=== PATIENT | female | born 1945 | race African-American/Black ===

== ENCOUNTER → 2017-09-17 | Outpatient (CLI) | payer MEDICARE ==
--- NOTE | 2017-09-17 17:36 | WOMENS IMAGING REPORT ---
EXAM DESCRIPTION: BILAT SCREENING MAMMO W/CAD COMPLETED DATE/TIME: 09/17/2017 8:55 am REASON FOR STUDY: SCREENING MAMMO Z12.31 ENCNTR SCREEN MAMMOGRAM FOR MALIGNANT NEOPLASM OF EVONNE COMPARISON: 2014, 2015 TECHNIQUE: Standard craniocaudal and mediolateral oblique views of each breast recorded using digita l acquisition. LIMITATIONS: None. FINDINGS: No masses, calcifications or architectural distortion. No areas of suspicion. Read with the assistance of CAD. .[facility] - R2 Cenova Version 1.3 .[facility] Imaging - R2 Cenova Version 1.3 .[facility] Imaging - R2 Cenova Version 2.4 .[facility] [place] - R2 Cenova Version 2.4 .[facility] - R2 Curtain Worker Version 9.2 IMPRESSION: NORMAL MAMMOGRAM. BIRADS 1. BREAST DENSITY: b. There are scattered areas of fibroglandular density. BIRAD: 1 NEGATIVE RECOMMENDATION: ROUTINE SCREENING COMMENT: The patient has been notified of the results by letter per MQSA requirements. Additional no tification policies are in place for contacting patient with suspicious or incomplete findings. Quality ID #[id number]: The [employer] recommends an annual screening mammogram for women aged 40 years or over. This facility utilizes a reminder system to ensure that all patients receive reminder letters, and/or direct phone calls for appointments. This includes reminders for routine scr eening mammograms, diagnostic mammograms, or other Breast Imaging Interventions when appropriate. Th is patient will be placed in the appropriate reminder system. The [employer] (ACR) has developed recommendations for screening MRI of the breast s in certain patient populations, to be used in conjunction with mammography. Breast MRI surveillanc e may be appropriate for women with more than 20% lifetime risk of developing breast cancer as deter mined by genetic testing, significant family history of the disease, or history of mantle radiation f or Hodgkins Disease. ACR Practice Guidelines 2008. TECHNICAL DOCUMENTATION: FINDING NUMBER: (1) ASSESSMENT: (1) JOB ID: [id number] [employer]- All Rights Reserved
== END ==
LOC: WI 08:32
PROVIDERS: ATTEND Internal Medicine
DX: Z12.31 Encounter for screening mammogram for malignant neoplasm of breast (principal)
CPT/HCPCS: 77067

== ENCOUNTER → 2017-12-24 | Outpatient (CLI) | payer MEDICAID, MEDICARE ==
--- NOTE | 2017-12-24 10:18 | RADIOLOGY REPORT (SQ) ---
EXAM DESCRIPTION: U/S RETROPERITON (RENAL/AORTA) COMPLETED DATE/TIME: 12/24/2017 10:02 am REASON FOR STUDY: CKD STAGE IV N18.4 CHRONIC KIDNEY DISEASE, STAGE 4 (SEVERE) COMPARISON: None. TECHNIQUE: Dynamic and static grayscale images acquired of the kidneys and bladder and recorded on P ACS. Additional selected color Doppler and spectral images recorded. LIMITATIONS: None. FINDINGS: RIGHT KIDNEY: The right kidney measures 9.3 cm in length, normal size. Diffuse increased echogenicity suggests underlying medical renal disease. No solid or suspicious masses. No hydroneph rosis. No calcifications. LEFT KIDNEY: The left kidney measures 9.1 cm in length, normal size. Diffuse increased echogenicity of the kidney, suggests underlying medical renal disease. A 2.6 x 2.2 x 2.1 cm cyst lower pole of t he kidney. No hydronephrosis. No calcifications. BLADDER: No masses. OTHER FINDINGS: No other significant finding. IMPRESSION: 1 No hydronephrosis. 2 Diffuse increased echogenicity of the kidneys, suggests underlying medical renal disease. 3 Left renal cyst. TECHNICAL DOCUMENTATION: JOB ID: [id number]- All Rights Reserved Reading location - IP/workstation name: [email or web address]
== END ==
LOC: RAD 08:20
PROVIDERS: ATTEND Internal Medicine Nephrology
DX: N18.4 Chronic kidney disease, stage 4 (severe) (principal); E11.9 Type 2 diabetes mellitus without complications; E79.0 Hyperuricemia without signs of inflammatory arthritis and tophaceous disease
CPT/HCPCS: 76770

== ENCOUNTER 2020-01-03 13:49 | Inpatient (IN) | payer MEDICAID, MEDICARE ==
--- NOTE | 2020-01-03 14:16 | ER Document Report ---
ED Fall - General Chief Complaint: Fall Stated Complaint: WEAKNESS Time Seen by Provider: 01/03/20 14:00 Primary Care Provider: GLEN MILLAN MD [Primary Care Provider] - Follow up as needed Notes: Patient is a 74-year-old female who presents the emergency department with weakness, poor appetite, and a fall that happened at 1:00 this morning. Patient was brought in by ambulance and according to the ambulance report, patient was still lying on the floor. Patient states that she was incontinent of urine when she was on the floor. Patient reports that she has had a poor appetite for the past month. Patient lives by herself. She does not receive home health. Patient states that she is also had increased swelling to bilateral lower extremities. Past medical history includes diabetes, hypertension, hyperlipidemia, chronic pain, chronic kidney disease, stage IV and constipation. Past surgical history includes ankle surgery and "left breast cyst removal." TRAVEL OUTSIDE OF THE [place] IN LAST 30 DAYS: No - Related data Allergies/Adverse Reactions: No Known Allergies Allergy (Verified 06/28/16 10:27) Past Medical History - General Information source: Patient - Social History Smoking Status: Never Smoker Chew tobacco use (# tins/day): No Frequency of alcohol use: None Drug Abuse: None Family History: Reviewed & Not Pertinent Patient has homicidal ideation: No - Past Medical History Cardiac Medical History: Reports: Hx Hypercholesterolemia, Hx Hypertension Endocrine Medical History: Reports: Hx Diabetes Mellitus Type 2 Past Surgical History: Reports: Hx Orthopedic Surgery - right left/sacrum - Immunizations Hx Diphtheria, Pertussis, Tetanus Vaccination: Yes Review of Systems - Review of Systems Notes: REVIEW OF SYSTEMS: CONSTITUTIONAL : Denies recent illness. Denies recent unintentional weight loss. Denies fever, chills, or sweats. EENT: Denies eye, ear, throat, or mouth pain, discharge, or symptoms. Denies nasal or sinus congestion. CARDIOVASCULAR: Denies chest pain. RESPIRATORY: Denies shortness of breath, cough, congestion, difficulty breathing, or wheezing. GASTROINTESTINAL: Denies nausea, vomiting, and diarrhea. Denies abdominal pain. Denies constipation. GENITOURINARY: Denies difficulty urinating, burning, blood in urine, urgency or frequency. MUSCULOSKELETAL: Denies neck and back pain. Denies joint pain or swelling. SKIN: Denies rash, itchiness, or lesions HEMATOLOGIC : Denies easy bruising or bleeding. LYMPHATIC: Denies swollen, painful, enlarged glands. NEUROLOGICAL: See HPI. PSYCHIATRIC: Denies stress, anxiety, alteration in sleep patterns, or depression. All other systems reviewed and negative. Physical Exam - Vital signs Vitals: Temp Pulse Resp BP Pulse Ox 97.9 F 80 24 H 168/71 H 95 01/03/20 14:03 01/03/20 14:03 01/03/20 14:03 01/03/20 14:03 01/03/20 14:03 - Notes Notes: PHYSICAL EXAMINATION: GENERAL: Appears well, healthy, well-nourished, no acute distress. HEAD: Normocephalic, atraumatic. EYES: PERRL, conjunctiva normal, all extraocular movements intact, sclera nonicteric ENT: Moist mucous membranes. NECK: Supple, no noticeable swelling, redness, rash. Normal range of motion. LUNGS: Equal breath sounds bilaterally and clear to auscultation. No wheezes rales or rhonchi. CARDIOVASCULAR: S1-S2, regular rate, regular rhythm. Radial pulses 2+, normal. ABDOMEN: Normoactive bowel sounds. Soft, nontender, no guarding, no rebound tenderness, and no masses palpated. EXTREMITIES: Normal strength and range of motion, no pitting or edema. No cyanosis. NEUROLOGICAL: Moves all extremities upon command. Strength 5/5 in all extremities. PSYCH: Normal mood, normal affect. SKIN: Warm, dry. No rash, lesions, ulcerations noted. Normal skin turgor. Course - Re-evaluation Re-evalutation: 01/03/20 16:03 Patient's hematology does not show leukocytosis, but there is a left shift. CT of the head is unremarkable. Chest x-ray shows pulmonary edema or pneumonia, but this is most likely pulmonary edema, as her BNP is elevated at 2860. Troponin is unremarkable. I spoke with Dr. Millan, the patient's primary care provider. She will be admitted to [facility]. Awaiting urinalysis. Straight cath was ordered. - Vital Signs Vital signs: Temp Pulse Resp BP Pulse Ox 97.9 F 80 24 H 168/71 H 95 01/03/20 14:04 01/03/20 14:03 01/03/20 14:03 01/03/20 14:03 01/03/20 14:24 - Laboratory Result Diagrams: 01/03/20 14:06 01/03/20 14:06 Laboratory results interpreted by me: 01/03/20 01/03/20 01/03/20 14:06 14:06 14:06 RDW 16.5 H Plt Count 143 L Seg Neutrophils % 79.2 H Sodium 135.5 L BUN 40 H Creatinine 1.34 H Est GFR ( Amer) 47 L Est GFR (MDRD) Non-Af 38 L Glucose 188 H Calcium 10.3 H AST 118 H ALT 96 H Creatine Kinase 2539 H NT-Pro-B Natriuret Pep 2860 H - EKG Interpretation by Me Additional EKG results interpreted by me: 01/03/20 16:04 Sinus rhythm with right bundle branch block. Rate 61. MS 152; QRS 130; QT 473; QTc 480. No ST elevations. T wave inversions noted. Patient denies any chest pain at this time. Discharge - Discharge Clinical Impression: Dehydration, Elevated CK Condition: Stable Disposition: ADMITTED INPATIENT Admitting Provider: Deepak Unit Admitted: IMCU Referrals: GLEN MILLAN MD [Primary Care Provider] - Follow up as needed
[2020-01-03 14:23] LABS: ABSOLUTE BASOPHILS # (AUTO) 0.1 10^3/uL (0.0-0.2); ABSOLUTE EOSINOPHILS # (AUTO) 0.1 10^3/uL (0.0-0.6); ABSOLUTE LYMPHOCYTES (AUTO) 1.4 10^3/uL (0.5-4.7); ABSOLUTE MONOCYTES (AUTO) 0.6 10^3/uL (0.1-1.4); ABSOLUTE NEUT (AUTO) 7.7 10^3/uL (1.7-8.2); BASOPHILS % (AUTO) 0.5 % (0-2); EOSINOPHILS % (AUTO) 0.7 % (0-6); HEMATOCRIT 40.8 % (36.0-47.0); HEMOGLOBIN 13.6 g/dL (12.0-15.5); MEAN CORPUSCULAR HEMOGLOBIN 27.3 pg (27.0-33.4); MEAN CORPUSCULAR HGB CONC 33.3 g/dL (32.0-36.0); MEAN CORPUSCULAR VOLUME 82 fl (80-97); MONOCYTES % (AUTO) 5.6 % (3-13); PLATELET COUNT 143 10^3/uL (150-450); RED BLOOD COUNT 4.99 10^6/uL (3.72-5.28); RED CELL DISTRIBUTION WIDTH 16.5 % (11.5-14.0); SEGMENTED NEUTROPHILS % (AUTO) 79.2 % (42-78); TOTAL CELLS COUNTED % (AUTO) 100 %; WHITE BLOOD COUNT 9.8 10^3/uL (4.0-10.5)
[2020-01-03 14:29] LABS: INTERNATIONAL RATION (INR) 1.07; PROTHROMBIN TIME 13.9 SEC (11.4-15.4)
[2020-01-03 14:30] LABS: PARTIAL THROMBOPLASTIN TIME 25.1 SEC (23.5-35.8)
[2020-01-03 14:46] LABS: ALBUMIN 3.7 g/dL (3.5-5.0); ALKALINE PHOSPHATASE 76 U/L (38-126); ANION GAP 8 (5-19); ASPARTATE AMINO TRANSFERASE 118 U/L (14-36); BILIRUBIN,TOTAL 0.8 mg/dL (0.2-1.3); BLOOD UREA NITROGEN 40 mg/dL (7-20); CALCIUM 10.3 mg/dL (8.4-10.2); CARBON DIOXIDE 28 mmol/L (22-30); CHLORIDE 100 mmol/L (98-107); GLUCOSE 188 mg/dL (75-110); POTASSIUM 4.2 mmol/L (3.6-5.0); TOTAL PROTEIN 7.8 g/dL (6.3-8.2)
[2020-01-03 14:54] LABS: CREATINE KINASE 2539 U/L (30-135)
--- NOTE | 2020-01-03 14:56 | RADIOLOGY REPORT (SQ) ---
EXAM DESCRIPTION: CT HEAD WITHOUT IMAGES COMPLETED DATE/TIME: 01/03/2020 2:43 pm REASON FOR STUDY: fall; weakness COMPARISON: None. TECHNIQUE: Axial images acquired through the brain without intravenous contrast. Images reviewed wi th bone, brain and subdural windows. Additional sagittal and coronal reconstructions were generated. Images stored on PACS. All CT scanners at this facility use dose modulation, iterative reconstruction, and/or weight based d osing when appropriate to reduce radiation dose to as low as reasonably achievable (ALARA). [facility]: Dose Right [facility]: CareDose [facility]: Dose Right [facility]: Teradose 4D [facility]: Smart AlignAlytics RADIATION DOSE: CT Rad equipment meets quality standard of care and radiation dose reduction techniq ues were employed. CTDIvol: 53.2 mGy. DLP: 1124 mGy-cm.mGy. LIMITATIONS: None. FINDINGS: VENTRICLES: Prominent. CEREBRUM: No masses. No hemorrhage. No midline shift. Areas of low density in the white matter mos t likely due to chronic micro-vascular ischemic change. No evidence for acute infarction. CEREBELLUM: Old right cerebellar infarct. No masses. No hemorrhage. No alteration of density. No evidence for acute infarction. EXTRAAXIAL SPACES: Age-related involutional change. No fluid collections. No masses. ORBITS AND GLOBE: No intra- or extraconal masses. Normal contour of globe without masses. CALVARIUM: No fracture. PARANASAL SINUSES: No fluid or mucosal thickening. SOFT TISSUES: No mass or hematoma. OTHER: Dense calcifications in the distal right internal carotid artery. No other significant findin g. IMPRESSION: CHRONIC CHANGES OF ATROPHY AND MICROVASCULAR ISCHEMIA. OLD RIGHT CEREBELLAR INFARCT. N O ACUTE PROCESS. EVIDENCE OF ACUTE STROKE: NO. TECHNICAL DOCUMENTATION: JOB ID: [id number] Quality ID # [id number]: Final reports with documentation of one or more dose reduction techniques (e.g., Au tomated exposure control, adjustment of the mA and/or kV according to patient size, use of iterative reconstruction technique) 2010 [employer]- All Rights Reserved Reading location - IP/workstation name: [email or web address]
--- NOTE | 2020-01-03 14:57 | RADIOLOGY REPORT (SQ) ---
EXAM DESCRIPTION: CHEST SINGLE VIEW IMAGES COMPLETED DATE/TIME: 01/03/2020 2:48 pm REASON FOR STUDY: weakness COMPARISON: 02/03/2009. NUMBER OF VIEWS: One view. TECHNIQUE: Single frontal radiographic view of the chest acquired. LIMITATIONS: None. FINDINGS: LUNGS AND PLEURA: Diffuse airspace disease in the left lung. Bilateral pleural effusions. MEDIASTINUM AND HILAR STRUCTURES: No masses or contour abnormality. HEART AND VASCULATURE: Cardiac enlargement. Vascular congestion. BONES: No acute findings. HARDWARE: None in the chest. OTHER: No other significant finding. IMPRESSION: CARDIAC ENLARGEMENT. VASCULAR CONGESTION. DIFFUSE AIRSPACE DISEASE IN THE LEFT LUNG MA Y BE DUE TO ASYMMETRIC PULMONARY EDEMA OR PNEUMONIA. TECHNICAL DOCUMENTATION: JOB ID: [id number] 2010 [employer]- All Rights Reserved Reading location - IP/workstation name: [email or web address]
[2020-01-03 14:59] LABS: TROPONIN I 0.086 ng/mL
[2020-01-03] MEDS ORDERED: NORMAL SALINE 1000 ML 1,000 ML IV ONE (15:36)
--- NOTE | 2020-01-03 17:10 | EKG REPORT ---
SEVERITY:- ABNORMAL ECG - SINUS RHYTHM RIGHT BUNDLE BRANCH BLOCK LVH WITH IVCD AND SECONDARY REPOL ABNRM : Confirmed by: Chloe Anderson MD 03-Jan-2020 17:09:09
[2020-01-03 17:17] LABS: APPEARANCE,URINE CLEAR; BILIRUBIN,URINE NEGATIVE (NEGATIVE); COLOR,URINE YELLOW; GLUCOSE, URINE NEGATIVE (NEGATIVE); KETONES,URINE NEGATIVE (NEGATIVE); LEUKOCYTE ESTERASE,URINE NEGATIVE (NEGATIVE); NITRITE,URINE NEGATIVE (NEGATIVE); PROTEIN,URINE 100 mg/dL (NEGATIVE); URINE SPECIFIC GRAVITY 1.015; UROBILINOGEN,URINE NEGATIVE mg/dL (<2.0)
[2020-01-03] MEDS ORDERED: DEXTROSE 40% GEL 15 GM TUBE X 2 PO PRN (20:00)
[2020-01-03] MEDS ORDERED: DEXTROSE 50%-WATER SYRINGE 25 GM/50 ML DOSE IV PRN (20:00)
[2020-01-03] MEDS ORDERED: GLUCAGON,HUMAN RECOMB 1 MG INJ IM PRN ×2 (20:00→22:29)
[2020-01-03] MEDS ORDERED: DEXTROSE 50%-WATER SYRINGE 12.5 GM/25 ML DOSE IV PRN (20:00)
[2020-01-03] MEDS ORDERED: INSULIN LISPRO 100 UNIT/ML 3 ML VIAL SUBCUT SCH (22:00)
[2020-01-03] MEDS ORDERED: ACETAMINOPHEN 325 MG TABLET PO PRN (22:28)
[2020-01-03] MEDS ORDERED: DEXTROSE 40% GEL 15 GM TUBE PO PRN ×2 (22:29)
[2020-01-03] MEDS ORDERED: DEXTROSE 50%-WATER 25 GM/50 ML DISP.SYRIN IV PRN ×2 (22:29)
[2020-01-03] MEDS ORDERED: LISINOPRIL 10 MG TABLET PO ONE (23:00)
[2020-01-03] MEDS ORDERED: SIMVASTATIN 40 MG TABLET PO SCH (23:00)
[2020-01-03] MEDS ORDERED: SIMVASTATIN 40 MG TABLET PO ONE (23:00)
[2020-01-03] MEDS ORDERED: METOPROLOL TARTRATE 50 MG TABLET PO ONE (23:00)
[2020-01-03] MEDS ORDERED: INSULIN LISPRO 100 UNIT/ML 3 ML VIAL SUBCUT ONE (23:00)
[2020-01-03] MEDS ORDERED: HYDROCHLOROTHIAZIDE 25 MG TABLET PO ONE (23:00)
[2020-01-04] MEDS ORDERED: INSULIN LISPRO 100 UNIT/ML 3 ML VIAL SUBCUT SCH (08:00)
[2020-01-04] MEDS ORDERED: HYDROCHLOROTHIAZIDE 25 MG TABLET PO SCH (10:00)
[2020-01-04] MEDS: GLIMEPIRIDE 1 MG TABLET PO SCH (10:41)
[2020-01-04] MEDS: PIOGLITAZONE HCL 15 MG TABLET PO SCH (10:41)
[2020-01-04] MEDS: ASPIRIN 81 MG TABLET, ENT COATED PO SCH ×2 (10:41→15:03)
[2020-01-04] MEDS: METOPROLOL TARTRATE 50 MG TABLET PO SCH ×2 (10:43→17:14)
[2020-01-04] MEDS: LISINOPRIL 10 MG TABLET PO SCH ×3 (10:43→21:22)
[2020-01-04] MEDS ORDERED: DEXTROSE 40% GEL 15 GM TUBE PO PRN (11:30)
[2020-01-04] MEDS ORDERED: DEXTROSE 40% GEL 15 GM TUBE X 2 PO PRN (11:30)
[2020-01-04] MEDS ORDERED: GLUCAGON,HUMAN RECOMB 1 MG INJ IM PRN (11:30)
[2020-01-04] MEDS ORDERED: DEXTROSE 50%-WATER SYRINGE 12.5 GM/25 ML DOSE IV PRN (11:30)
[2020-01-04] MEDS ORDERED: DEXTROSE 50%-WATER SYRINGE 25 GM/50 ML DOSE IV PRN (11:30)
[2020-01-04] MEDS ORDERED: ULTRACET PO SCH (13:15)
[2020-01-04] MEDS ORDERED: (PENDING PHARMACY ID) (Lisinopril/Hydrochlorothiazide [Lisinopril-Hctz 20-12.5 Mg Tab] 1 T PO SCH (13:15)
[2020-01-04] MEDS: BRIMONIDINE TARTRATE 0.2% OPH SOLN 5 ML OU SCH ×2 (15:04→17:12)
[2020-01-04] MEDS: TIMOLOL MALEATE 0.5% OPH SOLN 5 ML OU SCH ×2 (15:05→17:12)
--- NOTE | 2020-01-04 16:26 | PDOC H&P ---
History of Present Illness Admission Date/PCP: 01/03/20 16:23 GLEN MILLAN MD History of Present Illness: RAFAEL MCLAUGHLIN is a 74 year old female, She came to the emergency room for evaluation of a fall, she said she fell about 1 AM, she could not get of the floor, she called rescue squad on arrival she was still found on the floor by the ambulance staff, she was transported from her residence to the emergency room for evaluation. There was no antecedent loss of consciousness, there was no chest pain, there was no shortness of breath. In the emergency room CT head was done, there was no hemorrhage, there was old right cerebellar infarct no masses. The emergency room provider felt patient was dehydrated and needed to be admitted to the hospital. She has a history of chronic kidney disease stage III emergency room the serum creatinine was 1.34 the CPK was 2539 the BNP was 2860. I am very concerned about possible CVA in this patient, she has focal weakness when I examined especially on the left side of her body, a diffusion- weighted imaging is more sensitive in the diagnosis of cerebral infarct or cerebellar infarct Past Medical History Cardiac Medical History: Reports: Hyperlipidema, Hypertension Neurological Medical History: Reports: Ischemic CVA Endocrine Medical History: Reports: Diabetes Mellitus Type 2 Renal/ Medical History: Reports: Other - Chronic kidney disease stage III Past Surgical History Past Surgical History: Reports: Orthopedic Surgery - right left/sacrum,right hip replacement Social History Smoking Status: Never Smoker Electronic Cigarette use?: No Frequency of Alcohol Use: None Hx Recreational Drug Use: No Drugs: None Hx Prescription Drug Abuse: No Family History Family History: Reviewed & Not Pertinent Parental Family History Reviewed: Yes Children Family History Reviewed: Yes Sibling(s) Family History Reviewed.: Yes Medication/Allergy Home Medications: Metoprolol Tartrate [Lopressor] 50 mg PO BID 01/03/20 Simvastatin 40 mg PO QHS 01/03/20 Aspirin [Adult Low Dose Aspirin EC] 81 mg PO DAILY 01/04/20 Brimonidine Tartrate [Alphagan 0.2% Oph Soln 5 ml] 1 drop OU BID 01/04/20 Glimepiride 2 mg PO DAILY 01/04/20 Hydralazine HCl 100 mg PO BID@0800,1900 01/04/20 Insulin Detemir [Levemir Insulin 100 units/mL Insulin Pen] 25 units SQ QPM 01/04/20 Linaclotide [Linzess] 290 mcg PO DAILY 01/04/20 Lisinopril/Hydrochlorothiazide [Lisinopril-Hctz 20-12.5 mg Tab] 1 tab PO BID 01/04/20 Pioglitazone HCl [Actos] 15 mg PO DAILY 01/04/20 Timolol Maleate [Timoptic 0.5% Oph Soln 5 ml] 1 drop OU BID 01/04/20 Ultracet 37.5/325mg 1 tab PO Q6 01/04/20 Allergies/Adverse Reactions: No Known Allergies Allergy (Verified 06/28/16 10:27) Review of Systems Constitutional: ABSENT: chills, fever(s), headache(s), weight gain, weight loss Eyes: ABSENT: visual disturbances Ears: ABSENT: hearing changes Cardiovascular: ABSENT: chest pain, dyspnea on exertion, edema, orthropnea, palpitations Respiratory: ABSENT: cough, hemoptysis Gastrointestinal: ABSENT: abdominal pain, constipation, diarrhea, hematemesis, hematochezia, nausea, vomiting Genitourinary: ABSENT: dysuria, hematuria Musculoskeletal: ABSENT: joint swelling Integumentary: ABSENT: rash, wounds Neurological: PRESENT: weakness. ABSENT: abnormal gait, abnormal speech, confusion, dizziness, focal weakness, syncope Psychiatric: ABSENT: anxiety, depression, homidical ideation, suicidal ideation Endocrine: ABSENT: cold intolerance, heat intolerance, menstrual abnormalities, polydipsia, polyuria Hematologic/Lymphatic: ABSENT: easy bleeding, easy bruising, lymphadenopathy Physical Exam Vital Signs: Temp Pulse Resp BP Pulse Ox 98.4 F 73 19 159/65 H 96 01/04/20 08:06 01/04/20 08:06 01/04/20 08:06 01/04/20 08:06 01/04/20 08:06 Intake & Output 01/03/20 01/04/20 01/05/20 06:59 06:59 06:59 Intake Total 1000 Balance 1000 Weight 76.1 kg General appearance: PRESENT: no acute distress Head exam: PRESENT: atraumatic, normocephalic Eye exam: PRESENT: PERRLA Ear exam: PRESENT: normal external ear exam Mouth exam: PRESENT: moist, tongue midline Neck exam: PRESENT: full ROM Respiratory exam: PRESENT: clear to auscultation freddy Cardiovascular exam: PRESENT: RRR, +S1, +S2 Pulses: PRESENT: normal dorsalis pedis pul, +2 pedal pulses bilateral Vascular exam: PRESENT: normal capillary refill GI/Abdominal exam: PRESENT: normal bowel sounds, soft Rectal exam: PRESENT: deferred Neurological exam: PRESENT: alert, motor sensory deficit Psychiatric exam: PRESENT: appropriate affect, normal mood Skin exam: PRESENT: dry, intact, warm Results Laboratory Results: 01/03/20 14:06 01/03/20 14:06 01/03/20 16:06 Urine Color YELLOW Urine Appearance CLEAR Urine pH 6.0 Ur Specific [place] 1.015 Urine Protein 100 H Urine Glucose (UA) NEGATIVE Urine Ketones NEGATIVE Urine Blood SMALL H Urine Nitrite NEGATIVE Ur Leukocyte Esterase NEGATIVE Urine WBC (Auto) 1 Urine RBC (Auto) 2 01/03/20 01/03/20 14:06 14:06 Creatine Kinase 2539 H Troponin I 0.086 NT-Pro-B Natriuret Pep 2860 H Impressions: Chest X-Ray 01/03/20 14:13 IMPRESSION: CARDIAC ENLARGEMENT. VASCULAR CONGESTION. DIFFUSE AIRSPACE DISEASE IN THE LEFT LUNG MAY BE DUE TO ASYMMETRIC PULMONARY EDEMA OR PNEUMONIA. Head CT 01/03/20 14:14 IMPRESSION: CHRONIC CHANGES OF ATROPHY AND MICROVASCULAR ISCHEMIA. OLD RIGHT CEREBELLAR INFARCT. NO ACUTE PROCESS. EVIDENCE OF ACUTE STROKE: NO. Assessment & Plan - Diagnosis (1) Rhabdomyolysis Qualifiers: Rhabdomyolysis type: traumatic Encounter type: initial encounter Qualified Code(s): T79.6XXA - Traumatic ischemia of muscle, initial encounter Is this a current diagnosis for this admission?: Yes Plan: Start normal saline with Lasix infusion (2) Chronic kidney disease, stage 3 Is this a current diagnosis for this admission?: Yes (3) Fall Qualifiers: Encounter type: initial encounter Qualified Code(s): W19.XXXA - Unspecified fall, initial encounter Is this a current diagnosis for this admission?: Yes Plan: I suspect she sustained a CVA,, MRI brain showed bilateral cerebellar infarct right more than left, this is probably the reason why she fell because of lack of coordination. She has cerebellar infarct with episodes of vertigo, lack of coordination and fall (4) T2DM (type 2 diabetes mellitus) Qualifiers: Diabetes mellitus halfway insulin use: with exterminator helper use Diabetes mellitus complication status: with kidney complications Diabetes mellitus complication detail: with chronic kidney disease Chronic kidney disease stage: stage 3 (moderate) Qualified Code(s): E11.22 - Type 2 diabetes mellitus with diabetic chronic kidney disease; N18.3 - Chronic kidney disease, stage 3 (moderate); Z79.4 - long term (current) use of insulin Is this a current diagnosis for this admission?: Yes (5) Cerebellar infarction Is this a current diagnosis for this admission?: Yes
--- NOTE | 2020-01-04 16:56 | RADIOLOGY REPORT (SQ) ---
EXAM DESCRIPTION: MRI HEAD WITHOUT IMAGES COMPLETED DATE/TIME: 01/04/2020 4:46 pm REASON FOR STUDY: suspect CVA COMPARISON: CT dated 01/03/2020. TECHNIQUE: Multiplanar imaging includes non-contrasted T1, T2, FLAIR, and diffusion with ADC map seq uences. Images stored on PACS. LIMITATIONS: None. FINDINGS: ANATOMY: No anomalies. Normal vascular flow voids. Pituitary fossa normal. CSF SPACES: Atrophy induced prominence of ventricles and CSF spaces. CEREBRUM: High signal intensity lesions scattered throughout the white matter on FLAIR imaging with d istribution suggesting micro-vascular ischemic changes. No evidence of hemorrhage, mass, or extraaxi al fluid collection. POSTERIOR FOSSA: Old cerebellar infarcts, right greater than left. No hemorrhage. No edema, masses or mass effect. Internal auditory canals, cerebello-pontine angles, mastoids normal. DIFFUSION IMAGING: Negative for acute or sub-acute infarction. ORBITS: No masses. Globes normal. PARANASAL SINUSES: No fluid levels. Mucosa normal. OTHER: No other significant finding. IMPRESSION: ATROPHY AND CHRONIC MICRO-VASCULAR ISCHEMIC CHANGES. OLD CEREBELLAR INFARCTS, RIGHT GRE ATER THAN LEFT. NO ACUTE FINDINGS. EVIDENCE OF ACUTE STROKE: NO. TECHNICAL DOCUMENTATION: JOB ID: [id number] 2010 [employer]- All Rights Reserved Reading location - IP/workstation name: [email or web address]
[2020-01-04] MEDS: NORMAL SALINE 1000 ML 1,000 ML IV PRN (17:04)
[2020-01-04] MEDS: INSULIN LISPRO 100 UNIT/ML 3 ML VIAL SUBCUT SCH ×2 (17:07→21:21)
[2020-01-04] MEDS: HEPARIN SOD (PORCINE) 5,000 UNIT/ML 1 ML VIAL SUBCUT SCH ×2 (17:10→21:22)
[2020-01-04] MEDS: INSULIN GLARGINE,HUM.REC.ANLOG 1,000 UNIT/10 ML VIAL SUBCUT SCH (17:13)
--- NOTE | 2020-01-04 17:32 | PDOC PROGRESS REPORT ---
Subjective Progress Note for:: 01/04/20 Subjective:: Patient was admitted yesterday due to fall associated with rhabdomyolysis. MRI of the brain demonstrated old cerebellar infarct. Patient with bilateral disorder and repeated fall. Reason For Visit: RHABDOMYOLYSIS,FALL,FL CKD STAGE 3 Physical Exam Vital Signs: Temp Pulse Resp BP Pulse Ox 98.4 F 71 19 159/65 H 96 01/04/20 08:06 01/04/20 14:00 01/04/20 08:06 01/04/20 08:06 01/04/20 08:06 Intake & Output 01/03/20 01/04/20 01/05/20 06:59 06:59 06:59 Intake Total 1000 Balance 1000 Weight 76.1 kg General appearance: PRESENT: no acute distress Eye exam: PRESENT: PERRLA Respiratory exam: PRESENT: clear to auscultation freddy Cardiovascular exam: PRESENT: +S1, +S2 GI/Abdominal exam: PRESENT: soft Neurological exam: PRESENT: alert, CN II-XII grossly intact Results Laboratory Results: 01/03/20 14:06 01/03/20 14:06 01/03/20 01/03/20 14:06 14:06 Creatine Kinase 2539 H Troponin I 0.086 NT-Pro-B Natriuret Pep 2860 H Impressions: Chest X-Ray 01/03/20 14:13 IMPRESSION: CARDIAC ENLARGEMENT. VASCULAR CONGESTION. DIFFUSE AIRSPACE DISEASE IN THE LEFT LUNG MAY BE DUE TO ASYMMETRIC PULMONARY EDEMA OR PNEUMONIA. Head CT 01/03/20 14:14 IMPRESSION: CHRONIC CHANGES OF ATROPHY AND MICROVASCULAR ISCHEMIA. OLD RIGHT CEREBELLAR INFARCT. NO ACUTE PROCESS. EVIDENCE OF ACUTE STROKE: NO. Head MRI 01/04/20 00:00 IMPRESSION: ATROPHY AND CHRONIC MICRO-VASCULAR ISCHEMIC CHANGES. OLD CEREBELLAR INFARCTS, RIGHT GREATER THAN LEFT. NO ACUTE FINDINGS. EVIDENCE OF ACUTE STROKE: NO. Assessment & Plan - Diagnosis (1) Rhabdomyolysis Qualifiers: Rhabdomyolysis type: traumatic Encounter type: initial encounter Qualif ied Code(s): T79.6XXA - Traumatic ischemia of muscle, initial encounter Is this a current diagnosis for this admission?: Yes Plan: Continue IV fluid, normal saline with Lasix infusion to prevent overload. Send urine for myoglobin (2) Chronic kidney disease, stage 3 Is this a current diagnosis for this admission?: Yes (3) Fall Qualifiers: Encounter type: initial encounter Qualified Code(s): W19.XXXA - Unspecified fall, initial encounter Is this a current diagnosis for this admission?: Yes (4) T2DM (type 2 diabetes mellitus) Qualifiers: Diabetes mellitus intermediate school teacher insulin use: with intermediate school teacher use Diabetes mellitus complication status: with kidney complications Diabetes mellitus complication detail: with chronic kidney disease Chronic kidney disease stage: stage 3 (moderate) Qualified Code(s): E11.22 - Type 2 diabetes mellitus with diabetic chronic kidney disease; N18.3 - Chronic kidney disease, stage 3 (moderate); Z79.4 - halfway (current) use of insulin Is this a current diagnosis for this admission?: Yes (5) Cerebellar infarction Is this a current diagnosis for this admission?: Yes - Time Time Spent with patient: 25-34 minutes Level of Care: IMCU
[2020-01-04] MEDS ORDERED: INSULIN DETEMIR 25 UNIT SQ SCH (18:00)
[2020-01-04] MEDS ORDERED: [UNRECOGNIZED DRUG - OTHER] SQ SCH (18:00)
[2020-01-04] MEDS ORDERED: FUROSEMIDE INJ/PF 100 MG/10 ML SDV INJ PRN (18:03)
[2020-01-04] MEDS: HYDRALAZINE HCL 50 MG TABLET PO SCH (18:10)
[2020-01-04 18:11] LABS: INTERNATIONAL RATION (INR) 1.15; PARTIAL THROMBOPLASTIN TIME 31.6 SEC (23.5-35.8); PROTHROMBIN TIME 14.8 SEC (11.4-15.4)
[2020-01-04 18:25] LABS: PHOSPHORUS 2.7 mg/dL (2.5-4.5)
[2020-01-04 18:43] LABS: FREE T4 (FREE THYROXINE) 1.6 ng/dL (0.78-2.19)
[2020-01-04 18:47] LABS: TROPONIN I 0.107 ng/mL
[2020-01-04 18:58] LABS: THYROID STIMULATING HORMONE 0.99 uIU/mL (0.47-4.68)
[2020-01-04] MEDS ORDERED: (PENDING PHARMACY ID) (Hydralazine Hcl [Hydralazine Hcl] 100 MG) PO SCH (19:00)
[2020-01-04] MEDS: NORMAL SALINE 250 ML with FUROSEMIDE 250 MG IV PRN ×2 (19:24)
[2020-01-04] MEDS: HYDROCHLOROTHIAZIDE 12.5 MG TABLET PO SCH (21:21)
[2020-01-04 22:56] LABS: APPEARANCE,URINE CLEAR; BILIRUBIN,URINE NEGATIVE (NEGATIVE); COLOR,URINE YELLOW; GLUCOSE, URINE NEGATIVE (NEGATIVE); KETONES,URINE NEGATIVE (NEGATIVE); LEUKOCYTE ESTERASE,URINE NEGATIVE (NEGATIVE); NITRITE,URINE NEGATIVE (NEGATIVE); PROTEIN,URINE NEGATIVE (NEGATIVE); UROBILINOGEN,URINE NEGATIVE mg/dL (<2.0)
[2020-01-04 23:21] LABS: URINE AMPHETAMINES SCREEN NEGATIVE; URINE BARBITURATES SCREEN NEGATIVE; URINE BENZODIAZEPINES SCREEN NEGATIVE; URINE COCAINE SCREEN NEGATIVE; URINE MARIJUANA (THC) SCREEN NEGATIVE; URINE METHADONE SCREEN NEGATIVE; URINE PHENCYCLIDINE SCREEN NEGATIVE
[2020-01-04 23:36] LABS: CREATINE KINASE MB 31.9 ng/mL (<4.55); TROPONIN I 0.097 ng/mL
[2020-01-05 06:06] LABS: ABSOLUTE EOSINOPHILS # (AUTO) 0.2 10^3/uL (0.0-0.6); ABSOLUTE LYMPHOCYTES (AUTO) 2.1 10^3/uL (0.5-4.7); ABSOLUTE MONOCYTES (AUTO) 0.8 10^3/uL (0.1-1.4); ABSOLUTE NEUT (AUTO) 5.2 10^3/uL (1.7-8.2); BASOPHILS % (AUTO) 0.4 % (0-2); EOSINOPHILS % (AUTO) 2.8 % (0-6); HEMATOCRIT 33.9 % (36.0-47.0); HEMOGLOBIN 11.6 g/dL (12.0-15.5); LYMPHOCYTES % (AUTO) 25.5 % (13-45); MEAN CORPUSCULAR HEMOGLOBIN 27.7 pg (27.0-33.4); MEAN CORPUSCULAR HGB CONC 34.2 g/dL (32.0-36.0); MEAN CORPUSCULAR VOLUME 81 fl (80-97); PLATELET COUNT 137 10^3/uL (150-450); RED BLOOD COUNT 4.19 10^6/uL (3.72-5.28); RED CELL DISTRIBUTION WIDTH 16.1 % (11.5-14.0); SEGMENTED NEUTROPHILS % (AUTO) 61.3 % (42-78); TOTAL CELLS COUNTED % (AUTO) 100 %; WHITE BLOOD COUNT 8.4 10^3/uL (4.0-10.5)
[2020-01-05] MEDS: HEPARIN SOD (PORCINE) 5,000 UNIT/ML 1 ML VIAL SUBCUT SCH ×3 (06:10→21:41)
[2020-01-05 06:26] LABS: ALBUMIN 2.8 g/dL (3.5-5.0); ALKALINE PHOSPHATASE 55 U/L (38-126); ANION GAP 5 (5-19); ASPARTATE AMINO TRANSFERASE 76 U/L (14-36); BILIRUBIN,TOTAL 0.7 mg/dL (0.2-1.3); BLOOD UREA NITROGEN 35 mg/dL (7-20); CALCIUM 9.3 mg/dL (8.4-10.2); CARBON DIOXIDE 25 mmol/L (22-30); CHLORIDE 105 mmol/L (98-107); CHOLESTEROL 137.07 mg/dL (0-200); CREATINE KINASE 1151 U/L (30-135); GLUCOSE 145 mg/dL (75-110); POTASSIUM 3.8 mmol/L (3.6-5.0); TOTAL PROTEIN 6.4 g/dL (6.3-8.2); TRIGLYCERIDES 84 mg/dL (<150)
[2020-01-05 06:37] LABS: DIRECT LDL 93 mg/dL (<100)
[2020-01-05 06:40] LABS: CREATINE KINASE MB 24.2 ng/mL (<4.55); TROPONIN I 0.092 ng/mL
--- NOTE | 2020-01-05 08:28 | EKG REPORT ---
SEVERITY:- ABNORMAL ECG - SINUS RHYTHM 68 RIGHT BUNDLE BRANCH BLOCK LVH WITH IVCD AND SECONDARY REPOL ABNRM : Confirmed by: Celestino Lagos MD 05-Jan-2020 08:27:55
[2020-01-05] MEDS: GLIMEPIRIDE 1 MG TABLET PO SCH (09:49)
[2020-01-05] MEDS: LISINOPRIL 10 MG TABLET PO SCH ×4 (09:50→21:51)
[2020-01-05] MEDS: ASPIRIN 81 MG TABLET, ENT COATED PO SCH ×2 (09:50→10:20)
[2020-01-05] MEDS: METOPROLOL TARTRATE 50 MG TABLET PO SCH ×2 (09:50→17:18)
[2020-01-05] MEDS: PIOGLITAZONE HCL 15 MG TABLET PO SCH (09:50)
[2020-01-05] MEDS: HYDROCHLOROTHIAZIDE 12.5 MG TABLET PO SCH ×2 (09:50→21:44)
[2020-01-05] MEDS: HYDRALAZINE HCL 50 MG TABLET PO SCH ×2 (09:56→18:55)
[2020-01-05] MEDS: INSULIN LISPRO 100 UNIT/ML 3 ML VIAL SUBCUT SCH ×4 (09:56→21:41)
[2020-01-05] MEDS: NORMAL SALINE 1000 ML 1,000 ML IV PRN ×2 (09:57→18:54)
[2020-01-05] MEDS: BRIMONIDINE TARTRATE 0.2% OPH SOLN 5 ML OU SCH ×2 (09:57→17:18)
[2020-01-05] MEDS: TIMOLOL MALEATE 0.5% OPH SOLN 5 ML OU SCH ×2 (09:57→17:17)
--- NOTE | 2020-01-05 13:48 | PDOC PROGRESS REPORT ---
Subjective Progress Note for:: 01/05/20 Subjective:: Patient seen at the bedside, she looks better today compared to when she was admitted. The chest x-ray from 01/03/2020 showed diffuse airspace disease in the left lung. Bilateral pleural effusion,though patient having no respiratory symptoms, we will repeat a chest x-ray. She has a history of bilateral cerebellar infarction with repeated falls, she will need on discharge a walker with a seat and also a wheelchair, discharge plan will be consulted to make arrangement for this devices. Reason For Visit: RHABDOMYOLYSIS,FALL,IL CKD STAGE 3 Physical Exam Vital Signs: Temp Pulse Resp BP Pulse Ox 98.7 F 65 18 146/61 H 99 01/05/20 11:30 01/05/20 11:30 01/05/20 11:30 01/05/20 11:30 01/05/20 11:30 Intake & Output 01/04/20 01/05/20 01/06/20 06:59 06:59 06:59 Intake Total 1000 1355 348 Output Total 1250 Balance 1000 105 348 Weight 76.1 kg 78.7 kg General appearance: PRESENT: no acute distress Eye exam: PRESENT: PERRLA Respiratory exam: PRESENT: clear to auscultation freddy Cardiovascular exam: PRESENT: +S1, +S2 GI/Abdominal exam: PRESENT: soft Neurological exam: PRESENT: alert, CN II-XII grossly intact Results Laboratory Results: 01/05/20 05:30 01/05/20 05:30 01/04/20 01/04/20 01/04/20 17:50 17:50 17:50 WBC RBC Hgb Hct MCV MCH MCHC RDW Plt Count Seg Neutrophils % Sodium Potassium Chloride Carbon Dioxide Anion Gap BUN Creatinine Est GFR ( Amer) Glucose Calcium Phosphorus 2.7 Magnesium 1.8 Total Bilirubin AST Alkaline Phosphatase Ammonia < 8.7 L Total Protein Albumin Triglycerides Cholesterol LDL Cholesterol Direct VLDL Cholesterol HDL Cholesterol Amylase 43 Lipase 86.8 TSH 0.99 Free T4 1.60 Urine Color Urine Appearance Urine pH Ur Specific [place] Urine Protein Urine Glucose (UA) Urine Ketones Urine Blood Urine Nitrite Ur Leukocyte Esterase Urine WBC (Auto) Urine RBC (Auto) 01/04/20 01/05/20 01/05/20 22:40 05:30 05:30 WBC 8.4 RBC 4.19 Hgb 11.6 L Hct 33.9 L MCV 81 MCH 27.7 MCHC 34.2 RDW 16.1 H Plt Count 137 L Seg Neutrophils % 61.3 Sodium 135.0 L Potassium 3.8 Chloride 105 Carbon Dioxide 25 Anion Gap 5 BUN 35 H Creatinine 1.33 H Est GFR ( Amer) 47 L Glucose 145 H Calcium 9.3 Phosphorus Magnesium Total Bilirubin 0.7 AST 76 H Alkaline Phosphatase 55 Ammonia Total Protein 6.4 Albumin 2.8 L Triglycerides 84 Cholesterol 137.07 LDL Cholesterol Direct 93 VLDL Cholesterol 17.0 HDL Cholesterol 37 L Amylase Lipase TSH Free T4 Urine Color YELLOW Urine Appearance CLEAR Urine pH 5.0 Ur Specific [place] 1.010 Urine Protein NEGATIVE Urine Glucose (UA) NEGATIVE Urine Ketones NEGATIVE Urine Blood NEGATIVE Urine Nitrite NEGATIVE Ur Leukocyte Esterase NEGATIVE Urine WBC (Auto) 1 Urine RBC (Auto) 1 01/03/20 01/03/20 01/04/20 14:06 14:06 17:50 Creatine Kinase 2539 H 1453 H CK-MB (CK-2) Troponin I 0.086 NT-Pro-B Natriuret Pep 2860 H 01/04/20 01/04/20 01/04/20 17:50 23:00 23:00 Creatine Kinase 1293 H CK-MB (CK-2) 41.00 H 31.90 H Troponin I 0.107 0.097 NT-Pro-B Natriuret Pep 2690 H 01/05/20 01/05/20 05:30 05:30 Creatine Kinase 1151 H CK-MB (CK-2) 24.20 H Troponin I 0.092 NT-Pro-B Natriuret Pep Impressions: Chest X-Ray 01/03/20 14:13 IMPRESSION: CARDIAC ENLARGEMENT. VASCULAR CONGESTION. DIFFUSE AIRSPACE DISEASE IN THE LEFT LUNG MAY BE DUE TO ASYMMETRIC PULMONARY EDEMA OR PNEUMONIA. Head CT 01/03/20 14:14 IMPRESSION: CHRONIC CHANGES OF ATROPHY AND MICROVASCULAR ISCHEMIA. OLD RIGHT CEREBELLAR INFARCT. NO ACUTE PROCESS. EVIDENCE OF ACUTE STROKE: NO. Head MRI 01/04/20 00:00 IMPRESSION: ATROPHY AND CHRONIC MICRO-VASCULAR ISCHEMIC CHANGES. OLD CEREBELLAR INFARCTS, RIGHT GREATER THAN LEFT. NO ACUTE FINDINGS. EVIDENCE OF ACUTE STROKE: NO. Assessment & Plan - Diagnosis (1) Rhabdomyolysis Qualifiers: Rhabdomyolysis type: traumatic Encounter type: initial encounter Qualified Code(s): T79.6XXA - Traumatic ischemia of muscle, initial encounter Is this a current diagnosis for this admission?: Yes Plan: The CPK is declining, continue present plan of treatment with intravenous normal saline and furosemide infusion (2) Chronic kidney disease, stage 3 Is this a current diagnosis for this admission?: Yes (3) Fall Qualifiers: Encounter type: initial encounter Qualified Code(s): W19.XXXA - Unspecified fall, initial encounter Is this a current diagnosis for this admission?: Yes Plan: Patient's fall is most likely from cerebellar infarction with lack of coordination and balance problem, she will need walker and wheelchair on discharge (4) T2DM (type 2 diabetes mellitus) Qualifiers: Diabetes mellitus metallurgical inspector insulin use: with care home use Diabetes mellitus complication status: with kidney complications Diabetes mellitus complication detail: with chronic kidney disease Chronic kidney disease stage: stage 3 (moderate) Qualified Code(s): E11.22 - Type 2 diabetes mellitus with diabetic chronic kidney disease; N18.3 - Chronic kidney disease, stage 3 (moderate); Z79.4 - press tender smoke signal (current) use of insulin Is this a current diagnosis for this admission?: Yes (5) Cerebellar infarction Is this a current diagnosis for this admission?: Yes (6) Abnormal CXR Is this a current diagnosis for this admission?: Yes Plan: order CT chest - Time Time Spent with patient: 25-34 minutes Level of Care: [facility]
--- NOTE | 2020-01-05 14:22 | RADIOLOGY REPORT (SQ) ---
EXAM DESCRIPTION: CHEST SINGLE VIEW IMAGES COMPLETED DATE/TIME: 01/05/2020 2:11 pm REASON FOR STUDY: abnormal CXR COMPARISON: 01/03/2020 EXAM PARAMETERS: NUMBER OF VIEWS: One view. TECHNIQUE: Single frontal radiographic view of the chest acquired. RADIATION DOSE: NA LIMITATIONS: None. FINDINGS: LUNGS AND PLEURA: Fairly dense airspace disease in the left lung. Left hemidiaphragm is o bscured. Cannot exclude left pleural effusion. Cannot exclude a suprahilar nodule on the right lauryn uring about 2 cm. MEDIASTINUM AND HILAR STRUCTURES: No masses. Contour normal. HEART AND VASCULAR STRUCTURES: Cardiomegaly. BONES: No acute findings. HARDWARE: None in the chest. OTHER: No other significant finding. IMPRESSION: Cardiomegaly. No fiorella pulmonary edema. Airspace disease in the left lung, likely pneu monia. Cannot exclude suprahilar nodule in the right lung. TECHNICAL DOCUMENTATION: JOB ID: [id number] 2010 [employer]- All Rights Reserved Reading location - IP/workstation name: [email or web address]
--- NOTE | 2020-01-05 15:01 | RADIOLOGY REPORT (SQ) ---
EXAM DESCRIPTION: CT CHEST WITHOUT IMAGES COMPLETED DATE/TIME: 01/05/2020 2:46 pm REASON FOR STUDY: abnormal CXR COMPARISON: Chest x-ray 01/05/2020 TECHNIQUE: CT scan performed of the chest without intravenous contrast. Images reviewed with lung, soft tissue and bone windows. Reconstructed coronal and sagittal MPR images reviewed. All images st ored on PACS. All CT scanners at this facility use dose modulation, iterative reconstruction, and/or weight based d osing when appropriate to reduce radiation dose to as low as reasonably achievable (ALARA). [facility]: Dose Right [facility]: CareDose [facility]: Dose Right [facility]: Teradose 4D [facility]: Smart [employer] RADIATION DOSE: CT Rad equipment meets quality standard of care and radiation dose reduction techniq ues were employed. CTDIvol: 10.8 mGy. DLP: 359 mGy-cm. mGy. LIMITATIONS: No technical limitations. FINDINGS: LUNGS AND PLEURA: There is no suprahilar mass on the right. There is patchy airspace dise ase in the left lower lobe, left upper lobe, and in the right lower lobe. Air bronchograms are prese nt. HILAR AND MEDIASTINAL STRUCTURES: No identified masses or abnormal nodes. No obvious aneurysm. HEART AND VASCULAR STRUCTURES: No aneurysm. Cardiomegaly. UPPER ABDOMEN: No significant findings. Limited exam. THYROID AND OTHER SOFT TISSUES: No masses. No adenopathy. BONES: No significant finding. HARDWARE: None in the chest. OTHER: No other significant findings. IMPRESSION: 1. Bilateral airspace disease, likely multicentric pneumonia. 2. There is no suprahilar mass on the right. 3. Cardiomegaly with no fiorella pulmonary edema. TECHNICAL DOCUMENTATION: JOB ID: [id number] Quality ID # [id number]: Final reports with documentation of one or more dose reduction techniques (e.g., Au tomated exposure control, adjustment of the mA and/or kV according to patient size, use of iterative reconstruction technique) 2010 [employer]- All Rights Reserved Reading location - IP/workstation name: [email or web address]
[2020-01-05] MEDS ORDERED: LEVOFLOXACIN 750 MG/D5W RTU 750 MG/150 ML RTUPB IV SCH (16:00)
[2020-01-05] MEDS: LEVOFLOXACIN 500 MG/D5W RTU 500 MG/100 ML RTUPB IV SCH (16:32)
[2020-01-05] MEDS: NORMAL SALINE 250 ML with FUROSEMIDE 250 MG IV PRN ×2 (16:33)
[2020-01-05] MEDS: PHARMACY COMMUNICATION ORDER MC SCH (17:18)
[2020-01-05] MEDS: INSULIN GLARGINE,HUM.REC.ANLOG 1,000 UNIT/10 ML VIAL SUBCUT SCH (17:18)
[2020-01-05] MEDS ORDERED: CEFTRIAXONE SODIUM 1,500 MG in DEXTROSE 5%-WATER 100 ML IV SCH (18:00)
[2020-01-05] MEDS: AMPICILLIN SODIUM/SULBACTAM NA 3 GM in NORMAL SALINE 100 ML IV SCH (18:55)
[2020-01-06] MEDS: AMPICILLIN SODIUM/SULBACTAM NA 3 GM in NORMAL SALINE 100 ML IV SCH ×4 (00:17→18:44)
[2020-01-06] MEDS: HEPARIN SOD (PORCINE) 5,000 UNIT/ML 1 ML VIAL SUBCUT SCH ×2 (05:31→14:01)
[2020-01-06] MEDS: NORMAL SALINE 1000 ML 1,000 ML IV PRN ×2 (05:45→17:44)
[2020-01-06 06:16] LABS: ABSOLUTE BASOPHILS # (AUTO) 0.1 10^3/uL (0.0-0.2); ABSOLUTE EOSINOPHILS # (AUTO) 0.3 10^3/uL (0.0-0.6); ABSOLUTE LYMPHOCYTES (AUTO) 2.1 10^3/uL (0.5-4.7); ABSOLUTE NEUT (AUTO) 6.9 10^3/uL (1.7-8.2); BASOPHILS % (AUTO) 0.5 % (0-2); EOSINOPHILS % (AUTO) 2.8 % (0-6); HEMATOCRIT 35.4 % (36.0-47.0); LYMPHOCYTES % (AUTO) 20.4 % (13-45); MEAN CORPUSCULAR HEMOGLOBIN 27.3 pg (27.0-33.4); MEAN CORPUSCULAR HGB CONC 33.8 g/dL (32.0-36.0); MEAN CORPUSCULAR VOLUME 81 fl (80-97); MONOCYTES % (AUTO) 9.3 % (3-13); PLATELET COUNT 130 10^3/uL (150-450); RED BLOOD COUNT 4.37 10^6/uL (3.72-5.28); RED CELL DISTRIBUTION WIDTH 16.3 % (11.5-14.0); TOTAL CELLS COUNTED % (AUTO) 100 %; WHITE BLOOD COUNT 10.2 10^3/uL (4.0-10.5)
[2020-01-06] MEDS: INSULIN LISPRO 100 UNIT/ML 3 ML VIAL SUBCUT SCH ×3 (08:29→17:22)
[2020-01-06] MEDS: ASPIRIN 81 MG TABLET, ENT COATED PO SCH ×2 (09:24→09:25)
[2020-01-06] MEDS: METOPROLOL TARTRATE 50 MG TABLET PO SCH ×2 (09:25→17:31)
[2020-01-06] MEDS: PIOGLITAZONE HCL 15 MG TABLET PO SCH (09:26)
[2020-01-06] MEDS: HYDRALAZINE HCL 50 MG TABLET PO SCH ×2 (09:26→18:44)
[2020-01-06] MEDS: GLIMEPIRIDE 1 MG TABLET PO SCH (09:26)
[2020-01-06] MEDS: LISINOPRIL 10 MG TABLET PO SCH ×3 (09:27→22:24)
[2020-01-06] MEDS: TIMOLOL MALEATE 0.5% OPH SOLN 5 ML OU SCH ×2 (09:28→17:42)
[2020-01-06] MEDS: BRIMONIDINE TARTRATE 0.2% OPH SOLN 5 ML OU SCH ×2 (09:28→17:42)
[2020-01-06] MEDS: HYDROCHLOROTHIAZIDE 12.5 MG TABLET PO SCH ×2 (09:34→22:24)
[2020-01-06] MEDS: TRAMADOL HCL 50 MG TABLET PO PRN (09:46)
[2020-01-06] MEDS: LEVOFLOXACIN 500 MG/D5W RTU 500 MG/100 ML RTUPB IV SCH (17:30)
[2020-01-06] MEDS: NORMAL SALINE 250 ML with FUROSEMIDE 250 MG IV PRN ×2 (17:31)
[2020-01-06] MEDS: PHARMACY COMMUNICATION ORDER MC SCH (17:43)
[2020-01-06] MEDS ORDERED: INSULIN GLARGINE,HUM.REC.ANLOG 1,000 UNIT/10 ML VIAL (PYX) SUBCUT ONE (18:15)
[2020-01-06 18:22] LABS: ALBUMIN 2.8 g/dL (3.5-5.0); ALKALINE PHOSPHATASE 53 U/L (38-126); ANION GAP 7 (5-19); ASPARTATE AMINO TRANSFERASE 73 U/L (14-36); BILIRUBIN,TOTAL 0.7 mg/dL (0.2-1.3); BLOOD UREA NITROGEN 37 mg/dL (7-20); CALCIUM 9.1 mg/dL (8.4-10.2); CARBON DIOXIDE 26 mmol/L (22-30); CHLORIDE 101 mmol/L (98-107); GLUCOSE 117 mg/dL (75-110); POTASSIUM 3.5 mmol/L (3.6-5.0); TOTAL PROTEIN 6.5 g/dL (6.3-8.2)
[2020-01-06] MEDS ORDERED: NORMAL SALINE 250 ML with FUROSEMIDE 250 MG IV PRN ×2 (21:30)
--- NOTE | 2020-01-06 21:34 | PDOC PROGRESS REPORT ---
Subjective Progress Note for:: 01/06/20 Subjective:: Patient seen by the bedside she is coughing, diuresing quite well Reason For Visit: RHABDOMYOLYSIS,FALL,[place] CKD STAGE 3 Physical Exam Vital Signs: Temp Pulse Resp BP Pulse Ox 98.7 F 74 21 H 131/59 H 96 01/06/20 16:21 01/06/20 16:21 01/06/20 16:21 01/06/20 16:21 01/06/20 16:21 Intake & Output 01/05/20 01/06/20 01/07/20 06:59 06:59 06:59 Intake Total 1355 2229 1940 Output Total 1250 4675 1200 Balance 105 -2446 740 Weight 78.7 kg 77.4 kg General appearance: PRESENT: no acute distress Eye exam: PRESENT: PERRLA Respiratory exam: PRESENT: clear to auscultation freddy Cardiovascular exam: PRESENT: +S1, +S2 GI/Abdominal exam: PRESENT: soft Neurological exam: PRESENT: alert Results Laboratory Results: 01/06/20 05:47 01/06/20 05:47 01/06/20 01/06/20 05:47 05:47 WBC 10.2 RBC 4.37 Hgb 12.0 Hct 35.4 L MCV 81 MCH 27.3 MCHC 33.8 RDW 16.3 H Plt Count 130 L Seg Neutrophils % 67.0 Sodium 134.3 L Potassium 3.5 L Chloride 101 Carbon Dioxide 26 Anion Gap 7 BUN 37 H Creatinine 1.57 H Est GFR ( Amer) 39 L Glucose 117 H Calcium 9.1 Total Bilirubin 0.7 AST 73 H Alkaline Phosphatase 53 Total Protein 6.5 Albumin 2.8 L 01/03/20 01/03/20 01/04/20 14:06 14:06 17:50 Creatine Kinase 2539 H 1453 H CK-MB (CK-2) Troponin I 0.086 NT-Pro-B Natriuret Pep 2860 H 01/04/20 01/04/20 01/04/20 17:50 23:00 23:00 Creatine Kinase 1293 H CK-MB (CK-2) 41.00 H 31.90 H Troponin I 0.107 0.097 NT-Pro-B Natriuret Pep 2690 H 01/05/20 01/05/20 05:30 05:30 Creatine Kinase 1151 H CK-MB (CK-2) 24.20 H Troponin I 0.092 NT-Pro-B Natriuret Pep Impressions: Head CT 01/03/20 14:14 IMPRESSION: CHRONIC CHANGES OF ATROPHY AND MICROVASCULAR ISCHEMIA. OLD RIGHT CEREBELLAR INFARCT. NO ACUTE PROCESS. EVIDENCE OF ACUTE STROKE: NO. Head MRI 01/04/20 00:00 IMPRESSION: ATROPHY AND CHRONIC MICRO-VASCULAR ISCHEMIC CHANGES. OLD CEREBELLAR INFARCTS, RIGHT GREATER THAN LEFT. NO ACUTE FINDINGS. EVIDENCE OF ACUTE STROKE: NO. Chest CT 01/05/20 00:00 IMPRESSION: 1. Bilateral airspace disease, likely multicentric pneumonia. 2. There is no suprahilar mass on the right. 3. Cardiomegaly with no fiorella pulmonary edema. Chest X-Ray 01/05/20 00:00 IMPRESSION: Cardiomegaly. No fiorella pulmonary edema. Airspace disease in the left lung, likely pneumonia. Cannot exclude suprahilar nodule in the right lung. Assessment & Plan - Diagnosis (1) Rhabdomyolysis Qualifiers: Rhabdomyolysis type: traumatic Encounter type: initial encounter Qualified Code(s): T79.6XXA - Traumatic ischemia of muscle, initial encounter Is this a current diagnosis for this admission?: Yes Plan: Continue present treatment, Reduce infusion rate of Lasix to 2 mg/h (2) Chronic kidney disease, stage 3 Is this a current diagnosis for this admission?: Yes (3) Fall Qualifiers: Encounter type: initial encounter Qualified Code(s): W19.XXXA - Unspecified fall, initial encounter Is this a current diagnosis for this admission?: Yes (4) T2DM (type 2 diabetes mellitus) Qualifiers: Diabetes mellitus custodial insulin use: with patient service representative use Diabetes mellitus complication status: with kidney complications Diabetes mellitus complication detail: with chronic kidney disease Chronic kidney disease stage: stage 3 (moderate) Qualified Code(s): E11.22 - Type 2 diabetes mellitus with diabetic chronic kidney disease; N18.3 - Chronic kidney disease, stage 3 (moderate); Z79.4 - hotel administrative assistant (current) use of insulin Is this a current diagnosis for this admission?: Yes (5) Cerebellar infarction Is this a current diagnosis for this admission?: Yes Plan: History of cerebellar infarction (6) Abnormal CXR Is this a current diagnosis for this admission?: Yes (7) Aspiration pneumonia Qualifiers: Aspiration pneumonia type: unspecified Laterality: bilateral Lung locat ion: unspecified part of lung Qualified Code(s): J69.0 - Pneumonitis due to inhalation of food and vomit Is this a current diagnosis for this admission?: Yes Plan: He has aspiration pneumonia continue Unasyn TRACE [place] - Time Time Spent with patient: 25-34 minutes Level of Care: IMCU
[2020-01-07] MEDS: AMPICILLIN SODIUM/SULBACTAM NA 3 GM in NORMAL SALINE 100 ML IV SCH ×4 (01:00→18:09)
[2020-01-07] MEDS: HEPARIN SOD (PORCINE) 5,000 UNIT/ML 1 ML VIAL SUBCUT SCH ×4 (03:50→21:15)
[2020-01-07] MEDS: INSULIN LISPRO 100 UNIT/ML 3 ML VIAL SUBCUT SCH ×4 (03:51→18:17)
[2020-01-07 06:55] LABS: ABSOLUTE EOSINOPHILS # (AUTO) 0.2 10^3/uL (0.0-0.6); ABSOLUTE MONOCYTES (AUTO) 1.1 10^3/uL (0.1-1.4); ABSOLUTE NEUT (AUTO) 7.6 10^3/uL (1.7-8.2); BASOPHILS % (AUTO) 0.2 % (0-2); EOSINOPHILS % (AUTO) 1.7 % (0-6); HEMATOCRIT 34.2 % (36.0-47.0); HEMOGLOBIN 11.4 g/dL (12.0-15.5); LYMPHOCYTES % (AUTO) 18.7 % (13-45); MEAN CORPUSCULAR HEMOGLOBIN 26.9 pg (27.0-33.4); MEAN CORPUSCULAR HGB CONC 33.4 g/dL (32.0-36.0); MEAN CORPUSCULAR VOLUME 81 fl (80-97); MONOCYTES % (AUTO) 9.8 % (3-13); PLATELET COUNT 141 10^3/uL (150-450); RED BLOOD COUNT 4.25 10^6/uL (3.72-5.28); RED CELL DISTRIBUTION WIDTH 16.8 % (11.5-14.0); SEGMENTED NEUTROPHILS % (AUTO) 69.6 % (42-78); TOTAL CELLS COUNTED % (AUTO) 100 %; WHITE BLOOD COUNT 10.9 10^3/uL (4.0-10.5)
[2020-01-07 07:12] LABS: ALBUMIN 2.8 g/dL (3.5-5.0); ALKALINE PHOSPHATASE 48 U/L (38-126); ANION GAP 9 (5-19); ASPARTATE AMINO TRANSFERASE 75 U/L (14-36); BILIRUBIN,DIRECT 0.2 mg/dL (0.0-0.4); BILIRUBIN,TOTAL 0.7 mg/dL (0.2-1.3); BLOOD UREA NITROGEN 36 mg/dL (7-20); CALCIUM 8.9 mg/dL (8.4-10.2); CARBON DIOXIDE 27 mmol/L (22-30); CHLORIDE 99 mmol/L (98-107); CREATINE KINASE 1255 U/L (30-135); GLUCOSE 105 mg/dL (75-110); POTASSIUM 3.7 mmol/L (3.6-5.0); TOTAL PROTEIN 6.5 g/dL (6.3-8.2)
[2020-01-07] MEDS: GLIMEPIRIDE 1 MG TABLET PO SCH (09:52)
[2020-01-07] MEDS: METOPROLOL TARTRATE 50 MG TABLET PO SCH ×2 (09:52→18:09)
[2020-01-07] MEDS: ASPIRIN 81 MG TABLET, ENT COATED PO SCH (09:52)
[2020-01-07] MEDS: LISINOPRIL 10 MG TABLET PO SCH ×2 (09:53→21:16)
[2020-01-07] MEDS: BRIMONIDINE TARTRATE 0.2% OPH SOLN 5 ML OU SCH ×2 (09:54→18:15)
[2020-01-07] MEDS: HYDROCHLOROTHIAZIDE 12.5 MG TABLET PO SCH ×2 (09:54→21:17)
[2020-01-07] MEDS: TIMOLOL MALEATE 0.5% OPH SOLN 5 ML OU SCH ×2 (09:54→18:16)
[2020-01-07] MEDS: HYDRALAZINE HCL 50 MG TABLET PO SCH ×2 (10:01→19:15)
[2020-01-07] MEDS: PIOGLITAZONE HCL 15 MG TABLET PO SCH (10:01)
--- NOTE | 2020-01-07 10:22 | RADIOLOGY REPORT (SQ) ---
EXAM DESCRIPTION: FOOT LEFT 2 VIEWS IMAGES COMPLETED DATE/TIME: 01/07/2020 9:59 am REASON FOR STUDY: left foot pain COMPARISON: None. NUMBER OF VIEWS: Two views. TECHNIQUE: AP and lateral radiographic images acquired of the left foot. LIMITATIONS: None. FINDINGS: MINERALIZATION: Osteopenia. BONES: No acute fracture or dislocation. JOINTS: The normal tarsometatarsal alignment is preserved. There is no periarticular osteopenia or e rosion. SOFT TISSUES: Mild diffuse soft tissue swelling. OTHER: Enthesophytes at the calcaneal insertion of the Achilles tendon and plantar fascia. IMPRESSION: No acute osseous abnormality of the left foot. TECHNICAL DOCUMENTATION: JOB ID: [id number] 2010 [employer]- All Rights Reserved Reading location - IP/workstation name: [email or web address]
[2020-01-07] MEDS: INSULIN GLARGINE,HUM.REC.ANLOG 1,000 UNIT/10 ML VIAL SUBCUT SCH (18:17)
[2020-01-07] MEDS: PHARMACY COMMUNICATION ORDER MC SCH (18:19)
--- NOTE | 2020-01-07 19:07 | PDOC PROGRESS REPORT ---
Subjective Progress Note for:: 01/07/20 Subjective:: Patient seen by the bedside, she has less cough compared to the last few days presently on Unasyn for aspiration pneumonia, the urine myoglobulin was normal suggesting that she probably does not have rhabdomyolysis, I will discontinue the Lasix drip, continue IV fluid for few more days, hopefully discharge to halfway for rehabilitation, She complained of constipation Reason For Visit: RHABDOMYOLYSIS,FALL,[place] CKD STAGE 3 Physical Exam Vital Signs: Temp Pulse Resp BP Pulse Ox 98.6 F 75 20 130/60 H 95 01/07/20 16:01 01/07/20 16:01 01/07/20 16:01 01/07/20 16:01 01/07/20 16:01 Intake & Output 01/06/20 01/07/20 01/08/20 06:59 06:59 06:59 Intake Total 2229 2770 460 Output Total 4639 3235 1300 Balance -1221 -305 -840 Weight 77.4 kg 77 kg General appearance: PRESENT: no acute distress Eye exam: PRESENT: PERRLA Respiratory exam: PRESENT: clear to auscultation freddy Cardiovascular exam: PRESENT: +S1, +S2 GI/Abdominal exam: PRESENT: soft Neurological exam: PRESENT: alert, CN II-XII grossly intact Results Laboratory Results: 01/07/20 06:12 01/07/20 06:12 01/07/20 01/07/20 06:12 06:12 WBC 10.9 H RBC 4.25 Hgb 11.4 L Hct 34.2 L MCV 81 MCH 26.9 L MCHC 33.4 RDW 16.8 H Plt Count 141 L Seg Neutrophils % 69.6 Sodium 135.2 L Potassium 3.7 Chloride 99 Carbon Dioxide 27 Anion Gap 9 BUN 36 H Creatinine 1.59 H Est GFR ( Amer) 38 L Glucose 105 Calcium 8.9 Total Bilirubin 0.7 AST 75 H Alkaline Phosphatase 48 Total Protein 6.5 Albumin 2.8 L 01/04/20 22:40 Catheterized Urine Urine Culture - Final NO GROWTH 2 DAYS 01/03/20 01/03/20 01/04/20 14:06 14:06 17:50 Creatine Kinase 2539 H 1453 H CK-MB (CK-2) Troponin I 0.086 NT-Pro-B Natriuret Pep 2860 H 01/04/20 01/04/20 01/04/20 17:50 23:00 23:00 Creatine Kinase 1293 H CK-MB (CK-2) 41.00 H 31.90 H Troponin I 0.107 0.097 NT-Pro-B Natriuret Pep 2690 H 01/05/20 01/05/20 01/06/20 05:30 05:30 05:47 Creatine Kinase 1151 H 1197 H CK-MB (CK-2) 24.20 H Troponin I 0.092 NT-Pro-B Natriuret Pep 01/07/20 06:12 Creatine Kinase 1255 H CK-MB (CK-2) Troponin I NT-Pro-B Natriuret Pep Impressions: Head CT 01/03/20 14:14 IMPRESSION: CHRONIC CHANGES OF ATROPHY AND MICROVASCULAR ISCHEMIA. OLD RIGHT CEREBELLAR INFARCT. NO ACUTE PROCESS. EVIDENCE OF ACUTE STROKE: NO. Head MRI 01/04/20 00:00 IMPRESSION: ATROPHY AND CHRONIC MICRO-VASCULAR ISCHEMIC CHANGES. OLD C EREBELLAR INFARCTS, RIGHT GREATER THAN LEFT. NO ACUTE FINDINGS. EVIDENCE OF ACUTE STROKE: NO. Chest CT 01/05/20 00:00 IMPRESSION: 1. Bilateral airspace disease, likely multicentric pneumonia. 2. There is no suprahilar mass on the right. 3. Cardiomegaly with no fiorella pulmonary edema. Chest X-Ray 01/05/20 00:00 IMPRESSION: Cardiomegaly. No fiorella pulmonary edema. Airspace disease in the left lung, likely pneumonia. Cannot exclude suprahilar nodule in the right lung. Foot X-Ray 01/07/20 09:00 IMPRESSION: No acute osseous abnormality of the left foot. Assessment & Plan - Diagnosis (1) Rhabdomyolysis Qualifiers: Rhabdomyolysis type: traumatic Encounter type: initial encounter Qualified Code(s): T79.6XXA - Traumatic ischemia of muscle, initial encounter Is this a current diagnosis for this admission?: Yes Plan: Discontinue furosemide infusion (2) Chronic kidney disease, stage 3 Is this a current diagnosis for this admission?: Yes (3) Fall Qualifiers: Encounter type: initial encounter Qualified Code(s): W19.XXXA - Unspecified fall, initial encounter Is this a current diagnosis for this admission?: Yes (4) T2DM (type 2 diabetes mellitus) Qualifiers: Diabetes mellitus halfway insulin use: with extermination inspector use Diabetes mellitus complication status: with kidney complications Diabetes mellitus complication detail: with chronic kidney disease Chronic kidney disease stage: stage 3 (moderate) Qualified Code(s): E11.22 - Type 2 diabetes mellitus with diabetic chronic kidney disease; N18.3 - Chronic kidney disease, stage 3 (moderate); Z79.4 - superintendent container terminal (current) use of insulin Is this a current diagnosis for this admission?: Yes (5) Cerebellar infarction Is this a current diagnosis for this admission?: Yes (6) Abnormal CXR Is this a current diagnosis for this admission?: Yes (7) Aspiration pneumonia Qualifiers: Aspiration pneumonia type: unspecified Laterality: bilateral Lung location: unspecified part of lung Qualified Code(s): J69.0 - Pneumonitis due to inhalation of food and vomit Is this a current diagnosis for this admission?: Yes Plan: Continue IV fluid - Time Time Spent with patient: 25-34 minutes Level of Care: IMCU
[2020-01-08] MEDS: AMPICILLIN SODIUM/SULBACTAM NA 3 GM in NORMAL SALINE 100 ML IV SCH ×4 (01:00→18:00)
[2020-01-08] MEDS: INSULIN LISPRO 100 UNIT/ML 3 ML VIAL SUBCUT SCH ×5 (01:26→22:25)
[2020-01-08] MEDS: NORMAL SALINE 1000 ML 1,000 ML IV PRN (01:33)
[2020-01-08] MEDS: HEPARIN SOD (PORCINE) 5,000 UNIT/ML 1 ML VIAL SUBCUT SCH ×3 (06:07→22:25)
[2020-01-08 08:41] LABS: ALBUMIN 2.6 g/dL (3.5-5.0); ALKALINE PHOSPHATASE 47 U/L (38-126); ANION GAP 7 (5-19); ASPARTATE AMINO TRANSFERASE 76 U/L (14-36); BILIRUBIN,DIRECT 0.1 mg/dL (0.0-0.4); BILIRUBIN,TOTAL 0.7 mg/dL (0.2-1.3); BLOOD UREA NITROGEN 35 mg/dL (7-20); CALCIUM 8.5 mg/dL (8.4-10.2); CARBON DIOXIDE 28 mmol/L (22-30); CHLORIDE 99 mmol/L (98-107); GLUCOSE 139 mg/dL (75-110); POTASSIUM 3.5 mmol/L (3.6-5.0)
[2020-01-08] MEDS: PIOGLITAZONE HCL 15 MG TABLET PO SCH (09:27)
[2020-01-08] MEDS: LISINOPRIL 10 MG TABLET PO SCH ×2 (09:28→22:24)
[2020-01-08] MEDS: GLIMEPIRIDE 1 MG TABLET PO SCH (09:28)
[2020-01-08] MEDS: HYDROCHLOROTHIAZIDE 12.5 MG TABLET PO SCH ×2 (09:28→22:25)
[2020-01-08] MEDS: ASPIRIN 81 MG TABLET, ENT COATED PO SCH (09:28)
[2020-01-08] MEDS: HYDRALAZINE HCL 50 MG TABLET PO SCH ×2 (09:28→22:24)
[2020-01-08] MEDS: METOPROLOL TARTRATE 50 MG TABLET PO SCH ×2 (09:28→18:05)
[2020-01-08] MEDS: BRIMONIDINE TARTRATE 0.2% OPH SOLN 5 ML OU SCH ×2 (09:29→18:05)
[2020-01-08] MEDS: TIMOLOL MALEATE 0.5% OPH SOLN 5 ML OU SCH ×2 (09:29→18:05)
[2020-01-08] MEDS: INSULIN GLARGINE,HUM.REC.ANLOG 1,000 UNIT/10 ML VIAL SUBCUT SCH (18:01)
--- NOTE | 2020-01-08 21:58 | PDOC PROGRESS REPORT ---
Subjective Progress Note for:: 01/08/20 Subjective:: Patient seen by the bedside, she has less cough compared to the last few days presently on Unasyn for aspiration pneumonia, the urine myoglobulin was normal suggesting that she probably does not have rhabdomyolysis, I will discontinue the Lasix drip, continue IV fluid for few more days, hopefully discharge to shelter for rehabilitation, She complained of constipation,yet to have Molasses enema Reason For Visit: RHABDOMYOLYSIS,FALL,[place] CKD STAGE 3 Physical Exam Vital Signs: Temp Pulse Resp BP Pulse Ox 99.7 F 96 24 H 110/46 L 90 L 01/08/20 19:25 01/08/20 19:25 01/08/20 19:25 01/08/20 19:25 01/08/20 19:25 Intake & Output 01/07/20 01/08/20 01/09/20 06:59 06:59 06:59 Intake Total 3770 1382 677 Output Total 3075 2775 650 Balance 695 -1393 27 Weight 77 kg 77.2 kg General appearance: PRESENT: no acute distress Eye exam: PRESENT: PERRLA Respiratory exam: PRESENT: clear to auscultation freddy Cardiovascular exam: PRESENT: +S1, +S2 GI/Abdominal exam: PRESENT: soft Neurological exam: PRESENT: alert Results Laboratory Results: 01/07/20 06:12 01/08/20 07:40 01/08/20 07:40 Sodium 134.2 L Potassium 3.5 L Chloride 99 Carbon Dioxide 28 Anion Gap 7 BUN 35 H Creatinine 1.63 H Est GFR ( Amer) 37 L Glucose 139 H Calcium 8.5 Total Bilirubin 0.7 AST 76 H Alkaline Phosphatase 47 Total Protein 6.0 L Albumin 2.6 L 01/03/20 01/03/20 01/04/20 14:06 14:06 17:50 Creatine Kinase 2539 H 1453 H CK-MB (CK-2) Troponin I 0.086 NT-Pro-B Natriuret Pep 2860 H 01/04/20 01/04/20 01/04/20 17:50 23:00 23:00 Creatine Kinase 1293 H CK-MB (CK-2) 41.00 H 31.90 H Troponin I 0.107 0.097 NT-Pro-B Natriuret Pep 2690 H 01/05/20 01/05/2001/05/20 05:30 05:30 05:47 Creatine Kinase 1151 H 1197 H CK-MB (CK-2) 24.20 H Troponin I 0.092 NT-Pro-B Natriuret Pep 01/07/20 06:12 Creatine Kinase 1255 H CK-MB (CK-2) Troponin I NT-Pro-B Natriuret Pep Impressions: Head CT 01/03/20 14:14 IMPRESSION: CHRONIC CHANGES OF ATROPHY AND MICROVASCULAR ISCHEMIA. OLD RIGHT CEREBELLAR INFARCT. NO ACUTE PROCESS. EVIDENCE OF ACUTE STROKE: NO. Head MRI 01/04/20 00:00 IMPRESSION: ATROPHY AND CHRONIC MICRO-VASCULAR ISCHEMIC CHANGES. OLD CEREBELLAR INFARCTS, RIGHT GREATER THAN LEFT. NO ACUTE FINDINGS. EVIDENCE OF ACUTE STROKE: NO. Chest CT 01/05/20 00:00 IMPRESSION: 1. Bilateral airspace disease, likely multicentric pneumonia. 2. There is no suprahilar mass on the right. 3. Cardiomegaly with no fiorella pulmonary edema. Chest X-Ray 01/05/20 00:00 IMPRESSION: Cardiomegaly. No fiorella pulmonary edema. Airspace disease in the left lung, likely pneumonia. Cannot exclude suprahilar nodule in the right lung. Foot X-Ray 01/07/20 09:00 IMPRESSION: No acute osseous abnormality of the left foot. Assessment & Plan - Diagnosis (1) Rhabdomyolysis Qualifiers: Rhabdomyolysis type: traumatic Encounter type: initial encounter Qualified Code(s): T79.6XXA - Traumatic ischemia of muscle, initial encounter Is this a current diagnosis for this admission?: Yes (2) Chronic kidney disease, stage 3 Is this a current diagnosis for this admission?: Yes (3) Fall Qualifiers: Encounter type: initial encounter Qualified Code(s): W19.XXXA - Unspecified fall, initial encounter Is this a current diagnosis for this admission?: Yes (4) T2DM (type 2 diabetes mellitus) Qualifiers: Diabetes mellitus termite control service representative insulin use: with fdc use Diabetes mellitus complication status: with kidney complications Diabetes mellitus complication detail: with chronic kidney disease Chronic kidney disease stage: stage 3 (moderate) Qualified Code(s): E11.22 - Type 2 diabetes mellitus with diabetic chronic kidney disease; N18.3 - Chronic kidney disease, stage 3 (moderate); Z79.4 - senior living (current) use of insulin Is this a current diagnosis for this admission?: Yes (5) Cerebellar infarction Is this a current diagnosis for this admission?: Yes (6) Abnormal CXR Is this a current diagnosis for this admission?: Yes (7) Aspiration pneumonia Qualifiers: Aspiration pneumonia type: unspecified Laterality: bilateral Lung location: unspecified part of lung Qualified Code(s): J69.0 - Pneumonitis due to inhalation of food and vomit Is this a current diagnosis for this admission?: Yes - Time Time Spent with patient: 15-24 minutes Level of Care: IMCU
[2020-01-09] MEDS: NORMAL SALINE 1000 ML 1,000 ML IV PRN ×2 (00:31→12:34)
[2020-01-09] MEDS: AMPICILLIN SODIUM/SULBACTAM NA 3 GM in NORMAL SALINE 100 ML IV SCH ×4 (00:31→18:29)
[2020-01-09] MEDS: HEPARIN SOD (PORCINE) 5,000 UNIT/ML 1 ML VIAL SUBCUT SCH ×3 (05:32→21:30)
[2020-01-09 07:33] LABS: ALBUMIN 2.5 g/dL (3.5-5.0); ALKALINE PHOSPHATASE 48 U/L (38-126); ANION GAP 6 (5-19); ASPARTATE AMINO TRANSFERASE 78 U/L (14-36); BILIRUBIN,DIRECT 0.1 mg/dL (0.0-0.4); BILIRUBIN,TOTAL 0.7 mg/dL (0.2-1.3); BLOOD UREA NITROGEN 33 mg/dL (7-20); CALCIUM 8.5 mg/dL (8.4-10.2); CARBON DIOXIDE 26 mmol/L (22-30); CHLORIDE 103 mmol/L (98-107); GLUCOSE 79 mg/dL (75-110); POTASSIUM 3.3 mmol/L (3.6-5.0)
[2020-01-09] MEDS: LISINOPRIL 10 MG TABLET PO SCH ×2 (10:08→23:10)
[2020-01-09] MEDS: HYDROCHLOROTHIAZIDE 12.5 MG TABLET PO SCH ×2 (10:08→23:10)
[2020-01-09] MEDS: METOPROLOL TARTRATE 50 MG TABLET PO SCH ×2 (10:08→18:31)
[2020-01-09] MEDS: ASPIRIN 81 MG TABLET, ENT COATED PO SCH (10:08)
[2020-01-09] MEDS: PIOGLITAZONE HCL 15 MG TABLET PO SCH (10:08)
[2020-01-09] MEDS: GLIMEPIRIDE 1 MG TABLET PO SCH (10:08)
[2020-01-09] MEDS: BRIMONIDINE TARTRATE 0.2% OPH SOLN 5 ML OU SCH ×2 (10:09→18:32)
[2020-01-09] MEDS: TIMOLOL MALEATE 0.5% OPH SOLN 5 ML OU SCH ×2 (10:09→18:32)
[2020-01-09] MEDS: HYDRALAZINE HCL 50 MG TABLET PO SCH ×2 (10:10→18:30)
[2020-01-09] MEDS: TRAMADOL HCL 50 MG TABLET PO PRN (10:16)
[2020-01-09] MEDS: INSULIN LISPRO 100 UNIT/ML 3 ML VIAL SUBCUT SCH ×4 (10:18→21:30)
[2020-01-09] MEDS: INSULIN GLARGINE,HUM.REC.ANLOG 1,000 UNIT/10 ML VIAL SUBCUT SCH (18:31)
--- NOTE | 2020-01-09 19:09 | PDOC PROGRESS REPORT ---
Subjective Progress Note for:: 01/09/20 Subjective:: Patient seen by the bedside,There is no new complaint Reason For Visit: RHABDOMYOLYSIS,FALL,ID CKD STAGE 3 Physical Exam Vital Signs: Temp Pulse Resp BP Pulse Ox 99.3 F 76 18 135/55 H 94 01/09/20 16:41 01/09/20 16:41 01/09/20 16:41 01/09/20 16:41 01/09/20 16:41 Intake & Output 01/08/20 01/09/20 01/10/20 06:59 06:59 06:59 Intake Total 1382 2237 2249 Output Total 2775 1275 320 Balance -5915 111 6764 Weight 77.2 kg 79 kg General appearance: PRESENT: no acute distress Eye exam: PRESENT: PERRLA Respiratory exam: PRESENT: clear to auscultation freddy Cardiovascular exam: PRESENT: +S1, +S2 GI/Abdominal exam: PRESENT: soft Neurological exam: PRESENT: alert Results Laboratory Results: 01/07/20 06:12 01/09/20 07:03 01/09/20 07:03 Sodium 135.2 L Potassium 3.3 L Chloride 103 Carbon Dioxide 26 Anion Gap 6 BUN 33 H Creatinine 1.40 H Est GFR ( Amer) 44 L Glucose 79 Calcium 8.5 Total Bilirubin 0.7 AST 78 H Alkaline Phosphatase 48 Total Protein 6.0 L Albumin 2.5 L 01/03/20 01/03/20 01/04/20 14:06 14:06 17:50 Creatine Kinase 2539 H 1453 H CK-MB (CK-2) Troponin I 0.086 NT-Pro-B Natriuret Pep 2860 H 01/04/20 01/04/20 01/04/20 17:50 23:00 23:00 Creatine Kinase 1293 H CK-MB (CK-2) 41.00 H 31.90 H Troponin I 0.107 0.097 NT-Pro-B Natriuret Pep 2690 H 01/05/20 01/05/20 01/06/20 05:30 05:30 05:47 Creatine Kinase 1151 H 1197 H CK-MB (CK-2) 24.20 H Troponin I 0.092 NT-Pro-B Natriuret Pep 01/07/20 06:12 Creatine Kinase 1255 H CK-MB (CK-2) Troponin I NT-Pro-B Natriuret Pep Impressions: Head CT 01/03/20 14:14 IMPRESSION: CHRONIC CHANGES OF ATROPHY AND MICROVASCULAR ISCHEMIA. OLD RIGHT CEREBELLAR INFARCT. NO ACUTE PROCESS. EVIDENCE OF ACUTE STROKE: NO. Head MRI 01/04/20 00:00 IMPRESSION: ATROPHY AND CHRONIC MICRO-VASCULAR ISCHEMIC CHANGES. OLD CEREBELLAR INFARCTS, RIGHT GREATER THAN LEFT. NO ACUTE FINDINGS. EVIDENCE OF ACUTE STROKE: NO. Chest CT 01/05/20 00:00 IMPRESSION: 1. Bilateral airspace disease, likely multicentric pneumonia. 2. There is no suprahilar mass on the right. 3. Cardiomegaly with no fiorella pulmonary edema. Chest X-Ray 01/05/20 00:00 IMPRESSION: Cardiomegaly. No fiorella pulmonary edema. Airspace disease in the left lung, likely pneumonia. Cannot exclude suprahilar nodule in the right lung. Foot X-Ray 01/07/20 09:00 IMPRESSION: No acute osseous abnormality of the left foot. Assessment & Plan - Diagnosis (1) Rhabdomyolysis Qualifiers: Rhabdomyolysis type: traumatic Encounter type: initial encounter Qualified Code(s): T79.6XXA - Traumatic ischemia of muscle, initial encounter Is this a current diagnosis for this admission?: Yes (2) Chronic kidney disease, stage 3 Is this a current diagnosis for this admission?: Yes (3) Fall Qualifiers: Encounter type: initial encounter Qualified Code(s): W19.XXXA - Unspecified fall, initial encounter Is this a current diagnosis for this admission?: Yes (4) T2DM (type 2 diabetes mellitus) Qualifiers: Diabetes mellitus terminal system operator insulin use: with mcc use Diabetes mellitus complication status: with kidney complications Diabetes mellitus complication detail: with chronic kidney disease Chronic kidney disease stage: stage 3 (moderate) Qualified Code(s): E11.22 - Type 2 diabetes mellitus with diabetic chronic kidney disease; N18.3 - Chronic kidney disease, stage 3 (moderate); Z79.4 - FPC (current) use of insulin Is this a current diagnosis for this admission?: Yes (5) Cerebellar infarction Is this a current diagnosis for this admission?: Yes (6) Abnormal CXR Is this a current diagnosis for this admission?: Yes (7) Aspiration pneumonia Qualifiers: Aspiration pneumonia type: unspecified Laterality: bilateral Lung location: unspecified part of lung Qualified Code(s): J69.0 - Pneumonitis due to inhalation of food and vomit Is this a current diagnosis for this admission?: Yes - Time Time Spent with patient: 15-24 minutes Level of Care: IMCU
[2020-01-09] MEDS: POTASSIUM CHLORIDE 10 MEQ TABLET.ER PO SCH (21:29)
[2020-01-10] MEDS: AMPICILLIN SODIUM/SULBACTAM NA 3 GM in NORMAL SALINE 100 ML IV SCH ×5 (00:32→23:18)
[2020-01-10] MEDS: HEPARIN SOD (PORCINE) 5,000 UNIT/ML 1 ML VIAL SUBCUT SCH ×3 (05:32→21:20)
[2020-01-10 06:32] LABS: ALBUMIN 2.3 g/dL (3.5-5.0); ALKALINE PHOSPHATASE 44 U/L (38-126); ANION GAP 6 (5-19); ASPARTATE AMINO TRANSFERASE 74 U/L (14-36); BILIRUBIN,DIRECT 0.1 mg/dL (0.0-0.4); BILIRUBIN,TOTAL 0.6 mg/dL (0.2-1.3); BLOOD UREA NITROGEN 36 mg/dL (7-20); CALCIUM 8.6 mg/dL (8.4-10.2); CARBON DIOXIDE 24 mmol/L (22-30); CHLORIDE 106 mmol/L (98-107); TOTAL PROTEIN 5.8 g/dL (6.3-8.2)
[2020-01-10] MEDS: NORMAL SALINE 1000 ML 1,000 ML IV PRN ×2 (06:34→20:02)
[2020-01-10 06:36] LABS: GLUCOSE 53 mg/dL (75-110)
[2020-01-10 08:42] LABS: ABSOLUTE BASOPHILS # (AUTO) 0.1 10^3/uL (0.0-0.2); ABSOLUTE EOSINOPHILS # (AUTO) 0.4 10^3/uL (0.0-0.6); ABSOLUTE LYMPHOCYTES (AUTO) 2.2 10^3/uL (0.5-4.7); ABSOLUTE MONOCYTES (AUTO) 1.2 10^3/uL (0.1-1.4); ABSOLUTE NEUT (AUTO) 6.9 10^3/uL (1.7-8.2); BASOPHILS % (AUTO) 0.6 % (0-2); EOSINOPHILS % (AUTO) 3.5 % (0-6); HEMATOCRIT 31.6 % (36.0-47.0); HEMOGLOBIN 10.6 g/dL (12.0-15.5); LYMPHOCYTES % (AUTO) 20.5 % (13-45); MEAN CORPUSCULAR HEMOGLOBIN 27.2 pg (27.0-33.4); MEAN CORPUSCULAR HGB CONC 33.6 g/dL (32.0-36.0); MEAN CORPUSCULAR VOLUME 81 fl (80-97); MONOCYTES % (AUTO) 11.2 % (3-13); PLATELET COUNT 149 10^3/uL (150-450); RED BLOOD COUNT 3.92 10^6/uL (3.72-5.28); RED CELL DISTRIBUTION WIDTH 16.4 % (11.5-14.0); SEGMENTED NEUTROPHILS % (AUTO) 64.2 % (42-78); TOTAL CELLS COUNTED % (AUTO) 100 %; WHITE BLOOD COUNT 10.7 10^3/uL (4.0-10.5)
[2020-01-10] MEDS: INSULIN LISPRO 100 UNIT/ML 3 ML VIAL SUBCUT SCH ×4 (09:19→21:33)
[2020-01-10] MEDS: ASPIRIN 81 MG TABLET, ENT COATED PO SCH (09:23)
[2020-01-10] MEDS: PIOGLITAZONE HCL 15 MG TABLET PO SCH (09:24)
[2020-01-10] MEDS: LISINOPRIL 10 MG TABLET PO SCH ×2 (09:24→21:20)
[2020-01-10] MEDS: METOPROLOL TARTRATE 50 MG TABLET PO SCH ×2 (09:24→17:54)
[2020-01-10] MEDS: DOCUSATE SODIUM 100 MG CAPSULE PO SCH ×2 (09:24→17:00)
[2020-01-10] MEDS: POTASSIUM CHLORIDE 10 MEQ TABLET.ER PO SCH (09:24)
[2020-01-10] MEDS: GLIMEPIRIDE 1 MG TABLET PO SCH (09:24)
[2020-01-10] MEDS: HYDROCHLOROTHIAZIDE 12.5 MG TABLET PO SCH ×2 (09:25→21:20)
[2020-01-10] MEDS: BRIMONIDINE TARTRATE 0.2% OPH SOLN 5 ML OU SCH ×2 (09:25→17:54)
[2020-01-10] MEDS: TIMOLOL MALEATE 0.5% OPH SOLN 5 ML OU SCH ×2 (09:25→17:55)
[2020-01-10] MEDS: HYDRALAZINE HCL 50 MG TABLET PO SCH ×2 (09:27→18:00)
--- NOTE | 2020-01-10 10:26 | EKG REPORT ---
SEVERITY:- ABNORMAL ECG - SINUS RHYTHM RIGHT BUNDLE BRANCH BLOCK LVH WITH IVCD AND SECONDARY REPOL ABNRM : Confirmed by: Celestino Lagos MD 10-Jan-2020 10:26:11
--- NOTE | 2020-01-10 13:39 | RADIOLOGY REPORT (SQ) ---
EXAM DESCRIPTION: CHEST SINGLE VIEW IMAGES COMPLETED DATE/TIME: 01/10/2020 12:20 pm REASON FOR STUDY: rhythm change COMPARISON: 01/05/2020 EXAM PARAMETERS: NUMBER OF VIEWS: One view. TECHNIQUE: Single frontal radiographic view of the chest acquired. RADIATION DOSE: NA LIMITATIONS: None. FINDINGS: LUNGS AND PLEURA: Persistent consolidation in left mid to lower lung and patchy areas of c onsolidation in the right lung, stable. Moderate left and small right pleural effusion. No pneumoth orax. MEDIASTINUM AND HILAR STRUCTURES: Moderate cardiomegaly. Moderate pulmonary edema. HEART AND VASCULAR STRUCTURES: Heart normal in size. Normal vasculature. BONES: No acute findings. HARDWARE: None in the chest. OTHER: No other significant finding. IMPRESSION: Multifocal consolidation suspicious for pneumonia. Small bilateral pleural effusions an d mild pulmonary edema. TECHNICAL DOCUMENTATION: JOB ID: [id number] 2010 [employer]- All Rights Reserved Reading location - IP/workstation name: [email or web address]
[2020-01-10 13:41] LABS: CREATINE KINASE MB 16.9 ng/mL (<4.55); TROPONIN I 0.098 ng/mL
[2020-01-10] MEDS: INSULIN GLARGINE,HUM.REC.ANLOG 1,000 UNIT/10 ML VIAL SUBCUT SCH (17:01)
--- NOTE | 2020-01-10 17:36 | PDOC PROGRESS REPORT ---
Subjective Progress Note for:: 01/10/20 Subjective:: Patient seen by the bedside, chest x-ray done today showed persistent consolidation in the left mid to lower lung, and patchy areas of consolidation in the right lung, suggestive for multifocal consolidation. EKG abnormal questionable ischemia, flipping RBB Reason For Visit: RHABDOMYOLYSIS,FALL,SD CKD STAGE 3 Physical Exam Vital Signs: Temp Pulse Resp BP Pulse Ox 98.3 F 78 16 129/57 H 95 01/10/20 12:16 01/10/20 14:00 01/10/20 12:16 01/10/20 12:16 01/10/20 12:16 Intake & Output 01/09/20 01/10/20 01/11/20 06:59 06:59 06:59 Intake Total 2237 3449 1266 Output Total 1275 1220 450 Balance 962 2229 816 Weight 79 kg 80 kg General appearance: PRESENT: no acute distress Respiratory exam: PRESENT: rhonchi Cardiovascular exam: PRESENT: +S1, +S2 GI/Abdominal exam: PRESENT: soft Neurological exam: PRESENT: alert Results Laboratory Results: 01/10/20 04:58 01/10/20 04:58 01/10/20 01/10/20 04:58 04:58 WBC 10.7 H RBC 3.92 Hgb 10.6 L Hct 31.6 L MCV 81 MCH 27.2 MCHC 33.6 RDW 16.4 H Plt Count 149 L Seg Neutrophils % 64.2 Sodium 136.0 L Potassium 4.0 Chloride 106 Carbon Dioxide 24 Anion Gap 6 BUN 36 H Creatinine 1.25 Est GFR ( Amer) 50 L Glucose 53 L Calcium 8.6 Total Bilirubin 0.6 AST 74 H Alkaline Phosphatase 44 Total Protein 5.8 L Albumin 2.3 L 01/03/20 01/03/20 01/04/20 14:06 14:06 17:50 Creatine Kinase 2539 H 1453 H CK-MB (CK-2) Troponin I 0.086 NT-Pro-B Natriuret Pep 2860 H 01/04/20 01/04/20 01/04/20 17:50 23:00 23:00 Creatine Kinase 1293 H CK-MB (CK-2) 41.00 H 31.90 H Troponin I 0.107 0.097 NT-Pro-B Natriuret Pep 2690 H 01/05/20 01/05/20 01/06/20 05:30 05:30 05:47 Creatine Kinase 1151 H 1197 H CK-MB (CK-2) 24.20 H Troponin I 0.092 NT-Pro-B Natriuret Pep 01/07/20 01/10/20 01/10/20 06:12 13:10 13:10 Creatine Kinase 1255 H 1181 H CK-MB (CK-2) 16.90 H Troponin I 0.098 NT-Pro-B Natriuret Pep Impressions: Head CT 01/03/20 14:14 IMPRESSION: CHRONIC CHANGES OF ATROPHY AND MICROVASCULAR ISCHEMIA. OLD RIGHT CEREBELLAR INFARCT. NO ACUTE PROCESS. EVIDENCE OF ACUTE STROKE: NO. Head MRI 01/04/20 00:00 IMPRESSION: ATROPHY AND CHRONIC MICRO-VASCULAR ISCHEMIC CHANGES. OLD CEREBELLAR INFARCTS, RIGHT GREATER THAN LEFT. NO ACUTE FINDINGS. EVIDENCE OF ACUTE STROKE: NO. Chest CT 01/05/20 00:00 IMPRESSION: 1. Bilateral airspace disease, likely multicentric pneumonia. 2. There is no suprahilar mass on the right. 3. Cardiomegaly with no fiorella pulmonary edema. Foot X-Ray 01/07/20 09:00 IMPRESSION: No acute osseous abnormality of the left foot. Chest X-Ray 01/10/20 00:00 IMPRESSION: Multifocal consolidation suspicious for pneumonia. Small bilateral pleural effusions and mild pulmonary edema. Assessment & Plan - Diagnosis (1) Rhabdomyolysis Qualifiers: Rhabdomyolysis type: traumatic Encounter type: initial encounter Qualified Code(s): T79.6XXA - Traumatic ischemia of muscle, initial encounter Is this a current diagnosis for this admission?: Yes (2) Chronic kidney disease, stage 3 Is this a current diagnosis for this admission?: Yes (3) Fall Qualifiers: Encounter type: initial encounter Qualified Code(s): W19.XXXA - Unspecified fall, initial encounter Is this a current diagnosis for this admission?: Yes (4) T2DM (type 2 diabetes mellitus) Qualifiers: Diabetes mellitus custodial insulin use: with terminal supervisor use Diabetes mellitus complication status: with kidney complications Diabetes mellitus complication detail: with chronic kidney disease Chronic kidney disease stage: stage 3 (moderate) Qualified Code(s): E11.22 - Type 2 diabetes mellitus with diabetic chronic kidney disease; N18.3 - Chronic kidney disease, stage 3 (moderate); Z79.4 - halfway (current) use of insulin Is this a current diagnosis for this admission?: Yes (5) Cerebellar infarction Is this a current diagnosis for this admission?: Yes (6) Abnormal CXR Is this a current diagnosis for this admission?: Yes Plan: Cannot completely rule out pneumonia, CHF, obtain BNP (7) Aspiration pneumonia Qualifiers: Aspiration pneumonia type: unspecified Laterality: bilateral Lung location: unspecified part of lung Qualified Code(s): J69.0 - Pneumonitis due to inhalation of food and vomit Is this a current diagnosis for this admission?: Yes - Time Time Spent with patient: 35 or more minutes Level of Care: IMCU
[2020-01-10 19:04] LABS: CREATINE KINASE MB 15.6 ng/mL (<4.55)
[2020-01-10 19:07] LABS: TROPONIN I 0.125 ng/mL
[2020-01-10] MEDS ORDERED: CLOPIDOGREL BISULFATE 300 MG TABLET PO ONE (21:30)
[2020-01-11 01:41] LABS: CREATINE KINASE MB 14.2 ng/mL (<4.55); TROPONIN I 0.226 ng/mL
[2020-01-11] MEDS: AMPICILLIN SODIUM/SULBACTAM NA 3 GM in NORMAL SALINE 100 ML IV SCH ×4 (05:21→23:52)
[2020-01-11] MEDS: HEPARIN SOD (PORCINE) 5,000 UNIT/ML 1 ML VIAL SUBCUT SCH ×3 (05:59→21:33)
[2020-01-11 07:25] LABS: ALBUMIN 2.4 g/dL (3.5-5.0); ALKALINE PHOSPHATASE 48 U/L (38-126); ANION GAP 6 (5-19); ASPARTATE AMINO TRANSFERASE 77 U/L (14-36); BILIRUBIN,DIRECT 0.1 mg/dL (0.0-0.4); BILIRUBIN,TOTAL 0.6 mg/dL (0.2-1.3); BLOOD UREA NITROGEN 36 mg/dL (7-20); CALCIUM 9.1 mg/dL (8.4-10.2); CARBON DIOXIDE 24 mmol/L (22-30); CHLORIDE 107 mmol/L (98-107); GLUCOSE 125 mg/dL (75-110); POTASSIUM 4.4 mmol/L (3.6-5.0); TOTAL PROTEIN 5.9 g/dL (6.3-8.2)
[2020-01-11] MEDS: INSULIN LISPRO 100 UNIT/ML 3 ML VIAL SUBCUT SCH ×4 (07:58→21:31)
[2020-01-11] MEDS: TIMOLOL MALEATE 0.5% OPH SOLN 5 ML OU SCH ×2 (10:05→17:59)
[2020-01-11] MEDS: METOPROLOL TARTRATE 50 MG TABLET PO SCH ×2 (10:05→18:00)
[2020-01-11] MEDS: POTASSIUM CHLORIDE 10 MEQ TABLET.ER PO SCH (10:05)
[2020-01-11] MEDS: BRIMONIDINE TARTRATE 0.2% OPH SOLN 5 ML OU SCH ×2 (10:05→17:59)
[2020-01-11] MEDS: ASPIRIN 81 MG TABLET, ENT COATED PO SCH (10:05)
[2020-01-11] MEDS: GLIMEPIRIDE 1 MG TABLET PO SCH (10:05)
[2020-01-11] MEDS: LISINOPRIL 10 MG TABLET PO SCH ×2 (10:06→21:34)
[2020-01-11] MEDS: HYDROCHLOROTHIAZIDE 12.5 MG TABLET PO SCH ×2 (10:06→21:34)
[2020-01-11] MEDS: DOCUSATE SODIUM 100 MG CAPSULE PO SCH ×2 (10:07→17:25)
[2020-01-11] MEDS: HYDRALAZINE HCL 50 MG TABLET PO SCH ×2 (10:09→18:00)
[2020-01-11] MEDS: INSULIN GLARGINE,HUM.REC.ANLOG 1,000 UNIT/10 ML VIAL SUBCUT SCH (17:59)
--- NOTE | 2020-01-11 19:30 | PDOC PROGRESS REPORT ---
Subjective Progress Note for:: 01/11/20 Subjective:: Patient a lot still complains of cough, yesterday 12-lead EKG demonstrated flipped QRS complex in precordial leads with new right bundle branch block that was not available in prior EKG and also depressed ST segments in lateral leads V5 V6, ischemia was suspected, the serum troponin has been progressively increasing suggesting non-ST HI but she also has pneumonia, Dr. Shaffer consulted, order procalcitonin a marker of infection especially sepsis/pneumonia Reason For Visit: RHABDOMYOLYSIS,FALL,HI CKD STAGE 3 Physical Exam Vital Signs: Temp Pulse Resp BP Pulse Ox 98.2 F 76 27 H 135/70 H 94 01/11/20 16:16 01/11/20 16:16 01/11/20 16:16 01/11/20 16:16 01/11/20 16:16 Intake & Output 01/10/20 01/11/20 01/12/20 06:59 06:59 06:59 Intake Total 3449 2923 457 Output Total 1220 1350 600 Balance 2229 1573 -143 Weight 80 kg 81.3 kg 81.3 kg General appearance: PRESENT: no acute distress Eye exam: PRESENT: PERRLA Respiratory exam: PRESENT: clear to auscultation freddy Cardiovascular exam: PRESENT: +S1, +S2 GI/Abdominal exam: PRESENT: soft Neurological exam: PRESENT: alert Results Laboratory Results: 01/10/20 04:58 01/11/20 06:44 01/11/20 06:44 Sodium 137.1 Potassium 4.4 Chloride 107 Carbon Dioxide 24 Anion Gap 6 BUN 36 H Creatinine 1.25 Est GFR ( Amer) 50 L Glucose 125 H Calcium 9.1 Total Bilirubin 0.6 AST 77 H Alkaline Phosphatase 48 Total Protein 5.9 L Albumin 2.4 L 01/03/20 01/03/20 01/04/20 14:06 14:06 17:50 Creatine Kinase 2539 H 1453 H CK-MB (CK-2) Troponin I 0.086 NT-Pro-B Natriuret Pep 2860 H 01/04/20 01/04/20 01/04/20 17:50 23:00 23:00 Creatine Kinase 1293 H CK-MB (CK-2) 41.00 H 31.90 H Troponin I 0.107 0.097 NT-Pro-B Natriuret Pep 2690 H 01/05/20 01/05/20 01/06/20 05:30 05:30 05:47 Creatine Kinase 1151 H 1197 H CK-MB (CK-2) 24.20 H Troponin I 0.092 NT-Pro-B Natriuret Pep 01/07/20 01/10/20 01/10/20 06:12 13:10 13:10 Creatine Kinase 1255 H 1181 H CK-MB (CK-2) 16.90 H Troponin I 0.098 NT-Pro-B Natriuret Pep 01/10/20 01/10/20 01/11/20 18:11 18:11 01:01 Creatine Kinase 1244 H 1203 H CK-MB (CK-2) 15.60 H Troponin I 0.125 NT-Pro-B Natriuret Pep 5900 H 01/11/20 01:01 Creatine Kinase CK-MB (CK-2) 14.20 H Troponin I 0.226 NT-Pro-B Natriuret Pep Impressions: Head CT 01/03/20 14:14 IMPRESSION: CHRONIC CHANGES OF ATROPHY AND MICROVASCULAR ISCHEMIA. OLD RIGHT CEREBELLAR INFARCT. NO ACUTE PROCESS. EVIDENCE OF ACUTE STROKE: NO. Head MRI 01/04/20 00:00 IMPRESSION: ATROPHY AND CHRONIC MICRO-VASCULAR ISCHEMIC CHANGES. OLD CEREBELLAR INFARCTS, RIGHT GREATER THAN LEFT. NO ACUTE FINDINGS. EVIDENCE OF ACUTE STROKE: NO. Chest CT 01/05/20 00:00 IMPRESSION: 1. Bilateral airspace disease, likely multicentric pneumonia. 2. There is no suprahilar mass on the right. 3. Cardiomegaly with no fiorella pulmonary edema. Foot X-Ray 01/07/20 09:00 IMPRESSION: No acute osseous abnormality of the left foot. Chest X-Ray 01/10/20 00:00 IMPRESSION: Multifocal consolidation suspicious for pneumonia. Small bilateral pleural effusions and mild pulmonary edema. Assessment & Plan - Diagnosis (1) Rhabdomyolysis Qualifiers: Rhabdomyolysis type: traumatic Encounter type: initial encounter Qualified Code(s): T79.6XXA - Traumatic ischemia of muscle, initial encounter Is this a current diagnosis for this admission?: Yes (2) Chronic kidney disease, stage 3 Is this a current diagnosis for this admission?: Yes (3) Fall Qualifiers: Encounter type: initial encounter Qualified Code(s): W19.XXXA - Unspecified fall, initial encounter Is this a current diagnosis for this admission?: Yes (4) T2DM (type 2 diabetes mellitus) Qualifiers: Diabetes mellitus intermediate insulin use: with intermediate use Diabetes mellitus complication status: with kidney complications Diabetes mellitus complication detail: with chronic kidney disease Chronic kidney disease stage: stage 3 (moderate) Qualified Code(s): E11.22 - Type 2 diabetes mellitus with diabetic chronic kidney disease; N18.3 - Chronic kidney disease, stage 3 (moderate); Z79.4 - extermination supervisor (current) use of insulin Is this a current diagnosis for this admission?: Yes (5) Cerebellar infarction Is this a current diagnosis for this admission?: Yes (6) Abnormal CXR Is this a current diagnosis for this admission?: Yes (7) Aspiration pneumonia Qualifiers: Aspiration pneumonia type: unspecified Laterality: bilateral Lung locatio n: unspecified part of lung Qualified Code(s): J69.0 - Pneumonitis due to inhalation of food and vomit Is this a current diagnosis for this admission?: Yes Plan: Continue antibiotic treatment (8) Elevated troponin Is this a current diagnosis for this admission?: Yes Plan: Differential diagnosis include non-ST HI, infection, sepsis, pneumonia, consult Dr. Shaffer, cardiology, 2D echo, continue anticoagulant, add antiplatelet, Plavix - Time Time Spent with patient: 25-34 minutes Level of Care: [facility]
--- NOTE | 2020-01-11 21:26 | PDOC CONSULTATION ---
Consultation-Blank Consultation: CARDIOLOGY CONSULTATION by Dr. Chloe Anderson on 01/11/2020. Patient seen at 8:30 AM. 60 minutes spent on this patient with more than 50% of the time spent direct patient care. CONSULT REQUESTING PHYSICIAN: Dr. Sotelo. REASON FOR CONSULTATION: Patient with elevated troponin and abnormal EKG question of non-ST relation AR. And also the need for stress test. HISTORY OF PRESENT ILLNESS: Patient not a very good historian. History obtained from interrogating the patient while examining her and also from the chart. Patient is a 74-year-old -Citizen Of [place] female with history of hypertension diabetes mellitus and chronic kidney disease who as per history had a fall and could not get up for several hours. Her CPK CPK-MB and troponin have been elevated consistent with her rhabdomyolysis. She also has been having acute on chronic kidney failure. She cannot definitely tell me whether there was any loss of consciousness with the fall. She states that since her prior CVA in the past she has had gait imbalance. 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 She denies chest pain or discomfort. There is no shortness of breath PND orthopnea leg edema or palpitations. There is no prior history of fiorella syncope although this episode the patient not very sure as to whether she did have syncope or not. The patient's troponin I has been elevated most likely secondary to type II myocardial infarction due to supply demand mismatch. The patient's echocardiogram done shows normal ventricular systolic function with evidence of obstructive hypertrophic cardiomyopathy [IHSS] with a resting LVOT gradient of 19 mmHg. There is also systolic anterior motion of the mitral leaflet. The echo also shows severe pulmonary hypertension with a right ventricle systolic pressure of 88 to 93 mmHg. Please see echo report below. Although she denies any fever cough or sputum production the patient's chest x-ray is consistent with by lateral/multifocal pneumonia. Past Medical History Cardiac Medical History: Reports: Hyperlipidema, Hypertension Neurological Medical History: Reports: Ischemic CVA Endocrine Medical History: Reports: Diabetes Mellitus Type 2 Renal/ Medical History: Reports: Other - Chronic kidney disease stage III SENIOR DIRECTOR INSIGHT: History of old CVA. No seizures or headaches or migraines. Psychiatric: No history of anxiety or depression Past Surgical History Past Surgical History: Reports: Orthopedic Surgery - right left/sacrum,right hip replacement Social History Smoking Status: Never Smoker Electronic Cigarette use?: No Frequency of Alcohol Use: None Hx Recreational Drug Use: No Drugs: None Hx Prescription Drug Abuse: No Family History Family History: Reviewed & Not Pertinent Parental Family History Reviewed: Yes Children Family History Reviewed: Yes Sibling(s) Family History Reviewed.: Yes Medication/Allergy Home Medications: Metoprolol Tartrate [Lopressor] 50 mg PO BID 01/03/20 Simvastatin 40 mg PO QHS 01/03/20 Aspirin [Adult Low Dose Aspirin EC] 81 mg PO DAILY 01/04/20 Brimonidine Tartrate [Alphagan 0.2% Oph Soln 5 ml] 1 drop OU BID 01/04/20 Glimepiride 2 mg PO DAILY 01/04/20 Hydralazine HCl 100 mg PO BID@0800,1900 01/04/20 Insulin Detemir [Levemir Insulin 100 units/mL Insulin Pen] 25 units SQ QPM 01/04/20 Linaclotide [Linzess] 290 mcg PO DAILY 01/04/20 Lisinopril/Hydrochlorothiazide [Lisinopril-Hctz 20-12.5 mg Tab] 1 tab PO BID 01/04/20 Pioglitazone HCl [Actos] 15 mg PO DAILY 01/04/20 Timolol Maleate [Timoptic 0.5% Oph Soln 5 ml] 1 drop OU BID 01/04/20 Ultracet 37.5/325mg 1 tab PO Q6 01/04/20 Allergies/Adverse Reactions: No Known Allergies Allergy (Verified 06/28/16 10:27) RESUSCITATION STATUS: The patient is a full code. Her sister is her surrogate healthcare decision maker. Current Medications Generic Name Dose Route Start Last Admin Trade Name Freq PRN Reason Stop Dose Admin Acetaminophen 325 mg 01/03/20 22:28 01/05/20 21:54 Tylenol 325 Mg Tablet PO 02/02/20 22:27 325 mg Q6HP PRN Administration PAIN SCALE PER MD Aspirin 81 mg 01/04/20 14:00 01/11/20 10:05 Ecotrin 81 Mg Ec Tablet PO 02/03/20 13:59 81 mg DAILY YUNG Administration Brimonidine Tartrate 1 drop 01/04/20 13:15 01/11/20 17:59 Alphagan 0.2% Oph Soln 5 Ml OU 02/03/20 13:14 1 drop BID YUNG Administration Dextrose 12.5 gm 01/03/20 20:00 Dextrose Inj 50% Syringe (25 Gm/50 Ml) IV 02/02/20 19:59 PRN PRN FOR BG 50-69 IN ALERT PATIENT Protocol Dextrose 25 gm 01/03/20 20:00 Dextrose Inj 50% Syringe (25 Gm/50 Ml) IV 02/02/20 19:59 PRN PRN Protocol Docusate Sodium 200 mg 01/10/20 10:00 01/11/20 17:25 Colace 100 Mg Capsule PO 02/09/20 09:59 Not Given BID YUNG Glimepiride 2 mg 01/04/20 10:00 01/11/20 10:05 Amaryl 1 Mg Tablet PO 02/03/20 09:59 2 mg DAILY YUNG Administration Glucagon 1 mg 01/03/20 20:00 Glucagen Inj 1 Mg Vial IM 02/02/20 19:59 PRN PRN EVALUATE FOR BG < 70 Protocol Glucose 15 gm 01/03/20 20:00 Glutose 40% Gel 15 Gm Tube PO 02/02/20 19:59 PRN PRN FOR BG 50-69 IN ALERT PATIENT Protocol Glucose 30 gm 01/03/20 20:00 Glutose 40% Gel 15 Gm Tube PO 02/02/20 19:59 PRN PRN FOR BG < 50 IN ALERT PATIENT Protocol Heparin Sodium (Porcine) 5,000 unit 01/04/20 17:00 01/11/20 21:33 Heparin Inj 5,000 Units/Ml 1 Ml Vial SUBCUT 02/03/20 16:59 5,000 unit Q8 YUNG Administration Hydralazine HCl 100 mg 01/04/20 19:00 01/11/20 18:00 Apresoline 50 Mg Tablet PO 02/03/20 18:59 100 mg BID@0800,1900 YUNG Administration Hydrochlorothiazide 12.5 mg 01/04/20 22:00 01/11/20 21:34 Hydrodiuril 12.5 Mg Tablet PO 02/03/20 21:59 12.5 mg Q12 YUNG Administration Ampicillin Sodium/Sulbactam 100 mls @ 100 mls/hr 01/05/20 18:00 01/11/20 18:59 Sodium 3 gm/ Sodium Chloride IV 01/12/20 17:59 Infused Q6 YUNG Infusion Insulin Glargine 25 unit 01/07/20 18:00 01/11/20 17:59 Lantus Insulin 100 Unit/1 Ml 10 Ml SUBCUT 02/06/20 17:59 25 unit QPM YUNG Administration Insulin Human Lispro 0 - 12 unit 01/04/20 16:00 01/11/20 21:31 Humalog Insulin 100 Unit/1 Ml 3 Ml Vial SUBCUT 02/03/20 15:59 Not Given ACHS YUNG Protocol Lisinopril 20 mg 01/04/20 22:00 01/11/20 21:34 Prinivil 10 Mg Tablet PO 02/03/20 21:59 20 mg Q12 YUNG Administration Metoprolol Tartrate 50 mg 01/04/20 10:00 01/11/20 18:00 Lopressor 50 Mg Tablet PO 02/03/20 09:59 50 mg BID YUNG Administration Patient Own Medication 290 mcg 01/04/20 10:00 Linaclotide [Linzess] PO 02/03/20 09:59 DAILY YUNG Potassium Chloride 40 meq 01/09/20 21:00 01/11/20 10:05 Klor-Con 10 Meq Tablet Er PO 02/08/20 20:59 40 meq DAILY YUNG Administration Timolol Maleate 1 drop 01/04/20 13:15 01/11/20 17:59 Timoptic 0.5% Oph Soln 5 Ml OU 02/03/20 13:14 1 drop BID YUNG Administration Tramadol HCl 50 mg 01/03/20 22:28 01/11/20 21:34 Ultram 50 Mg Tablet PO 01/16/20 22:27 50 mg Q6HP PRN Administration PAIN SCALE OF 1 Discontinued Medications Generic Name Dose Route Start Last Admin Trade Name Kira PRN Reason Stop Dose Admin Aspirin 81 mg 01/04/20 10:00 01/06/20 09:25 Ecotrin 81 Mg Ec Tablet PO 02/03/20 09:59 81 mg DAILY YUNG Administration Clopidogrel Bisulfate 300 mg 01/10/20 21:30 01/10/20 21:20 Plavix 300 Mg Tablet PO 01/10/20 21:31 300 mg NOW ONE Administration Dextrose 25 gm 01/03/20 22:29 Dextrose Inj 50% Syringe (25 Gm/50 Ml) IV 02/02/20 22:28 PRN PRN PER PROTOCOL Protocol Dextrose 12.5 gm 01/03/20 22:29 Dextrose Inj 50% Syringe (25 Gm/50 Ml) IV 02/02/20 22:28 PRN PRN FOR BG 50-69 IN ALERT PATIENT Protocol Furosemide 250 mg 01/04/20 18:03 Lasix Inj/Pf 100 Mg/10 Ml Sdv INJ 01/04/20 21:00 ASDIR PRN Glucagon 1 mg 01/03/20 22:29 Glucagen Inj 1 Mg Vial IM 02/02/20 22:28 PRN PRN Evaluate for BG < 70 Protocol Glucose 15 gm 01/03/20 22:29 Glutose 40% Gel 15 Gm Tube PO 02/02/20 22:28 PRN PRN FOR BG 50-69 IN ALERT PATIENT Protocol Glucose 30 gm 01/03/20 22:29 Glutose 40% Gel 15 Gm Tube PO 02/02/20 22:28 PRN PRN FOR BG < 50 IN ALERT PATIENT Protocol Glucose 30 gm 01/04/20 11:30 Glutose 40% Gel 15 Gm Tube PO 02/03/20 11:29 PRN PRN FOR BG < 50 IN ALERT PATIENT Protocol Hydrochlorothiazide 25 mg 01/03/20 23:00 01/03/20 23:47 Hydrodiuril 25 Mg Tablet PO 01/03/20 23:01 25 mg NOW ONE Administration Hydrochlorothiazide 25 mg 01/04/20 10:00 01/04/20 10:42 Hydrodiuril 25 Mg Tablet PO 02/03/20 09:59 25 mg BID YUNG Administration Sodium Chloride 1,000 mls @ 0 mls/hr 01/03/20 15:36 01/03/20 18:20 Nacl 0.9% 1000 Ml Iv Soln IV 01/03/20 15:37 Infused BOLUS ONE Infusion Wide Open Sodium Chloride 1,000 mls @ 120 mls/hr 01/04/20 16:27 01/10/20 20:12 Nacl 0.9% 1000 Ml Iv Soln IV 02/03/20 16:26 Infused CONTINUOUS PRN Infusion THIS MED IS NOT "PRN" Furosemide 250 mg/ Sodium 250 mls @ 3 mls/hr 01/04/20 16:27 01/06/20 17:31 Chloride IV 02/03/20 16:26 3 mg/hr CONTINUOUS PRN 3 mls/hr THIS MED IS NOT "PRN" Administration 3 MG/HR Ceftriaxone Sodium 1,500 mg/ 100 mls @ 200 mls/hr 01/05/20 18:00 Dextrose IV 01/12/20 17:59 QPM YUNG Levofloxacin/Dextrose 750 mg in 150 mls @ 100 mls/hr 01/05/20 16:00 Levaquin Rtu 750 Mg/D5w 150 Ml Premix IV 01/12/20 15:59 DAILY YUNG Levofloxacin/Dextrose 500 mg in 100 mls @ 100 mls/hr 01/05/20 16:00 01/06/20 20:04 Levaquin Rtu 500mg/D5w 100 Ml Premix IV 01/12/20 15:59 Infused DAILY@1600 YUNG Infusion Furosemide 250 mg/ Sodium 250 mls @ 2 mls/hr 01/06/20 21:30 01/07/20 18:12 Chloride IV 02/03/20 16:26 2 mg/hr CONTINUOUS PRN 2 mls/hr THIS MED IS NOT "PRN" Administration 2 MG/HR Insulin Glargine 25 unit 01/04/20 18:00 01/05/20 17:18 Lantus Insulin 100 Unit/1 Ml 10 Ml SUBCUT 02/03/20 17:59 Not Given QPM [facility] Insulin Glargine 25 unit 01/06/20 18:15 01/06/20 17:48 Lantus (Pyxis) Insulin 100 Unit/1 Ml 10 Ml SUBCUT 01/06/20 18:16 25 unit NOW ONE Administration Insulin Human Lispro 0 - 12 unit 01/03/20 22:00 01/03/20 22:19 Humalog Insulin 100 Unit/1 Ml 3 Ml Vial SUBCUT 02/02/20 21:59 Not Given [facility] Protocol Insulin Human Lispro 0 - 12 unit 01/04/20 08:00 Humalog Insulin 100 Unit/1 Ml 3 Ml Vial SUBCUT 02/03/20 07:59 [facility] Protocol Insulin Human Lispro 0 - 12 unit 01/03/20 23:00 01/03/20 23:11 Humalog Insulin 100 Unit/1 Ml 3 Ml Vial SUBCUT 01/03/20 23:01 Not Given NOW ONE Protocol Lisinopril 20 mg 01/03/20 23:00 01/03/20 23:47 Prinivil 10 Mg Tablet PO 01/03/20 23:01 20 mg NOW ONE Administration Lisinopril 20 mg 01/04/20 10:00 01/06/20 09:27 Prinivil 10 Mg Tablet PO 02/03/20 09:59 Not Given BID [facility] Metoprolol Tartrate 50 mg 01/03/20 23:00 01/03/20 23:47 Lopressor 50 Mg Tablet PO 01/03/20 23:01 50 mg NOW ONE Administration Pharmacy Profile Note 1 each 01/05/20 18:00 01/07/20 18:19 Medication Communication Order 02/04/20 17:59 3 mg DAILY@1800 [facility] Administration Pioglitazone HCl 15 mg 01/04/20 10:00 01/10/20 09:24 Actos 15 Mg Tablet PO 02/03/20 09:59 15 mg DAILY YUNG Administration Simvastatin 40 mg 01/03/20 23:00 01/03/20 23:47 Zocor 40 Mg Tablet PO 01/03/20 23:01 40 mg NOW ONE Administration Review of Systems Constitutional: ABSENT: chills, fever(s), headache(s), weight gain, weight loss Eyes: ABSENT: visual disturbances Ears: ABSENT: hearing changes Cardiovascular: ABSENT: chest pain, dyspnea on exertion, edema, orthropnea, palpitations Respiratory: ABSENT: cough, hemoptysis Gastrointestinal: ABSENT: abdominal pain, constipation, diarrhea, hematemesis, hematochezia, nausea, vomiting Genitourinary: ABSENT: dysuria, hematuria Musculoskeletal: ABSENT: joint swelling Integumentary: ABSENT: rash, wounds Neurological: PRESENT: weakness. ABSENT: abnormal gait, abnormal speech, confusion, dizziness, focal weakness, syncope Psychiatric: ABSENT: anxiety, depression, homidical ideation, suicidal ideation Endocrine: ABSENT: cold intolerance, heat intolerance, menstrual abnormalities, polydipsia, polyuria Hematologic/Lymphatic: ABSENT: easy bleeding, easy bruising, lymphadenopathy PHYSICAL EXAMINATION: The patient is mildly obese. She is well-groomed in no acute distress. Selected Entries 01/11/20 08:37 Temperature 98.2 F Temperature Oral Source Pulse Rate 87 Respiratory 18 Rate Blood Pressure 145/68 H Blood Pressure 93 Mean BP Location Left Arm BP Position Supine O2 Sat by Pulse 92 Oximetry Oxygen Delivery Room Air Method Head: Is atraumatic normocephalic. EYES: Pupils equal round regular reactive li ght accommodation. External ocular movements are normal. There is no conjunctival pallor. There is no scleral icterus. EARS: Tympanic membranes are intact. External auditory canals are clear. NOSE: There is no deviated nasal septum. There is no inflammation of the nasal mucous membrane. MOUTH: Mucous membranes of mouth are moist. Tongue is moist. There is no ulcers. There is no bleeding of the gums. THROAT: There is no redness of the oropharynx. There is no exudates. SKIN: There is no skin rashes. There is no petechia or ecchymosis. There is no skin lesions. NECK: Is supple. There is no JVD. Carotids are equal there is no bruit there is no lymphadenopathy. There is no goiter. There is no accessory muscle respiration use. Trachea is central. LUNGS: There are bilateral dry crackles of pneumonia. No rales of CHF. There is no rhonchi or wheezing. HEART: S1-S2 is heard. There is no S3 gallop there is no stridor. There is systolic murmur left sternal border and the apex. There is no rub. ABDOMEN: Is soft. Mildly obese. There is no hepatosplenomegaly. There is no tender areas of masses. Bowel sounds are well heard. EXTREMITIES: Femorals are slightly diminished. There is no femoral bruits. Leg pulses diminished. There is no DVT or cellulitis. There is no pedal edema. There is no calf tenderness. There is no cyanosis or clubbing. MS: The patient is conscious awake alert oriented x3 with no focal deficits. 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 PSYCHIATRIC: The patient judgment insight are intact her affect is normal Labs- Entire Visit 01/03/20 01/03/20 01/03/20 14:06 14:06 14:06 WBC 9.8 RBC 4.99 Hgb 13.6 Hct 40.8 MCV 82 MCH 27.3 MCHC 33.3 RDW 16.5 H Plt Count 143 L Lymph % (Auto) 14.0 [place] % (Auto) 5.6 Eos % (Auto) 0.7 Baso % (Auto) 0.5 Absolute Neuts (auto) 7.7 Absolute Lymphs (auto) 1.4 Absolute Monos (auto) 0.6 Absolute Eos (auto) 0.1 Absolute Basos (auto) 0.1 Seg Neutrophils % 79.2 H PT 13.9 INR 1.07 APTT 25.1 Sodium 135.5 L Potassium 4.2 Chloride 100 Carbon Dioxide 28 Anion Gap 8 BUN 40 H Creatinine 1.34 H Est GFR ( Amer) 47 L Est GFR (MDRD) Non-Af 38 L Glucose 188 H POC Glucose Hemoglobin A1c % Calcium 10.3 H Phosphorus Magnesium 1.7 Total Bilirubin 0.8 Direct Bilirubin 0.0 Neonat Total Bilirubin Not Reportable Neonat Direct Bilirubin Not Reportable Neonat Indirect Bili Not Reportable AST 118 H ALT 96 H Alkaline Phosphatase 76 Ammonia Creatine Kinase 2539 H CK-MB (CK-2) Troponin I NT-Pro-B Natriuret Pep Total Protein 7.8 Albumin 3.7 Triglycerides Cholesterol LDL Cholesterol Direct VLDL Cholesterol HDL Cholesterol Amylase Lipase TSH Free T4 Urine Color Urine Appearance Urine pH Ur Specific [place] Urine Protein Urine Glucose (UA) Urine Ketones Urine Blood Urine Nitrite Urine Bilirubin Urine Urobilinogen Ur Leukocyte Esterase Urine WBC (Auto) Urine RBC (Auto) Squamous Epi Cells Auto Urine Mucus (Auto) Urine Myoglobin Urine Ascorbic Acid Urine Opiates Screen Urine Methadone Screen Ur Barbiturates Screen Ur Phencyclidine Scrn Ur Amphetamines Screen U Benzodiazepines Scrn Urine Cocaine Screen U Marijuana (THC) Screen 01/03/20 01/03/20 01/03/20 14:06 14:06 16:06 WBC RBC Hgb Hct MCV MCH MCHC RDW Plt Count Lymph % (Auto) [place] % (Auto) Eos % (Auto) Baso % (Auto) Absolute Neuts (auto) Absolute Lymphs (auto) Absolute Monos (auto) Absolute Eos (auto) Absolute Basos (auto) Seg Neutrophils % PT INR APTT Sodium Potassium Chloride Carbon Dioxide Anion Gap BUN Creatinine Est GFR ( Amer) Est GFR (MDRD) Non-Af Glucose POC Glucose Hemoglobin A1c % 8.8 H Calcium Phosphorus Magnesium Total Bilirubin Direct Bilirubin Neonat Total Bilirubin Neonat Direct Bilirubin Neonat Indirect Bili AST ALT Alkaline Phosphatase Ammonia Creatine Kinase CK-MB (CK-2) Troponin I 0.086 NT-Pro-B Natriuret Pep 2860 H Total Protein Albumin Triglycerides Cholesterol LDL Cholesterol Direct VLDL Cholesterol HDL Cholesterol Amylase Lipase TSH Free T4 Urine Color YELLOW Urine Appearance CLEAR Urine pH 6.0 Ur Specific [place] 1.015 Urine Protein 100 H Urine Glucose (UA) NEGATIVE Urine Ketones NEGATIVE Urine Blood SMALL H Urine Nitrite NEGATIVE Urine Bilirubin NEGATIVE Urine Urobilinogen NEGATIVE Ur Leukocyte Esterase NEGATIVE Urine WBC (Auto) 1 Urine RBC (Auto) 2 Squamous Epi Cells Auto Urine Mucus (Auto) RARE Urine Myoglobin Urine Ascorbic Acid NEGATIVE Urine Opiates Screen Urine Methadone Screen Ur Barbiturates Screen Ur Phencyclidine Scrn Ur Amphetamines Screen U Benzodiazepines Scrn Urine Cocaine Screen U Marijuana (THC) Screen 01/04/20 01/04/20 01/04/20 09:35 11:40 17:07 WBC RBC Hgb Hct MCV MCH MCHC RDW Plt Count Lymph % (Auto) [place] % (Auto) Eos % (Auto) Baso % (Auto) Absolute Neuts (auto) Absolute Lymphs (auto) Absolute Monos (auto) Absolute Eos (auto) Absolute Basos (auto) Seg Neutrophils % PT INR APTT Sodium Potassium Chloride Carbon Dioxide Anion Gap BUN Creatinine Est GFR ( Amer) Est GFR (MDRD) Non-Af Glucose POC Glucose 236 H 202 H 135 H Hemoglobin A1c % Calcium Phosphorus Magnesium Total Bilirubin Direct Bilirubin Neonat Total Bilirubin Neonat Direct Bilirubin Neonat Indirect Bili AST ALT Alkaline Phosphatase Ammonia Creatine Kinase CK-MB (CK-2) Troponin I NT-Pro-B Natriuret Pep Total Protein Albumin Triglycerides Cholesterol LDL Cholesterol Direct VLDL Cholesterol HDL Cholesterol Amylase Lipase TSH Free T4 Urine Color Urine Appearance Urine pH Ur Specific [place] Urine Protein Urine Glucose (UA) Urine Ketones Urine Blood Urine Nitrite Urine Bilirubin Urine Urobilinogen Ur Leukocyte Esterase Urine WBC (Auto) Urine RBC (Auto) Squamous Epi Cells Auto Urine Mucus (Auto) Urine Myoglobin Urine Ascorbic Acid Urine Opiates Screen Urine Methadone Screen Ur Barbiturates Screen Ur Phencyclidine Scrn Ur Amphetamines Screen U Benzodiazepines Scrn Urine Cocaine Screen U Marijuana (THC) Screen 01/04/20 01/04/20 01/04/20 17:50 17:50 17:50 WBC RBC Hgb Hct MCV MCH MCHC RDW Plt Count Lymph % (Auto) [place] % (Auto) Eos % (Auto) Baso % (Auto) Absolute Neuts (auto) Absolute Lymphs (auto) Absolute Monos (auto) Absolute Eos (auto) Absolute Basos (auto) Seg Neutrophils % PT 14.8 INR 1.15 APTT 31.6 Sodium Potassium Chloride Carbon Dioxide Anion Gap BUN Creatinine Est GFR ( Amer) Est GFR (MDRD) Non-Af Glucose POC Glucose Hemoglobin A1c % Calcium Phosphorus 2.7 Magnesium 1.8 Total Bilirubin Direct Bilirubin Neonat Total Bilirubin Neonat Direct Bilirubin Neonat Indirect Bili AST ALT Alkaline Phosphatase Ammonia < 8.7 L Creatine Kinase 1453 H CK-MB (CK-2) Troponin I NT-Pro-B Natriuret Pep Total Protein Albumin Triglycerides Cholesterol LDL Cholesterol Direct VLDL Cholesterol HDL Cholesterol Amylase 43 Lipase 86.8 TSH Free T4 Urine Color Urine Appearance Urine pH Ur Specific [place] Urine Protein Urine Glucose (UA) Urine Ketones Urine Blood Urine Nitrite Urine Bilirubin Urine Urobilinogen Ur Leukocyte Esterase Urine WBC (Auto) Urine RBC (Auto) Squamous Epi Cells Auto Urine Mucus (Auto) Urine Myoglobin Urine Ascorbic Acid Urine Opiates Screen Urine Methadone Screen Ur Barbiturates Screen Ur Phencyclidine Scrn Ur Amphetamines Screen U Benzodiazepines Scrn Urine Cocaine Screen U Marijuana (THC) Screen 01/04/20 01/04/20 01/04/20 17:50 17:50 21:14 WBC RBC Hgb Hct MCV MCH MCHC RDW Plt Count Lymph % (Auto) [place] % (Auto) Eos % (Auto) Baso % (Auto) Absolute Neuts (auto) Absolute Lymphs (auto) Absolute Monos (auto) Absolute Eos (auto) Absolute Basos (auto) Seg Neutrophils % PT INR APTT Sodium Potassium Chloride Carbon Dioxide Anion Gap BUN Creatinine Est GFR ( Amer) Est GFR (MDRD) Non-Af Glucose POC Glucose 175 H Hemoglobin A1c % Calcium Phosphorus Magnesium Total Bilirubin Direct Bilirubin Neonat Total Bilirubin Neonat Direct Bilirubin Neonat Indirect Bili AST ALT Alkaline Phosphatase Ammonia Creatine Kinase CK-MB (CK-2) 41.00 H Troponin I 0.107 NT-Pro-B Natriuret Pep 2690 H Total Protein Albumin Triglycerides Cholesterol LDL Cholesterol Direct VLDL Cholesterol HDL Cholesterol Amylase Lipase TSH 0.99 Free T4 1.60 Urine Color Urine Appearance Urine pH Ur Specific [place] Urine Protein Urine Glucose (UA) Urine Ketones Urine Blood Urine Nitrite Urine Bilirubin Urine Urobilinogen Ur Leukocyte Esterase Urine WBC (Auto) Urine RBC (Auto) Squamous Epi Cells Auto Urine Mucus (Auto) Urine Myoglobin Urine Ascorbic Acid Urine Opiates Screen Urine Methadone Screen Ur Barbiturates Screen Ur Phencyclidine Scrn Ur Amphetamines Screen U Benzodiazepines Scrn Urine Cocaine Screen U Marijuana (THC) Screen 01/04/20 01/04/20 01/04/20 22:40 22:40 22:40 WBC RBC Hgb Hct MCV MCH MCHC RDW Plt Count Lymph % (Auto) [place] % (Auto) Eos % (Auto) Baso % (Auto) Absolute Neuts (auto) Absolute Lymphs (auto) Absolute Monos (auto) Absolute Eos (auto) Absolute Basos (auto) Seg Neutrophils % PT INR APTT Sodium Potassium Chloride Carbon Dioxide Anion Gap BUN Creatinine Est GFR ( Amer) Est GFR (MDRD) Non-Af Glucose POC Glucose Hemoglobin A1c % Calcium Phosphorus Magnesium Total Bilirubin Direct Bilirubin Neonat Total Bilirubin Neonat Direct Bilirubin Neonat Indirect Bili AST ALT Alkaline Phosphatase Ammonia Creatine Kinase CK-MB (CK-2) Troponin I NT-Pro-B Natriuret Pep Total Protein Albumin Triglycerides Cholesterol LDL Cholesterol Direct VLDL Cholesterol HDL Cholesterol Amylase Lipase TSH Free T4 Urine Color YELLOW Urine Appearance CLEAR Urine pH 5.0 Ur Specific [place] 1.010 Urine Protein NEGATIVE Urine Glucose (UA) NEGATIVE Urine Ketones NEGATIVE Urine Blood NEGATIVE Urine Nitrite NEGATIVE Urine Bilirubin NEGATIVE Urine Urobilinogen NEGATIVE Ur Leukocyte Esterase NEGATIVE Urine WBC (Auto) 1 Urine RBC (Auto) 1 Squamous Epi Cells Auto <1 Urine Mucus (Auto) RARE Urine Myoglobin <2 Urine Ascorbic Acid NEGATIVE Urine Opiates Screen NEGATIVE Urine Methadone Screen NEGATIVE Ur Barbiturates Screen NEGATIVE Ur Phencyclidine Scrn NEGATIVE Ur Amphetamines Screen NEGATIVE U Benzodiazepines Scrn NEGATIVE Urine Cocaine Screen NEGATIVE U Marijuana (THC) Screen NEGATIVE 01/04/20 01/04/20 01/05/20 23:00 23:00 05:30 WBC RBC Hgb Hct MCV MCH MCHC RDW Plt Count Lymph % (Auto) [place] % (Auto) Eos % (Auto) Baso % (Auto) Absolute Neuts (auto) Absolute Lymphs (auto) Absolute Monos (auto) Absolute Eos (auto) Absolute Basos (auto) Seg Neutrophils % PT INR APTT Sodium 135.0 L Potassium 3.8 Chloride 105 Carbon Dioxide 25 Anion Gap 5 BUN 35 H Creatinine 1.33 H Est GFR ( Amer) 47 L Est GFR (MDRD) Non-Af 39 L Glucose 145 H POC Glucose Hemoglobin A1c % Calcium 9.3 Phosphorus Magnesium Total Bilirubin 0.7 Direct Bilirubin 0.0 Neonat Total Bilirubin Not Reportable Neonat Direct Bilirubin Not Reportable Neonat Indirect Bili Not Reportable AST 76 H ALT 67 H Alkaline Phosphatase 55 Ammonia Creatine Kinase 1293 H 1151 H CK-MB (CK-2) 31.90 H Troponin I 0.097 NT-Pro-B Natriuret Pep Total Protein 6.4 Albumin 2.8 L Triglycerides 84 Cholesterol 137.07 LDL Cholesterol Direct 93 VLDL Cholesterol 17.0 HDL Cholesterol 37 L Amylase Lipase TSH Free T4 Urine Color Urine Appearance Urine pH Ur Specific [place] Urine Protein Urine Glucose (UA) Urine Ketones Urine Blood Urine Nitrite Urine Bilirubin Urine Urobilinogen Ur Leukocyte Esterase Urine WBC (Auto) Urine RBC (Auto) Squamous Epi Cells Auto Urine Mucus (Auto) Urine Myoglobin Urine Ascorbic Acid Urine Opiates Screen Urine Methadone Screen Ur Barbiturates Screen Ur Phencyclidine Scrn Ur Amphetamines Screen U Benzodiazepines Scrn Urine Cocaine Screen U Marijuana (THC) Screen 01/05/20 01/05/20 01/05/20 05:30 05:30 05:30 WBC 8.4 RBC 4.19 Hgb 11.6 L Hct 33.9 L MCV 81 MCH 27.7 MCHC 34.2 RDW 16.1 H Plt Count 137 L Lymph % (Auto) 25.5 [place] % (Auto) 10.0 Eos % (Auto) 2.8 Baso % (Auto) 0.4 Absolute Neuts (auto) 5.2 Absolute Lymphs (auto) 2.1 Absolute Monos (auto) 0.8 Absolute Eos (auto) 0.2 Absolute Basos (auto) 0.0 Seg Neutrophils % 61.3 PT INR APTT Sodium Potassium Chloride Carbon Dioxide Anion Gap BUN Creatinine Est GFR ( Amer) Est GFR (MDRD) Non-Af Glucose POC Glucose Hemoglobin A1c % 8.8 H Calcium Phosphorus Magnesium Total Bilirubin Direct Bilirubin Neonat Total Bilirubin Neonat Direct Bilirubin Neonat Indirect Bili AST ALT Alkaline Phosphatase Ammonia Creatine Kinase CK-MB (CK-2) 24.20 H Troponin I 0.092 NT-Pro-B Natriuret Pep Total Protein Albumin Triglycerides Cholesterol LDL Cholesterol Direct VLDL Cholesterol HDL Cholesterol Amylase Lipase TSH Free T4 Urine Color Urine Appearance Urine pH Ur Specific [place] Urine Protein Urine Glucose (UA) Urine Ketones Urine Blood Urine Nitrite Urine Bilirubin Urine Urobilinogen Ur Leukocyte Esterase Urine WBC (Auto) Urine RBC (Auto) Squamous Epi Cells Auto Urine Mucus (Auto) Urine Myoglobin Urine Ascorbic Acid Urine Opiates Screen Urine Methadone Screen Ur Barbiturates Screen Ur Phencyclidine Scrn Ur Amphetamines Screen U Benzodiazepines Scrn Urine Cocaine Screen U Marijuana (THC) Screen 01/05/20 01/05/20 01/05/20 07:16 11:30 16:26 WBC RBC Hgb Hct MCV MCH MCHC RDW Plt Count Lymph % (Auto) [place] % (Auto) Eos % (Auto) Baso % (Auto) Absolute Neuts (auto) Absolute Lymphs (auto) Absolute Monos (auto) Absolute Eos (auto) Absolute Basos (auto) Seg Neutrophils % PT INR APTT Sodium Potassium Chloride Carbon Dioxide Anion Gap BUN Creatinine Est GFR ( Amer) Est GFR (MDRD) Non-Af Glucose POC Glucose 146 H 172 H 87 Hemoglobin A1c % Calcium Phosphorus Magnesium Total Bilirubin Direct Bilirubin Neonat Total Bilirubin Neonat Direct Bilirubin Neonat Indirect Bili AST ALT Alkaline Phosphatase Ammonia Creatine Kinase CK-MB (CK-2) Troponin I NT-Pro-B Natriuret Pep Total Protein Albumin Triglycerides Cholesterol LDL Cholesterol Direct VLDL Cholesterol HDL Cholesterol Amylase Lipase TSH Free T4 Urine Color Urine Appearance Urine pH Ur Specific [place] Urine Protein Urine Glucose (UA) Urine Ketones Urine Blood Urine Nitrite Urine Bilirubin Urine Urobilinogen Ur Leukocyte Esterase Urine WBC (Auto) Urine RBC (Auto) Squamous Epi Cells Auto Urine Mucus (Auto) Urine Myoglobin Urine Ascorbic Acid Urine Opiates Screen Urine Methadone Screen Ur Barbiturates Screen Ur Phencyclidine Scrn Ur Amphetamines Screen U Benzodiazepines Scrn Urine Cocaine Screen U Marijuana (THC) Screen 01/05/20 01/06/20 01/06/20 21:40 05:47 05:47 WBC 10.2 RBC 4.37 Hgb 12.0 Hct 35.4 L MCV 81 MCH 27.3 MCHC 33.8 RDW 16.3 H Plt Count 130 L Lymph % (Auto) 20.4 [place] % (Auto) 9.3 Eos % (Auto) 2.8 Baso % (Auto) 0.5 Absolute Neuts (auto) 6.9 Absolute Lymphs (auto) 2.1 Absolute Monos (auto) 1.0 Absolute Eos (auto) 0.3 Absolute Basos (auto) 0.1 Seg Neutrophils % 67.0 PT INR APTT Sodium 134.3 L Potassium 3.5 L Chloride 101 Carbon Dioxide 26 Anion Gap 7 BUN 37 H Creatinine 1.57 H Est GFR ( Amer) 39 L Est GFR (MDRD) Non-Af 32 L Glucose 117 H POC Glucose 95 Hemoglobin A1c % Calcium 9.1 Phosphorus Magnesium Total Bilirubin 0.7 Direct Bilirubin 0.0 Neonat Total Bilirubin Not Reportable Neonat Direct Bilirubin Not Reportable Neonat Indirect Bili Not Reportable AST 73 H ALT 64 H Alkaline Phosphatase 53 Ammonia Creatine Kinase CK-MB (CK-2) Troponin I NT-Pro-B Natriuret Pep Total Protein 6.5 Albumin 2.8 L Triglycerides Cholesterol LDL Cholesterol Direct VLDL Cholesterol HDL Cholesterol Amylase Lipase TSH Free T4 Urine Color Urine Appearance Urine pH Ur Specific [place] Urine Protein Urine Glucose (UA) Urine Ketones Urine Blood Urine Nitrite Urine Bilirubin Urine Urobilinogen Ur Leukocyte Esterase Urine WBC (Auto) Urine RBC (Auto) Squamous Epi Cells Auto Urine Mucus (Auto) Urine Myoglobin Urine Ascorbic Acid Urine Opiates Screen Urine Methadone Screen Ur Barbiturates Screen Ur Phencyclidine Scrn Ur Amphetamines Screen U Benzodiazepines Scrn Urine Cocaine Screen U Marijuana (THC) Screen 01/06/20 01/06/20 01/06/20 05:47 07:44 11:07 WBC RBC Hgb Hct MCV MCH MCHC RDW Plt Count Lymph % (Auto) [place] % (Auto) Eos % (Auto) Baso % (Auto) Absolute Neuts (auto) Absolute Lymphs (auto) Absolute Monos (auto) Absolute Eos (auto) Absolute Basos (auto) Seg Neutrophils % PT INR APTT Sodium Potassium Chloride Carbon Dioxide Anion Gap BUN Creatinine Est GFR ( Amer) Est GFR (MDRD) Non-Af Glucose POC Glucose 134 H 272 H Hemoglobin A1c % Calcium Phosphorus Magnesium Total Bilirubin Direct Bilirubin Neonat Total Bilirubin Neonat Direct Bilirubin Neonat Indirect Bili AST ALT Alkaline Phosphatase Ammonia Creatine Kinase 1197 H CK-MB (CK-2) Troponin I NT-Pro-B Natriuret Pep Total Protein Albumin Triglycerides Cholesterol LDL Cholesterol Direct VLDL Cholesterol HDL Cholesterol Amylase Lipase TSH Free T4 Urine Color Urine Appearance Urine pH Ur Specific [place] Urine Protein Urine Glucose (UA) Urine Ketones Urine Blood Urine Nitrite Urine Bilirubin Urine Urobilinogen Ur Leukocyte Esterase Urine WBC (Auto) Urine RBC (Auto) Squamous Epi Cells Auto Urine Mucus (Auto) Urine Myoglobin Urine Ascorbic Acid Urine Opiates Screen Urine Methadone Screen Ur Barbiturates Screen Ur Phencyclidine Scrn Ur Amphetamines Screen U Benzodiazepines Scrn Urine Cocaine Screen U Marijuana (THC) Screen 01/06/20 01/06/20 01/06/20 16:21 22:10 22:28 WBC RBC Hgb Hct MCV MCH MCHC RDW Plt Count Lymph % (Auto) [place] % (Auto) Eos % (Auto) Baso % (Auto) Absolute Neuts (auto) Absolute Lymphs (auto) Absolute Monos (auto) Absolute Eos (auto) Absolute Basos (auto) Seg Neutrophils % PT INR APTT Sodium Potassium Chloride Carbon Dioxide Anion Gap BUN Creatinine Est GFR ( Amer) Est GFR (MDRD) Non-Af Glucose POC Glucose 114 H 67 L 73 Hemoglobin A1c % Calcium Phosphorus Magnesium Total Bilirubin Direct Bilirubin Neonat Total Bilirubin Neonat Direct Bilirubin Neonat Indirect Bili AST ALT Alkaline Phosphatase Ammonia Creatine Kinase CK-MB (CK-2) Troponin I NT-Pro-B Natriuret Pep Total Protein Albumin Triglycerides Cholesterol LDL Cholesterol Direct VLDL Cholesterol HDL Cholesterol Amylase Lipase TSH Free T4 Urine Color Urine Appearance Urine pH Ur Specific [place] Urine Protein Urine Glucose (UA) Urine Ketones Urine Blood Urine Nitrite Urine Bilirubin Urine Urobilinogen Ur Leukocyte Esterase Urine WBC (Auto) Urine RBC (Auto) Squamous Epi Cells Auto Urine Mucus (Auto) Urine Myoglobin Urine Ascorbic Acid Urine Opiates Screen Urine Methadone Screen Ur Barbiturates Screen Ur Phencyclidine Scrn Ur Amphetamines Screen U Benzodiazepines Scrn Urine Cocaine Screen U Marijuana (THC) Screen 01/07/20 01/07/20 01/07/20 00:59 06:12 06:12 WBC 10.9 H RBC 4.25 Hgb 11.4 L Hct 34.2 L MCV 81 MCH 26.9 L MCHC 33.4 RDW 16.8 H Plt Count 141 L Lymph % (Auto) 18.7 [place] % (Auto) 9.8 Eos % (Auto) 1.7 Baso % (Auto) 0.2 Absolute Neuts (auto) 7.6 Absolute Lymphs (auto) 2.0 Absolute Monos (auto) 1.1 Absolute Eos (auto) 0.2 Absolute Basos (auto) 0.0 Seg Neutrophils % 69.6 PT INR APTT Sodium 135.2 L Potassium 3.7 Chloride 99 Carbon Dioxide 27 Anion Gap 9 BUN 36 H Creatinine 1.59 H Est GFR ( Amer) 38 L Est GFR (MDRD) Non-Af 32 L Glucose 105 POC Glucose 102 Hemoglobin A1c % Calcium 8.9 Phosphorus Magnesium Total Bilirubin 0.7 Direct Bilirubin 0.2 Neonat Total Bilirubin Not Reportable Neonat Direct Bilirubin Not Reportable Neonat Indirect Bili Not Reportable AST 75 H ALT 58 H Alkaline Phosphatase 48 Ammonia Creatine Kinase 1255 H CK-MB (CK-2) Troponin I NT-Pro-B Natriuret Pep Total Protein 6.5 Albumin 2.8 L Triglycerides Cholesterol LDL Cholesterol Direct VLDL Cholesterol HDL Cholesterol Amylase Lipase TSH Free T4 Urine Color Urine Appearance Urine pH Ur Specific [place] Urine Protein Urine Glucose (UA) Urine Ketones Urine Blood Urine Nitrite Urine Bilirubin Urine Urobilinogen Ur Leukocyte Esterase Urine WBC (Auto) Urine RBC (Auto) Squamous Epi Cells Auto Urine Mucus (Auto) Urine Myoglobin Urine Ascorbic Acid Urine Opiates Screen Urine Methadone Screen Ur Barbiturates Screen Ur Phencyclidine Scrn Ur Amphetamines Screen U Benzodiazepines Scrn Urine Cocaine Screen U Marijuana (THC) Screen 01/07/20 01/07/20 01/07/20 07:16 11:20 16:01 WBC RBC Hgb Hct MCV MCH MCHC RDW Plt Count Lymph % (Auto) [place] % (Auto) Eos % (Auto) Baso % (Auto) Absolute Neuts (auto) Absolute Lymphs (auto) Absolute Monos (auto) Absolute Eos (auto) Absolute Basos (auto) Seg Neutrophils % PT INR APTT Sodium Potassium Chloride Carbon Dioxide Anion Gap BUN Creatinine Est GFR ( Amer) Est GFR (MDRD) Non-Af Glucose POC Glucose 106 161 H 143 H Hemoglobin A1c % Calcium Phosphorus Magnesium Total Bilirubin Direct Bilirubin Neonat Total Bilirubin Neonat Direct Bilirubin Neonat Indirect Bili AST ALT Alkaline Phosphatase Ammonia Creatine Kinase CK-MB (CK-2) Troponin I NT-Pro-B Natriuret Pep Total Protein Albumin Triglycerides Cholesterol LDL Cholesterol Direct VLDL Cholesterol HDL Cholesterol Amylase Lipase TSH Free T4 Urine Color Urine Appearance Urine pH Ur Specific [place] Urine Protein Urine Glucose (UA) Urine Ketones Urine Blood Urine Nitrite Urine Bilirubin Urine Urobilinogen Ur Leukocyte Esterase Urine WBC (Auto) Urine RBC (Auto) Squamous Epi Cells Auto Urine Mucus (Auto) Urine Myoglobin Urine Ascorbic Acid Urine Opiates Screen Urine Methadone Screen Ur Barbiturates Screen Ur Phencyclidine Scrn Ur Amphetamines Screen U Benzodiazepines Scrn Urine Cocaine Screen U Marijuana (THC) Screen 01/07/20 01/08/20 01/08/20 21:37 07:40 08:19 WBC RBC Hgb Hct MCV MCH MCHC RDW Plt Count Lymph % (Auto) [place] % (Auto) Eos % (Auto) Baso % (Auto) Absolute Neuts (auto) Absolute Lymphs (auto) Absolute Monos (auto) Absolute Eos (auto) Absolute Basos (auto) Seg Neutrophils % PT INR APTT Sodium 134.2 L Potassium 3.5 L Chloride 99 Carbon Dioxide 28 Anion Gap 7 BUN 35 H Creatinine 1.63 H Est GFR ( Amer) 37 L Est GFR (MDRD) Non-Af 31 L Glucose 139 H POC Glucose 92 161 H Hemoglobin A1c % Calcium 8.5 Phosphorus Magnesium Total Bilirubin 0.7 Direct Bilirubin 0.1 Neonat Total Bilirubin Not Reportable Neonat Direct Bilirubin Not Reportable Neonat Indirect Bili Not Reportable AST 76 H ALT 52 H Alkaline Phosphatase 47 Ammonia Creatine Kinase CK-MB (CK-2) Troponin I NT-Pro-B Natriuret Pep Total Protein 6.0 L Albumin 2.6 L Triglycerides Cholesterol LDL Cholesterol Direct VLDL Cholesterol HDL Cholesterol Amylase Lipase TSH Free T4 Urine Color Urine Appearance Urine pH Ur Specific [place] Urine Protein Urine Glucose (UA) Urine Ketones Urine Blood Urine Nitrite Urine Bilirubin Urine Urobilinogen Ur Leukocyte Esterase Urine WBC (Auto) Urine RBC (Auto) Squamous Epi Cells Auto Urine Mucus (Auto) Urine Myoglobin Urine Ascorbic Acid Urine Opiates Screen Urine Methadone Screen Ur Barbiturates Screen Ur Phencyclidine Scrn Ur Amphetamines Screen U Benzodiazepines Scrn Urine Cocaine Screen U Marijuana (THC) Screen 01/08/20 01/08/20 01/08/20 11:28 16:52 21:07 WBC RBC Hgb Hct MCV MCH MCHC RDW Plt Count Lymph % (Auto) [place] % (Auto) Eos % (Auto) Baso % (Auto) Absolute Neuts (auto) Absolute Lymphs (auto) Absolute Monos (auto) Absolute Eos (auto) Absolute Basos (auto) Seg Neutrophils % PT INR APTT Sodium Potassium Chloride Carbon Dioxide Anion Gap BUN Creatinine Est GFR ( Amer) Est GFR (MDRD) Non-Af Glucose POC Glucose 165 H 74 167 H Hemoglobin A1c % Calcium Phosphorus Magnesium Total Bilirubin Direct Bilirubin Neonat Total Bilirubin Neonat Direct Bilirubin Neonat Indirect Bili AST ALT Alkaline Phosphatase Ammonia Creatine Kinase CK-MB (CK-2) Troponin I NT-Pro-B Natriuret Pep Total Protein Albumin Triglycerides Cholesterol LDL Cholesterol Direct VLDL Cholesterol HDL Cholesterol Amylase Lipase TSH Free T4 Urine Color Urine Appearance Urine pH Ur Specific [place] Urine Protein Urine Glucose (UA) Urine Ketones Urine Blood Urine Nitrite Urine Bilirubin Urine Urobilinogen Ur Leukocyte Esterase Urine WBC (Auto) Urine RBC (Auto) Squamous Epi Cells Auto Urine Mucus (Auto) Urine Myoglobin Urine Ascorbic Acid Urine Opiates Screen Urine Methadone Screen Ur Barbiturates Screen Ur Phencyclidine Scrn Ur Amphetamines Screen U Benzodiazepines Scrn Urine Cocaine Screen U Marijuana (THC) Screen 01/09/20 01/09/20 01/09/20 07:03 07:54 11:42 WBC RBC Hgb Hct MCV MCH MCHC RDW Plt Count Lymph % (Auto) [place] % (Auto) Eos % (Auto) Baso % (Auto) Absolute Neuts (auto) Absolute Lymphs (auto) Absolute Monos (auto) Absolute Eos (auto) Absolute Basos (auto) Seg Neutrophils % PT INR APTT Sodium 135.2 L Potassium 3.3 L Chloride 103 Carbon Dioxide 26 Anion Gap 6 BUN 33 H Creatinine 1.40 H Est GFR ( Amer) 44 L Est GFR (MDRD) Non-Af 37 L Glucose 79 POC Glucose 80 249 H Hemoglobin A1c % Calcium 8.5 Phosphorus Magnesium Total Bilirubin 0.7 Direct Bilirubin 0.1 Neonat Total Bilirubin Not Reportable Neonat Direct Bilirubin Not Reportable Neonat Indirect Bili Not Reportable AST 78 H ALT 53 H Alkaline Phosphatase 48 Ammonia Creatine Kinase CK-MB (CK-2) Troponin I NT-Pro-B Natriuret Pep Total Protein 6.0 L Albumin 2.5 L Triglycerides Cholesterol LDL Cholesterol Direct VLDL Cholesterol HDL Cholesterol Amylase Lipase TSH Free T4 Urine Color Urine Appearance Urine pH Ur Specific [place] Urine Protein Urine Glucose (UA) Urine Ketones Urine Blood Urine Nitrite Urine Bilirubin Urine Urobilinogen Ur Leukocyte Esterase Urine WBC (Auto) Urine RBC (Auto) Squamous Epi Cells Auto Urine Mucus (Auto) Urine Myoglobin Urine Ascorbic Acid Urine Opiates Screen Urine Methadone Screen Ur Barbiturates Screen Ur Phencyclidine Scrn Ur Amphetamines Screen U Benzodiazepines Scrn Urine Cocaine Screen U Marijuana (THC) Screen 01/09/20 01/09/20 01/10/20 16:41 21:03 04:58 WBC RBC Hgb Hct MCV MCH MCHC RDW Plt Count Lymph % (Auto) [place] % (Auto) Eos % (Auto) Baso % (Auto) Absolute Neuts (auto) Absolute Lymphs (auto) Absolute Monos (auto) Absolute Eos (auto) Absolute Basos (auto) Seg Neutrophils % PT INR APTT Sodium 136.0 L Potassium 4.0 Chloride 106 Carbon Dioxide 24 Anion Gap 6 BUN 36 H Creatinine 1.25 Est GFR ( Amer) 50 L Est GFR (MDRD) Non-Af 42 L Glucose 53 L POC Glucose 115 H 208 H Hemoglobin A1c % Calcium 8.6 Phosphorus Magnesium Total Bilirubin 0.6 Direct Bilirubin 0.1 Neonat Total Bilirubin Not Reportable Neonat Direct Bilirubin Not Reportable Neonat Indirect Bili Not Reportable AST 74 H ALT 54 H Alkaline Phosphatase 44 Ammonia Creatine Kinase CK-MB (CK-2) Troponin I NT-Pro-B Natriuret Pep Total Protein 5.8 L Albumin 2.3 L Triglycerides Cholesterol LDL Cholesterol Direct VLDL Cholesterol HDL Cholesterol Amylase Lipase TSH Free T4 Urine Color Urine Appearance Urine pH Ur Specific [place] Urine Protein Urine Glucose (UA) Urine Ketones Urine Blood Urine Nitrite Urine Bilirubin Urine Urobilinogen Ur Leukocyte Esterase Urine WBC (Auto) Urine RBC (Auto) Squamous Epi Cells Auto Urine Mucus (Auto) Urine Myoglobin Urine Ascorbic Acid Urine Opiates Screen Urine Methadone Screen Ur Barbiturates Screen Ur Phencyclidine Scrn Ur Amphetamines Screen U Benzodiazepines Scrn Urine Cocaine Screen U Marijuana (THC) Screen 01/10/20 01/10/20 01/10/20 04:58 07:38 12:15 WBC 10.7 H RBC 3.92 Hgb 10.6 L Hct 31.6 L MCV 81 MCH 27.2 MCHC 33.6 RDW 16.4 H Plt Count 149 L Lymph % (Auto) 20.5 [place] % (Auto) 11.2 Eos % (Auto) 3.5 Baso % (Auto) 0.6 Absolute Neuts (auto) 6.9 Absolute Lymphs (auto) 2.2 Absolute Monos (auto) 1.2 Absolute Eos (auto) 0.4 Absolute Basos (auto) 0.1 Seg Neutrophils % 64.2 PT INR APTT Sodium Potassium Chloride Carbon Dioxide Anion Gap BUN Creatinine Est GFR ( Amer) Est GFR (MDRD) Non-Af Glucose POC Glucose 143 H 248 H Hemoglobin A1c % Calcium Phosphorus Magnesium Total Bilirubin Direct Bilirubin Neonat Total Bilirubin Neonat Direct Bilirubin Neonat Indirect Bili AST ALT Alkaline Phosphatase Ammonia Creatine Kinase CK-MB (CK-2) Troponin I NT-Pro-B Natriuret Pep Total Protein Albumin Triglycerides Cholesterol LDL Cholesterol Direct VLDL Cholesterol HDL Cholesterol Amylase Lipase TSH Free T4 Urine Color Urine Appearance Urine pH Ur Specific [place] Urine Protein Urine Glucose (UA) Urine Ketones Urine Blood Urine Nitrite Urine Bilirubin Urine Urobilinogen Ur Leukocyte Esterase Urine WBC (Auto) Urine RBC (Auto) Squamous Epi Cells Auto Urine Mucus (Auto) Urine Myoglobin Urine Ascorbic Acid Urine Opiates Screen Urine Methadone Screen Ur Barbiturates Screen Ur Phencyclidine Scrn Ur Amphetamines Screen U Benzodiazepines Scrn Urine Cocaine Screen U Marijuana (THC) Screen 01/10/20 01/10/20 01/10/20 13:10 13:10 16:56 WBC RBC Hgb Hct MCV MCH MCHC RDW Plt Count Lymph % (Auto) [place] % (Auto) Eos % (Auto) Baso % (Auto) Absolute Neuts (auto) Absolute Lymphs (auto) Absolute Monos (auto) Absolute Eos (auto) Absolute Basos (auto) Seg Neutrophils % PT INR APTT Sodium Potassium Chloride Carbon Dioxide Anion Gap BUN Creatinine Est GFR ( Amer) Est GFR (MDRD) Non-Af Glucose POC Glucose 201 H Hemoglobin A1c % Calcium Phosphorus Magnesium Total Bilirubin Direct Bilirubin Neonat Total Bilirubin Neonat Direct Bilirubin Neonat Indirect Bili AST ALT Alkaline Phosphatase Ammonia Creatine Kinase 1181 H CK-MB (CK-2) 16.90 H Troponin I 0.098 NT-Pro-B Natriuret Pep Total Protein Albumin Triglycerides Cholesterol LDL Cholesterol Direct VLDL Cholesterol HDL Cholesterol Amylase Lipase TSH Free T4 Urine Color Urine Appearance Urine pH Ur Specific [place] Urine Protein Urine Glucose (UA) Urine Ketones Urine Blood Urine Nitrite Urine Bilirubin Urine Urobilinogen Ur Leukocyte Esterase Urine WBC (Auto) Urine RBC (Auto) Squamous Epi Cells Auto Urine Mucus (Auto) Urine Myoglobin Urine Ascorbic Acid Urine Opiates Screen Urine Methadone Screen Ur Barbiturates Screen Ur Phencyclidine Scrn Ur Amphetamines Screen U Benzodiazepines Scrn Urine Cocaine Screen U Marijuana (THC) Screen 01/10/20 01/10/20 01/10/20 18:11 18:11 21:31 WBC RBC Hgb Hct MCV MCH MCHC RDW Plt Count Lymph % (Auto) [place] % (Auto) Eos % (Auto) Baso % (Auto) Absolute Neuts (auto) Absolute Lymphs (auto) Absolute Monos (auto) Absolute Eos (auto) Absolute Basos (auto) Seg Neutrophils % PT INR APTT Sodium Potassium Chloride Carbon Dioxide Anion Gap BUN Creatinine Est GFR ( Amer) Est GFR (MDRD) Non-Af Glucose POC Glucose 88 Hemoglobin A1c % Calcium Phosphorus Magnesium Total Bilirubin Direct Bilirubin Neonat Total Bilirubin Neonat Direct Bilirubin Neonat Indirect Bili AST ALT Alkaline Phosphatase Ammonia Creatine Kinase 1244 H CK-MB (CK-2) 15.60 H Troponin I 0.125 NT-Pro-B Natriuret Pep 5900 H Total Protein Albumin Triglycerides Cholesterol LDL Cholesterol Direct VLDL Cholesterol HDL Cholesterol Amylase Lipase TSH Free T4 Urine Color Urine Appearance Urine pH Ur Specific [place] Urine Protein Urine Glucose (UA) Urine Ketones Urine Blood Urine Nitrite Urine Bilirubin Urine Urobilinogen Ur Leukocyte Esterase Urine WBC (Auto) Urine RBC (Auto) Squamous Epi Cells Auto Urine Mucus (Auto) Urine Myoglobin Urine Ascorbic Acid Urine Opiates Screen Urine Methadone Screen Ur Barbiturates Screen Ur Phencyclidine Scrn Ur Amphetamines Screen U Benzodiazepines Scrn Urine Cocaine Screen U Marijuana (THC) Screen 01/11/20 01/11/20 01/11/20 01:01 01:01 06:44 WBC RBC Hgb Hct MCV MCH MCHC RDW Plt Count Lymph % (Auto) [place] % (Auto) Eos % (Auto) Baso % (Auto) Absolute Neuts (auto) Absolute Lymphs (auto) Absolute Monos (auto) Absolute Eos (auto) Absolute Basos (auto) Seg Neutrophils % PT INR APTT Sodium 137.1 Potassium 4.4 Chloride 107 Carbon Dioxide 24 Anion Gap 6 BUN 36 H Creatinine 1.25 Est GFR ( Amer) 50 L Est GFR (MDRD) Non-Af 42 L Glucose 125 H POC Glucose Hemoglobin A1c % Calcium 9.1 Phosphorus Magnesium Total Bilirubin 0.6 Direct Bilirubin 0.1 Neonat Total Bilirubin Not Reportable Neonat Direct Bilirubin Not Reportable Neonat Indirect Bili Not Reportable AST 77 H ALT 56 H Alkaline Phosphatase 48 Ammonia Creatine Kinase 1203 H CK-MB (CK-2) 14.20 H Troponin I 0.226 NT-Pro-B Natriuret Pep Total Protein 5.9 L Albumin 2.4 L Triglycerides Cholesterol LDL Cholesterol Direct VLDL Cholesterol HDL Cholesterol Amylase Lipase TSH Free T4 Urine Color Urine Appearance Urine pH Ur Specific [place] Urine Protein Urine Glucose (UA) Urine Ketones Urine Blood Urine Nitrite Urine Bilirubin Urine Urobilinogen Ur Leukocyte Esterase Urine WBC (Auto) Urine RBC (Auto) Squamous Epi Cells Auto Urine Mucus (Auto) Urine Myoglobin Urine Ascorbic Acid Urine Opiates Screen Urine Methadone Screen Ur Barbiturates Screen Ur Phencyclidine Scrn Ur Amphetamines Screen U Benzodiazepines Scrn Urine Cocaine Screen U Marijuana (THC) Screen 01/11/20 01/11/20 01/11/20 07:31 11:29 16:18 WBC RBC Hgb Hct MCV MCH MCHC RDW Plt Count Lymph % (Auto) [place] % (Auto) Eos % (Auto) Baso % (Auto) Absolute Neuts (auto) Absolute Lymphs (auto) Absolute Monos (auto) Absolute Eos (auto) Absolute Basos (auto) Seg Neutrophils % PT INR APTT Sodium Potassium Chloride Carbon Dioxide Anion Gap BUN Creatinine Est GFR ( Amer) Est GFR (MDRD) Non-Af Glucose POC Glucose 119 H 241 H 122 H Hemoglobin A1c % Calcium Phosphorus Magnesium Total Bilirubin Direct Bilirubin Neonat Total Bilirubin Neonat Direct Bilirubin Neonat Indirect Bili AST ALT Alkaline Phosphatase Ammonia Creatine Kinase CK-MB (CK-2) Troponin I NT-Pro-B Natriuret Pep Total Protein Albumin Triglycerides Cholesterol LDL Cholesterol Direct VLDL Cholesterol HDL Cholesterol Amylase Lipase TSH Free T4 Urine Color Urine Appearance Urine pH Ur Specific [place] Urine Protein Urine Glucose (UA) Urine Ketones Urine Blood Urine Nitrite Urine Bilirubin Urine Urobilinogen Ur Leukocyte Esterase Urine WBC (Auto) Urine RBC (Auto) Squamous Epi Cells Auto Urine Mucus (Auto) Urine Myoglobin Urine Ascorbic Acid Urine Opiates Screen Urine Methadone Screen Ur Barbiturates Screen Ur Phencyclidine Scrn Ur Amphetamines Screen U Benzodiazepines Scrn Urine Cocaine Screen U Marijuana (THC) Screen 01/11/20 21:11 WBC RBC Hgb Hct MCV MCH MCHC RDW Plt Count Lymph % (Auto) [place] % (Auto) Eos % (Auto) Baso % (Auto) Absolute Neuts (auto) Absolute Lymphs (auto) Absolute Monos (auto) Absolute Eos (auto) Absolute Basos (auto) Seg Neutrophils % PT INR APTT Sodium Potassium Chloride Carbon Dioxide Anion Gap BUN Creatinine Est GFR ( Amer) Est GFR (MDRD) Non-Af Glucose POC Glucose 141 H Hemoglobin A1c % Calcium Phosphorus Magnesium Total Bilirubin Direct Bilirubin Neonat Total Bilirubin Neonat Direct Bilirubin Neonat Indirect Bili AST ALT Alkaline Phosphatase Ammonia Creatine Kinase CK-MB (CK-2) Troponin I NT-Pro-B Natriuret Pep Total Protein Albumin Triglycerides Cholesterol LDL Cholesterol Direct VLDL Cholesterol HDL Cholesterol Amylase Lipase TSH Free T4 Urine Color Urine Appearance Urine pH Ur Specific [place] Urine Protein Urine Glucose (UA) Urine Ketones Urine Blood Urine Nitrite Urine Bilirubin Urine Urobilinogen Ur Leukocyte Esterase Urine WBC (Auto) Urine RBC (Auto) Squamous Epi Cells Auto Urine Mucus (Auto) Urine Myoglobin Urine Ascorbic Acid Urine Opiates Screen Urine Methadone Screen Ur Barbiturates Screen Ur Phencyclidine Scrn Ur Amphetamines Screen U Benzodiazepines Scrn Urine Cocaine Screen U Marijuana (THC) Screen Chest X-Ray 01/03/20 14:13 IMPRESSION: CARDIAC ENLARGEMENT. VASCULAR CONGESTION. DIFFUSE AIRSPACE DISEASE IN THE LEFT LUNG MAY BE DUE TO ASYMMETRIC PULMONARY EDEMA OR PNEUMONIA. Head CT 01/03/20 14:14 IMPRESSION: CHRONIC CHANGES OF ATROPHY AND MICROVASCULAR ISCHEMIA. OLD RIGHT CEREBELLAR INFARCT. NO ACUTE PROCESS. EVIDENCE OF ACUTE STROKE: NO. Head MRI 01/04/20 00:00 IMPRESSION: ATROPHY AND CHRONIC MICRO-VASCULAR ISCHEMIC CHANGES. OLD CEREBELLAR INFARCTS, RIGHT GREATER THAN LEFT. NO ACUTE FINDINGS. EVIDENCE OF ACUTE STROKE: NO. Chest CT 01/05/20 00:00 IMPRESSION: 1. Bilateral airspace disease, likely multicentric pneumonia. 2. There is no suprahilar mass on the right. 3. Cardiomegaly with no fiorella pulmonary edema. Chest X-Ray 01/05/20 00:00 IMPRESSION: Cardiomegaly. No fiorella pulmonary edema. Airspace disease in the left lung, likely pneumonia. Cannot exclude suprahilar nodule in the right lung. Foot X-Ray 01/07/20 09:00 IMPRESSION: No acute osseous abnormality of the left foot. Chest X-Ray 01/10/20 00:00 IMPRESSION: Multifocal consolidation suspicious for pneumonia. Small bilateral pleural effusions and mild pulmonary edema. EKG 's done on 01/02, 01/04, and 01/09 all showed the same without any changes. :. SINUS RHYTHM [RBBB] . RIGHT BUNDLE BRANCH BLOCK [LVHCO] . LVH WITH IVCD AND SECONDARY REPOL ABNRM ECHOCARDIOGRAM: Interpreted by me. Shows normal left rigors chamber size. There is no regional focal we will wall motion normality. LV ejection fraction normal greater than 35%. There is asymmetric septal hypertrophy with a mild resting left ventricular outflow tract obstruction gradient of 19 mmHg. There is also systolic anterior motion of the mitral valve leaflet. There is mild mitral regurgitation. There is no mitral stenosis. There is aortic sclerosis without stenosis. There is mild to moderate aortic regurgitation. There is moderate to severe tricuspid regurgitation. Right 20 systolic pressure is severely elevated at 88 to 93 mmHg assuming RA mean of 15-20. The IVC is dilated LA has decreased respiratory variation and hence estimated right atrial pressure is 15 to 20mmHg. IMPRESSION/RECOMMENDATION: 1. Elevated troponin I: Most likely this is secondary to supply demand mismatch due to the patient's rhabdomyolysis, acute on chronic renal failure, and bilateral pneumonia. 2. Clinically there is no evidence of heart failure. 3. Rhabdomyolysis: The CPKs are trending down. Continue hydration and current treatment. 4. Acute on chronic renal failure.: Avoid nephrotoxic drugs 5. 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 Would avoid nitrates diuretics and any medications that can increase the contractility of the left ventricle or decrease the cavity size. 6. Severe pulmonary hypertension:? Etiology 7. Multifocal pneumonia: Continue antibiotics 8. Abnormal EKG 9. Bifascicular block: Right bundle branch block pattern and left anterior hemiblock. 10. Hypertension: Blood pressure seems to be well controlled 11. Diabetes mellitus type 2 insulin-dependent. 12. 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 13. Hyperlipidemia continue statins 14. Aortic sclerosis with mild to moderate aortic regurgitation. Medications reviewed. Medications adjusted. Medical regimen and management plan discussed with the attending provider on the case. Medical decision making is of high complexity. 60 minutes spent on this patient more than 50% time spent in direct patient care. Will follow
[2020-01-11] MEDS: TRAMADOL HCL 50 MG TABLET PO PRN (21:34)
--- NOTE | 2020-01-12 00:14 | XCELERA REPORT ---
[address] [address] Transthoracic Echocardiogram Report Name: RAFAEL MCLAUGHLIN Age: 74 yrs Gender: Female : 1945 Patient Status: Inpatient Patient Location: [address] [place] [address] Study Date: 01/11/2020 03:10 PM Height: 63 in Weight: 176 lb BSA: 1.8 m2 Procedure: A two-dimensional transthoracic echocardiogram with color flow and Doppler was performed. Study Quality: Good. Reason For Study: elevated bnp ,elevated troponin History: elevated bnp ,elevated troponin. Ordering Physician: GLEN MILLAN Performed By: Doug Burns Interpretation Summary The left ventricle is normal in size. There is moderate asymmetric left ventricular hypertrophy. LV EF is Greater than 75% Left ventricular systolic function is normal. Doppler measurements suggest impaired left ventricular relaxation, which is associated with grade I/IV or mild diastolic dysfunction : By tissue dopplers Septal motion is consistent with conduction abnormality The left ventricular wall motion is normal. There is no thrombus. No ASD,VSD , or PFO seen. The right ventricle is mildly dilated. The right atrium is mild to moderately dilated. The left atrium is moderately dilated. There is mild to moderate mitral annular calcification. There is no evidence of mitral valve prolapse. There is systolic anterior motion of the mitral valve. There is no vegetation seen on the mitral valve. There is no mitral valve stenosis. There is a mild amount of mitral regurgitation There is no aortic valvular vegetation. There is aortic sclerosis without aortic stenosis. There is mild LVOT obstruction. There is a mild LVOT resting gradient of 19 mm of Hg. There is a mild to moderate amount of aortic regurgitation There is no tricuspid stenosis. There is a moderate to severe amount of tricuspid regurgitation There is servere pulmonary hypertension by echo RVSP is 88 to 93 mm of Hg , with RA mean of 15 to 20. There is a mild to moderate amount of pulmonic regurgitation The aortic root is normal size. The inferior vena cava appeared dilated and decreased < 50% with respiration (RAP 15-20 mmHg) There is no pericardial effusion. MMode/2D Measurements & Calculations RVDd: 3.1 cm LVIDd: 4.6 cm FS: 46.7 % Ao root diam: 3.3 cm IVSd: 1.6 cm LVIDs: 2.5 cm EDV(Teich): 99.6 ml Ao root area: 8.6 cm2 LVPWd: 1.3 cm ESV(Teich): 21.8 ml LA dimension: 4.7 cm EF(Teich): 78.2 % LVOT diam: 2.0 cm LVOT area: 3.2 cm2 Doppler Measurements & Calculations MV E max jamison: MV P1/2t max jamison: Ao V2 max: AI max jamison: 64.4 cm/sec 68.9 cm/sec 215.3 cm/sec 482.6 cm/sec MV A max jamison: MV P1/2t: 45.4 msec Ao max PG: AI max P.0 cm/sec MVA(P1/2t): 4.8 cm2 18.5 mmHg 93.2 mmHg MV E/A: 2.1 MV dec slope: CECIL(V,D): 1.9 cm2 AI dec slope: 344.1 cm/sec2 444.6 cm/sec2 AI P1/2t: MV dec time: 410.8 msec 0.19 sec LV V1 max PG: PA V2 max: PI end-d jamison: TR max jamison: 6.8 mmHg 78.0 cm/sec 118.1 cm/sec 428.3 cm/sec LV V1 max: PA max P.4 mmHg TR max P.3 cm/sec 73.4 mmHg LV dP/dt: 1298 mmHg/s AV P1/2t-pr_phl: MV P1/2t-pr_phl: 410.8 msec 45.4 msec Left Ventricle The left ventricle is normal in size. There is moderate asymmetric left ventricular hypertrophy. LV EF is Greater than 75%. Left ventricular systolic function is normal. Doppler measurements suggest impaired left ventricular relaxation, which is associated with grade I/IV or mild diastolic dysfunction. : By tissue dopplers. Septal motion is consistent with conduction abnormality. The left ventricular wall motion is normal. There is no thrombus. No ASD,VSD , or PFO seen. Right Ventricle The right ventricle is mildly dilated. The right ventricular systolic function is mildly reduced. Atria The right atrium is mild to moderately dilated. The left atrium is moderately dilated. Mitral Valve There is mild to moderate mitral annular calcification. There is systolic anterior motion of the mitral valve. There is no evidence of mitral valve prolapse. There is no vegetation seen on the mitral valve. There is no mitral valve stenosis. There is a mild amount of mitral regurgitation. Aortic Valve There is no aortic valvular vegetation. There is aortic sclerosis without aortic stenosis. There is mild LVOT obstruction. There is a mild LVOT resting gradient of 19 mm of Hg. There is a mild to moderate amount of aortic regurgitation. Tricuspid Valve There is no tricuspid stenosis. There is a moderate to severe amount of tricuspid regurgitation. There is servere pulmonary hypertension by echo. RVSP is 88 to 93 mm of Hg , with RA mean of 15 to 20. Pulmonic Valve There is no pulmonic valvular stenosis. There is a mild to moderate amount of pulmonic regurgitation. Great Vessels The aortic root is normal size. The inferior vena cava appeared dilated and decreased < 50% with respiration (RAP 15-20 mmHg). Effusions There is no pericardial effusion. : GLEN MILLAN Lakshmi
[2020-01-12] MEDS: AMPICILLIN SODIUM/SULBACTAM NA 3 GM in NORMAL SALINE 100 ML IV SCH ×3 (05:29→21:31)
[2020-01-12] MEDS: HEPARIN SOD (PORCINE) 5,000 UNIT/ML 1 ML VIAL SUBCUT SCH ×3 (05:29→21:31)
[2020-01-12 09:10] LABS: ABSOLUTE EOSINOPHILS # (AUTO) 0.4 10^3/uL (0.0-0.6); ABSOLUTE LYMPHOCYTES (AUTO) 2.1 10^3/uL (0.5-4.7); ABSOLUTE MONOCYTES (AUTO) 1.1 10^3/uL (0.1-1.4); BASOPHILS % (AUTO) 0.3 % (0-2); EOSINOPHILS % (AUTO) 3.3 % (0-6); HEMOGLOBIN 10.2 g/dL (12.0-15.5); LYMPHOCYTES % (AUTO) 16.7 % (13-45); MEAN CORPUSCULAR HEMOGLOBIN 26.8 pg (27.0-33.4); MEAN CORPUSCULAR HGB CONC 32.9 g/dL (32.0-36.0); MEAN CORPUSCULAR VOLUME 81 fl (80-97); MONOCYTES % (AUTO) 8.6 % (3-13); PLATELET COUNT 192 10^3/uL (150-450); RED BLOOD COUNT 3.81 10^6/uL (3.72-5.28); RED CELL DISTRIBUTION WIDTH 16.3 % (11.5-14.0); SEGMENTED NEUTROPHILS % (AUTO) 71.1 % (42-78); TOTAL CELLS COUNTED % (AUTO) 100 %; WHITE BLOOD COUNT 12.6 10^3/uL (4.0-10.5)
[2020-01-12] MEDS: INSULIN LISPRO 100 UNIT/ML 3 ML VIAL SUBCUT SCH ×4 (09:30→21:31)
[2020-01-12] MEDS: GLIMEPIRIDE 1 MG TABLET PO SCH (09:31)
[2020-01-12 09:33] LABS: ANION GAP 5 (5-19); BLOOD UREA NITROGEN 34 mg/dL (7-20); CALCIUM 9.6 mg/dL (8.4-10.2); CARBON DIOXIDE 24 mmol/L (22-30); CHLORIDE 107 mmol/L (98-107); GLUCOSE 123 mg/dL (75-110); POTASSIUM 4.4 mmol/L (3.6-5.0)
[2020-01-12] MEDS: POTASSIUM CHLORIDE 10 MEQ TABLET.ER PO SCH (10:06)
[2020-01-12] MEDS: DOCUSATE SODIUM 100 MG CAPSULE PO SCH ×2 (10:08→17:58)
[2020-01-12] MEDS: ASPIRIN 81 MG TABLET, ENT COATED PO SCH (10:13)
[2020-01-12] MEDS: METOPROLOL TARTRATE 50 MG TABLET PO SCH ×2 (10:13→17:59)
[2020-01-12] MEDS: HYDRALAZINE HCL 50 MG TABLET PO SCH (10:13)
[2020-01-12] MEDS: TIMOLOL MALEATE 0.5% OPH SOLN 5 ML OU SCH ×2 (10:16→18:00)
[2020-01-12] MEDS: BRIMONIDINE TARTRATE 0.2% OPH SOLN 5 ML OU SCH ×2 (10:16→18:00)
--- NOTE | 2020-01-12 16:45 | Progress Note ---
Provider Note Provider Note: CARDIOLOGY PROGRESS NOTE by Dr. Chloe Anderson on 01/12/2020. OBJECTIVE: The patient denies any chest pain or discomfort. There is no shortness of breath. She complains of cough but states is unable to bring up any sputum. The patient is afebrile. There is no arrhythmias seen on the monitor. There is no dizziness near syncope or syncope. There is no TIA CVA symptoms. There is no leg edema. PHYSICAL EXAMINATION: The patient is mildly obese. In no acute distress. Head: Is atraumatic normocephalic. EYES: Pupils equal round regular reactive light accommodation. External ocular movements are normal. There is no conjunctival pallor. There is no scleral icterus. EARS: Tympanic membranes are intact. External auditory canals are clear. NOSE: There is no deviated nasal septum. There is no inflammation of the nasal mucous membrane. MOUTH: Mucous membranes of mouth are moist. Tongue is moist. There is no ulcers. There is no bleeding of the gums. THROAT: There is no redness of the oropharynx. There is no exudates. SKIN: There is no skin rashes. There is no petechia or ecch ymosis. There is no skin lesions. NECK: Is supple. There is no JVD. Carotids are equal there is no bruit there is no lymphadenopathy. There is no goiter. There is no accessory muscle respiration use. Trachea is central. LUNGS: There are bilateral dry crackles of pneumonia. No rales of CHF. There is no rhonchi or wheezing. HEART: S1-S2 is heard. There is no S3 gallop there is no stridor. There is systolic murmur left sternal border and the apex. There is no rub. ABDOMEN: Is soft. Mildly obese. There is no hepatosplenomegaly. There is no tender areas of masses. Bowel sounds are well heard. EXTREMITIES: Femorals are slightly diminished. There is no femoral bruits. Leg pulses diminished. There is no DVT or cellulitis. There is no pedal edema. There is no calf tenderness. There is no cyanosis or clubbing. MS: The patient is conscious awake alert oriented x3 with no focal deficits. 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 PSYCHIATRIC: The patient judgment insight are intact her affect is normal. IMPRESSION/RECOMMENDATION: 1. Elevated troponin I: Most likely this is secondary to supply demand mismatch due to the patient's rhabdomyolysis, acute on chronic renal failure, and bilateral pneumonia. 2. Clinically there is no evidence of heart failure. 3. Rhabdomyolysis: The CPKs are trending down. Continue hydration and current treatment. 4. Acute on chronic renal failure.: Avoid nephrotoxic drugs 5. 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 Would avoid nitrates diuretics and any medications that can increase the contractility of the left ventricle or decrease the cavity size. 6. Severe pulmonary hypertension:? Etiology 7. Multifocal pneumonia: Continue antibiotics 8. Abnormal EKG 9. Bifascicular block: Right bundle branch block pattern and left anterior hemiblock. 10. Hypertension: Blood pressure seems to be well controlled 11. Diabetes mellitus type 2 insulin-dependent. 12. 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 13. Hyperlipidemia continue statins 14. Aortic sclerosis with mild to moderate aortic regurgitation. Medications reviewed. Medications adjusted. Medical regimen and management plan discussed with the attending provider on the case. Medical decision making is of high complexity. 60 minutes spent on this patient more than 50% time spent in direct patient care. Will follow Head: Is atraumatic normocephalic. EYES: Pupils equal round regular reactive light accommodation. External ocular movements are normal. There is no conjunctival pallor. There is no scleral icterus. EARS: Tympanic membranes are intact. External auditory canals are clear. NOSE: There is no deviated nasal septum. There is no inflammation of the nasal mucous membrane. MOUTH: Mucous membranes of mouth are moist. Tongue is moist. There is no ulcers. There is no bleeding of the gums. THROAT: There is no redness of the oropharynx. There is no exudates. SKIN: There is no skin rashes. There is no petechia or ecchymosis. There is no skin lesions. NECK: Is supple. There is no JVD. Carotids are equal there is no bruit there is no lymphadenopathy. There is no goiter. There is no accessory muscle respiration use. Trachea is central. LUNGS: There are bilateral dry crackles of pneumonia. No rales of CHF. There is no rhonchi or wheezing. HEART: S1-S2 is heard. There is no S3 gallop there is no stridor. There is systolic murmur left sternal border and the apex. There is no rub. ABDOMEN: Is soft. Mildly obese. There is no hepatosplenomegaly. There is no tender areas of masses. Bowel sounds are well heard. EXTREMITIES: Femorals are slightly diminished. There is no femoral bruits. Leg pulses diminished. There is no DVT or cellulitis. There is no pe ankur edema. There is no calf tenderness. There is no cyanosis or clubbing. MS: The patient is conscious awake alert oriented x3 with no focal deficits. 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 PSYCHIATRIC: The patient judgment insight are intact her affect is normal. Labs- All tests 24 hr 01/09/20 01/11/20 01/12/20 16:00 21:11 07:38 WBC RBC Hgb Hct MCV MCH MCHC RDW Plt Count Lymph % (Auto) Tama % (Auto) Eos % (Auto) Baso % (Auto) Absolute Neuts (auto) Absolute Lymphs (auto) Absolute Monos (auto) Absolute Eos (auto) Absolute Basos (auto) Seg Neutrophils % Sodium Potassium Chloride Carbon Dioxide Anion Gap BUN Creatinine Est GFR ( Amer) Est GFR (MDRD) Non-Af Glucose POC Glucose 141 H 70 Calcium Troponin I COVID-19 Source NASOPHARYNGEAL COVID-19 ([facility]) NOT DETECTED 01/12/20 01/12/20 01/12/20 08:23 08:23 08:23 WBC 12.6 H RBC 3.81 Hgb 10.2 L Hct 31.0 L MCV 81 MCH 26.8 L MCHC 32.9 RDW 16.3 H Plt Count 192 Lymph % (Auto) 16.7 Tama % (Auto) 8.6 Eos % (Auto) 3.3 Baso % (Auto) 0.3 Absolute Neuts (auto) 9.0 H Absolute Lymphs (auto) 2.1 Absolute Monos (auto) 1.1 Absolute Eos (auto) 0.4 Absolute Basos (auto) 0.0 Seg Neutrophils % 71.1 Sodium 136.4 L Potassium 4.4 Chloride 107 Carbon Dioxide 24 Anion Gap 5 BUN 34 H Creatinine 1.32 H Est GFR ( Amer) 47 L Est GFR (MDRD) Non-Af 39 L Glucose 123 H POC Glucose Calcium 9.6 Troponin I 0.226 COVID-19 Source COVID-19 ([facility]) 01/12/20 01/12/20 01/12/20 11:18 15:56 16:15 WBC RBC Hgb Hct MCV MCH MCHC RDW Plt Count Lymph % (Auto) Tama % (Auto) Eos % (Auto) Baso % (Auto) Absolute Neuts (auto) Absolute Lymphs (auto) Absolute Monos (auto) Absolute Eos (auto) Absolute Basos (auto) Seg Neutrophils % Sodium Potassium Chloride Carbon Dioxide Anion Gap BUN Creatinine Est GFR ( Amer) Est GFR (MDRD) Non-Af Glucose POC Glucose 88 62 L 103 Calcium Troponin I COVID-19 Source COVID-19 ([facility]) Chest X-Ray 01/03/20 14:13 IMPRESSION: CARDIAC ENLARGEMENT. VASCULAR CONGESTION. DIFFUSE AIRSPACE DISEASE IN THE LEFT LUNG MAY BE DUE TO ASYMMETRIC PULMONARY EDEMA OR PNEUMONIA. Head CT 01/03/20 14:14 IMPRESSION: CHRONIC CHANGES OF ATROPHY AND MICROVASCULAR ISCHEMIA. OLD RIGHT CEREBELLAR INFARCT. NO ACUTE PROCESS. EVIDENCE OF ACUTE STROKE: NO. Head MRI 01/04/20 00:00 IMPRESSION: ATROPHY AND CHRONIC MICRO-VASCULAR ISCHEMIC CHANGES. OLD CEREBELLAR INFARCTS, RIGHT GREATER THAN LEFT. NO ACUTE FINDINGS. EVIDENCE OF ACUTE STROKE: NO. Chest CT 01/05/20 00:00 IMPRESSION: 1. Bilateral airspace disease, likely multicentric pneumonia. 2. There is no suprahilar mass on the right. 3. Cardiomegaly with no fiorella pulmonary edema. Chest X-Ray 01/05/20 00:00 IMPRESSION: Cardiomegaly. No fiorella pulmonary edema. Airspace disease in the left lung, likely pneumonia. Cannot exclude suprahilar nodule in the right lung. Foot X-Ray 01/07/20 09:00 IMPRESSION: No acute osseous abnormality of the left foot. Chest X-Ray 01/10/20 00:00 IMPRESSION: Multifocal consolidation suspicious for pneumonia. Small bilateral pleural effusions and mild pulmonary edema. IMPRESSION/RECOMMENDATION: 1. Elevated troponin I: Most likely this is secondary to supply demand mismatch due to the patient's rhabdomyolysis, acute on chronic renal failure, and bilateral pneumonia. 2. Clinically there is no evidence of heart failure. 3. Rhabdomyolysis: The CPKs are trending down. Continue hydration and current treatment. 4. Acute on chronic renal failure.: Avoid nephrotoxic drugs 5. 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 Would avoid nitrates diuretics hydralazine and any medications that can increase the contractility of the left ventricle or decrease the cavity size. We will continue beta-britt. We will add Norvasc. 6. Severe pulmonary hypertension:? Etiology 7. Multifocal pneumonia: Continue antibiotics 8. Abnormal EKG 9. Bifascicular block: Right bundle branch block pattern and left anterior hemiblock. 10. Hypertension: Blood pressure seems to be well controlled 11. Diabetes mellitus type 2 insulin-dependent. 12. 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 13. Hyperlipidemia continue statins 14. Aortic sclerosis with mild to moderate aortic regurgitation. Medications reviewed. Medications adjusted. Medical regimen and management plan discussed with the attending provider on the case. Medical decision making is of high complexity. 60 minutes spent on this patient more than 50% time spent in direct patient care. Will follow
[2020-01-12] MEDS: INSULIN GLARGINE,HUM.REC.ANLOG 1,000 UNIT/10 ML VIAL SUBCUT SCH (17:58)
--- NOTE | 2020-01-12 21:19 | PDOC PROGRESS REPORT ---
Subjective Progress Note for:: 01/12/20 Subjective:: Patient is alert oriented, there is worsening leukocytosis Reason For Visit: RHABDOMYOLYSIS,FALL,MD CKD STAGE 3 Physical Exam Vital Signs: Temp Pulse Resp BP Pulse Ox 98.4 F 75 20 127/63 H 92 01/12/20 19:31 01/12/20 19:31 01/12/20 19:31 01/12/20 19:31 01/12/20 19:31 Intake & Output 01/11/20 01/12/20 01/13/20 06:59 06:59 06:59 Intake Total 2923 657 982 Output Total 1350 1075 550 Balance 1573 -418 432 Weight 81.3 kg 80.6 kg General appearance: PRESENT: no acute distress Eye exam: PRESENT: PERRLA Respiratory exam: PRESENT: clear to auscultation freddy Cardiovascular exam: PRESENT: +S1, +S2 GI/Abdominal exam: PRESENT: soft Neurological exam: PRESENT: alert Results Laboratory Results: 01/12/20 08:23 01/12/20 08:23 01/12/20 01/12/20 01/12/20 08:23 08:23 17:56 WBC 12.6 H RBC 3.81 Hgb 10.2 L Hct 31.0 L MCV 81 MCH 26.8 L MCHC 32.9 RDW 16.3 H Plt Count 192 Seg Neutrophils % 71.1 Sodium 136.4 L Potassium 4.4 Chloride 107 Carbon Dioxide 24 Anion Gap 5 BUN 34 H Creatinine 1.32 H Est GFR ( Amer) 47 L Glucose 123 H Lactic Acid 1.6 Calcium 9.6 01/03/20 01/03/20 01/04/20 14:06 14:06 17:50 Creatine Kinase 2539 H 1453 H CK-MB (CK-2) Troponin I 0.086 NT-Pro-B Natriuret Pep 2860 H 01/04/20 01/04/20 01/04/20 17:50 23:00 23:00 Creatine Kinase 1293 H CK-MB (CK-2) 41.00 H 31.90 H Troponin I 0.107 0.097 NT-Pro-B Natriuret Pep 2690 H 01/05/20 01/05/20 01/06/20 05:30 05:30 05:47 Creatine Kinase 1151 H 1197 H CK-MB (CK-2) 24.20 H Troponin I 0.092 NT-Pro-B Natriuret Pep 01/07/20 01/10/20 01/10/20 06:12 13:10 13:10 Creatine Kinase 1255 H 1181 H CK-MB (CK-2) 16.90 H Troponin I 0.098 NT-Pro-B Natriuret Pep 01/10/20 01/10/20 01/11/20 18:11 18:11 01:01 Creatine Kinase 1244 H 1203 H CK-MB (CK-2) 15.60 H Troponin I 0.125 NT-Pro-B Natriuret Pep 5900 H 01/11/20 01/12/20 01:01 08:23 Creatine Kinase CK-MB (CK-2) 14.20 H Troponin I 0.226 0.226 NT-Pro-B Natriuret Pep Impressions: Head CT 01/03/20 14:14 IMPRESSION: CHRONIC CHANGES OF ATROPHY AND MICROVASCULAR ISCHEMIA. OLD RIGHT CEREBELLAR INFARCT. NO ACUTE PROCESS. EVIDENCE OF ACUTE STROKE: NO. Head MRI 01/04/20 00:00 IMPRESSION: ATROPHY AND CHRONIC MICRO-VASCULAR ISCHEMIC CHANGES. OLD CEREBELLAR INFARCTS, RIGHT GREATER THAN LEFT. NO ACUTE FINDINGS. EVIDENCE OF ACUTE STROKE: NO. Chest CT 01/05/20 00:00 IMPRESSION: 1. Bilateral airspace disease, likely multicentric pneumonia. 2. There is no suprahilar mass on the right. 3. Cardiomegaly with no fiorella pulmonary edema. Foot X-Ray 01/07/20 09:00 IMPRESSION: No acute osseous abnormality of the left foot. Chest X-Ray 01/10/20 00:00 IMPRESSION: Multifocal consolidation suspicious for pneumonia. Small bilateral pleural effusions and mild pulmonary edema. Assessment & Plan - Diagnosis (1) Rhabdomyolysis Qualifiers: Rhabdomyolysis type: traumatic Encounter type: initial encounter Qualified Code(s): T79.6XXA - Traumatic ischemia of muscle, initial encounter Is this a current diagnosis for this admission?: Yes (2) Chronic kidney disease, stage 3 Is this a current diagnosis for this admission?: Yes (3) Fall Qualifiers: Encounter type: initial encounter Qualified Code(s): W19.XXXA - Unspecified fall, initial encounter Is this a current diagnosis for this admission?: Yes (4) T2DM (type 2 diabetes mellitus) Qualifiers: Diabetes mellitus fpc insulin use: with fpc use Diabetes maylin itus complication status: with kidney complications Diabetes mellitus com plication detail: with chronic kidney disease Chronic kidney disease stage: stage 3 (moderate) Qualified Code(s): E11.22 - Type 2 diabetes mellitus with diabetic chronic kidney disease; N18.3 - Chronic kidney disease, stage 3 (moderate); Z79.4 - extermination inspector (current) use of insulin Is this a current diagnosis for this admission?: Yes (5) Cerebellar infarction Is this a current diagnosis for this admission?: Yes (6) Aspiration pneumonia Qualifiers: Aspiration pneumonia type: unspecified Laterality: bilateral Lung location: unspecified part of lung Qualified Code(s): J69.0 - Pneumonitis due to inhalation of food and vomit Is this a current diagnosis for this admission?: Yes Plan: Continue IV antibiotic follow chest x-ray, ordered, procalcitonin level pending (7) Elevated troponin Is this a current diagnosis for this admission?: Yes - Time Time Spent with patient: 25-34 minutes Level of Care: IMCU
[2020-01-12] MEDS: AMLODIPINE BESYLATE 2.5 MG TABLET PO SCH (21:53)
--- NOTE | 2020-01-12 22:06 | RADIOLOGY REPORT (SQ) ---
EXAM DESCRIPTION: XR CHEST 1 VIEW COMPLETED DATE/TME: 01/12/2020 00:00 CLINICAL HISTORY: 74 years, Female, pneumonia COMPARISON: Prior study from 01/10/2020 NUMBER OF VIEWS: One TECHNIQUE: Single frontal view of the chest was obtained portably LIMITATIONS: None. FINDINGS: Cardiopericardial silhouette is enlarged, unchanged. Mediastinal contours are stable. Widespread bilateral airspace disease persists, unchanged, along with bilateral pleural effusions. No pneumothorax. IMPRESSION: No significant interval change in widespread bilateral airspace disease, suspicious for multifocal pneumonia and/or pulmonary edema. Superimposed small bilateral pleural effusions. copyright 2010 [employer]- All Rights Reserved
[2020-01-13] MEDS: ACETAMINOPHEN 325 MG TABLET PO PRN (00:27)
[2020-01-13] MEDS: AMPICILLIN SODIUM/SULBACTAM NA 3 GM in NORMAL SALINE 100 ML IV SCH ×4 (02:43→21:29)
[2020-01-13] MEDS: HEPARIN SOD (PORCINE) 5,000 UNIT/ML 1 ML VIAL SUBCUT SCH ×2 (05:36→14:34)
[2020-01-13] MEDS: INSULIN LISPRO 100 UNIT/ML 3 ML VIAL SUBCUT SCH ×4 (09:23→22:06)
[2020-01-13] MEDS: TIMOLOL MALEATE 0.5% OPH SOLN 5 ML OU SCH ×2 (09:40→17:23)
[2020-01-13] MEDS: AMLODIPINE BESYLATE 2.5 MG TABLET PO SCH ×2 (09:41→21:29)
[2020-01-13] MEDS: ASPIRIN 81 MG TABLET, ENT COATED PO SCH (09:41)
[2020-01-13] MEDS: BRIMONIDINE TARTRATE 0.2% OPH SOLN 5 ML OU SCH ×2 (09:41→17:24)
[2020-01-13] MEDS: METOPROLOL TARTRATE 50 MG TABLET PO SCH ×2 (09:41→17:22)
[2020-01-13] MEDS: GLIMEPIRIDE 1 MG TABLET PO SCH (09:42)
[2020-01-13] MEDS: DOCUSATE SODIUM 100 MG CAPSULE PO SCH ×2 (09:42→17:22)
[2020-01-13] MEDS: POTASSIUM CHLORIDE 10 MEQ TABLET.ER PO SCH (09:42)
[2020-01-13 09:52] LABS: ABSOLUTE BASOPHILS # (AUTO) 0.1 10^3/uL (0.0-0.2); ABSOLUTE EOSINOPHILS # (AUTO) 0.4 10^3/uL (0.0-0.6); ABSOLUTE LYMPHOCYTES (AUTO) 2.1 10^3/uL (0.5-4.7); ABSOLUTE MONOCYTES (AUTO) 0.9 10^3/uL (0.1-1.4); ABSOLUTE NEUT (AUTO) 7.3 10^3/uL (1.7-8.2); BASOPHILS % (AUTO) 0.5 % (0-2); EOSINOPHILS % (AUTO) 3.8 % (0-6); HEMATOCRIT 30.5 % (36.0-47.0); HEMOGLOBIN 10.2 g/dL (12.0-15.5); LYMPHOCYTES % (AUTO) 19.4 % (13-45); MEAN CORPUSCULAR HEMOGLOBIN 27.1 pg (27.0-33.4); MEAN CORPUSCULAR HGB CONC 33.4 g/dL (32.0-36.0); MEAN CORPUSCULAR VOLUME 81 fl (80-97); MONOCYTES % (AUTO) 8.4 % (3-13); PLATELET COUNT 197 10^3/uL (150-450); RED BLOOD COUNT 3.76 10^6/uL (3.72-5.28); RED CELL DISTRIBUTION WIDTH 16.2 % (11.5-14.0); SEGMENTED NEUTROPHILS % (AUTO) 67.9 % (42-78); TOTAL CELLS COUNTED % (AUTO) 100 %; WHITE BLOOD COUNT 10.8 10^3/uL (4.0-10.5)
[2020-01-13 10:13] LABS: ANION GAP 8 (5-19); BLOOD UREA NITROGEN 32 mg/dL (7-20); CALCIUM 9.5 mg/dL (8.4-10.2); CARBON DIOXIDE 22 mmol/L (22-30); CHLORIDE 105 mmol/L (98-107); GLUCOSE 150 mg/dL (75-110); POTASSIUM 4.6 mmol/L (3.6-5.0)
[2020-01-13] MEDS: INSULIN GLARGINE,HUM.REC.ANLOG 1,000 UNIT/10 ML VIAL SUBCUT SCH (17:22)
[2020-01-13] MEDS ORDERED: FUROSEMIDE INJ/PF 40 MG/4 ML SDV IV ONE (17:43)
[2020-01-13 18:54] LABS: INTERNATIONAL RATION (INR) 1.15; PROTHROMBIN TIME 14.8 SEC (11.4-15.4)
[2020-01-13 18:55] LABS: PARTIAL THROMBOPLASTIN TIME 42.1 SEC (23.5-35.8)
[2020-01-13 19:13] LABS: TOTAL PROTEIN 6.1 g/dL (6.3-8.2)
--- NOTE | 2020-01-13 21:18 | PDOC PROGRESS REPORT ---
Subjective Progress Note for:: 01/13/20 Subjective:: Patient seen by the bedside, chest x-ray showed bilateral pleural effusion Reason For Visit: RHABDOMYOLYSIS,FALL,CA CKD STAGE 3 Physical Exam Vital Signs: Temp Pulse Resp BP Pulse Ox 98.7 F 85 21 H 113/50 L 90 L 01/13/20 16:12 01/13/20 16:12 01/13/20 16:12 01/13/20 16:12 01/13/20 16:12 Intake & Output 01/12/20 01/13/20 01/14/20 06:59 06:59 06:59 Intake Total 657 1302 1147 Output Total 1075 1250 525 Balance -418 52 622 Weight 80.6 kg 82.4 kg General appearance: PRESENT: no acute distress Eye exam: PRESENT: PERRLA Respiratory exam: PRESENT: crackles Cardiovascular exam: PRESENT: +S1, +S2 GI/Abdominal exam: PRESENT: soft Neurological exam: PRESENT: alert Results Laboratory Results: 01/13/20 08:59 01/13/20 08:59 01/13/20 01/13/20 01/13/20 08:59 08:59 18:16 WBC 10.8 H RBC 3.76 Hgb 10.2 L Hct 30.5 L MCV 81 MCH 27.1 MCHC 33.4 RDW 16.2 H Plt Count 197 Seg Neutrophils % 67.9 Sodium 134.6 L Potassium 4.6 Chloride 105 Carbon Dioxide 22 Anion Gap 8 BUN 32 H Creatinine 1.28 H Est GFR ( Amer) 49 L Glucose 150 H Calcium 9.5 Total Protein 6.1 L 01/03/20 01/03/20 01/04/20 14:06 14:06 17:50 Creatine Kinase 2539 H 1453 H CK-MB (CK-2) Troponin I 0.086 NT-Pro-B Natriuret Pep 2860 H 01/04/20 01/04/20 01/04/20 17:50 23:00 23:00 Creatine Kinase 1293 H CK-MB (CK-2) 41.00 H 31.90 H Troponin I 0.107 0.097 NT-Pro-B Natriuret Pep 2690 H 01/05/20 01/05/20 01/06/20 05:30 05:30 05:47 Creatine Kinase 1151 H 1197 H CK-MB (CK-2) 24.20 H Troponin I 0.092 NT-Pro-B Natriuret Pep 01/07/20 01/10/20 01/10/20 06:12 13:10 13:10 Creatine Kinase 1255 H 1181 H CK-MB (CK-2) 16.90 H Troponin I 0.098 NT-Pro-B Natriuret Pep 01/10/20 01/10/20 01/11/20 18:11 18:11 01:01 Creatine Kinase 1244 H 1203 H CK-MB (CK-2) 15.60 H Troponin I 0.125 NT-Pro-B Natriuret Pep 5900 H 01/11/20 01/12/20 01:01 08:23 Creatine Kinase CK-MB (CK-2) 14.20 H Troponin I 0.226 0.226 NT-Pro-B Natriuret Pep Impressions: Head CT 01/03/20 14:14 IMPRESSION: CHRONIC CHANGES OF ATROPHY AND MICROVASCULAR ISCHEMIA. OLD RIGHT CEREBELLAR INFARCT. NO ACUTE PROCESS. EVIDENCE OF ACUTE STROKE: NO. Head MRI 01/04/20 00:00 IMPRESSION: ATROPHY AND CHRONIC MICRO-VASCULAR ISCHEMIC CHANGES. OLD CEREBELLAR INFARCTS, RIGHT GREATER THAN LEFT. NO ACUTE FINDINGS. EVIDENCE OF ACUTE STROKE: NO. Chest CT 01/05/20 00:00 IMPRESSION: 1. Bilateral airspace disease, likely multicentric pneumonia. 2. There is no suprahilar mass on the right. 3. Cardiomegaly with no fiorella pulmonary edema. Foot X-Ray 01/07/20 09:00 IMPRESSION: No acute osseous abnormality of the left foot. Chest X-Ray 01/12/20 00:00 IMPRESSION: No significant interval change in widespread bilateral airspace disease, suspicious for multifocal pneumonia and/or pulmonary edema. Superimposed small bilateral pleural effusions. copyright 2010 [employer]- All Rights Reserved Assessment & Plan - Diagnosis (1) Rhabdomyolysis Qualifiers: Rhabdomyolysis type: traumatic Encounter type: initial encounter Qualified Code(s): T79.6XXA - Traumatic ischemia of muscle, initial encounter Is this a current diagnosis for this admission?: Yes (2) Chronic kidney disease, stage 3 Is this a current diagnosis for this admission?: Yes (3) Fall Qualifiers: Encounter type: initial encounter Qualified Code(s): W19.XXXA - Unspecified fall, initial encounter Is this a current diagnosis for this admission?: Yes (4) T2DM (type 2 diabetes mellitus) Qualifiers: Diabetes mellitus residential insulin use: with residential use Diabetes mellitus complication status: with kidney complications Diabetes mellitus complication detail: with chronic kidney disease Chronic kidney disease stage: stage 3 (moderate) Qualified Code(s): E11.22 - Type 2 diabetes mellitus with diabetic chronic kidney disease; N18.3 - Chronic kidney disease, stage 3 (moderate); Z79.4 - intermodal truck driver (current) use of insulin Is this a current diagnosis for this admission?: Yes (5) Cerebellar infarction Is this a current diagnosis for this admission?: Yes (6) Aspiration pneumonia Qualifiers: Aspiration pneumonia type: unspecified Laterality: bilateral Lung location: unspecified part of lung Qualified Code(s): J69.0 - Pneumonitis due to inhalation of food and vomit Is this a current diagnosis for this admission?: Yes (7) Elevated troponin Is this a current diagnosis for this admission?: Yes (8) Pleural effusion Is this a current diagnosis for this admission?: Yes Plan: Thoracentesis order - Time Time Spent with patient: 25-34 minutes Level of Care: [facility]
[2020-01-14] MEDS: AMPICILLIN SODIUM/SULBACTAM NA 3 GM in NORMAL SALINE 100 ML IV SCH ×4 (02:07→21:37)
[2020-01-14] MEDS: INSULIN LISPRO 100 UNIT/ML 3 ML VIAL SUBCUT SCH ×4 (10:10→21:37)
[2020-01-14] MEDS: POTASSIUM CHLORIDE 10 MEQ TABLET.ER PO SCH (10:20)
[2020-01-14] MEDS: GLIMEPIRIDE 1 MG TABLET PO SCH (10:21)
[2020-01-14] MEDS: METOPROLOL TARTRATE 50 MG TABLET PO SCH ×2 (10:21→18:15)
[2020-01-14] MEDS: DOCUSATE SODIUM 100 MG CAPSULE PO SCH ×2 (10:21→18:19)
[2020-01-14] MEDS: AMLODIPINE BESYLATE 2.5 MG TABLET PO SCH ×2 (10:21→21:38)
[2020-01-14] MEDS: BRIMONIDINE TARTRATE 0.2% OPH SOLN 5 ML OU SCH ×2 (10:22→18:19)
[2020-01-14] MEDS: TIMOLOL MALEATE 0.5% OPH SOLN 5 ML OU SCH ×2 (10:22→18:19)
[2020-01-14] MEDS: GUAIFENESIN SYRP 200 MG/10 ML UDC PO PRN (10:28)
--- NOTE | 2020-01-14 14:51 | RADIOLOGY REPORT (SQ) ---
EXAM DESCRIPTION: U/S CHEST IMAGES COMPLETED DATE/TIME: 01/14/2020 1:36 pm REASON FOR STUDY: pleural effusion COMPARISON: 01/12/2020 radiograph. LIMITATIONS: None. PROCEDURE: Limited sonographic evaluation of the left chest performed for evaluation of pleural flui d. Insufficient fluid identified. No thoracentesis performed. Images acquired during the procedure were stored on PACS. FINDINGS: Limited sonographic evaluation of the left chest without significant pleural fluid. No pr ocedure performed. IMPRESSION: Insufficient fluid for thoracentesis. COMMENT: Patient medication list reviewed: Yes- Quality ID# [id number]:Eligible professional attests to doc umenting in the medical record they obtained, updated, or reviewed the patient's current medications. TECHNICAL DOCUMENTATION: JOB ID: [id number] 2010 [employer]- All Rights Reserved Reading location - IP/workstation name: [email or web address]
[2020-01-14] MEDS: INSULIN GLARGINE,HUM.REC.ANLOG 1,000 UNIT/10 ML VIAL SUBCUT SCH (18:16)
--- NOTE | 2020-01-14 19:20 | PDOC PROGRESS REPORT ---
Subjective Progress Note for:: 01/14/20 Subjective:: Patient went down today for ultrasound-guided paracentesis, minimal amount of fluid was collected Reason For Visit: RHABDOMYOLYSIS,FALL,MD CKD STAGE 3 Physical Exam Vital Signs: Temp Pulse Resp BP Pulse Ox 100.3 F 76 21 H 134/59 H 99 01/14/20 16:26 01/14/20 16:26 01/14/20 16:26 01/14/20 16:26 01/14/20 16:26 Intake & Output 01/13/20 01/14/20 01/15/20 06:59 06:59 06:59 Intake Total 1302 1347 787 Output Total 1250 2225 550 Balance 52 -878 237 Weight 82.4 kg 80.5 kg General appearance: PRESENT: no acute distress Eye exam: PRESENT: PERRLA Respiratory exam: PRESENT: rhonchi Cardiovascular exam: PRESENT: +S1, +S2 GI/Abdominal exam: PRESENT: soft Neurological exam: PRESENT: alert Results Laboratory Results: 01/13/20 08:59 01/13/20 08:59 01/03/20 01/03/20 01/04/20 14:06 14:06 17:50 Creatine Kinase 2539 H 1453 H CK-MB (CK-2) Troponin I 0.086 NT-Pro-B Natriuret Pep 2860 H 01/04/20 01/04/20 01/04/20 17:50 23:00 23:00 Creatine Kinase 1293 H CK-MB (CK-2) 41.00 H 31.90 H Troponin I 0.107 0.097 NT-Pro-B Natriuret Pep 2690 H 01/05/20 01/05/20 01/06/20 05:30 05:30 05:47 Creatine Kinase 1151 H 1197 H CK-MB (CK-2) 24.20 H Troponin I 0.092 NT-Pro-B Natriuret Pep 01/07/20 01/10/20 01/10/20 06:12 13:10 13:10 Creatine Kinase 1255 H 1181 H CK-MB (CK-2) 16.90 H Troponin I 0.098 NT-Pro-B Natriuret Pep 01/10/20 01/10/20 01/11/20 18:11 18:11 01:01 Creatine Kinase 1244 H 1203 H CK-MB (CK-2) 15.60 H Troponin I 0.125 NT-Pro-B Natriuret Pep 5900 H 01/11/20 01/12/20 01:01 08:23 Creatine Kinase CK-MB (CK-2) 14.20 H Troponin I 0.226 0.226 NT-Pro-B Natriuret Pep Impressions: Head CT 01/03/20 14:14 IMPRESSION: CHRONIC CHANGES OF ATROPHY AND MICROVASCULAR ISCHEMIA. OLD RIGHT CEREBELLAR INFARCT. NO ACUTE PROCESS. EVIDENCE OF ACUTE STROKE: NO. Head MRI 01/04/20 00:00 IMPRESSION: ATROPHY AND CHRONIC MICRO-VASCULAR ISCHEMIC CHANGES. OLD CEREBELLAR INFARCTS, RIGHT GREATER THAN LEFT. NO ACUTE FINDINGS. EVIDENCE OF ACUTE STROKE: NO. Chest CT 01/05/20 00:00 IMPRESSION: 1. Bilateral airspace disease, likely multicentric pneumonia. 2. There is no suprahilar mass on the right. 3. Cardiomegaly with no fiorella pulmonary edema. Foot X-Ray 01/07/20 09:00 IMPRESSION: No acute osseous abnormality of the left foot. Chest X-Ray 01/12/20 00:00 IMPRESSION: No significant interval change in widespread bilateral airspace disease, suspicious for multifocal pneumonia and/or pulmonary edema. Superimposed small bilateral pleural effusions. copyright 2011 [employer]- All Rights Reserved Chest Ultrasound 01/14/20 00:00 IMPRESSION: Insufficient fluid for thoracentesis. 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 Diabetes maylin itus complication status: with kidney complications Diabetes mellitus com plication detail: with chronic kidney disease Chronic kidney disease stage: stage 3 (moderate) Qualified Code(s): E11.22 - Type 2 diabetes mellitus with diabetic chronic kidney disease; N18.3 - Chronic kidney disease, stage 3 (moderate); Z79.4 - halfway (current) use of insulin Is this a current diagnosis for this admission?: Yes (5) Cerebellar infarction Is this a current diagnosis for this admission?: Yes (6) Aspiration pneumonia Qualifiers: Aspiration pneumonia type: unspecified Laterality: bilateral Lung location: unspecified part of lung Qualified Code(s): J69.0 - Pneumonitis due to inhalation of food and vomit Is this a current diagnosis for this admission?: Yes (7) Elevated troponin Is this a current diagnosis for this admission?: Yes (8) Pleural effusion Is this a current diagnosis for this admission?: Yes - Time Time Spent with patient: 15-24 minutes Level of Care: [facility]
--- NOTE | 2020-01-14 21:40 | Progress Note ---
Provider Note Provider Note: CARDIOLOGY PROGRESS NOTE by Dr. Chloe Anderson on 01/14/2020 SUBJECTIVE: The patient remains calm and in no distress. She denies any chest pain or discomfort. There is no shortness of breath. There is no PND orthopnea. She states she has a cough but is not producing any sputum. There is no arrhythmias seen on the monitor. There is no near-syncope or syncope. PHYSICAL EXAMINATION: The patient is mildly obese in no acute distress. Selected Entries 01/12/20 01/14/20 11:19 07:35 Temperature 98.4 F 98.1 F Temperature Oral Oral Source Pulse Rate 67 86 Respiratory 27 H 18 Rate Blood Pressure 129/55 H 142/64 H Blood Pressure 79 90 Mean BP Location Left Arm Left Arm BP Position Supine Supine O2 Sat by Pulse 97 92 Oximetry Oxygen Delivery Room Air Room Air Method PHYSICAL EXAMINATION: The patient is mildly obese. In no acute distress. Head: Is atraumatic normocephalic. EYES: Pupils equal round regular reactive light accommodation. External ocular movements are normal. There is no conjunctival pallor. There is no scleral icterus. EARS: Tympanic membranes are intact. External auditory canals are clear. NOSE: There is no deviated nasal septum. There is no inflammation of the nasal mucous membrane. MOUTH: Mucous membranes of mouth are moist. Tongue is moist. There is no ulcers. There is no bleeding of the gums. THROAT: There is no redness of the oropharynx. There is no exudates. SKIN: There is no skin rashes. There is no petechia or ecchymosis. There is no skin lesions. NECK: Is supple. There is no JVD. Carotids are equal there is no bruit there is no lymphadenopathy. There is no goiter. There is no accessory muscle respiration use. Trachea is central. LUNGS: There are bilateral dry crackles of pneumonia. No rales of CHF. There is no rhonchi or wheezing. HEART: S1-S2 is heard. There is no S3 gallop there is no stridor. There is systolic murmur left sternal border and the apex. There is no rub. ABDOMEN: Is soft. Mildly obese. There is no hepatosplenomegaly. There is no tender areas of masses. Bowel sounds are well heard. EXTREMITIES: Femorals are slightly diminished. There is no femoral bruits. Leg pulses diminished. There is no DVT or cellulitis. There is no pedal edema. There is no calf tenderness. There is no cyanosis or clubbing. MS: The patient is conscious awake alert oriented x3 with no focal deficits. 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 PSYCHIATRIC: The patient judgment insight are intact her affect is normal. Labs- All tests 24 hr 01/14/20 01/14/20 01/14/20 00:04 07:35 11:27 POC Glucose 176 H 118 H 142 H 01/14/20 01/14/20 16:27 21:01 POC Glucose 153 H 131 H Chest X-Ray 01/03/20 14:13 IMPRESSION: CARDIAC ENLARGEMENT. VASCULAR CONGESTION. DIFFUSE AIRSPACE DISEASE IN THE LEFT LUNG MAY BE DUE TO ASYMMETRIC PULMONARY EDEMA OR PNEUMONIA. Head CT 01/03/20 14:14 IMPRESSION: CHRONIC CHANGES OF ATROPHY AND MICROVASCULAR ISCHEMIA. OLD RIGHT CEREBELLAR INFARCT. NO ACUTE PROCESS. EVIDENCE OF ACUTE STROKE: NO. Head MRI 01/04/20 00:00 IMPRESSION: ATROPHY AND CHRONIC MICRO-VASCULAR ISCHEMIC CHANGES. OLD CEREBELLAR INFARCTS, RIGHT GREATER THAN LEFT. NO ACUTE FINDINGS. EVIDENCE OF ACUTE STROKE: NO. Chest CT 01/05/20 00:00 IMPRESSION: 1. Bilateral airspace disease, likely multicentric pneumonia. 2. There is no suprahilar mass on the right. 3. Cardiomegaly with no fiorella pulmonary edema. Chest X-Ray 01/05/20 00:00 IMPRESSION: Cardiomegaly. No fiorella pulmonary edema. Airspace disease in the left lung, likely pneumonia. Cannot exclude suprahilar nodule in the right lung. Foot X-Ray 01/07/20 09:00 IMPRESSION: No acute osseous abnormality of the left foot. Chest X-Ray 01/10/20 00:00 IMPRESSION: Multifocal consolidation suspicious for pneumonia. Small bilateral pleural effusions and mild pulmonary edema. Chest X-Ray 01/12/20 00:00 IMPRESSION: No significant interval change in widespread bilateral airspace disease, suspicious for multifocal pneumonia and/or pulmonary edema. Superimposed small bilateral pleural effusions. copyright 2010 [employer]- All Rights Reserved Chest Ultrasound 01/14/20 00:00 IMPRESSION: Insufficient fluid for thoracentesis. IMPRESSION/RECOMMENDATION: 1. Elevated troponin I: Most likely this is secondary to supply demand mismatch due to the patient's rhabdomyolysis, acute on chronic renal failure, and bilateral pneumonia. 2. Clinically there is no evidence of heart failure. 3. Rhabdomyolysis: The CPKs are trending down. Continue hydration and current treatment. 4. Acute on chronic renal failure.: Avoid nephrotoxic drugs 5. 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 Would avoid nitrates diuretics and any medications that can increase the contractility of the left ventricle or decrease the cavity size. 6. Severe pulmonary hypertension:? Etiology 7. Multifocal pneumonia: Continue antibiotics 8. Abnormal EKG 9. Bifascicular block: Right bundle branch block pattern and left anterior hemiblock. 10. Hypertension: Blood pressure seems to be well controlled 11. Diabetes mellitus type 2 insulin-dependent. 12. 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 13. Hyperlipidemia continue statins 14. Aortic sclerosis with mild to moderate aortic regurgitation. 15. The patient is coronary artery disease risk factors are the patient's age, hypertension,, diabetes mellitus and hyperlipidemia. Also the patient has an abnormal EKG. Hence later would do a IV Lexiscan Cardiolite stress test. Medications reviewed. Medications adjusted. Medical regimen and management plan discussed with the attending provider on the case. Medical decision making is of high complexity. 60 minutes spent on this patient more than 50% time spent in direct patient care. Will follow
[2020-01-15] MEDS: AMPICILLIN SODIUM/SULBACTAM NA 3 GM in NORMAL SALINE 100 ML IV SCH ×4 (02:20→20:33)
[2020-01-15] MEDS: METOPROLOL TARTRATE 50 MG TABLET PO SCH ×2 (05:34→17:33)
[2020-01-15] MEDS: INSULIN LISPRO 100 UNIT/ML 3 ML VIAL SUBCUT SCH ×4 (08:44→21:44)
[2020-01-15] MEDS: AMLODIPINE BESYLATE 2.5 MG TABLET PO SCH ×2 (09:42→21:46)
[2020-01-15] MEDS: POTASSIUM CHLORIDE 10 MEQ TABLET.ER PO SCH (09:42)
[2020-01-15] MEDS: DOCUSATE SODIUM 100 MG CAPSULE PO SCH ×2 (09:42→17:29)
[2020-01-15] MEDS: GLIMEPIRIDE 1 MG TABLET PO SCH (09:42)
[2020-01-15] MEDS: TIMOLOL MALEATE 0.5% OPH SOLN 5 ML OU SCH ×2 (09:47→17:39)
[2020-01-15] MEDS: GUAIFENESIN SYRP 200 MG/10 ML UDC PO PRN ×2 (09:47→20:33)
[2020-01-15] MEDS: BRIMONIDINE TARTRATE 0.2% OPH SOLN 5 ML OU SCH ×2 (09:47→17:39)
[2020-01-15 11:37] LABS: HEMATOCRIT 28.7 % (36.0-47.0); HEMOGLOBIN 9.5 g/dL (12.0-15.5); MEAN CORPUSCULAR HEMOGLOBIN 27.1 pg (27.0-33.4); MEAN CORPUSCULAR HGB CONC 33.2 g/dL (32.0-36.0); MEAN CORPUSCULAR VOLUME 82 fl (80-97); PLATELET COUNT 238 10^3/uL (150-450); RED BLOOD COUNT 3.51 10^6/uL (3.72-5.28); RED CELL DISTRIBUTION WIDTH 16.1 % (11.5-14.0)
[2020-01-15 11:52] LABS: BLOOD UREA NITROGEN 36 mg/dL (7-20); CALCIUM 9.5 mg/dL (8.4-10.2); CARBON DIOXIDE 29 mmol/L (22-30); GLUCOSE 147 mg/dL (75-110); POTASSIUM 5.1 mmol/L (3.6-5.0)
[2020-01-15 11:59] LABS: CHLORIDE 103 mmol/L (98-107)
[2020-01-15 12:03] LABS: ANION GAP 3 (5-19)
--- NOTE | 2020-01-15 13:23 | RADIOLOGY REPORT (SQ) ---
EXAM DESCRIPTION: CHEST SINGLE VIEW IMAGES COMPLETED DATE/TIME: 01/15/2020 1:12 pm REASON FOR STUDY: PNEUMONIA COMPARISON: 01/11/2019 EXAM PARAMETERS: NUMBER OF VIEWS: One view. TECHNIQUE: Single frontal radiographic view of the chest acquired. RADIATION DOSE: NA LIMITATIONS: None. FINDINGS: LUNGS AND PLEURA: Considerable opacification in the left hemithorax. There is slight impr ovement in the appearance of the right base. Mild opacification remains. MEDIASTINUM AND HILAR STRUCTURES: No masses. Contour normal. HEART AND VASCULAR STRUCTURES: Cardiomegaly. No fiorella pulmonary edema. BONES: No acute findings. HARDWARE: None in the chest. OTHER: No other significant finding. IMPRESSION: Cardiomegaly without fiorella pulmonary edema. Bilateral airspace disease with slight impr ovement on the right, likely pneumonia. TECHNICAL DOCUMENTATION: JOB ID: [id number] 2010 [employer]- All Rights Reserved Reading location - IP/workstation name: [email or web address]
[2020-01-15] MEDS: INSULIN GLARGINE,HUM.REC.ANLOG 1,000 UNIT/10 ML VIAL SUBCUT SCH (17:27)
--- NOTE | 2020-01-15 20:29 | PDOC PROGRESS REPORT ---
Subjective Progress Note for:: 01/15/20 Subjective:: Patient seen by the bedside chest x-ray that was done today demonstrated slight improvement there is still dense consolidation, the plan is to transfer to [facility] once stable, for rehabilitation Reason For Visit: RHABDOMYOLYSIS,FALL,MA CKD STAGE 3 Physical Exam Vital Signs: Temp Pulse Resp BP Pulse Ox 98.3 F 75 16 125/45 L 90 L 01/15/20 16:18 01/15/20 16:18 01/15/20 16:18 01/15/20 16:18 01/15/20 16:18 Intake & Output 01/14/20 01/15/20 01/16/20 06:59 06:59 06:59 Intake Total 1347 987 914 Output Total 2225 850 650 Balance -878 137 264 Weight 80.5 kg 79.1 kg 79.1 kg General appearance: PRESENT: no acute distress Eye exam: PRESENT: PERRLA Respiratory exam: PRESENT: rhonchi Cardiovascular exam: PRESENT: +S1, +S2 GI/Abdominal exam: PRESENT: soft Neurological exam: PRESENT: alert Results Laboratory Results: 01/15/20 11:14 01/15/20 11:14 01/15/20 01/15/20 11:14 11:14 WBC 9.0 RBC 3.51 L Hgb 9.5 L Hct 28.7 L MCV 82 MCH 27.1 MCHC 33.2 RDW 16.1 H Plt Count 238 Sodium 135.0 L Potassium 5.1 H Chloride 103 Carbon Dioxide 29 Anion Gap 3 L BUN 36 H Creatinine 1.44 H Est GFR ( Amer) 43 L Glucose 147 H Calcium 9.5 01/03/20 01/03/20 01/04/20 14:06 14:06 17:50 Creatine Kinase 2539 H 1453 H CK-MB (CK-2) Troponin I 0.086 NT-Pro-B Natriuret Pep 2860 H 01/04/20 01/04/20 01/04/20 17:50 23:00 23:00 Creatine Kinase 1293 H CK-MB (CK-2) 41.00 H 31.90 H Troponin I 0.107 0.097 NT-Pro-B Natriuret Pep 2690 H 01/05/20 01/05/20 01/06/20 05:30 05:30 05:47 Creatine Kinase 1151 H 1197 H CK-MB (CK-2) 24.20 H Troponin I 0.092 NT-Pro-B Natriuret Pep 01/07/20 01/10/20 01/10/20 06:12 13:10 13:10 Creatine Kinase 1255 H 1181 H CK-MB (CK-2) 16.90 H Troponin I 0.098 NT-Pro-B Natriuret Pep 01/10/20 01/10/20 01/11/20 18:11 18:11 01:01 Creatine Kinase 1244 H 1203 H CK-MB (CK-2) 15.60 H Troponin I 0.125 NT-Pro-B Natriuret Pep 5900 H 01/11/20 01/12/20 01:01 08:23 Creatine Kinase CK-MB (CK-2) 14.20 H Troponin I 0.226 0.226 NT-Pro-B Natriuret Pep Impressions: Head CT 01/03/20 14:14 IMPRESSION: CHRONIC CHANGES OF ATROPHY AND MICROVASCULAR ISCHEMIA. OLD RIGHT CEREBELLAR INFARCT. NO ACUTE PROCESS. EVIDENCE OF ACUTE STROKE: NO. Head MRI 01/04/20 00:00 IMPRESSION: ATROPHY AND CHRONIC MICRO-VASCULAR ISCHEMIC CHANGES. OLD CEREBELLAR INFARCTS, RIGHT GREATER THAN LEFT. NO ACUTE FINDINGS. EVIDENCE OF ACUTE STROKE: NO. Chest CT 01/05/20 00:00 IMPRESSION: 1. Bilateral airspace disease, likely multicentric pneumonia. 2. There is no suprahilar mass on the right. 3. Cardiomegaly with no fiorella pulmonary edema. Foot X-Ray 01/07/20 09:00 IMPRESSION: No acute osseous abnormality of the left foot. Chest Ultrasound 01/14/20 00:00 IMPRESSION: Insufficient fluid for thoracentesis. Chest X-Ray 01/15/20 00:00 IMPRESSION: Cardiomegaly without fiorella pulmonary edema. Bilateral airspace disease with slight improvement on the right, likely pneumonia. Assessment & Plan - Diagnosis (1) Rhabdomyolysis Qualifiers: Rhabdomyolysis type: traumatic Encounter type: initial encounter Qualified Code(s): T79.6XXA - Traumatic ischemia of muscle, initial encounter Is this a current diagnosis for this admission?: Yes (2) Chronic kidney disease, stage 3 Is this a current diagnosis for this admission?: Yes (3) Fall Qualifiers: Encounter type: initial encounter Qualified Code(s): W19.XXXA - Unspecified fall, initial encounter Is this a current diagnosis for this admission?: Yes (4) T2DM (type 2 diabetes mellitus) Qualifiers: Diabetes mellitus long-term insulin use: with barge hand use Diabetes mellitus complication status: with kidney complications Diabetes mellitus complication detail: with chronic kidney disease Chronic kidney disease stage: stage 3 (moderate) Qualified Code(s): E11.22 - Type 2 diabetes mellitus with diabetic chronic kidney disease; N18.3 - Chronic kidney disease, stage 3 (moderate); Z79.4 - custodial (current) use of insulin Is this a current diagnosis for this admission?: Yes (5) Cerebellar infarction Is this a current diagnosis for this admission?: Yes (6) Aspiration pneumonia Qualifiers: Aspiration pneumonia type: unspecified Laterality: bilateral Lung location: unspecified part of lung Qualified Code(s): J69.0 - Pneumonitis due to inhalation of food and vomit Is this a current diagnosis for this admission?: Yes Plan: She will continue antibiotic (7) Elevated troponin Is this a current diagnosis for this admission?: Yes (8) Pleural effusion Is this a current diagnosis for this admission?: Yes - Time Time Spent with patient: 25-34 minutes Level of Care: [facility]
[2020-01-16] MEDS: AMPICILLIN SODIUM/SULBACTAM NA 3 GM in NORMAL SALINE 100 ML IV SCH ×4 (03:40→20:55)
[2020-01-16] MEDS: INSULIN LISPRO 100 UNIT/ML 3 ML VIAL SUBCUT SCH ×4 (09:26→22:26)
[2020-01-16] MEDS: METOPROLOL TARTRATE 50 MG TABLET PO SCH ×2 (09:34→18:55)
[2020-01-16] MEDS: GLIMEPIRIDE 1 MG TABLET PO SCH (09:34)
[2020-01-16] MEDS: AMLODIPINE BESYLATE 2.5 MG TABLET PO SCH ×2 (09:35→21:25)
[2020-01-16] MEDS: DOCUSATE SODIUM 100 MG CAPSULE PO SCH ×2 (09:35→18:51)
[2020-01-16] MEDS: POTASSIUM CHLORIDE 10 MEQ TABLET.ER PO SCH (09:35)
[2020-01-16] MEDS: BRIMONIDINE TARTRATE 0.2% OPH SOLN 5 ML OU SCH ×2 (09:36→18:56)
[2020-01-16] MEDS: TIMOLOL MALEATE 0.5% OPH SOLN 5 ML OU SCH ×2 (09:36→18:56)
[2020-01-16] MEDS: GUAIFENESIN SYRP 200 MG/10 ML UDC PO PRN (14:14)
[2020-01-16] MEDS ORDERED: REGADENOSON INJ 0.4 MG/5 ML DISP.SYRIN IV ONE (14:39)
[2020-01-16] MEDS: INSULIN GLARGINE,HUM.REC.ANLOG 1,000 UNIT/10 ML VIAL SUBCUT SCH (18:55)
--- NOTE | 2020-01-16 20:05 | Progress Note ---
Provider Note Provider Note: CARDIOLOGY PROGRESS NOTE by Dr. Chloe Anderson on 01/16/2020 SUBJECTIVE: The patient denies any chest pain or discomfort. There is no shortness of breath. The patient complains of cough but is unable to produce any sputum. There is no wheezing. There is no PND orthopnea or leg edema. There is no arrhythmias seen on the monitor. The patient underwent successful and uneventful IV Lexiscan Cardiolite stress test. Please see report below. There is no TIA CVA symptoms. There is no near-syncope or syncope. PHYSICAL EXAMINATION: The patient mildly obese. In no acute distress. Selected Entries 01/16/20 15:38 Temperature 98.3 F Temperature Oral Source Pulse Rate 69 Respiratory 16 Rate Blood Pressure 135/61 H Blood Pressure 85 Mean BP Location Right Arm BP Position Supine O2 Sat by Pulse 91 L Oximetry Oxygen Delivery Room Air Method Head: Is atraumatic normocephalic. EYES: Pupils equal round regular reactive light accommodation. External ocular movements are normal. There is no conjunctival pallor. There is no scleral icterus. EARS: Tympanic membranes are intact. External auditory canals are clear. NOSE: There is no deviated nasal septum. There is no inflammation of the nasal mucous membrane. MOUTH: Mucous membranes of mouth are moist. Tongue is moist. There is no ulcers. There is no bleeding of the gums. THROAT: There is no redness of the oropharynx. There is no exudates. SKIN: There is no skin rashes. There is no petechia or ecchymosis. There is no skin lesions. NECK: Is supple. There is no JVD. Carotids are equal there is no bruit there is no lymphadenopathy. There is no goiter. There is no accessory muscle respiration use. Trachea is central. LUNGS: There are bilateral dry crackles of pneumonia. No rales of CHF. There is no rhonchi or wheezing. HEART: S1-S2 is heard. There is no S3 gallop there is no stridor. There is systolic murmur left sternal border and the apex. There is no rub. ABDOMEN: Is soft. Mildly obese. There is no hepatosplenomegaly. There is no tender areas of masses. Bowel sounds are well heard. EXTREMITIES: Femorals are slightly diminished. There is no femoral bruits. Leg pulses diminished. There is no DVT or cellulitis. There is no pedal edema. There is no calf tenderness. There is no cyanosis or clubbing. MS: The patient is conscious awake alert oriented x3 with no focal deficits. 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 PSYCHIATRIC: The patient judgment insight are intact her affect is normal. Chest X-Ray 01/03/20 14:13 IMPRESSION: CARDIAC ENLARGEMENT. VASCULAR CONGESTION. DIFFUSE AIRSPACE DISEASE IN THE LEFT LUNG MAY BE DUE TO ASYMMETRIC PULMONARY EDEMA OR PNEUMONIA. Head CT 01/03/20 14:14 IMPRESSION: CHRONIC CHANGES OF ATROPHY AND MICROVASCULAR ISCHEMIA. OLD RIGHT CEREBELLAR INFARCT. NO ACUTE PROCESS. EVIDENCE OF ACUTE STROKE: NO. Head MRI 01/04/20 00:00 IMPRESSION: ATROPHY AND CHRONIC MICRO-VASCULAR ISCHEMIC CHANGES. OLD CEREBELLAR INFARCTS, RIGHT GREATER THAN LEFT. NO ACUTE FINDINGS. EVIDENCE OF ACUTE STROKE: NO. Chest CT 01/05/20 00:00 IMPRESSION: 1. Bilateral airspace disease, likely multicentric pneumonia. 2. There is no suprahilar mass on the right. 3. Cardiomegaly with no fiorella pulmonary edema. Chest X-Ray 01/05/20 00:00 IMPRESSION: Cardiomegaly. No fiorella pulmonary edema. Airspace disease in the left lung, likely pneumonia. Cannot exclude suprahilar nodule in the right lung. Foot X-Ray 01/07/20 09:00 IMPRESSION: No acute osseous abnormality of the left foot. Chest X-Ray 01/10/20 00:00 IMPRESSION: Multifocal consolidation suspicious for pneumonia. Small bilateral pleural effusions and mild pulmonary edema. Chest X-Ray 01/12/20 00:00 IMPRESSION: No significant interval change in widespread bilateral airspace disease, suspicious for multifocal pneumonia and/or pulmonary edema. Superimposed small bilateral pleural effusions. copyright 2011 [employer]- All Rights Reserved Chest Ultrasound 01/14/20 00:00 IMPRESSION: Insufficient fluid for thoracentesis. Chest X-Ray 01/15/20 00:00 IMPRESSION: Cardiomegaly without fiorella pulmonary edema. Bilateral airspace disease with slight improvement on the right, likely pneumonia. Labs- Entire Visit 01/03/20 01/03/20 01/03/20 14:06 14:06 14:06 WBC 9.8 RBC 4.99 Hgb 13.6 Hct 40.8 MCV 82 MCH 27.3 MCHC 33.3 RDW 16.5 H Plt Count 143 L Lymph % (Auto) 14.0 [place] % (Auto) 5.6 Eos % (Auto) 0.7 Baso % (Auto) 0.5 Absolute Neuts (auto) 7.7 Absolute Lymphs (auto) 1.4 Absolute Monos (auto) 0.6 Absolute Eos (auto) 0.1 Absolute Basos (auto) 0.1 Seg Neutrophils % 79.2 H PT 13.9 INR 1.07 APTT 25.1 Sodium 135.5 L Potassium 4.2 Chloride 100 Carbon Dioxide 28 Anion Gap 8 BUN 40 H Creatinine 1.34 H Est GFR ( Amer) 47 L Est GFR (MDRD) Non-Af 38 L Glucose 188 H POC Glucose Hemoglobin A1c % Lactic Acid Calcium 10.3 H Phosphorus Magnesium 1.7 Total Bilirubin 0.8 Direct Bilirubin 0.0 Neonat Total Bilirubin Not Reportable Neonat Direct Bilirubin Not Reportable Neonat Indirect Bili Not Reportable AST 118 H ALT 96 H Alkaline Phosphatase 76 Ammonia Lactate Dehydrogenase Creatine Kinase 2539 H CK-MB (CK-2) Troponin I NT-Pro-B Natriuret Pep Total Protein 7.8 Albumin 3.7 Triglycerides Cholesterol LDL Cholesterol Direct VLDL Cholesterol HDL Cholesterol Amylase Lipase Procalcitonin TSH Free T4 Urine Color Urine Appearance Urine pH Ur Specific [place] Urine Protein Urine Glucose (UA) Urine Ketones Urine Blood Urine Nitrite Urine Bilirubin Urine Urobilinogen Ur Leukocyte Esterase Urine WBC (Auto) Urine RBC (Auto) Squamous Epi Cells Auto Urine Mucus (Auto) Urine Myoglobin Urine Ascorbic Acid Urine Opiates Screen Urine Methadone Screen Ur Barbiturates Screen Ur Phencyclidine Scrn Ur Amphetamines Screen U Benzodiazepines Scrn Urine Cocaine Screen U Marijuana (THC) Screen COVID-19 Source COVID-19 (VISHAL) 01/03/20 01/03/20 01/03/20 14:06 14:06 16:06 WBC RBC Hgb Hct MCV MCH MCHC RDW Plt Count Lymph % (Auto) [place] % (Auto) Eos % (Auto) Baso % (Auto) Absolute Neuts (auto) Absolute Lymphs (auto) Absolute Monos (auto) Absolute Eos (auto) Absolute Basos (auto) Seg Neutrophils % PT INR APTT Sodium Potassium Chloride Carbon Dioxide Anion Gap BUN Creatinine Est GFR ( Amer) Est GFR (MDRD) Non-Af Glucose POC Glucose Hemoglobin A1c % 8.8 H Lactic Acid Calcium Phosphorus Magnesium Total Bilirubin Direct Bilirubin Neonat Total Bilirubin Neonat Direct Bilirubin Neonat Indirect Bili AST ALT Alkaline Phosphatase Ammonia Lactate Dehydrogenase Creatine Kinase CK-MB (CK-2) Troponin I 0.086 NT-Pro-B Natriuret Pep 2860 H Total Protein Albumin Triglycerides Cholesterol LDL Cholesterol Direct VLDL Cholesterol HDL Cholesterol Amylase Lipase Procalcitonin TSH Free T4 Urine Color YELLOW Urine Appearance CLEAR Urine pH 6.0 Ur Specific [place] 1.015 Urine Protein 100 H Urine Glucose (UA) NEGATIVE Urine Ketones NEGATIVE Urine Blood SMALL H Urine Nitrite NEGATIVE Urine Bilirubin NEGATIVE Urine Urobilinogen NEGATIVE Ur Leukocyte Esterase NEGATIVE Urine WBC (Auto) 1 Urine RBC (Auto) 2 Squamous Epi Cells Auto Urine Mucus (Auto) RARE Urine Myoglobin Urine Ascorbic Acid NEGATIVE Urine Opiates Screen Urine Methadone Screen Ur Barbiturates Screen Ur Phencyclidine Scrn Ur Amphetamines Screen U Benzodiazepines Scrn Urine Cocaine Screen U Marijuana (THC) Screen COVID-19 Source COVID-19 (VISHAL) 01/04/20 01/04/20 01/04/20 09:35 11:40 17:07 WBC RBC Hgb Hct MCV MCH MCHC RDW Plt Count Lymph % (Auto) [place] % (Auto) Eos % (Auto) Baso % (Auto) Absolute Neuts (auto) Absolute Lymphs (auto) Absolute Monos (auto) Absolute Eos (auto) Absolute Basos (auto) Seg Neutrophils % PT INR APTT Sodium Potassium Chloride Carbon Dioxide Anion Gap BUN Creatinine Est GFR ( Amer) Est GFR (MDRD) Non-Af Glucose POC Glucose 236 H 202 H 135 H Hemoglobin A1c % Lactic Acid Calcium Phosphorus Magnesium Total Bilirubin Direct Bilirubin Neonat Total Bilirubin Neonat Direct Bilirubin Neonat Indirect Bili AST ALT Alkaline Phosphatase Ammonia Lactate Dehydrogenase Creatine Kinase CK-MB (CK-2) Troponin I NT-Pro-B Natriuret Pep Total Protein Albumin Triglycerides Cholesterol LDL Cholesterol Direct VLDL Cholesterol HDL Cholesterol Amylase Lipase Procalcitonin TSH Free T4 Urine Color Urine Appearance Urine pH Ur Specific [place] Urine Protein Urine Glucose (UA) Urine Ketones Urine Blood Urine Nitrite Urine Bilirubin Urine Urobilinogen Ur Leukocyte Esterase Urine WBC (Auto) Urine RBC (Auto) Squamous Epi Cells Auto Urine Mucus (Auto) Urine Myoglobin Urine Ascorbic Acid Urine Opiates Screen Urine Methadone Screen Ur Barbiturates Screen Ur Phencyclidine Scrn Ur Amphetamines Screen U Benzodiazepines Scrn Urine Cocaine Screen U Marijuana (THC) Screen COVID-19 Source COVID-19 (VISHAL) 01/04/20 01/04/20 01/04/20 17:50 17:50 17:50 WBC RBC Hgb Hct MCV MCH MCHC RDW Plt Count Lymph % (Auto) [place] % (Auto) Eos % (Auto) Baso % (Auto) Absolute Neuts (auto) Absolute Lymphs (auto) Absolute Monos (auto) Absolute Eos (auto) Absolute Basos (auto) Seg Neutrophils % PT 14.8 INR 1.15 APTT 31.6 Sodium Potassium Chloride Carbon Dioxide Anion Gap BUN Creatinine Est GFR ( Amer) Est GFR (MDRD) Non-Af Glucose POC Glucose Hemoglobin A1c % Lactic Acid Calcium Phosphorus 2.7 Magnesium 1.8 Total Bilirubin Direct Bilirubin Neonat Total Bilirubin Neonat Direct Bilirubin Neonat Indirect Bili AST ALT Alkaline Phosphatase Ammonia < 8.7 L Lactate Dehydrogenase Creatine Kinase 1453 H CK-MB (CK-2) Troponin I NT-Pro-B Natriuret Pep Total Protein Albumin Triglycerides Cholesterol LDL Cholesterol Direct VLDL Cholesterol HDL Cholesterol Amylase 43 Lipase 86.8 Procalcitonin TSH Free T4 Urine Color Urine Appearance Urine pH Ur Specific [place] Urine Protein Urine Glucose (UA) Urine Ketones Urine Blood Urine Nitrite Urine Bilirubin Urine Urobilinogen Ur Leukocyte Esterase Urine WBC (Auto) Urine RBC (Auto) Squamous Epi Cells Auto Urine Mucus (Auto) Urine Myoglobin Urine Ascorbic Acid Urine Opiates Screen Urine Methadone Screen Ur Barbiturates Screen Ur Phencyclidine Scrn Ur Amphetamines Screen U Benzodiazepines Scrn Urine Cocaine Screen U Marijuana (THC) Screen COVID-19 Source COVID-19 (VISHAL) 01/04/20 01/04/20 01/04/20 17:50 17:50 21:14 WBC RBC Hgb Hct MCV MCH MCHC RDW Plt Count Lymph % (Auto) [place] % (Auto) Eos % (Auto) Baso % (Auto) Absolute Neuts (auto) Absolute Lymphs (auto) Absolute Monos (auto) Absolute Eos (auto) Absolute Basos (auto) Seg Neutrophils % PT INR APTT Sodium Potassium Chloride Carbon Dioxide Anion Gap BUN Creatinine Est GFR ( Amer) Est GFR (MDRD) Non-Af Glucose POC Glucose 175 H Hemoglobin A1c % Lactic Acid Calcium Phosphorus Magnesium Total Bilirubin Direct Bilirubin Neonat Total Bilirubin Neonat Direct Bilirubin Neonat Indirect Bili AST ALT Alkaline Phosphatase Ammonia Lactate Dehydrogenase Creatine Kinase CK-MB (CK-2) 41.00 H Troponin I 0.107 NT-Pro-B Natriuret Pep 2690 H Total Protein Albumin Triglycerides Cholesterol LDL Cholesterol Direct VLDL Cholesterol HDL Cholesterol Amylase Lipase Procalcitonin TSH 0.99 Free T4 1.60 Urine Color Urine Appearance Urine pH Ur Specific [place] Urine Protein Urine Glucose (UA) Urine Ketones Urine Blood Urine Nitrite Urine Bilirubin Urine Urobilinogen Ur Leukocyte Esterase Urine WBC (Auto) Urine RBC (Auto) Squamous Epi Cells Auto Urine Mucus (Auto) Urine Myoglobin Urine Ascorbic Acid Urine Opiates Screen Urine Methadone Screen Ur Barbiturates Screen Ur Phencyclidine Scrn Ur Amphetamines Screen U Benzodiazepines Scrn Urine Cocaine Screen U Marijuana (THC) Screen COVID-19 Source COVID-19 (VISHAL) 01/04/20 01/04/20 01/04/20 22:40 22:40 22:40 WBC RBC Hgb Hct MCV MCH MCHC RDW Plt Count Lymph % (Auto) [place] % (Auto) Eos % (Auto) Baso % (Auto) Absolute Neuts (auto) Absolute Lymphs (auto) Absolute Monos (auto) Absolute Eos (auto) Absolute Basos (auto) Seg Neutrophils % PT INR APTT Sodium Potassium Chloride Carbon Dioxide Anion Gap BUN Creatinine Est GFR ( Amer) Est GFR (MDRD) Non-Af Glucose POC Glucose Hemoglobin A1c % Lactic Acid Calcium Phosphorus Magnesium Total Bilirubin Direct Bilirubin Neonat Total Bilirubin Neonat Direct Bilirubin Neonat Indirect Bili AST ALT Alkaline Phosphatase Ammonia Lactate Dehydrogenase Creatine Kinase CK-MB (CK-2) Troponin I NT-Pro-B Natriuret Pep Total Protein Albumin Triglycerides Cholesterol LDL Cholesterol Direct VLDL Cholesterol HDL Cholesterol Amylase Lipase Procalcitonin TSH Free T4 Urine Color YELLOW Urine Appearance CLEAR Urine pH 5.0 Ur Specific [place] 1.010 Urine Protein NEGATIVE Urine Glucose (UA) NEGATIVE Urine Ketones NEGATIVE Urine Blood NEGATIVE Urine Nitrite NEGATIVE Urine Bilirubin NEGATIVE Urine Urobilinogen NEGATIVE Ur Leukocyte Esterase NEGATIVE Urine WBC (Auto) 1 Urine RBC (Auto) 1 Squamous Epi Cells Auto <1 Urine Mucus (Auto) RARE Urine Myoglobin <2 Urine Ascorbic Acid NEGATIVE Urine Opiates Screen NEGATIVE Urine Methadone Screen NEGATIVE Ur Barbiturates Screen NEGATIVE Ur Phencyclidine Scrn NEGATIVE Ur Amphetamines Screen NEGATIVE U Benzodiazepines Scrn NEGATIVE Urine Cocaine Screen NEGATIVE U Marijuana (THC) Screen NEGATIVE COVID-19 Source COVID-19 (VISHAL) 05/01/04/20 01/05/20 23:00 23:00 05:30 WBC RBC Hgb Hct MCV MCH MCHC RDW Plt Count Lymph % (Auto) [place] % (Auto) Eos % (Auto) Baso % (Auto) Absolute Neuts (auto) Absolute Lymphs (auto) Absolute Monos (auto) Absolute Eos (auto) Absolute Basos (auto) Seg Neutrophils % PT INR APTT Sodium 135.0 L Potassium 3.8 Chloride 105 Carbon Dioxide 25 Anion Gap 5 BUN 35 H Creatinine 1.33 H Est GFR ( Amer) 47 L Est GFR (MDRD) Non-Af 39 L Glucose 145 H POC Glucose Hemoglobin A1c % Lactic Acid Calcium 9.3 Phosphorus Magnesium Total Bilirubin 0.7 Direct Bilirubin 0.0 Neonat Total Bilirubin Not Reportable Neonat Direct Bilirubin Not Reportable Neonat Indirect Bili Not Reportable AST 76 H ALT 67 H Alkaline Phosphatase 55 Ammonia Lactate Dehydrogenase Creatine Kinase 1293 H 1151 H CK-MB (CK-2) 31.90 H Troponin I 0.097 NT-Pro-B Natriuret Pep Total Protein 6.4 Albumin 2.8 L Triglycerides 84 Cholesterol 137.07 LDL Cholesterol Direct 93 VLDL Cholesterol 17.0 HDL Cholesterol 37 L Amylase Lipase Procalcitonin TSH Free T4 Urine Color Urine Appearance Urine pH Ur Specific [place] Urine Protein Urine Glucose (UA) Urine Ketones Urine Blood Urine Nitrite Urine Bilirubin Urine Urobilinogen Ur Leukocyte Esterase Urine WBC (Auto) Urine RBC (Auto) Squamous Epi Cells Auto Urine Mucus (Auto) Urine Myoglobin Urine Ascorbic Acid Urine Opiates Screen Urine Methadone Screen Ur Barbiturates Screen Ur Phencyclidine Scrn Ur Amphetamines Screen U Benzodiazepines Scrn Urine Cocaine Screen U Marijuana (THC) Screen COVID-19 Source COVID-19 (VISHAL) 01/05/20 01/05/20 01/05/20 05:30 05:30 05:30 WBC 8.4 RBC 4.19 Hgb 11.6 L Hct 33.9 L MCV 81 MCH 27.7 MCHC 34.2 RDW 16.1 H Plt Count 137 L Lymph % (Auto) 25.5 [place] % (Auto) 10.0 Eos % (Auto) 2.8 Baso % (Auto) 0.4 Absolute Neuts (auto) 5.2 Absolute Lymphs (auto) 2.1 Absolute Monos (auto) 0.8 Absolute Eos (auto) 0.2 Absolute Basos (auto) 0.0 Seg Neutrophils % 61.3 PT INR APTT Sodium Potassium Chloride Carbon Dioxide Anion Gap BUN Creatinine Est GFR ( Amer) Est GFR (MDRD) Non-Af Glucose POC Glucose Hemoglobin A1c % 8.8 H Lactic Acid Calcium Phosphorus Magnesium Total Bilirubin Direct Bilirubin Neonat Total Bilirubin Neonat Direct Bilirubin Neonat Indirect Bili AST ALT Alkaline Phosphatase Ammonia Lactate Dehydrogenase Creatine Kinase CK-MB (CK-2) 24.20 H Troponin I 0.092 NT-Pro-B Natriuret Pep Total Protein Albumin Triglycerides Cholesterol LDL Cholesterol Direct VLDL Cholesterol HDL Cholesterol Amylase Lipase Procalcitonin TSH Free T4 Urine Color Urine Appearance Urine pH Ur Specific [place] Urine Protein Urine Glucose (UA) Urine Ketones Urine Blood Urine Nitrite Urine Bilirubin Urine Urobilinogen Ur Leukocyte Esterase Urine WBC (Auto) Urine RBC (Auto) Squamous Epi Cells Auto Urine Mucus (Auto) Urine Myoglobin Urine Ascorbic Acid Urine Opiates Screen Urine Methadone Screen Ur Barbiturates Screen Ur Phencyclidine Scrn Ur Amphetamines Screen U Benzodiazepines Scrn Urine Cocaine Screen U Marijuana (THC) Screen COVID-19 Source COVID-19 ([facility]ISHAL) 01/05/20 01/05/20 01/05/20 07:16 11:30 16:26 WBC RBC Hgb Hct MCV MCH MCHC RDW Plt Count Lymph % (Auto) [place] % (Auto) Eos % (Auto) Baso % (Auto) Absolute Neuts (auto) Absolute Lymphs (auto) Absolute Monos (auto) Absolute Eos (auto) Absolute Basos (auto) Seg Neutrophils % PT INR APTT Sodium Potassium Chloride Carbon Dioxide Anion Gap BUN Creatinine Est GFR ( Amer) Est GFR (MDRD) Non-Af Glucose POC Glucose 146 H 172 H 87 Hemoglobin A1c % Lactic Acid Calcium Phosphorus Magnesium Total Bilirubin Direct Bilirubin Neonat Total Bilirubin Neonat Direct Bilirubin Neonat Indirect Bili AST ALT Alkaline Phosphatase Ammonia Lactate Dehydrogenase Creatine Kinase CK-MB (CK-2) Troponin I NT-Pro-B Natriuret Pep Total Protein Albumin Triglycerides Cholesterol LDL Cholesterol Direct VLDL Cholesterol HDL Cholesterol Amylase Lipase Procalcitonin TSH Free T4 Urine Color Urine Appearance Urine pH Ur Specific [place] Urine Protein Urine Glucose (UA) Urine Ketones Urine Blood Urine Nitrite Urine Bilirubin Urine Urobilinogen Ur Leukocyte Esterase Urine WBC (Auto) Urine RBC (Auto) Squamous Epi Cells Auto Urine Mucus (Auto) Urine Myoglobin Urine Ascorbic Acid Urine Opiates Screen Urine Methadone Screen Ur Barbiturates Screen Ur Phencyclidine Scrn Ur Amphetamines Screen U Benzodiazepines Scrn Urine Cocaine Screen U Marijuana (THC) Screen COVID-19 Source COVID-19 (VISHAL) 01/05/20 01/06/20 01/06/20 21:40 05:47 05:47 WBC 10.2 RBC 4.37 Hgb 12.0 Hct 35.4 L MCV 81 MCH 27.3 MCHC 33.8 RDW 16.3 H Plt Count 130 L Lymph % (Auto) 20.4 [place] % (Auto) 9.3 Eos % (Auto) 2.8 Baso % (Auto) 0.5 Absolute Neuts (auto) 6.9 Absolute Lymphs (auto) 2.1 Absolute Monos (auto) 1.0 Absolute Eos (auto) 0.3 Absolute Basos (auto) 0.1 Seg Neutrophils % 67.0 PT INR APTT Sodium 134.3 L Potassium 3.5 L Chloride 101 Carbon Dioxide 26 Anion Gap 7 BUN 37 H Creatinine 1.57 H Est GFR ( Amer) 39 L Est GFR (MDRD) Non-Af 32 L Glucose 117 H POC Glucose 95 Hemoglobin A1c % Lactic Acid Calcium 9.1 Phosphorus Magnesium Total Bilirubin 0.7 Direct Bilirubin 0.0 Neonat Total Bilirubin Not Reportable Neonat Direct Bilirubin Not Reportable Neonat Indirect Bili Not Reportable AST 73 H ALT 64 H Alkaline Phosphatase 53 Ammonia Lactate Dehydrogenase Creatine Kinase CK-MB (CK-2) Troponin I NT-Pro-B Natriuret Pep Total Protein 6.5 Albumin 2.8 L Triglycerides Cholesterol LDL Cholesterol Direct VLDL Cholesterol HDL Cholesterol Amylase Lipase Procalcitonin TSH Free T4 Urine Color Urine Appearance Urine pH Ur Specific [place] Urine Protein Urine Glucose (UA) Urine Ketones Urine Blood Urine Nitrite Urine Bilirubin Urine Urobilinogen Ur Leukocyte Esterase Urine WBC (Auto) Urine RBC (Auto) Squamous Epi Cells Auto Urine Mucus (Auto) Urine Myoglobin Urine Ascorbic Acid Urine Opiates Screen Urine Methadone Screen Ur Barbiturates Screen Ur Phencyclidine Scrn Ur Amphetamines Screen U Benzodiazepines Scrn Urine Cocaine Screen U Marijuana (THC) Screen COVID-19 Source COVID-19 ([facility]ISHAL) 01/06/20 01/06/20 01/06/20 05:47 07:44 11:07 WBC RBC Hgb Hct MCV MCH MCHC RDW Plt Count Lymph % (Auto) [place] % (Auto) Eos % (Auto) Baso % (Auto) Absolute Neuts (auto) Absolute Lymphs (auto) Absolute Monos (auto) Absolute Eos (auto) Absolute Basos (auto) Seg Neutrophils % PT INR APTT Sodium Potassium Chloride Carbon Dioxide Anion Gap BUN Creatinine Est GFR ( Amer) Est GFR (MDRD) Non-Af Glucose POC Glucose 134 H 272 H Hemoglobin A1c % Lactic Acid Calcium Phosphorus Magnesium Total Bilirubin Direct Bilirubin Neonat Total Bilirubin Neonat Direct Bilirubin Neonat Indirect Bili AST ALT Alkaline Phosphatase Ammonia Lactate Dehydrogenase Creatine Kinase 1197 H CK-MB (CK-2) Troponin I NT-Pro-B Natriuret Pep Total Protein Albumin Triglycerides Cholesterol LDL Cholesterol Direct VLDL Cholesterol HDL Cholesterol Amylase Lipase Procalcitonin TSH Free T4 Urine Color Urine Appearance Urine pH Ur Specific [place] Urine Protein Urine Glucose (UA) Urine Ketones Urine Blood Urine Nitrite Urine Bilirubin Urine Urobilinogen Ur Leukocyte Esterase Urine WBC (Auto) Urine RBC (Auto) Squamous Epi Cells Auto Urine Mucus (Auto) Urine Myoglobin Urine Ascorbic Acid Urine Opiates Screen Urine Methadone Screen Ur Barbiturates Screen Ur Phencyclidine Scrn Ur Amphetamines Screen U Benzodiazepines Scrn Urine Cocaine Screen U Marijuana (THC) Screen COVID-19 Source COVID-19 (VISHAL) 01/06/20 01/06/20 01/06/20 16:21 22:10 22:28 WBC RBC Hgb Hct MCV MCH MCHC RDW Plt Count Lymph % (Auto) [place] % (Auto) Eos % (Auto) Baso % (Auto) Absolute Neuts (auto) Absolute Lymphs (auto) Absolute Monos (auto) Absolute Eos (auto) Absolute Basos (auto) Seg Neutrophils % PT INR APTT Sodium Potassium Chloride Carbon Dioxide Anion Gap BUN Creatinine Est GFR ( Amer) Est GFR (MDRD) Non-Af Glucose POC Glucose 114 H 67 L 73 Hemoglobin A1c % Lactic Acid Calcium Phosphorus Magnesium Total Bilirubin Direct Bilirubin Neonat Total Bilirubin Neonat Direct Bilirubin Neonat Indirect Bili AST ALT Alkaline Phosphatase Ammonia Lactate Dehydrogenase Creatine Kinase CK-MB (CK-2) Troponin I NT-Pro-B Natriuret Pep Total Protein Albumin Triglycerides Cholesterol LDL Cholesterol Direct VLDL Cholesterol HDL Cholesterol Amylase Lipase Procalcitonin TSH Free T4 Urine Color Urine Appearance Urine pH Ur Specific [place] Urine Protein Urine Glucose (UA) Urine Ketones Urine Blood Urine Nitrite Urine Bilirubin Urine Urobilinogen Ur Leukocyte Esterase Urine WBC (Auto) Urine RBC (Auto) Squamous Epi Cells Auto Urine Mucus (Auto) Urine Myoglobin Urine Ascorbic Acid Urine Opiates Screen Urine Methadone Screen Ur Barbiturates Screen Ur Phencyclidine Scrn Ur Amphetamines Screen U Benzodiazepines Scrn Urine Cocaine Screen U Marijuana (THC) Screen COVID-19 Source COVID-19 ([facility]ISHAL) 01/07/20 01/07/20 01/07/20 00:59 06:12 06:12 WBC 10.9 H RBC 4.25 Hgb 11.4 L Hct 34.2 L MCV 81 MCH 26.9 L MCHC 33.4 RDW 16.8 H Plt Count 141 L Lymph % (Auto) 18.7 [place] % (Auto) 9.8 Eos % (Auto) 1.7 Baso % (Auto) 0.2 Absolute Neuts (auto) 7.6 Absolute Lymphs (auto) 2.0 Absolute Monos (auto) 1.1 Absolute Eos (auto) 0.2 Absolute Basos (auto) 0.0 Seg Neutrophils % 69.6 PT INR APTT Sodium 135.2 L Potassium 3.7 Chloride 99 Carbon Dioxide 27 Anion Gap 9 BUN 36 H Creatinine 1.59 H Est GFR ( Amer) 38 L Est GFR (MDRD) Non-Af 32 L Glucose 105 POC Glucose 102 Hemoglobin A1c % Lactic Acid Calcium 8.9 Phosphorus Magnesium Total Bilirubin 0.7 Direct Bilirubin 0.2 Neonat Total Bilirubin Not Reportable Neonat Direct Bilirubin Not Reportable Neonat Indirect Bili Not Reportable AST 75 H ALT 58 H Alkaline Phosphatase 48 Ammonia Lactate Dehydrogenase Creatine Kinase 1255 H CK-MB (CK-2) Troponin I NT-Pro-B Natriuret Pep Total Protein 6.5 Albumin 2.8 L Triglycerides Cholesterol LDL Cholesterol Direct VLDL Cholesterol HDL Cholesterol Amylase Lipase Procalcitonin TSH Free T4 Urine Color Urine Appearance Urine pH Ur Specific [place] Urine Protein Urine Glucose (UA) Urine Ketones Urine Blood Urine Nitrite Urine Bilirubin Urine Urobilinogen Ur Leukocyte Esterase Urine WBC (Auto) Urine RBC (Auto) Squamous Epi Cells Auto Urine Mucus (Auto) Urine Myoglobin Urine Ascorbic Acid Urine Opiates Screen Urine Methadone Screen Ur Barbiturates Screen Ur Phencyclidine Scrn Ur Amphetamines Screen U Benzodiazepines Scrn Urine Cocaine Screen U Marijuana (THC) Screen COVID-19 Source COVID-19 (VISHAL) 01/07/20 01/07/20 01/07/20 07:16 11:20 16:01 WBC RBC Hgb Hct MCV MCH MCHC RDW Plt Count Lymph % (Auto) [place] % (Auto) Eos % (Auto) Baso % (Auto) Absolute Neuts (auto) Absolute Lymphs (auto) Absolute Monos (auto) Absolute Eos (auto) Absolute Basos (auto) Seg Neutrophils % PT INR APTT Sodium Potassium Chloride Carbon Dioxide Anion Gap BUN Creatinine Est GFR ( Amer) Est GFR (MDRD) Non-Af Glucose POC Glucose 106 161 H 143 H Hemoglobin A1c % Lactic Acid Calcium Phosphorus Magnesium Total Bilirubin Direct Bilirubin Neonat Total Bilirubin Neonat Direct Bilirubin Neonat Indirect Bili AST ALT Alkaline Phosphatase Ammonia Lactate Dehydrogenase Creatine Kinase CK-MB (CK-2) Troponin I NT-Pro-B Natriuret Pep Total Protein Albumin Triglycerides Cholesterol LDL Cholesterol Direct VLDL Cholesterol HDL Cholesterol Amylase Lipase Procalcitonin TSH Free T4 Urine Color Urine Appearance Urine pH Ur Specific [place] Urine Protein Urine Glucose (UA) Urine Ketones Urine Blood Urine Nitrite Urine Bilirubin Urine Urobilinogen Ur Leukocyte Esterase Urine WBC (Auto) Urine RBC (Auto) Squamous Epi Cells Auto Urine Mucus (Auto) Urine Myoglobin Urine Ascorbic Acid Urine Opiates Screen Urine Methadone Screen Ur Barbiturates Screen Ur Phencyclidine Scrn Ur Amphetamines Screen U Benzodiazepines Scrn Urine Cocaine Screen U Marijuana (THC) Screen COVID-19 Source COVID-19 (V[facility]AL) 01/07/20 01/08/20 01/08/20 21:37 07:40 08:19 WBC RBC Hgb Hct MCV MCH MCHC RDW Plt Count Lymph % (Auto) [place] % (Auto) Eos % (Auto) Baso % (Auto) Absolute Neuts (auto) Absolute Lymphs (auto) Absolute Monos (auto) Absolute Eos (auto) Absolute Basos (auto) Seg Neutrophils % PT INR APTT Sodium 134.2 L Potassium 3.5 L Chloride 99 Carbon Dioxide 28 Anion Gap 7 BUN 35 H Creatinine 1.63 H Est GFR ( Amer) 37 L Est GFR (MDRD) Non-Af 31 L Glucose 139 H POC Glucose 92 161 H Hemoglobin A1c % Lactic Acid Calcium 8.5 Phosphorus Magnesium Total Bilirubin 0.7 Direct Bilirubin 0.1 Neonat Total Bilirubin Not Reportable Neonat Direct Bilirubin Not Reportable Neonat Indirect Bili Not Reportable AST 76 H ALT 52 H Alkaline Phosphatase 47 Ammonia Lactate Dehydrogenase Creatine Kinase CK-MB (CK-2) Troponin I NT-Pro-B Natriuret Pep Total Protein 6.0 L Albumin 2.6 L Triglycerides Cholesterol LDL Cholesterol Direct VLDL Cholesterol HDL Cholesterol Amylase Lipase Procalcitonin TSH Free T4 Urine Color Urine Appearance Urine pH Ur Specific [place] Urine Protein Urine Glucose (UA) Urine Ketones Urine Blood Urine Nitrite Urine Bilirubin Urine Urobilinogen Ur Leukocyte Esterase Urine WBC (Auto) Urine RBC (Auto) Squamous Epi Cells Auto Urine Mucus (Auto) Urine Myoglobin Urine Ascorbic Acid Urine Opiates Screen Urine Methadone Screen Ur Barbiturates Screen Ur Phencyclidine Scrn Ur Amphetamines Screen U Benzodiazepines Scrn Urine Cocaine Screen U Marijuana (THC) Screen COVID-19 Source COVID-19 ([facility]AL) 01/08/20 01/08/20 01/08/20 11:28 16:52 21:07 WBC RBC Hgb Hct MCV MCH MCHC RDW Plt Count Lymph % (Auto) [place] % (Auto) Eos % (Auto) Baso % (Auto) Absolute Neuts (auto) Absolute Lymphs (auto) Absolute Monos (auto) Absolute Eos (auto) Absolute Basos (auto) Seg Neutrophils % PT INR APTT Sodium Potassium Chloride Carbon Dioxide Anion Gap BUN Creatinine Est GFR ( Amer) Est GFR (MDRD) Non-Af Glucose POC Glucose 165 H 74 167 H Hemoglobin A1c % Lactic Acid Calcium Phosphorus Magnesium Total Bilirubin Direct Bilirubin Neonat Total Bilirubin Neonat Direct Bilirubin Neonat Indirect Bili AST ALT Alkaline Phosphatase Ammonia Lactate Dehydrogenase Creatine Kinase CK-MB (CK-2) Troponin I NT-Pro-B Natriuret Pep Total Protein Albumin Triglycerides Cholesterol LDL Cholesterol Direct VLDL Cholesterol HDL Cholesterol Amylase Lipase Procalcitonin TSH Free T4 Urine Color Urine Appearance Urine pH Ur Specific [place] Urine Protein Urine Glucose (UA) Urine Ketones Urine Blood Urine Nitrite Urine Bilirubin Urine Urobilinogen Ur Leukocyte Esterase Urine WBC (Auto) Urine RBC (Auto) Squamous Epi Cells Auto Urine Mucus (Auto) Urine Myoglobin Urine Ascorbic Acid Urine Opiates Screen Urine Methadone Screen Ur Barbiturates Screen Ur Phencyclidine Scrn Ur Amphetamines Screen U Benzodiazepines Scrn Urine Cocaine Screen U Marijuana (THC) Screen COVID-19 Source COVID-19 ([facility]AL) 01/09/20 01/09/20 01/09/20 07:03 07:54 11:42 WBC RBC Hgb Hct MCV MCH MCHC RDW Plt Count Lymph % (Auto) [place] % (Auto) Eos % (Auto) Baso % (Auto) Absolute Neuts (auto) Absolute Lymphs (auto) Absolute Monos (auto) Absolute Eos (auto) Absolute Basos (auto) Seg Neutrophils % PT INR APTT Sodium 135.2 L Potassium 3.3 L Chloride 103 Carbon Dioxide 26 Anion Gap 6 BUN 33 H Creatinine 1.40 H Est GFR ( Amer) 44 L Est GFR (MDRD) Non-Af 37 L Glucose 79 POC Glucose 80 249 H Hemoglobin A1c % Lactic Acid Calcium 8.5 Phosphorus Magnesium Total Bilirubin 0.7 Direct Bilirubin 0.1 Neonat Total Bilirubin Not Reportable Neonat Direct Bilirubin Not Reportable Neonat Indirect Bili Not Reportable AST 78 H ALT 53 H Alkaline Phosphatase 48 Ammonia Lactate Dehydrogenase Creatine Kinase CK-MB (CK-2) Troponin I NT-Pro-B Natriuret Pep Total Protein 6.0 L Albumin 2.5 L Triglycerides Cholesterol LDL Cholesterol Direct VLDL Cholesterol HDL Cholesterol Amylase Lipase Procalcitonin TSH Free T4 Urine Color Urine Appearance Urine pH Ur Specific [place] Urine Protein Urine Glucose (UA) Urine Ketones Urine Blood Urine Nitrite Urine Bilirubin Urine Urobilinogen Ur Leukocyte Esterase Urine WBC (Auto) Urine RBC (Auto) Squamous Epi Cells Auto Urine Mucus (Auto) Urine Myoglobin Urine Ascorbic Acid Urine Opiates Screen Urine Methadone Screen Ur Barbiturates Screen Ur Phencyclidine Scrn Ur Amphetamines Screen U Benzodiazepines Scrn Urine Cocaine Screen U Marijuana (THC) Screen COVID-19 Source COVID-19 ([facility]AL) 01/09/20 01/09/20 01/09/20 16:00 16:41 21:03 WBC RBC Hgb Hct MCV MCH MCHC RDW Plt Count Lymph % (Auto) [place] % (Auto) Eos % (Auto) Baso % (Auto) Absolute Neuts (auto) Absolute Lymphs (auto) Absolute Monos (auto) Absolute Eos (auto) Absolute Basos (auto) Seg Neutrophils % PT INR APTT Sodium Potassium Chloride Carbon Dioxide Anion Gap BUN Creatinine Est GFR ( Amer) Est GFR (MDRD) Non-Af Glucose POC Glucose 115 H 208 H Hemoglobin A1c % Lactic Acid Calcium Phosphorus Magnesium Total Bilirubin Direct Bilirubin Neonat Total Bilirubin Neonat Direct Bilirubin Neonat Indirect Bili AST ALT Alkaline Phosphatase Ammonia Lactate Dehydrogenase Creatine Kinase CK-MB (CK-2) Troponin I NT-Pro-B Natriuret Pep Total Protein Albumin Triglycerides Cholesterol LDL Cholesterol Direct VLDL Cholesterol HDL Cholesterol Amylase Lipase Procalcitonin TSH Free T4 Urine Color Urine Appearance Urine pH Ur Specific [place] Urine Protein Urine Glucose (UA) Urine Ketones Urine Blood Urine Nitrite Urine Bilirubin Urine Urobilinogen Ur Leukocyte Esterase Urine WBC (Auto) Urine RBC (Auto) Squamous Epi Cells Auto Urine Mucus (Auto) Urine Myoglobin Urine Ascorbic Acid Urine Opiates Screen Urine Methadone Screen Ur Barbiturates Screen Ur Phencyclidine Scrn Ur Amphetamines Screen U Benzodiazepines Scrn Urine Cocaine Screen U Marijuana (THC) Screen COVID-19 Source NASOPHARYNGEAL COVID-19 (VISHAL) NOT DETECTED 01/10/20 01/10/20 01/10/20 04:58 04:58 07:38 WBC 10.7 H RBC 3.92 Hgb 10.6 L Hct 31.6 L MCV 81 MCH 27.2 MCHC 33.6 RDW 16.4 H Plt Count 149 L Lymph % (Auto) 20.5 [place] % (Auto) 11.2 Eos % (Auto) 3.5 Baso % (Auto) 0.6 Absolute Neuts (auto) 6.9 Absolute Lymphs (auto) 2.2 Absolute Monos (auto) 1.2 Absolute Eos (auto) 0.4 Absolute Basos (auto) 0.1 Seg Neutrophils % 64.2 PT INR APTT Sodium 136.0 L Potassium 4.0 Chloride 106 Carbon Dioxide 24 Anion Gap 6 BUN 36 H Creatinine 1.25 Est GFR ( Amer) 50 L Est GFR (MDRD) Non-Af 42 L Glucose 53 L POC Glucose 143 H Hemoglobin A1c % Lactic Acid Calcium 8.6 Phosphorus Magnesium Total Bilirubin 0.6 Direct Bilirubin 0.1 Neonat Total Bilirubin Not Reportable Neonat Direct Bilirubin Not Reportable Neonat Indirect Bili Not Reportable AST 74 H ALT 54 H Alkaline Phosphatase 44 Ammonia Lactate Dehydrogenase Creatine Kinase CK-MB (CK-2) Troponin I NT-Pro-B Natriuret Pep Total Protein 5.8 L Albumin 2.3 L Triglycerides Cholesterol LDL Cholesterol Direct VLDL Cholesterol HDL Cholesterol Amylase Lipase Procalcitonin TSH Free T4 Urine Color Urine Appearance Urine pH Ur Specific [place] Urine Protein Urine Glucose (UA) Urine Ketones Urine Blood Urine Nitrite Urine Bilirubin Urine Urobilinogen Ur Leukocyte Esterase Urine WBC (Auto) Urine RBC (Auto) Squamous Epi Cells Auto Urine Mucus (Auto) Urine Myoglobin Urine Ascorbic Acid Urine Opiates Screen Urine Methadone Screen Ur Barbiturates Screen Ur Phencyclidine Scrn Ur Amphetamines Screen U Benzodiazepines Scrn Urine Cocaine Screen U Marijuana (THC) Screen COVID-19 Source COVID-19 ([facility]AL) 01/10/20 01/10/20 01/10/20 12:15 13:10 13:10 WBC RBC Hgb Hct MCV MCH MCHC RDW Plt Count Lymph % (Auto) [place] % (Auto) Eos % (Auto) Baso % (Auto) Absolute Neuts (auto) Absolute Lymphs (auto) Absolute Monos (auto) Absolute Eos (auto) Absolute Basos (auto) Seg Neutrophils % PT INR APTT Sodium Potassium Chloride Carbon Dioxide Anion Gap BUN Creatinine Est GFR ( Amer) Est GFR (MDRD) Non-Af Glucose POC Glucose 248 H Hemoglobin A1c % Lactic Acid Calcium Phosphorus Magnesium Total Bilirubin Direct Bilirubin Neonat Total Bilirubin Neonat Direct Bilirubin Neonat Indirect Bili AST ALT Alkaline Phosphatase Ammonia Lactate Dehydrogenase Creatine Kinase 1181 H CK-MB (CK-2) 16.90 H Troponin I 0.098 NT-Pro-B Natriuret Pep Total Protein Albumin Triglycerides Cholesterol LDL Cholesterol Direct VLDL Cholesterol HDL Cholesterol Amylase Lipase Procalcitonin TSH Free T4 Urine Color Urine Appearance Urine pH Ur Specific [place] Urine Protein Urine Glucose (UA) Urine Ketones Urine Blood Urine Nitrite Urine Bilirubin Urine Urobilinogen Ur Leukocyte Esterase Urine WBC (Auto) Urine RBC (Auto) Squamous Epi Cells Auto Urine Mucus (Auto) Urine Myoglobin Urine Ascorbic Acid Urine Opiates Screen Urine Methadone Screen Ur Barbiturates Screen Ur Phencyclidine Scrn Ur Amphetamines Screen U Benzodiazepines Scrn Urine Cocaine Screen U Marijuana (THC) Screen COVID-19 Source COVID-19 ([facility]AL) 01/10/20 01/10/20 01/10/20 16:56 18:11 18:11 WBC RBC Hgb Hct MCV MCH MCHC RDW Plt Count Lymph % (Auto) [place] % (Auto) Eos % (Auto) Baso % (Auto) Absolute Neuts (auto) Absolute Lymphs (auto) Absolute Monos (auto) Absolute Eos (auto) Absolute Basos (auto) Seg Neutrophils % PT INR APTT Sodium Potassium Chloride Carbon Dioxide Anion Gap BUN Creatinine Est GFR ( Amer) Est GFR (MDRD) Non-Af Glucose POC Glucose 201 H Hemoglobin A1c % Lactic Acid Calcium Phosphorus Magnesium Total Bilirubin Direct Bilirubin Neonat Total Bilirubin Neonat Direct Bilirubin Neonat Indirect Bili AST ALT Alkaline Phosphatase Ammonia Lactate Dehydrogenase Creatine Kinase 1244 H CK-MB (CK-2) 15.60 H Troponin I 0.125 NT-Pro-B Natriuret Pep 5900 H Total Protein Albumin Triglycerides Cholesterol LDL Cholesterol Direct VLDL Cholesterol HDL Cholesterol Amylase Lipase Procalcitonin TSH Free T4 Urine Color Urine Appearance Urine pH Ur Specific [place] Urine Protein Urine Glucose (UA) Urine Ketones Urine Blood Urine Nitrite Urine Bilirubin Urine Urobilinogen Ur Leukocyte Esterase Urine WBC (Auto) Urine RBC (Auto) Squamous Epi Cells Auto Urine Mucus (Auto) Urine Myoglobin Urine Ascorbic Acid Urine Opiates Screen Urine Methadone Screen Ur Barbiturates Screen Ur Phencyclidine Scrn Ur Amphetamines Screen U Benzodiazepines Scrn Urine Cocaine Screen U Marijuana (THC) Screen COVID-19 Source COVID-19 ([facility]AL) 01/10/20 01/11/20 01/11/20 21:31 01:01 01:01 WBC RBC Hgb Hct MCV MCH MCHC RDW Plt Count Lymph % (Auto) [place] % (Auto) Eos % (Auto) Baso % (Auto) Absolute Neuts (auto) Absolute Lymphs (auto) Absolute Monos (auto) Absolute Eos (auto) Absolute Basos (auto) Seg Neutrophils % PT INR APTT Sodium Potassium Chloride Carbon Dioxide Anion Gap BUN Creatinine Est GFR ( Amer) Est GFR (MDRD) Non-Af Glucose POC Glucose 88 Hemoglobin A1c % Lactic Acid Calcium Phosphorus Magnesium Total Bilirubin Direct Bilirubin Neonat Total Bilirubin Neonat Direct Bilirubin Neonat Indirect Bili AST ALT Alkaline Phosphatase Ammonia Lactate Dehydrogenase Creatine Kinase 1203 H CK-MB (CK-2) 14.20 H Troponin I 0.226 NT-Pro-B Natriuret Pep Total Protein Albumin Triglycerides Cholesterol LDL Cholesterol Direct VLDL Cholesterol HDL Cholesterol Amylase Lipase Procalcitonin TSH Free T4 Urine Color Urine Appearance Urine pH Ur Specific [place] Urine Protein Urine Glucose (UA) Urine Ketones Urine Blood Urine Nitrite Urine Bilirubin Urine Urobilinogen Ur Leukocyte Esterase Urine WBC (Auto) Urine RBC (Auto) Squamous Epi Cells Auto Urine Mucus (Auto) Urine Myoglobin Urine Ascorbic Acid Urine Opiates Screen Urine Methadone Screen Ur Barbiturates Screen Ur Phencyclidine Scrn Ur Amphetamines Screen U Benzodiazepines Scrn Urine Cocaine Screen U Marijuana (THC) Screen COVID-19 Source COVID-19 ([facility]AL) 01/11/20 01/11/20 01/11/20 06:44 07:31 11:29 WBC RBC Hgb Hct MCV MCH MCHC RDW Plt Count Lymph % (Auto) [place] % (Auto) Eos % (Auto) Baso % (Auto) Absolute Neuts (auto) Absolute Lymphs (auto) Absolute Monos (auto) Absolute Eos (auto) Absolute Basos (auto) Seg Neutrophils % PT INR APTT Sodium 137.1 Potassium 4.4 Chloride 107 Carbon Dioxide 24 Anion Gap 6 BUN 36 H Creatinine 1.25 Est GFR ( Amer) 50 L Est GFR (MDRD) Non-Af 42 L Glucose 125 H POC Glucose 119 H 241 H Hemoglobin A1c % Lactic Acid Calcium 9.1 Phosphorus Magnesium Total Bilirubin 0.6 Direct Bilirubin 0.1 Neonat Total Bilirubin Not Reportable Neonat Direct Bilirubin Not Reportable Neonat Indirect Bili Not Reportable AST 77 H ALT 56 H Alkaline Phosphatase 48 Ammonia Lactate Dehydrogenase Creatine Kinase CK-MB (CK-2) Troponin I NT-Pro-B Natriuret Pep Total Protein 5.9 L Albumin 2.4 L Triglycerides Cholesterol LDL Cholesterol Direct VLDL Cholesterol HDL Cholesterol Amylase Lipase Procalcitonin TSH Free T4 Urine Color Urine Appearance Urine pH Ur Specific [place] Urine Protein Urine Glucose (UA) Urine Ketones Urine Blood Urine Nitrite Urine Bilirubin Urine Urobilinogen Ur Leukocyte Esterase Urine WBC (Auto) Urine RBC (Auto) Squamous Epi Cells Auto Urine Mucus (Auto) Urine Myoglobin Urine Ascorbic Acid Urine Opiates Screen Urine Methadone Screen Ur Barbiturates Screen Ur Phencyclidine Scrn Ur Amphetamines Screen U Benzodiazepines Scrn Urine Cocaine Screen U Marijuana (THC) Screen COVID-19 Source COVID-19 ([facility]AL) 01/11/20 01/11/20 01/12/20 16:18 21:11 05:26 WBC RBC Hgb Hct MCV MCH MCHC RDW Plt Count Lymph % (Auto) [place] % (Auto) Eos % (Auto) Baso % (Auto) Absolute Neuts (auto) Absolute Lymphs (auto) Absolute Monos (auto) Absolute Eos (auto) Absolute Basos (auto) Seg Neutrophils % PT INR APTT Sodium Potassium Chloride Carbon Dioxide Anion Gap BUN Creatinine Est GFR ( Amer) Est GFR (MDRD) Non-Af Glucose POC Glucose 122 H 141 H Hemoglobin A1c % Lactic Acid Calcium Phosphorus Magnesium Total Bilirubin Direct Bilirubin Neonat Total Bilirubin Neonat Direct Bilirubin Neonat Indirect Bili AST ALT Alkaline Phosphatase Ammonia Lactate Dehydrogenase Creatine Kinase CK-MB (CK-2) Troponin I NT-Pro-B Natriuret Pep Total Protein Albumin Triglycerides Cholesterol LDL Cholesterol Direct VLDL Cholesterol HDL Cholesterol Amylase Lipase Procalcitonin 0.25 H TSH Free T4 Urine Color Urine Appearance Urine pH Ur Specific [place] Urine Protein Urine Glucose (UA) Urine Ketones Urine Blood Urine Nitrite Urine Bilirubin Urine Urobilinogen Ur Leukocyte Esterase Urine WBC (Auto) Urine RBC (Auto) Squamous Epi Cells Auto Urine Mucus (Auto) Urine Myoglobin Urine Ascorbic Acid Urine Opiates Screen Urine Methadone Screen Ur Barbiturates Screen Ur Phencyclidine Scrn Ur Amphetamines Screen U Benzodiazepines Scrn Urine Cocaine Screen U Marijuana (THC) Screen COVID-19 Source COVID-19 (VISHAL) 01/12/20 01/12/20 01/12/20 07:38 08:23 08:23 WBC 12.6 H RBC 3.81 Hgb 10.2 L Hct 31.0 L MCV 81 MCH 26.8 L MCHC 32.9 RDW 16.3 H Plt Count 192 Lymph % (Auto) 16.7 [place] % (Auto) 8.6 Eos % (Auto) 3.3 Baso % (Auto) 0.3 Absolute Neuts (auto) 9.0 H Absolute Lymphs (auto) 2.1 Absolute Monos (auto) 1.1 Absolute Eos (auto) 0.4 Absolute Basos (auto) 0.0 Seg Neutrophils % 71.1 PT INR APTT Sodium 136.4 L Potassium 4.4 Chloride 107 Carbon Dioxide 24 Anion Gap 5 BUN 34 H Creatinine 1.32 H Est GFR ( Amer) 47 L Est GFR (MDRD) Non-Af 39 L Glucose 123 H POC Glucose 70 Hemoglobin A1c % Lactic Acid Calcium 9.6 Phosphorus Magnesium Total Bilirubin Direct Bilirubin Neonat Total Bilirubin Neonat Direct Bilirubin Neonat Indirect Bili AST ALT Alkaline Phosphatase Ammonia Lactate Dehydrogenase Creatine Kinase CK-MB (CK-2) Troponin I NT-Pro-B Natriuret Pep Total Protein Albumin Triglycerides Cholesterol LDL Cholesterol Direct VLDL Cholesterol HDL Cholesterol Amylase Lipase Procalcitonin TSH Free T4 Urine Color Urine Appearance Urine pH Ur Specific [place] Urine Protein Urine Glucose (UA) Urine Ketones Urine Blood Urine Nitrite Urine Bilirubin Urine Urobilinogen Ur Leukocyte Esterase Urine WBC (Auto) Urine RBC (Auto) Squamous Epi Cells Auto Urine Mucus (Auto) Urine Myoglobin Urine Ascorbic Acid Urine Opiates Screen Urine Methadone Screen Ur Barbiturates Screen Ur Phencyclidine Scrn Ur Amphetamines Screen U Benzodiazepines Scrn Urine Cocaine Screen U Marijuana (THC) Screen COVID-19 Source COVID-19 ([facility]AL) 01/12/20 01/12/20 01/12/20 08:23 11:18 15:56 WBC RBC Hgb Hct MCV MCH MCHC RDW Plt Count Lymph % (Auto) [place] % (Auto) Eos % (Auto) Baso % (Auto) Absolute Neuts (auto) Absolute Lymphs (auto) Absolute Monos (auto) Absolute Eos (auto) Absolute Basos (auto) Seg Neutrophils % PT INR APTT Sodium Potassium Chloride Carbon Dioxide Anion Gap BUN Creatinine Est GFR ( Amer) Est GFR (MDRD) Non-Af Glucose POC Glucose 88 62 L Hemoglobin A1c % Lactic Acid Calcium Phosphorus Magnesium Total Bilirubin Direct Bilirubin Neonat Total Bilirubin Neonat Direct Bilirubin Neonat Indirect Bili AST ALT Alkaline Phosphatase Ammonia Lactate Dehydrogenase Creatine Kinase CK-MB (CK-2) Troponin I 0.226 NT-Pro-B Natriuret Pep Total Protein Albumin Triglycerides Cholesterol LDL Cholesterol Direct VLDL Cholesterol HDL Cholesterol Amylase Lipase Procalcitonin TSH Free T4 Urine Color Urine Appearance Urine pH Ur Specific [place] Urine Protein Urine Glucose (UA) Urine Ketones Urine Blood Urine Nitrite Urine Bilirubin Urine Urobilinogen Ur Leukocyte Esterase Urine WBC (Auto) Urine RBC (Auto) Squamous Epi Cells Auto Urine Mucus (Auto) Urine Myoglobin Urine Ascorbic Acid Urine Opiates Screen Urine Methadone Screen Ur Barbiturates Screen Ur Phencyclidine Scrn Ur Amphetamines Screen U Benzodiazepines Scrn Urine Cocaine Screen U Marijuana (THC) Screen COVID-19 Source COVID-19 ([facility]AL) 01/12/20 01/12/20 01/12/20 16:15 16:46 17:21 WBC RBC Hgb Hct MCV MCH MCHC RDW Plt Count Lymph % (Auto) [place] % (Auto) Eos % (Auto) Baso % (Auto) Absolute Neuts (auto) Absolute Lymphs (auto) Absolute Monos (auto) Absolute Eos (auto) Absolute Basos (auto) Seg Neutrophils % PT INR APTT Sodium Potassium Chloride Carbon Dioxide Anion Gap BUN Creatinine Est GFR ( Amer) Est GFR (MDRD) Non-Af Glucose POC Glucose 103 102 94 Hemoglobin A1c % Lactic Acid Calcium Phosphorus Magnesium Total Bilirubin Direct Bilirubin Neonat Total Bilirubin Neonat Direct Bilirubin Neonat Indirect Bili AST ALT Alkaline Phosphatase Ammonia Lactate Dehydrogenase Creatine Kinase CK-MB (CK-2) Troponin I NT-Pro-B Natriuret Pep Total Protein Albumin Triglycerides Cholesterol LDL Cholesterol Direct VLDL Cholesterol HDL Cholesterol Amylase Lipase Procalcitonin TSH Free T4 Urine Color Urine Appearance Urine pH Ur Specific [place] Urine Protein Urine Glucose (UA) Urine Ketones Urine Blood Urine Nitrite Urine Bilirubin Urine Urobilinogen Ur Leukocyte Esterase Urine WBC (Auto) Urine RBC (Auto) Squamous Epi Cells Auto Urine Mucus (Auto) Urine Myoglobin Urine Ascorbic Acid Urine Opiates Screen Urine Methadone Screen Ur Barbiturates Screen Ur Phencyclidine Scrn Ur Amphetamines Screen U Benzodiazepines Scrn Urine Cocaine Screen U Marijuana (THC) Screen COVID-19 Source COVID-19 (VISHAL) 01/12/20 01/12/20 01/13/20 17:56 21:25 07:37 WBC RBC Hgb Hct MCV MCH MCHC RDW Plt Count Lymph % (Auto) [place] % (Auto) Eos % (Auto) Baso % (Auto) Absolute Neuts (auto) Absolute Lymphs (auto) Absolute Monos (auto) Absolute Eos (auto) Absolute Basos (auto) Seg Neutrophils % PT INR APTT Sodium Potassium Chloride Carbon Dioxide Anion Gap BUN Creatinine Est GFR ( Amer) Est GFR (MDRD) Non-Af Glucose POC Glucose 70 58 L Hemoglobin A1c % Lactic Acid 1.6 Calcium Phosphorus Magnesium Total Bilirubin Direct Bilirubin Neonat Total Bilirubin Neonat Direct Bilirubin Neonat Indirect Bili AST ALT Alkaline Phosphatase Ammonia Lactate Dehydrogenase Creatine Kinase CK-MB (CK-2) Troponin I NT-Pro-B Natriuret Pep Total Protein Albumin Triglycerides Cholesterol LDL Cholesterol Direct VLDL Cholesterol HDL Cholesterol Amylase Lipase Procalcitonin TSH Free T4 Urine Color Urine Appearance Urine pH Ur Specific [place] Urine Protein Urine Glucose (UA) Urine Ketones Urine Blood Urine Nitrite Urine Bilirubin Urine Urobilinogen Ur Leukocyte Esterase Urine WBC (Auto) Urine RBC (Auto) Squamous Epi Cells Auto Urine Mucus (Auto) Urine Myoglobin Urine Ascorbic Acid Urine Opiates Screen Urine Methadone Screen Ur Barbiturates Screen Ur Phencyclidine Scrn Ur Amphetamines Screen U Benzodiazepines Scrn Urine Cocaine Screen U Marijuana (THC) Screen COVID-19 Source COVID-19 (VISHAL) 01/13/20 01/13/20 01/13/20 08:41 08:59 08:59 WBC 10.8 H RBC 3.76 Hgb 10.2 L Hct 30.5 L MCV 81 MCH 27.1 MCHC 33.4 RDW 16.2 H Plt Count 197 Lymph % (Auto) 19.4 [place] % (Auto) 8.4 Eos % (Auto) 3.8 Baso % (Auto) 0.5 Absolute Neuts (auto) 7.3 Absolute Lymphs (auto) 2.1 Absolute Monos (auto) 0.9 Absolute Eos (auto) 0.4 Absolute Basos (auto) 0.1 Seg Neutrophils % 67.9 PT INR APTT Sodium 134.6 L Potassium 4.6 Chloride 105 Carbon Dioxide 22 Anion Gap 8 BUN 32 H Creatinine 1.28 H Est GFR ( Amer) 49 L Est GFR (MDRD) Non-Af 41 L Glucose 150 H POC Glucose 137 H Hemoglobin A1c % Lactic Acid Calcium 9.5 Phosphorus Magnesium Total Bilirubin Direct Bilirubin Neonat Total Bilirubin Neonat Direct Bilirubin Neonat Indirect Bili AST ALT Alkaline Phosphatase Ammonia Lactate Dehydrogenase Creatine Kinase CK-MB (CK-2) Troponin I NT-Pro-B Natriuret Pep Total Protein Albumin Triglycerides Cholesterol LDL Cholesterol Direct VLDL Cholesterol HDL Cholesterol Amylase Lipase Procalcitonin TSH Free T4 Urine Color Urine Appearance Urine pH Ur Specific [place] Urine Protein Urine Glucose (UA) Urine Ketones Urine Blood Urine Nitrite Urine Bilirubin Urine Urobilinogen Ur Leukocyte Esterase Urine WBC (Auto) Urine RBC (Auto) Squamous Epi Cells Auto Urine Mucus (Auto) Urine Myoglobin Urine Ascorbic Acid Urine Opiates Screen Urine Methadone Screen Ur Barbiturates Screen Ur Phencyclidine Scrn Ur Amphetamines Screen U Benzodiazepines Scrn Urine Cocaine Screen U Marijuana (THC) Screen COVID-19 Source COVID-19 (VISHAL) 01/13/20 01/13/20 01/13/20 11:38 16:11 18:16 WBC RBC Hgb Hct MCV MCH MCHC RDW Plt Count Lymph % (Auto) [place] % (Auto) Eos % (Auto) Baso % (Auto) Absolute Neuts (auto) Absolute Lymphs (auto) Absolute Monos (auto) Absolute Eos (auto) Absolute Basos (auto) Seg Neutrophils % PT 14.8 INR 1.15 APTT 42.1 H Sodium Potassium Chloride Carbon Dioxide Anion Gap BUN Creatinine Est GFR ( Amer) Est GFR (MDRD) Non-Af Glucose POC Glucose 80 129 H Hemoglobin A1c % Lactic Acid Calcium Phosphorus Magnesium Total Bilirubin Direct Bilirubin Neonat Total Bilirubin Neonat Direct Bilirubin Neonat Indirect Bili AST ALT Alkaline Phosphatase Ammonia Lactate Dehydrogenase Creatine Kinase CK-MB (CK-2) Troponin I NT-Pro-B Natriuret Pep Total Protein Albumin Triglycerides Cholesterol LDL Cholesterol Direct VLDL Cholesterol HDL Cholesterol Amylase Lipase Procalcitonin TSH Free T4 Urine Color Urine Appearance Urine pH Ur Specific [place] Urine Protein Urine Glucose (UA) Urine Ketones Urine Blood Urine Nitrite Urine Bilirubin Urine Urobilinogen Ur Leukocyte Esterase Urine WBC (Auto) Urine RBC (Auto) Squamous Epi Cells Auto Urine Mucus (Auto) Urine Myoglobin Urine Ascorbic Acid Urine Opiates Screen Urine Methadone Screen Ur Barbiturates Screen Ur Phencyclidine Scrn Ur Amphetamines Screen U Benzodiazepines Scrn Urine Cocaine Screen U Marijuana (THC) Screen COVID-19 Source COVID-19 (VISHAL) 01/13/20 01/13/20 01/14/20 18:16 21:40 00:04 WBC RBC Hgb Hct MCV MCH MCHC RDW Plt Count Lymph % (Auto) [place] % (Auto) Eos % (Auto) Baso % (Auto) Absolute Neuts (auto) Absolute Lymphs (auto) Absolute Monos (auto) Absolute Eos (auto) Absolute Basos (auto) Seg Neutrophils % PT INR APTT Sodium Potassium Chloride Carbon Dioxide Anion Gap BUN Creatinine Est GFR ( Amer) Est GFR (MDRD) Non-Af Glucose POC Glucose 185 H 176 H Hemoglobin A1c % Lactic Acid Calcium Phosphorus Magnesium Total Bilirubin Direct Bilirubin Neonat Total Bilirubin Neonat Direct Bilirubin Neonat Indirect Bili AST ALT Alkaline Phosphatase Ammonia Lactate Dehydrogenase 379 H Creatine Kinase CK-MB (CK-2) Troponin I NT-Pro-B Natriuret Pep Total Protein 6.1 L Albumin Triglycerides Cholesterol LDL Cholesterol Direct VLDL Cholesterol HDL Cholesterol Amylase Lipase Procalcitonin TSH Free T4 Urine Color Urine Appearance Urine pH Ur Specific [place] Urine Protein Urine Glucose (UA) Urine Ketones Urine Blood Urine Nitrite Urine Bilirubin Urine Urobilinogen Ur Leukocyte Esterase Urine WBC (Auto) Urine RBC (Auto) Squamous Epi Cells Auto Urine Mucus (Auto) Urine Myoglobin Urine Ascorbic Acid Urine Opiates Screen Urine Methadone Screen Ur Barbiturates Screen Ur Phencyclidine Scrn Ur Amphetamines Screen U Benzodiazepines Scrn Urine Cocaine Screen U Marijuana (THC) Screen COVID-19 Source COVID-19 ([facility]) 01/14/20 01/14/20 01/14/20 07:35 11:27 16:27 WBC RBC Hgb Hct MCV MCH MCHC RDW Plt Count Lymph % (Auto) [place] % (Auto) Eos % (Auto) Baso % (Auto) Absolute Neuts (auto) Absolute Lymphs (auto) Absolute Monos (auto) Absolute Eos (auto) Absolute Basos (auto) Seg Neutrophils % PT INR APTT Sodium Potassium Chloride Carbon Dioxide Anion Gap BUN Creatinine Est GFR ( Amer) Est GFR (MDRD) Non-Af Glucose POC Glucose 118 H 142 H 153 H Hemoglobin A1c % Lactic Acid Calcium Phosphorus Magnesium Total Bilirubin Direct Bilirubin Neonat Total Bilirubin Neonat Direct Bilirubin Neonat Indirect Bili AST ALT Alkaline Phosphatase Ammonia Lactate Dehydrogenase Creatine Kinase CK-MB (CK-2) Troponin I NT-Pro-B Natriuret Pep Total Protein Albumin Triglycerides Cholesterol LDL Cholesterol Direct VLDL Cholesterol HDL Cholesterol Amylase Lipase Procalcitonin TSH Free T4 Urine Color Urine Appearance Urine pH Ur Specific [place] Urine Protein Urine Glucose (UA) Urine Ketones Urine Blood Urine Nitrite Urine Bilirubin Urine Urobilinogen Ur Leukocyte Esterase Urine WBC (Auto) Urine RBC (Auto) Squamous Epi Cells Auto Urine Mucus (Auto) Urine Myoglobin Urine Ascorbic Acid Urine Opiates Screen Urine Methadone Screen Ur Barbiturates Screen Ur Phencyclidine Scrn Ur Amphetamines Screen U Benzodiazepines Scrn Urine Cocaine Screen U Marijuana (THC) Screen COVID-19 Source COVID-19 ([facility]) 01/14/20 01/15/20 01/15/20 21:01 07:50 11:14 WBC 9.0 RBC 3.51 L Hgb 9.5 L Hct 28.7 L MCV 82 MCH 27.1 MCHC 33.2 RDW 16.1 H Plt Count 238 Lymph % (Auto) [place] % (Auto) Eos % (Auto) Baso % (Auto) Absolute Neuts (auto) Absolute Lymphs (auto) Absolute Monos (auto) Absolute Eos (auto) Absolute Basos (auto) Seg Neutrophils % PT INR APTT Sodium Potassium Chloride Carbon Dioxide Anion Gap BUN Creatinine Est GFR ( Amer) Est GFR (MDRD) Non-Af Glucose POC Glucose 131 H 111 H Hemoglobin A1c % Lactic Acid Calcium Phosphorus Magnesium Total Bilirubin Direct Bilirubin Neonat Total Bilirubin Neonat Direct Bilirubin Neonat Indirect Bili AST ALT Alkaline Phosphatase Ammonia Lactate Dehydrogenase Creatine Kinase CK-MB (CK-2) Troponin I NT-Pro-B Natriuret Pep Total Protein Albumin Triglycerides Cholesterol LDL Cholesterol Direct VLDL Cholesterol HDL Cholesterol Amylase Lipase Procalcitonin TSH Free T4 Urine Color Urine Appearance Urine pH Ur Specific [place] Urine Protein Urine Glucose (UA) Urine Ketones Urine Blood Urine Nitrite Urine Bilirubin Urine Urobilinogen Ur Leukocyte Esterase Urine WBC (Auto) Urine RBC (Auto) Squamous Epi Cells Auto Urine Mucus (Auto) Urine Myoglobin Urine Ascorbic Acid Urine Opiates Screen Urine Methadone Screen Ur Barbiturates Screen Ur Phencyclidine Scrn Ur Amphetamines Screen U Benzodiazepines Scrn Urine Cocaine Screen U Marijuana (THC) Screen COVID-19 Source COVID-19 ([facility]) 01/15/20 01/15/20 01/15/20 11:14 12:04 16:20 WBC RBC Hgb Hct MCV MCH MCHC RDW Plt Count Lymph % (Auto) [place] % (Auto) Eos % (Auto) Baso % (Auto) Absolute Neuts (auto) Absolute Lymphs (auto) Absolute Monos (auto) Absolute Eos (auto) Absolute Basos (auto) Seg Neutrophils % PT INR APTT Sodium 135.0 L Potassium 5.1 H Chloride 103 Carbon Dioxide 29 Anion Gap 3 L BUN 36 H Creatinine 1.44 H Est GFR ( Amer) 43 L Est GFR (MDRD) Non-Af 35 L Glucose 147 H POC Glucose 130 H 192 H Hemoglobin A1c % Lactic Acid Calcium 9.5 Phosphorus Magnesium Total Bilirubin Direct Bilirubin Neonat Total Bilirubin Neonat Direct Bilirubin Neonat Indirect Bili AST ALT Alkaline Phosphatase Ammonia Lactate Dehydrogenase Creatine Kinase CK-MB (CK-2) Troponin I NT-Pro-B Natriuret Pep Total Protein Albumin Triglycerides Cholesterol LDL Cholesterol Direct VLDL Cholesterol HDL Cholesterol Amylase Lipase Procalcitonin TSH Free T4 Urine Color Urine Appearance Urine pH Ur Specific [place] Urine Protein Urine Glucose (UA) Urine Ketones Urine Blood Urine Nitrite Urine Bilirubin Urine Urobilinogen Ur Leukocyte Esterase Urine WBC (Auto) Urine RBC (Auto) Squamous Epi Cells Auto Urine Mucus (Auto) Urine Myoglobin Urine Ascorbic Acid Urine Opiates Screen Urine Methadone Screen Ur Barbiturates Screen Ur Phencyclidine Scrn Ur Amphetamines Screen U Benzodiazepines Scrn Urine Cocaine Screen U Marijuana (THC) Screen COVID-19 Source COVID-19 ([facility]) 01/15/20 01/16/20 21:25 07:41 WBC RBC Hgb Hct MCV MCH MCHC RDW Plt Count Lymph % (Auto) [place] % (Auto) Eos % (Auto) Baso % (Auto) Absolute Neuts (auto) Absolute Lymphs (auto) Absolute Monos (auto) Absolute Eos (auto) Absolute Basos (auto) Seg Neutrophils % PT INR APTT Sodium Potassium Chloride Carbon Dioxide Anion Gap BUN Creatinine Est GFR ( Amer) Est GFR (MDRD) Non-Af Glucose POC Glucose 140 H 108 Hemoglobin A1c % Lactic Acid Calcium Phosphorus Magnesium Total Bilirubin Direct Bilirubin Neonat Total Bilirubin Neonat Direct Bilirubin Neonat Indirect Bili AST ALT Alkaline Phosphatase Ammonia Lactate Dehydrogenase Creatine Kinase CK-MB (CK-2) Troponin I NT-Pro-B Natriuret Pep Total Protein Albumin Triglycerides Cholesterol LDL Cholesterol Direct VLDL Cholesterol HDL Cholesterol Amylase Lipase Procalcitonin TSH Free T4 Urine Color Urine Appearance Urine pH Ur Specific [place] Urine Protein Urine Glucose (UA) Urine Ketones Urine Blood Urine Nitrite Urine Bilirubin Urine Urobilinogen Ur Leukocyte Esterase Urine WBC (Auto) Urine RBC (Auto) Squamous Epi Cells Auto Urine Mucus (Auto) Urine Myoglobin Urine Ascorbic Acid Urine Opiates Screen Urine Methadone Screen Ur Barbiturates Screen Ur Phencyclidine Scrn Ur Amphetamines Screen U Benzodiazepines Scrn Urine Cocaine Screen U Marijuana (THC) Screen COVID-19 Source COVID-19 ([facility]) Intravenous Lexiscan Cardiolite stress test using single photon emmision computerized tomography. Date of procedure: 01/16/2020.Ordering Provider: Dr. Chloe Anderson.Patient's status: In Patient. Indication: Elevated troponin and abnormal EKG.. Coronary risk factors: Age, diabetes mellitus, hypertension, and dyslipidemia. Resting EKG: Sinus Rhythm. LVH with strain pattern T changes cannot exclude anterolateral ischemia Stress EKG: No changes of ischemia. The patient had no chest pain or discomfort, and there were no arrhythmias seen. Reason for termination: Protocol. Conclusions: Normal EKG and hemodynamic response to IV Lexiscan. Nuclear data: At rest the patient was given 12.74 millicuries of technetium 99m sestamibi injected intravenously. As per protocol rest non gated SPECT images were obta ined. Subsequently the patient was given intravenous Lexiscan at a dose of 0.4 mg in 5 mL intravenously, followed by flush with normal saline. Subsequently the stress dose of 36.8 millicuries of technetium 99m sestamibi was injected intravenously. As per protocol stress gated images were obtained. Nuclear interpretation: Review of images showed that all segments of the myocardium had normal perfusion at rest, and normal perfusion post stress with IV Lexiscan. All segments of the myocardium had normal motion, contraction, and thickening by gated study. T. I D. ratio was normal at 1.02. Computer read rest, and stress left ventricular ejection fraction were 60 %, and 60 %, respectively. Conclusion: 1. There is no scintigraphic evidence of Lexiscan induced myocardial ischemia. 2. There is no scintigraphic evidence of myocardial infarction/scar. Recommendations: Aggressive risk factor modification, and treating the underlying co- morbidities. IMPRESSION/RECOMMENDATION: 1. Elevated troponin I: Most likely this is secondary to supply demand mismatch due to the patient's rhabdomyolysis, acute on chronic renal failure, and bilateral pneumonia. 2. Clinically there is no evidence of heart failure. 3. Rhabdomyolysis: The CPKs are trending down. Continue hydration and current treatment. 4. Acute on chronic renal failure.: Avoid nephrotoxic drugs 5. 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 Would avoid nitrates diuretics and any medications that can increase the contractility of the left ventricle or decrease the cavity size. 6. Severe pulmonary hypertension:? Etiology 7. Multifocal pneumonia: Continue antibiotics 8. Abnormal EKG 9. Bifascicular block: Right bundle branch block pattern and left anterior hemiblock. 10. Hypertension: Blood pressure seems to be well controlled 11. Diabetes mellitus type 2 insulin-dependent. 12. 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 13. Hyperlipidemia continue statins 14. Aortic sclerosis with mild to moderate aortic regurgitation. 15. Abnormal EKG: Note That the Patient Is IV Lexiscan Cardiolite Stress Test Done Today Was Negative for Ischemia or Scar/MD. This Has Been Discussed with the Patient in Detail. Medications reviewed. Medications adjusted. Medical regimen and management plan discussed with the attending provider on the case. Medical decision making is of high complexity. 60 minutes spent on this patient more than 50% time spent in direct patient care. Will follow
--- NOTE | 2020-01-16 22:34 | PDOC PROGRESS REPORT ---
Subjective Progress Note for:: 01/16/20 Subjective:: Seen by the bedside she had a negative Cardiolite Lexiscan stress test today, she will hopefully be transferred to halfway nursing for rehab Reason For Visit: RHABDOMYOLYSIS,FALL,NE CKD STAGE 3 Physical Exam Vital Signs: Temp Pulse Resp BP Pulse Ox 98.3 F 73 16 135/61 H 91 L 01/16/20 15:38 01/16/20 19:00 01/16/20 15:38 01/16/20 15:38 01/16/20 15:38 Intake & Output 01/15/20 01/16/20 01/17/20 06:59 06:59 06:59 Intake Total 987 1314 437 Output Total 850 900 700 Balance 137 414 -263 Weight 79.1 kg 79.6 kg General appearance: PRESENT: no acute distress Eye exam: PRESENT: PERRLA Respiratory exam: PRESENT: clear to auscultation freddy Cardiovascular exam: PRESENT: +S1, +S2 GI/Abdominal exam: PRESENT: soft Neurological exam: PRESENT: alert Results Laboratory Results: 01/15/20 11:14 01/15/20 11:14 01/03/20 01/03/20 01/04/20 14:06 14:06 17:50 Creatine Kinase 2539 H 1453 H CK-MB (CK-2) Troponin I 0.086 NT-Pro-B Natriuret Pep 2860 H 01/04/20 01/04/20 01/04/20 17:50 23:00 23:00 Creatine Kinase 1293 H CK-MB (CK-2) 41.00 H 31.90 H Troponin I 0.107 0.097 NT-Pro-B Natriuret Pep 2690 H 01/05/20 01/05/20 01/06/20 05:30 05:30 05:47 Creatine Kinase 1151 H 1197 H CK-MB (CK-2) 24.20 H Troponin I 0.092 NT-Pro-B Natriuret Pep 01/07/20 01/10/20 01/10/20 06:12 13:10 13:10 Creatine Kinase 1255 H 1181 H CK-MB (CK-2) 16.90 H Troponin I 0.098 NT-Pro-B Natriuret Pep 01/10/20 01/10/20 01/11/20 18:11 18:11 01:01 Creatine Kinase 1244 H 1203 H CK-MB (CK-2) 15.60 H Troponin I 0.125 NT-Pro-B Natriuret Pep 5900 H 01/11/20 01/12/20 01:01 08:23 Creatine Kinase CK-MB (CK-2) 14.20 H Troponin I 0.226 0.226 NT-Pro-B Natriuret Pep Impressions: Head CT 01/03/20 14:14 IMPRESSION: CHRONIC CHANGES OF ATROPHY AND MICROVASCULAR ISCHEMIA. OLD RIGHT CEREBELLAR INFARCT. NO ACUTE PROCESS. EVIDENCE OF ACUTE STROKE: NO. Head MRI 01/04/20 00:00 IMPRESSION: ATROPHY AND CHRONIC MICRO-VASCULAR ISCHEMIC CHANGES. OLD CEREBELLAR INFARCTS, RIGHT GREATER THAN LEFT. NO ACUTE FINDINGS. EVIDENCE OF ACUTE STROKE: NO. Chest CT 01/05/20 00:00 IMPRESSION: 1. Bilateral airspace disease, likely multicentric pneumonia. 2. There is no suprahilar mass on the right. 3. Cardiomegaly with no fiorella pulmonary edema. Foot X-Ray 01/07/20 09:00 IMPRESSION: No acute osseous abnormality of the left foot. Chest Ultrasound 01/14/20 00:00 IMPRESSION: Insufficient fluid for thoracentesis. Chest X-Ray 01/15/20 00:00 IMPRESSION: Cardiomegaly without fiorella pulmonary edema. Bilateral airspace disease with slight improvement on the right, likely pneumonia. Assessment & Plan - Diagnosis (1) Rhabdomyolysis Qualifiers: Rhabdomyolysis type: traumatic Encounter type: initial encounter Qualified Code(s): T79.6XXA - Traumatic ischemia of muscle, initial encounter Is this a current diagnosis for this admission?: Yes (2) Chronic kidney disease, stage 3 Is this a current diagnosis for this admission?: Yes (3) Fall Qualifiers: Encounter type: initial encounter Qualified Code(s): W19.XXXA - Unspecified fall, initial encounter Is this a current diagnosis for this admission?: Yes (4) T2DM (type 2 diabetes mellitus) Qualifiers: Diabetes mellitus correction insulin use: with watermelon harvesting supervisor use Diabetes mellitus complication status: with kidney complications Diabetes mellitus complication detail: with chronic kidney disease Chronic kidney disease stage: stage 3 (moderate) Qualified Code(s): E11.22 - Type 2 diabetes mellitus with diabetic chronic kidney disease; N18.3 - Chronic kidney disease, stage 3 (moderate); Z79.4 - terminal clerk (current) use of insulin Is this a current diagnosis for this admission?: Yes (5) Cerebellar infarction Is this a current diagnosis for this admission?: Yes (6) Aspiration pneumonia Qualifiers: Aspiration pneumonia type: unspecified Laterality: bilateral Lung location: unspecified part of lung Qualified Code(s): J69.0 - Pneumonitis due to inhalation of food and vomit Is this a current diagnosis for this admission?: Yes Plan: She will continue antibiotic (7) Elevated troponin Is this a current diagnosis for this admission?: Yes (8) Pleural effusion Is this a current diagnosis for this admission?: Yes - Time Time Spent with patient: 25-34 minutes Level of Care: IMCU Medications reviewed and adjusted accordingly: Yes
[2020-01-17] MEDS: AMPICILLIN SODIUM/SULBACTAM NA 3 GM in NORMAL SALINE 100 ML IV SCH ×4 (02:09→21:36)
[2020-01-17] MEDS: METOPROLOL TARTRATE 50 MG TABLET PO SCH ×2 (05:38→17:29)
[2020-01-17] MEDS: DEXTROSE 40% GEL 15 GM TUBE PO PRN ×2 (08:36→15:55)
[2020-01-17] MEDS: INSULIN LISPRO 100 UNIT/ML 3 ML VIAL SUBCUT SCH ×3 (09:29→16:06)
[2020-01-17] MEDS: GLIMEPIRIDE 1 MG TABLET PO SCH (09:35)
[2020-01-17] MEDS: DOCUSATE SODIUM 100 MG CAPSULE PO SCH ×2 (09:40→17:29)
[2020-01-17] MEDS: AMLODIPINE BESYLATE 2.5 MG TABLET PO SCH ×2 (09:40→21:37)
[2020-01-17] MEDS: BRIMONIDINE TARTRATE 0.2% OPH SOLN 5 ML OU SCH ×2 (09:41→17:31)
[2020-01-17] MEDS: POTASSIUM CHLORIDE 10 MEQ TABLET.ER PO SCH (09:41)
[2020-01-17] MEDS: TIMOLOL MALEATE 0.5% OPH SOLN 5 ML OU SCH ×2 (09:41→17:31)
--- NOTE | 2020-01-17 17:15 | PDOC PROGRESS REPORT ---
Subjective Progress Note for:: 01/17/20 Subjective:: Patient denied any chest pain or difficulty with breathing. Still expressed pain in her feet and ankle. No nausea or vomiting but po intake remain poor due to her choice of food. No fever or chills. Reason For Visit: RHABDOMYOLYSIS,FALL,ID CKD STAGE 3 Physical Exam Vital Signs: Temp Pulse Resp BP Pulse Ox 97.6 F 59 L 19 153/63 H 90 L 01/17/20 08:10 01/17/20 08:10 01/17/20 08:10 01/17/20 08:10 01/17/20 08:10 Intake & Output 01/16/20 01/17/20 01/18/20 06:59 06:59 06:59 Intake Total 1314 897 100 Output Total 900 1275 Balance 414 -378 100 Weight 79.6 kg 80.2 kg 80.2 kg General appearance: PRESENT: no acute distress, obese Head exam: PRESENT: atraumatic, normocephalic Eye exam: PRESENT: conjunctiva pink. ABSENT: scleral icterus Mouth exam: PRESENT: moist Respiratory exam: PRESENT: clear to auscultation freddy Cardiovascular exam: PRESENT: RRR, +S1, +S2. ABSENT: diastolic murmur, rubs, systolic murmur Vascular exam: ABSENT: pallor GI/Abdominal exam: PRESENT: normal bowel sounds, soft. ABSENT: distended, guarding, mass, organolmegaly, rebound, tenderness Extremities exam: ABSENT: pedal edema Musculoskeletal exam: PRESENT: tenderness - to maneuvering around ankle joints Neurological exam: PRESENT: alert, awake Psychiatric exam: PRESENT: appropriate affect, normal mood. ABSENT: homicidal ideation, suicidal ideation Skin exam: PRESENT: dry, warm Results Laboratory Results: 01/15/20 11:14 01/15/20 11:14 01/03/20 01/03/20 01/04/20 14:06 14:06 17:50 Creatine Kinase 2539 H 1453 H CK-MB (CK-2) Troponin I 0.086 NT-Pro-B Natriuret Pep 2860 H 01/04/20 01/04/20 01/04/20 17:50 23:00 23:00 Creatine Kinase 1293 H CK-MB (CK-2) 41.00 H 31.90 H Troponin I 0.107 0.097 NT-Pro-B Natriuret Pep 2690 H 01/05/20 01/05/20 01/06/20 05:30 05:30 05:47 Creatine Kinase 1151 H 1197 H CK-MB (CK-2) 24.20 H Troponin I 0.092 NT-Pro-B Natriuret Pep 01/07/20 01/10/20 01/10/20 06:12 13:10 13:10 Creatine Kinase 1255 H 1181 H CK-MB (CK-2) 16.90 H Troponin I 0.098 NT-Pro-B Natriuret Pep 01/10/20 01/10/20 01/11/20 18:11 18:11 01:01 Creatine Kinase 1244 H 1203 H CK-MB (CK-2) 15.60 H Troponin I 0.125 NT-Pro-B Natriuret Pep 5900 H 01/11/20 01/12/20 01:01 08:23 Creatine Kinase CK-MB (CK-2) 14.20 H Troponin I 0.226 0.226 NT-Pro-B Natriuret Pep Impressions: Head CT 01/03/20 14:14 IMPRESSION: CHRONIC CHANGES OF ATROPHY AND MICROVASCULAR ISCHEMIA. OLD RIGHT CEREBELLAR INFARCT. NO ACUTE PROCESS. EVIDENCE OF ACUTE STROKE: NO. Head MRI 01/04/20 00:00 IMPRESSION: ATROPHY AND CHRONIC MICRO-VASCULAR ISCHEMIC CHANGES. OLD CEREBELLAR INFARCTS, RIGHT GREATER THAN LEFT. NO ACUTE FINDINGS. EVIDENCE OF ACUTE STROKE: NO. Chest CT 01/05/20 00:00 IMPRESSION: 1. Bilateral airspace disease, likely multicentric pneumonia. 2. There is no suprahilar mass on the right. 3. Cardiomegaly with no fiorella pulmonary edema. Foot X-Ray 01/07/20 09:00 IMPRESSION: No acute osseous abnormality of the left foot. Chest Ultrasound 01/14/20 00:00 IMPRESSION: Insufficient fluid for thoracentesis. Chest X-Ray 01/15/20 00:00 IMPRESSION: Cardiomegaly without fiorella pulmonary edema. Bilateral airspace disease with slight improvement on the right, likely pneumonia. Assessment & Plan - Diagnosis (1) Fall Qualifiers: Encounter type: initial encounter Qualified Code(s): W19.XXXA - Unspecified fall, initial encounter Is this a current diagnosis for this admission?: Yes Plan: Improved status but will benefit from rehabilitation and ambulatory safety. (2) Rhabdomyolysis Qualifiers: Rhabdomyolysis type: traumatic Encounter type: initial encounter Qualified Code(s): T79.6XXA - Traumatic ischemia of muscle, initial encounter Is this a current diagnosis for this admission?: Yes Plan: Continue current medication management. Start on IV fluid N/S at 50 ml/hour. Obtain CK level in AM. (3) Chronic kidney disease, stage 3 Is this a current diagnosis for this admission?: Yes Plan: Improving renal indices. Continue cautious hydration due to her acute rhabdo myolysis management. (4) T2DM (type 2 diabetes mellitus) Qualifiers: Diabetes mellitus half-way insulin use: with terminal system operator use Diabetes halima litus complication status: with kidney complications Diabetes mellitus co mplication detail: with chronic kidney disease Chronic kidney disease stage: stage 3 (moderate) Qualified Code(s): E11.22 - Type 2 diabetes mellitus with diabetic chronic kidney disease; N18.3 - Chronic kidney disease, stage 3 (modera te); Z79.4 - technician terminal and repeater (current) use of insulin Is this a current diagnosis for this admission?: Yes Plan: Patient continue to demonstrate episodes of hypoglycemia. I will hold her hrs dose of Lantus insulin and Glimepiride due to hypoglycemia. Encourage increase food intake and maintain on Humalog insulin sliding scale current medication ma juventino. - Time Time Spent with patient: 25-34 minutes Level of Care: IMCU Medications reviewed and adjusted accordingly: Yes Anticipated discharge: SNF Within: Other - Inpatient Certification Based on my medical assessment, after consideration of the patient's comorbidities, presenting symptoms, or acuity I expect that the services needed warrant INPATIENT care.: Yes I certify that my determination is in accordance with my understanding of Medicare's requirements for reasonable and necessary INPATIENT services [42 CFR 412.3e].: Yes Medical Necessity: Significant Comorbidiites Make Outpatient Treatment Too Risky, Need Close Monitoring Due to Risk of Patient Decompensation, Need For IV Fluids, Need For Continuous Telemetry Monitoring, Need for IV Antibiotics, Risk of Complication if Not Cared For in Hospital, Risk of Diagnosis Which Will Require Inpatient Eval/Care/Monitoring Post Hospital Care: D/C or Transfer Summary - Plan Summary Plan Summary: See covering attending physician orders for details about care plan.
[2020-01-17] MEDS: INSULIN GLARGINE,HUM.REC.ANLOG 1,000 UNIT/10 ML VIAL SUBCUT SCH (17:30)
[2020-01-17] MEDS: NORMAL SALINE 1000 ML 1,000 ML IV PRN (19:00)
--- NOTE | 2020-01-17 22:00 | Progress Note ---
Provider Note Provider Note: CARDIOLOGY PROGRESS NOTE by Dr. Drummond has been on 01/17/2020. SUBJECTIVE: The patient denies any chest pain or discomfort. There is no shortness of breath. There is no PND orthopnea or leg edema. There is no arrhythmias seen on the monitor. She states the cough is subsided. There is no TIA CVA symptoms. PHYSICAL EXAMINATION:. The patient mildly obese. In no acute distress Selected Entries 01/17/20 15:43 Temperature 97.9 F Temperature Oral Source Pulse Rate 67 Respiratory 19 Rate Blood Pressure 139/54 H Blood Pressure 82 Mean BP Location Left Arm BP Position Supine O2 Sat by Pulse 95 Oximetry Oxygen Delivery Room Air Method Head: Is atraumatic normocephalic. EYES: Pupils equal round regular reactive light accommodation. External ocular movements are normal. There is no conjunctival pallor. There is no scleral icterus. EARS: Tympanic membranes are intact. External auditory canals are clear. NOSE: There is no deviated nasal septum. There is no inflammation of the nasal mucous membrane. MOUTH: Mucous membranes of mouth are moist. Tongue is moist. There is no ulcers. There is no bleeding of the gums. THROAT: There is no redness of the oropharynx. There is no exudates. SKIN: There is no skin rashes. There is no petechia or e cchymosis. There is no skin lesions. NECK: Is supple. There is no JVD. Carotids are equal there is no bruit there is no lymphadenopathy. There is no goiter. There is no accessory muscle respiration use. Trachea is central. LUNGS: There are bilateral dry crackles of pneumonia. No rales of CHF. There is no rhonchi or wheezing. HEART: S1-S2 is heard. There is no S3 gallop there is no stridor. There is systolic murmur left sternal border and the apex. There is no rub. ABDOMEN: Is soft. Mildly obese. There is no hepatosplenomegaly. There is no tender areas of masses. Bowel sounds are well heard. EXTREMITIES: Femorals are slightly diminished. There is no femoral bruits. Leg pulses diminished. There is no DVT or cellulitis. There is no pedal edema. There is no calf tenderness. There is no cyanosis or clubbing. MS: The patient is conscious awake alert oriented x3 with no focal deficits. 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 PSYCHIATRIC: The patient judgment insight are intact her affect is normal. Labs- All tests 24 hr 01/17/20 01/17/20 01/17/20 08:12 08:31 08:51 POC Glucose 55 L 60 L 73 01/17/20 01/17/20 01/17/20 09:09 11:45 15:45 POC Glucose 91 76 52 L 01/17/20 01/17/20 01/17/20 16:06 16:22 21:17 POC Glucose 56 L 74 128 H Chest X-Ray 01/03/20 14:13 IMPRESSION: CARDIAC ENLARGEMENT. VASCULAR CONGESTION. DIFFUSE AIRSPACE DISEASE IN THE LEFT LUNG MAY BE DUE TO ASYMMETRIC PULMONARY EDEMA OR PNEUMONIA. Head CT 01/03/20 14:14 IMPRESSION: CHRONIC CHANGES OF ATROPHY AND MICROVASCULAR ISCHEMIA. OLD RIGHT CEREBELLAR INFARCT. NO ACUTE PROCESS. EVIDENCE OF ACUTE STROKE: NO. Head MRI 01/04/20 00:00 IMPRESSION: ATROPHY AND CHRONIC MICRO-VASCULAR ISCHEMIC CHANGES. OLD CEREBELLAR INFARCTS, RIGHT GREATER THAN LEFT. NO ACUTE FINDINGS. EVIDENCE OF ACUTE STROKE: NO. Chest CT 01/05/20 00:00 IMPRESSION: 1. Bilateral airspace disease, likely multicentric pneumonia. 2. There is no suprahilar mass on the right. 3. Cardiomegaly with no fiorella pulmonary edema. Chest X-Ray 01/05/20 00:00 IMPRESSION: Cardiomegaly. No fiorella pulmonary edema. Airspace disease in the left lung, likely pneumonia. Cannot exclude suprahilar nodule in the right perlita ng. Foot X-Ray 01/07/20 09:00 IMPRESSION: No acute osseous abnormality of the left foot. Chest X-Ray 01/10/20 00:00 IMPRESSION: Multifocal consolidation suspicious for pneumonia. Small bilateral pleural effusions and mild pulmonary edema. Chest X-Ray 01/12/20 00:00 IMPRESSION: No significant interval change in widespread bilateral airspace disease, suspicious for multifocal pneumonia and/or pulmonary edema. Superimposed small bilateral pleural effusions. copyright 2011 [employer]- All Rights Reserved Chest Ultrasound 01/14/20 00:00 IMPRESSION: Insufficient fluid for thoracentesis. Chest X-Ray 01/15/20 00:00 IMPRESSION: Cardiomegaly without fiorella pulmonary edema. Bilateral airspace disease with slight improvement on the right, likely pneumonia. IMPRESSION/RECOMMENDATION: 1. Elevated troponin I: Most likely this is secondary to supply demand mismatch due to the patient's rhabdomyolysis, acute on chronic renal failure, and bilateral pneumonia. The troponin is trended down. 2. Clinically there is no evidence of heart failure. 3. Rhabdomyolysis: The CPKs are trending down. Continue hydration and current treatment. 4. Acute on chronic renal failure.: Avoid nephrotoxic drugs 5. 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 Would avoid nitrates diuretics and any medications that can increase the contractility of the left ventricle or decrease the cavity size. 6. Severe pulmonary hypertension:? Etiology 7. Multifocal pneumonia: Continue antibiotics 8. Abnormal EKG 9. Bifascicular block: Right bundle branch block pattern and left anterior hemiblock. 10. Hypertension: Blood pressure seems to be well controlled 11. Diabetes mellitus type 2 insulin-dependent. 12. 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 13. Hyperlipidemia continue statins 14. Aortic sclerosis with mild to moderate aortic regurgitation. 15. Abnormal EKG: Note That the Patient Is IV Lexiscan Cardiolite Stress Test Done Today Was Negative for Ischemia or Scar/[place]. This Has Been Discussed with the Patient in Detail. Medications reviewed. Medications adjusted. Medical regimen and management plan discussed with the attending provider on the case. Medical decision making is of high complexity. 60 minutes spent on this patient more than 50% time spent in direct patient care. Cardiac status is stable. Further cardiac management will be done as an outpatient including seeing the etiology of the patient's pulmonary hypertension. I will sign off and follow the patient in the office.
[2020-01-18] MEDS: INSULIN LISPRO 100 UNIT/ML 3 ML VIAL SUBCUT SCH ×5 (01:07→21:53)
[2020-01-18] MEDS: AMPICILLIN SODIUM/SULBACTAM NA 3 GM in NORMAL SALINE 100 ML IV SCH ×4 (04:00→21:55)
[2020-01-18 06:47] LABS: ABSOLUTE EOSINOPHILS # (AUTO) 0.4 10^3/uL (0.0-0.6); ABSOLUTE MONOCYTES (AUTO) 0.7 10^3/uL (0.1-1.4); ABSOLUTE NEUT (AUTO) 5.9 10^3/uL (1.7-8.2); BASOPHILS % (AUTO) 0.4 % (0-2); EOSINOPHILS % (AUTO) 4.3 % (0-6); HEMATOCRIT 28.6 % (36.0-47.0); HEMOGLOBIN 9.4 g/dL (12.0-15.5); LYMPHOCYTES % (AUTO) 22.2 % (13-45); MEAN CORPUSCULAR HGB CONC 32.9 g/dL (32.0-36.0); MEAN CORPUSCULAR VOLUME 82 fl (80-97); MONOCYTES % (AUTO) 8.3 % (3-13); PLATELET COUNT 238 10^3/uL (150-450); RED CELL DISTRIBUTION WIDTH 16.7 % (11.5-14.0); SEGMENTED NEUTROPHILS % (AUTO) 64.8 % (42-78); TOTAL CELLS COUNTED % (AUTO) 100 %
[2020-01-18 07:21] LABS: BLOOD UREA NITROGEN 31 mg/dL (7-20); CALCIUM 9.3 mg/dL (8.4-10.2); CREATINE KINASE 643 U/L (30-135); POTASSIUM 4.8 mmol/L (3.6-5.0)
[2020-01-18 07:26] LABS: CARBON DIOXIDE 26 mmol/L (22-30); CHLORIDE 108 mmol/L (98-107)
[2020-01-18 07:27] LABS: ANION GAP 4 (5-19)
[2020-01-18 07:28] LABS: GLUCOSE 64 mg/dL (75-110)
[2020-01-18] MEDS: DEXTROSE 40% GEL 15 GM TUBE PO PRN ×2 (07:32→07:55)
[2020-01-18] MEDS: GLIMEPIRIDE 1 MG TABLET PO SCH (09:32)
[2020-01-18] MEDS: DOCUSATE SODIUM 100 MG CAPSULE PO SCH ×2 (09:40→17:23)
[2020-01-18] MEDS: METOPROLOL TARTRATE 50 MG TABLET PO SCH ×2 (09:42→17:43)
[2020-01-18] MEDS: POTASSIUM CHLORIDE 10 MEQ TABLET.ER PO SCH (09:43)
[2020-01-18] MEDS: AMLODIPINE BESYLATE 2.5 MG TABLET PO SCH ×2 (09:43→21:56)
[2020-01-18] MEDS: TIMOLOL MALEATE 0.5% OPH SOLN 5 ML OU SCH ×2 (09:44→17:44)
[2020-01-18] MEDS: BRIMONIDINE TARTRATE 0.2% OPH SOLN 5 ML OU SCH ×2 (09:44→17:44)
[2020-01-18] MEDS: INSULIN GLARGINE,HUM.REC.ANLOG 1,000 UNIT/10 ML VIAL SUBCUT SCH (17:23)
[2020-01-18] MEDS: GUAIFENESIN SYRP 200 MG/10 ML UDC PO PRN (17:50)
[2020-01-18] MEDS: NORMAL SALINE 1000 ML 1,000 ML IV PRN (21:18)
[2020-01-19] MEDS: AMPICILLIN SODIUM/SULBACTAM NA 3 GM in NORMAL SALINE 100 ML IV SCH ×3 (03:15→15:35)
[2020-01-19] MEDS: METOPROLOL TARTRATE 50 MG TABLET PO SCH (05:33)
[2020-01-19] MEDS: INSULIN LISPRO 100 UNIT/ML 3 ML VIAL SUBCUT SCH ×4 (08:09→21:28)
[2020-01-19] MEDS: GLIMEPIRIDE 1 MG TABLET PO SCH (10:05)
[2020-01-19] MEDS: POTASSIUM CHLORIDE 10 MEQ TABLET.ER PO SCH (10:07)
[2020-01-19] MEDS: AMLODIPINE BESYLATE 2.5 MG TABLET PO SCH ×2 (10:30→21:13)
[2020-01-19] MEDS: TIMOLOL MALEATE 0.5% OPH SOLN 5 ML OU SCH ×2 (10:31→19:00)
[2020-01-19] MEDS: DOCUSATE SODIUM 100 MG CAPSULE PO SCH ×2 (10:31→19:00)
[2020-01-19] MEDS: BRIMONIDINE TARTRATE 0.2% OPH SOLN 5 ML OU SCH ×2 (10:32→19:00)
[2020-01-19] MEDS: GUAIFENESIN SYRP 200 MG/10 ML UDC PO PRN (21:13)
[2020-01-19] MEDS: INSULIN GLARGINE,HUM.REC.ANLOG 1,000 UNIT/10 ML VIAL SUBCUT SCH (21:29)
--- NOTE | 2020-01-19 22:12 | PDOC PROGRESS REPORT ---
Subjective Progress Note for:: 01/19/20 Subjective:: Patient seen by the bedside, she needs to have a second SARS-CoV-2 testing before transfer to care home for rehab Reason For Visit: RHABDOMYOLYSIS,FALL,ND CKD STAGE 3 Physical Exam Vital Signs: Temp Pulse Resp BP Pulse Ox 98.0 F 84 32 H 150/86 H 92 01/19/20 19:23 01/19/20 19:23 01/19/20 19:23 01/19/20 19:23 01/19/20 19:23 Intake & Output 01/18/20 01/19/20 01/20/20 06:59 06:59 06:59 Intake Total 987 2527 715 Output Total 1050 1250 975 Balance -63 1277 -260 Weight 80.4 kg 78.4 kg General appearance: PRESENT: no acute distress Eye exam: PRESENT: PERRLA Respiratory exam: PRESENT: clear to auscultation freddy Cardiovascular exam: PRESENT: +S1, +S2 GI/Abdominal exam: PRESENT: soft Neurological exam: PRESENT: alert Results Laboratory Results: 01/18/20 06:12 01/18/20 06:12 01/03/20 01/03/20 01/04/20 14:06 14:06 17:50 Creatine Kinase 2539 H 1453 H CK-MB (CK-2) Troponin I 0.086 NT-Pro-B Natriuret Pep 2860 H 01/04/20 01/04/20 01/04/20 17:50 23:00 23:00 Creatine Kinase 1293 H CK-MB (CK-2) 41.00 H 31.90 H Troponin I 0.107 0.097 NT-Pro-B Natriuret Pep 2690 H 01/05/20 01/05/20 01/06/20 05:30 05:30 05:47 Creatine Kinase 1151 H 1197 H CK-MB (CK-2) 24.20 H Troponin I 0.092 NT-Pro-B Natriuret Pep 01/07/20 01/10/20 01/10/20 06:12 13:10 13:10 Creatine Kinase 1255 H 1181 H CK-MB (CK-2) 16.90 H Troponin I 0.098 NT-Pro-B Natriuret Pep 01/10/20 01/10/20 01/11/20 18:11 18:11 01:01 Creatine Kinase 1244 H 1203 H CK-MB (CK-2) 15.60 H Troponin I 0.125 NT-Pro-B Natriuret Pep 5900 H 01/11/20 01/12/20 01/18/20 01:01 08:23 06:12 Creatine Kinase 643 H CK-MB (CK-2) 14.20 H Troponin I 0.226 0.226 NT-Pro-B Natriuret Pep Impressions: Head CT 01/03/20 14:14 IMPRESSION: CHRONIC CHANGES OF ATROPHY AND MICROVASCULAR ISCHEMIA. OLD RIGHT CEREBELLAR INFARCT. NO ACUTE PROCESS. EVIDENCE OF ACUTE STROKE: NO. Head MRI 01/04/20 00:00 IMPRESSION: ATROPHY AND CHRONIC MICRO-VASCULAR ISCHEMIC CHANGES. OLD CEREBELLAR INFARCTS, RIGHT GREATER THAN LEFT. NO ACUTE FINDINGS. EVIDENCE OF ACUTE STROKE: NO. Chest CT 01/05/20 00:00 IMPRESSION: 1. Bilateral airspace disease, likely multicentric pneumonia. 2. There is no suprahilar mass on the right. 3. Cardiomegaly with no fiorella pulmonary edema. Foot X-Ray 01/07/20 09:00 IMPRESSION: No acute osseous abnormality of the left foot. Chest Ultrasound 01/14/20 00:00 IMPRESSION: Insufficient fluid for thoracentesis. Chest X-Ray 01/15/20 00:00 IMPRESSION: Cardiomegaly without fiorella pulmonary edema. Bilateral airspace disease with slight improvement on the right, likely pneumonia. Assessment & Plan - Diagnosis (1) Rhabdomyolysis Qualifiers: Rhabdomyolysis type: traumatic Encounter type: initial encounter Qualified Code(s): T79.6XXA - Traumatic ischemia of muscle, initial encounter Is this a current diagnosis for this admission?: Yes (2) Chronic kidney disease, stage 3 Is this a current diagnosis for this admission?: Yes (3) Fall Qualifiers: Encounter type: initial encounter Qualified Code(s): W19.XXXA - Unspecified fall, initial encounter Is this a current diagnosis for this admission?: Yes (4) T2DM (type 2 diabetes mellitus) Qualifiers: Diabetes mellitus logistics planner insulin use: with prison use Diabetes mellitus complication status: with kidney complications Diabetes mellitus complication detail: with chronic kidney disease Chronic kidney disease stage: stage 3 (moderate) Qualified Code(s): E11.22 - Type 2 diabetes mellitus with diabetic chronic kidney disease; N18.3 - Chronic kidney disease, stage 3 (moderate); Z79.4 - half-way (current) use of insulin Is this a current diagnosis for this admission?: Yes (5) Cerebellar infarction Is this a current diagnosis for this admission?: Yes (6) Aspiration pneumonia Qualifiers: Aspiration pneumonia type: unspecified Laterality: bilateral Lung location: unspecified part of lung Qualified Code(s): J69.0 - Pneumonitis due to inhalation of food and vomit Is this a current diagnosis for this admission?: Yes Plan: Get chest x-ray (7) Elevated troponin Is this a current diagnosis for this admission?: Yes (8) Pleural effusion Is this a current diagnosis for this admission?: Yes - Time Time Spent with patient: 25-34 minutes Level of Care: IMCU
--- NOTE | 2020-01-19 23:27 | RADIOLOGY REPORT (SQ) ---
CLINICAL HISTORY: pneumonia COMPARISON: 01/15/2020. TECHNIQUE: XR CHEST 1 VIEW 01/19/2020 12:00 AM CDT FINDINGS: The heart is enlarged. There is moderate right basilar airspace disease. There are probable pleural effusions. There is no pneumothorax. There are no acute osseous findings. IMPRESSION: Worsening bilateral pneumonia.
[2020-01-20] MEDS: GUAIFENESIN SYRP 200 MG/10 ML UDC PO PRN (03:10)
[2020-01-20] MEDS: METOPROLOL TARTRATE 50 MG TABLET PO SCH ×3 (05:45→18:48)
[2020-01-20] MEDS: DOCUSATE SODIUM 100 MG CAPSULE PO SCH ×2 (11:34→18:45)
[2020-01-20] MEDS: POTASSIUM CHLORIDE 10 MEQ TABLET.ER PO SCH (11:35)
[2020-01-20] MEDS: AMLODIPINE BESYLATE 2.5 MG TABLET PO SCH ×2 (11:38→22:27)
[2020-01-20] MEDS: GLIMEPIRIDE 1 MG TABLET PO SCH (11:39)
[2020-01-20] MEDS: TIMOLOL MALEATE 0.5% OPH SOLN 5 ML OU SCH ×2 (11:40→18:50)
[2020-01-20] MEDS: INSULIN LISPRO 100 UNIT/ML 3 ML VIAL SUBCUT SCH ×4 (11:40→22:28)
[2020-01-20] MEDS: BRIMONIDINE TARTRATE 0.2% OPH SOLN 5 ML OU SCH ×2 (11:40→18:50)
[2020-01-20] MEDS ORDERED: FUROSEMIDE INJ/PF 40 MG/4 ML SDV IV ONE (17:49)
[2020-01-20] MEDS ORDERED: FUROSEMIDE INJ/PF 100 MG/10 ML SDV ONE (17:50)
[2020-01-20] MEDS ORDERED: FUROSEMIDE INJ/PF 100 MG/10 ML SDV IV ONE ×3 (18:00→22:30)
[2020-01-20] MEDS: INSULIN GLARGINE,HUM.REC.ANLOG 1,000 UNIT/10 ML VIAL SUBCUT SCH (18:45)
--- NOTE | 2020-01-20 20:19 | RADIOLOGY REPORT (SQ) ---
EXAM DESCRIPTION: XR CHEST 1 VIEW COMPLETED DATE/TME: 01/20/2020 18:30 CLINICAL HISTORY: 74 years Female pneumonia COMPARISON: 01/19/2020. FINDINGS: Cardiac enlargement. Bilateral pulmonary infiltrates which appear unchanged when compared to the previous study. Bilateral effusions are present. Bony demineralization. No pneumothorax. IMPRESSION: Diffuse bilateral parenchymal infiltrates with small effusions not significantly changed from yesterday's exam Cardiac enlargement
[2020-01-20] MEDS ORDERED: VANCOMYCIN HCL 0 MG in DEXTROSE 5%-WATER 250 ML IV NR (20:45)
--- NOTE | 2020-01-20 20:45 | PDOC PROGRESS REPORT ---
Subjective Progress Note for:: 01/20/20 Subjective:: Patient seen by the bedside, she is obviously short of breath chest x-ray demonstrated diffuse bilateral infiltrates, she has been antibiotic for the last 14 days, the IV fluid was discontinued yesterday because his lungs sound wet on auscultation, she was given a dose of Lasix 80 mg IV a repeat chest x-ray did not show any change suggesting that this is probably an infection rather than fluid. The serum procalcitonin was elevated at 0.25 suggesting that this p robably an infection. She was previously on IV Unasyn and Zyvox to cover potential pathogens but apparently patient is not responding to the antibiotic, no organism yet isolated from cultures. Reason For Visit: RHABDOMYOLYSIS,FALL,AK CKD STAGE 3 Physical Exam Vital Signs: Temp Pulse Resp BP Pulse Ox 98.0 F 88 28 H 168/79 H 90 L 01/20/20 03:09 01/20/20 14:00 01/19/20 23:34 01/20/20 03:09 01/20/20 03:09 Intake & Output 01/19/20 01/20/20 01/21/20 06:59 06:59 06:59 Intake Total 2527 975 400 Output Total 1250 1975 875 Balance 1277 -1000 -713 Weight 78.4 kg 81.8 kg 81.8 kg General appearance: PRESENT: mild distress Head exam: PRESENT: atraumatic, normocephalic Eye exam: PRESENT: conjunctiva pink, EOMI, PERRLA Ear exam: PRESENT: normal external ear exam Mouth exam: PRESENT: moist, tongue midline Neck exam: PRESENT: full ROM Respiratory exam: PRESENT: crackles Cardiovascular exam: PRESENT: RRR, +S1, +S2 Pulses: PRESENT: normal dorsalis pedis pul, +2 pedal pulses bilateral Vascular exam: PRESENT: normal capillary refill GI/Abdominal exam: PRESENT: normal bowel sounds, soft Rectal exam: PRESENT: deferred Neurological exam: PRESENT: alert, CN II-XII grossly intact. ABSENT: motor sensory deficit Psychiatric exam: PRESENT: appropriate affect, normal mood Skin exam: PRESENT: dry, intact, warm Results Laboratory Results: 01/18/20 06:12 01/18/20 06:12 01/03/20 01/03/20 01/04/20 14:06 14:06 17:50 Creatine Kinase 2539 H 1453 H CK-MB (CK-2) Troponin I 0.086 NT-Pro-B Natriuret Pep 2860 H 01/04/20 01/04/20 01/04/20 17:50 23:00 23:00 Creatine Kinase 1293 H CK-MB (CK-2) 41.00 H 31.90 H Troponin I 0.107 0.097 NT-Pro-B Natriuret Pep 2690 H 01/05/20 01/05/20 01/06/20 05:30 05:30 05:47 Creatine Kinase 1151 H 1197 H CK-MB (CK-2) 24.20 H Troponin I 0.092 NT-Pro-B Natriuret Pep 01/07/20 01/10/20 01/10/20 06:12 13:10 13:10 Creatine Kinase 1255 H 1181 H CK-MB (CK-2) 16.90 H Troponin I 0.098 NT-Pro-B Natriuret Pep 01/10/20 01/10/20 01/11/20 18:11 18:11 01:01 Creatine Kinase 1244 H 1203 H CK-MB (CK-2) 15.60 H Troponin I 0.125 NT-Pro-B Natriuret Pep 5900 H 01/11/20 01/12/20 01/18/20 01:01 08:23 06:12 Creatine Kinase 643 H CK-MB (CK-2) 14.20 H Troponin I 0.226 0.226 NT-Pro-B Natriuret Pep Impressions: Head CT 01/03/20 14:14 IMPRESSION: CHRONIC CHANGES OF ATROPHY AND MICROVASCULAR ISCHEMIA. OLD RIGHT CEREBELLAR INFARCT. NO ACUTE PROCESS. EVIDENCE OF ACUTE STROKE: NO. Head MRI 01/04/20 00:00 IMPRESSION: ATROPHY AND CHRONIC MICRO-VASCULAR ISCHEMIC CHANGES. OLD CEREBELLAR INFARCTS, RIGHT GREATER THAN LEFT. NO ACUTE FINDINGS. EVIDENCE OF ACUTE STROKE: NO. Chest CT 01/05/20 00:00 IMPRESSION: 1. Bilateral airspace disease, likely multicentric pneumonia. 2. There is no suprahilar mass on the right. 3. Cardiomegaly with no fiorella pulmonary edema. Foot X-Ray 01/07/20 09:00 IMPRESSION: No acute osseous abnormality of the left foot. Chest Ultrasound 01/14/20 00:00 IMPRESSION: Insufficient fluid for thoracentesis. Chest X-Ray 01/20/20 18:30 IMPRESSION: Diffuse bilateral parenchymal infiltrates with small effusions not significantly changed from yesterday's exam Cardiac enlargement Assessment & Plan - Diagnosis (1) Rhabdomyolysis Qualifiers: Rhabdomyolysis type: traumatic Encounter type: initial encounter Qualified Code(s): T79.6XXA - Traumatic ischemia of muscle, initial encounter Is this a current diagnosis for this admission?: Yes Plan: Resolved (2) Chronic kidney disease, stage 3 Is this a current diagnosis for this admission?: Yes (3) Fall Qualifiers: Encounter type: initial encounter Qualified Code(s): W19.XXXA - Unspecified fall, initial encounter Is this a current diagnosis for this admission?: Yes (4) T2DM (type 2 diabetes mellitus) Qualifiers: Diabetes mellitus skilled nursing 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 Diabetes mellitus complication status: with kidney complications Diabetes mellitus complication detail: with chronic kidney disease Chronic kidney disease stage: stage 3 (moderate) Qualified Code(s): E11.22 - Type 2 diabetes mellitus with diabetic chronic kidney disease; N18.3 - Chronic kidney disease, stage 3 (moderate); Z79.4 - custodial (current) use of insulin Is this a current diagnosis for this admission?: Yes (5) Cerebellar infarction Is this a current diagnosis for this admission?: Yes (6) Aspiration pneumonia Qualifiers: Aspiration pneumonia type: unspecified Laterality: bilateral Lung location: unspecified part of lung Qualified Code(s): J69.0 - Pneumonitis due to inhalation of food and vomit Is this a current diagnosis for this admission?: Yes (7) Elevated troponin Is this a current diagnosis for this admission?: Yes (8) Pleural effusion Is this a current diagnosis for this admission?: Yes (9) Pneumonia Qualifiers: Pneumonia type: due to unspecified organism Laterality: bilateral Lung location: unspecified part of lung Qualified Code(s): J18.9 - Pneumonia, unspecified organism Is this a current diagnosis for this admission?: Yes Plan: Chest x-ray finding demonstrated diffuse infiltrate on both lung cueto, did not respond to furosemide, suggestive of infection, pneumonia, the procalcitonin level is elevated, consistent with infection,Start IV Zosyn and vancomycin, ABG (10) Acute hypoxemic respiratory failure Is this a current diagnosis for this admission?: Yes Plan: Arterial blood gas on FiO2 3 L, pH 7.48, PCO2 30.7, PO2 75, bicarbonate 22.3, this is consistent with acute hypoxemic respiratory failure, start patient on BiPAP to support breathing - Time Time Spent with patient: 35 or more minutes Level of Care: IMCU
[2020-01-20] MEDS ORDERED: PIPERACILLIN SODIUM/TAZOBACTAM 3.375 GM in NORMAL SALINE 100 ML IV SCH (21:00)
[2020-01-20 21:51] LABS: ARTERIAL BLOOD BASE EXCESS 0.9 mmol/L; ARTERIAL BLOOD H2CO3 1.07 mmol/L (1.05-1.35); ARTERIAL BLOOD HCO3 24.5 mmol/L (20-24); ARTERIAL BLOOD O2 SATURATION 73.6 % (94-98); ARTERIAL BLOOD PCO2 35.5 mmHg (35-45); ARTERIAL BLOOD PH 7.46 (7.35-7.45); ARTERIAL BLOOD TOTAL CO2 25.6 mmol/L (21-25)
[2020-01-20 22:03] LABS: ABSOLUTE BASOPHILS # (AUTO) 0.1 10^3/uL (0.0-0.2); ABSOLUTE EOSINOPHILS # (AUTO) 0.3 10^3/uL (0.0-0.6); ABSOLUTE LYMPHOCYTES (AUTO) 2.6 10^3/uL (0.5-4.7); ABSOLUTE MONOCYTES (AUTO) 1.1 10^3/uL (0.1-1.4); ABSOLUTE NEUT (AUTO) 14.2 10^3/uL (1.7-8.2); BASOPHILS % (AUTO) 0.7 % (0-2); EOSINOPHILS % (AUTO) 1.8 % (0-6); HEMATOCRIT 31.1 % (36.0-47.0); HEMOGLOBIN 10.1 g/dL (12.0-15.5); LYMPHOCYTES % (AUTO) 14.2 % (13-45); MEAN CORPUSCULAR HEMOGLOBIN 26.5 pg (27.0-33.4); MEAN CORPUSCULAR HGB CONC 32.4 g/dL (32.0-36.0); MEAN CORPUSCULAR VOLUME 82 fl (80-97); MONOCYTES % (AUTO) 6.1 % (3-13); RED BLOOD COUNT 3.81 10^6/uL (3.72-5.28); RED CELL DISTRIBUTION WIDTH 16.4 % (11.5-14.0); SEGMENTED NEUTROPHILS % (AUTO) 77.2 % (42-78); TOTAL CELLS COUNTED % (AUTO) 100 %
[2020-01-20 22:12] LABS: ARTERIAL BLOOD FIO2 4.5
[2020-01-20 22:13] LABS: ARTERIAL BLOOD PO2 36.7 mmHg (80-100)
[2020-01-20 22:14] LABS: ALBUMIN 2.6 g/dL (3.5-5.0); ALKALINE PHOSPHATASE 56 U/L (38-126); ANION GAP 6 (5-19); ASPARTATE AMINO TRANSFERASE 53 U/L (14-36); BILIRUBIN,DIRECT 0.1 mg/dL (0.0-0.4); BILIRUBIN,TOTAL 0.6 mg/dL (0.2-1.3); BLOOD UREA NITROGEN 28 mg/dL (7-20); CALCIUM 9.3 mg/dL (8.4-10.2); CARBON DIOXIDE 23 mmol/L (22-30); CHLORIDE 103 mmol/L (98-107); GLUCOSE 153 mg/dL (75-110); POTASSIUM 4.4 mmol/L (3.6-5.0); TOTAL PROTEIN 6.7 g/dL (6.3-8.2)
[2020-01-20 22:15] LABS: PLATELET COUNT 115 10^3/uL (150-450); WHITE BLOOD COUNT 18.5 10^3/uL (4.0-10.5)
[2020-01-20] MEDS: VANCOMYCIN HCL 1,000 MG in DEXTROSE 5%-WATER 250 ML IV SCH (22:27)
[2020-01-20] MEDS: ACETAMINOPHEN 325 MG TABLET PO PRN (22:44)
[2020-01-20 23:55] LABS: ARTERIAL BLOOD BASE EXCESS -0.6 mmol/L; ARTERIAL BLOOD H2CO3 0.92 mmol/L (1.05-1.35); ARTERIAL BLOOD HCO3 22.3 mmol/L (20-24); ARTERIAL BLOOD O2 SATURATION 96.1 % (94-98); ARTERIAL BLOOD PCO2 30.7 mmHg (35-45); ARTERIAL BLOOD PH 7.48 (7.35-7.45); ARTERIAL BLOOD TOTAL CO2 23.3 mmol/L (21-25)
[2020-01-21 00:01] LABS: ARTERIAL BLOOD FIO2 3L
[2020-01-21] MEDS: PIPERACILLIN SODIUM/TAZOBACTAM 2.25 GM in NORMAL SALINE 50 ML IV SCH ×2 (01:00→05:56)
[2020-01-21] MEDS: METOPROLOL TARTRATE 50 MG TABLET PO SCH ×2 (05:57→18:40)
[2020-01-21] MEDS: INSULIN LISPRO 100 UNIT/ML 3 ML VIAL SUBCUT SCH ×3 (08:00→17:22)
[2020-01-21] MEDS: DOCUSATE SODIUM 100 MG CAPSULE PO SCH ×2 (09:07→18:33)
[2020-01-21] MEDS: POTASSIUM CHLORIDE 10 MEQ TABLET.ER PO SCH (09:07)
[2020-01-21] MEDS: GLIMEPIRIDE 1 MG TABLET PO SCH (11:27)
[2020-01-21] MEDS: AMLODIPINE BESYLATE 2.5 MG TABLET PO SCH ×2 (11:27→21:11)
[2020-01-21] MEDS: GUAIFENESIN SYRP 200 MG/10 ML UDC PO PRN (11:27)
[2020-01-21] MEDS: TIMOLOL MALEATE 0.5% OPH SOLN 5 ML OU SCH ×2 (11:29→17:31)
[2020-01-21] MEDS: BRIMONIDINE TARTRATE 0.2% OPH SOLN 5 ML OU SCH ×2 (11:29→17:31)
[2020-01-21 15:32] LABS: ABSOLUTE BASOPHILS # (AUTO) 0.1 10^3/uL (0.0-0.2); ABSOLUTE EOSINOPHILS # (AUTO) 0.3 10^3/uL (0.0-0.6); ABSOLUTE LYMPHOCYTES (AUTO) 1.3 10^3/uL (0.5-4.7); ABSOLUTE MONOCYTES (AUTO) 0.8 10^3/uL (0.1-1.4); ABSOLUTE NEUT (AUTO) 8.8 10^3/uL (1.7-8.2); BASOPHILS % (AUTO) 0.7 % (0-2); EOSINOPHILS % (AUTO) 2.7 % (0-6); HEMATOCRIT 33.7 % (36.0-47.0); HEMOGLOBIN 11.1 g/dL (12.0-15.5); LYMPHOCYTES % (AUTO) 11.2 % (13-45); MEAN CORPUSCULAR HEMOGLOBIN 26.8 pg (27.0-33.4); MEAN CORPUSCULAR VOLUME 81 fl (80-97); MONOCYTES % (AUTO) 6.8 % (3-13); RED BLOOD COUNT 4.15 10^6/uL (3.72-5.28); RED CELL DISTRIBUTION WIDTH 16.8 % (11.5-14.0); SEGMENTED NEUTROPHILS % (AUTO) 78.6 % (42-78); TOTAL CELLS COUNTED % (AUTO) 100 %; WHITE BLOOD COUNT 11.2 10^3/uL (4.0-10.5)
[2020-01-21 15:36] LABS: PLATELET COUNT 239 10^3/uL (150-450)
[2020-01-21 15:44] LABS: ALBUMIN 2.9 g/dL (3.5-5.0); ALKALINE PHOSPHATASE 68 U/L (38-126); ANION GAP 10 (5-19); ASPARTATE AMINO TRANSFERASE 54 U/L (14-36); BILIRUBIN,DIRECT 0.1 mg/dL (0.0-0.4); BILIRUBIN,TOTAL 0.5 mg/dL (0.2-1.3); BLOOD UREA NITROGEN 33 mg/dL (7-20); CALCIUM 9.4 mg/dL (8.4-10.2); CARBON DIOXIDE 27 mmol/L (22-30); CHLORIDE 100 mmol/L (98-107); GLUCOSE 175 mg/dL (75-110); POTASSIUM 4.3 mmol/L (3.6-5.0); TOTAL PROTEIN 7.2 g/dL (6.3-8.2)
--- NOTE | 2020-01-21 15:54 | RADIOLOGY REPORT (SQ) ---
EXAM DESCRIPTION: CHEST SINGLE VIEW IMAGES COMPLETED DATE/TIME: 01/21/2020 3:16 pm REASON FOR STUDY: pneumonia COMPARISON: AP view of the chest from 01/20/2020. EXAM PARAMETERS: NUMBER OF VIEWS: One view. TECHNIQUE: An AP view of the chest was obtained. RADIATION DOSE: NA LIMITATIONS: None. FINDINGS: LUNGS AND PLEURA: Stable appearance of the lungs and pleura. MEDIASTINUM AND HILAR STRUCTURES: Stable mediastinal and hilar contours. HEART AND VASCULAR STRUCTURES: Stable cardiac silhouette. BONES: Osteopenia. HARDWARE: None in the chest. OTHER: No other finding. IMPRESSION: Unchanged radiographic appearance of the chest. TECHNICAL DOCUMENTATION: JOB ID: [id number] 2010 [employer]- All Rights Reserved Reading location - IP/workstation name: [email or web address]
--- NOTE | 2020-01-21 16:35 | PDOC PROGRESS REPORT ---
Subjective Progress Note for:: 01/21/20 Subjective:: Patient seen by the bedside, there is clinical improvement compared to yesterday when she was obviously struggling to breathe with the use of accessory muscles of respiration, she required noninvasive positive pressure ventilation, she does not require that today, she is only requiring oxygen via nasal cannula. The white blood cell also decreased from 18,000 yesterday to 11,000 today Reason For Visit: RHABDOMYOLYSIS,FALL,ND CKD STAGE 3 Physical Exam Vital Signs: Temp Pulse Resp BP Pulse Ox 98.7 F 89 30 H 143/61 H 99 01/21/20 11:16 01/21/20 11:16 01/21/20 11:16 01/21/20 11:16 01/21/20 11:16 Intake & Output 01/20/20 01/21/20 01/22/20 06:59 06:59 06:59 Intake Total 975 850 600 Output Total 1975 1675 Balance -1000 -825 600 Weight 81.8 kg 80.1 kg General appearance: PRESENT: no acute distress Eye exam: PRESENT: PERRLA Respiratory exam: PRESENT: rhonchi Cardiovascular exam: PRESENT: +S1, +S2 GI/Abdominal exam: PRESENT: soft Neurological exam: PRESENT: alert Results Laboratory Results: 01/21/20 14:50 01/21/20 14:50 01/20/20 01/20/20 01/20/20 21:30 21:39 21:39 WBC 18.5 H D RBC 3.81 Hgb 10.1 L Hct 31.1 L MCV 82 MCH 26.5 L MCHC 32.4 RDW 16.4 H Plt Count 115 L Seg Neutrophils % 77.2 Carbonic Acid 1.07 HCO3/H2CO3 Ratio 22:1 ABG pH 7.46 H ABG pCO2 35.5 ABG pO2 36.7 L* ABG HCO3 24.5 H ABG O2 Saturation 73.6 L ABG Base Excess 0.9 FiO2 4.5 Sodium 132.3 L Potassium 4.4 Chloride 103 Carbon Dioxide 23 Anion Gap 6 BUN 28 H Creatinine 1.17 Est GFR ( Amer) 54 L Glucose 153 H Calcium 9.3 Total Bilirubin 0.6 AST 53 H Alkaline Phosphatase 56 Total Protein 6.7 Albumin 2.6 L 01/20/20 01/21/20 01/21/20 23:35 14:50 14:50 WBC 11.2 H RBC 4.15 Hgb 11.1 L Hct 33.7 L MCV 81 MCH 26.8 L MCHC 33.0 RDW 16.8 H Plt Count 239 D Seg Neutrophils % 78.6 H Carbonic Acid 0.92 L HCO3/H2CO3 Ratio 24:1 ABG pH 7.48 H ABG pCO2 30.7 L ABG pO2 75.0 L ABG HCO3 22.3 ABG O2 Saturation 96.1 ABG Base Excess -0.6 FiO2 3L Sodium 136.5 L Potassium 4.3 Chloride 100 Carbon Dioxide 27 Anion Gap 10 BUN 33 H Creatinine 1.45 H Est GFR ( Amer) 42 L Glucose 175 H Calcium 9.4 Total Bilirubin 0.5 AST 54 H Alkaline Phosphatase 68 Total Protein 7.2 Albumin 2.9 L 01/03/20 01/03/20 01/04/20 14:06 14:06 17:50 Creatine Kinase 2539 H 1453 H CK-MB (CK-2) Troponin I 0.086 NT-Pro-B Natriuret Pep 2860 H 01/04/20 01/04/20 01/04/20 17:50 23:00 23:00 Creatine Kinase 1293 H CK-MB (CK-2) 41.00 H 31.90 H Troponin I 0.107 0.097 NT-Pro-B Natriuret Pep 2690 H 01/05/20 01/05/20 01/06/20 05:30 05:30 05:47 Creatine Kinase 1151 H 1197 H CK-MB (CK-2) 24.20 H Troponin I 0.092 NT-Pro-B Natriuret Pep 01/07/20 01/10/20 01/10/20 06:12 13:10 13:10 Creatine Kinase 1255 H 1181 H CK-MB (CK-2) 16.90 H Troponin I 0.098 NT-Pro-B Natriuret Pep 01/10/20 01/10/20 01/11/20 18:11 18:11 01:01 Creatine Kinase 1244 H 1203 H CK-MB (CK-2) 15.60 H Troponin I 0.125 NT-Pro-B Natriuret Pep 5900 H 01/11/20 01/12/20 01/18/20 01:01 08:23 06:12 Creatine Kinase 643 H CK-MB (CK-2) 14.20 H Troponin I 0.226 0.226 NT-Pro-B Natriuret Pep Impressions: Head CT 01/03/20 14:14 IMPRESSION: CHRONIC CHANGES OF ATROPHY AND MICROVASCULAR ISCHEMIA. OLD RIGHT CEREBELLAR INFARCT. NO ACUTE PROCESS. EVIDENCE OF ACUTE STROKE: NO. Head MRI 01/04/20 00:00 IMPRESSION: ATROPHY AND CHRONIC MICRO-VASCULAR ISCHEMIC CHANGES. OLD CEREBELLAR INFARCTS, RIGHT GREATER THAN LEFT. NO ACUTE FINDINGS. EVIDENCE OF ACUTE STROKE: NO. Chest CT 01/05/20 00:00 IMPRESSION: 1. Bilateral airspace disease, likely multicentric pneumonia. 2. There is no suprahilar mass on the right. 3. Cardiomegaly with no fiorella pulmonary edema. Foot X-Ray 01/07/20 09:00 IMPRESSION: No acute osseous abnormality of the left foot. Chest Ultrasound 01/14/20 00:00 IMPRESSION: Insufficient fluid for thoracentesis. Chest X-Ray 01/21/20 00:00 IMPRESSION: Unchanged radiographic appearance of the chest. Assessment & Plan - Diagnosis (1) Rhabdomyolysis Qualifiers: Rhabdomyolysis type: traumatic Encounter type: initial encounter Qualified Code(s): T79.6XXA - Traumatic ischemia of muscle, initial encounter Is this a current diagnosis for this admission?: Yes (2) Chronic kidney disease, stage 3 Is this a current diagnosis for this admission?: Yes (3) Fall Qualifiers: Encounter type: initial encounter Qualified Code(s): W19.XXXA - Unspecified fall, initial encounter Is this a current diagnosis for this admission?: Yes (4) T2DM (type 2 diabetes mellitus) Qualifiers: Diabetes mellitus manager card insulin use: with fci use Diabetes mellitus complication status: with kidney complications Diabetes mellitus complication detail: with chronic kidney disease Chronic kidney disease stage: stage 3 (moderate) Qualified Code(s): E11.22 - Type 2 diabetes mellitus with diabetic chronic kidney disease; N18.3 - Chronic kidney disease, stage 3 (moderate); Z79.4 - laborer marine terminal (current) use of insulin Is this a current diagnosis for this admission?: Yes (5) Cerebellar infarction Is this a current diagnosis for this admission?: Yes (6) Aspiration pneumonia Qualifiers: Aspiration pneumonia type: unspecified Laterality: bilateral Lung location: unspecified part of lung Qualified Code(s): J69.0 - Pneumonitis due to inhalation of food and vomit Is this a current diagnosis for this admission?: Yes (7) Elevated troponin Is this a current diagnosis for this admission?: Yes (8) Pleural effusion Is this a current diagnosis for this admission?: Yes (9) Pneumonia Qualifiers: Pneumonia type: due to unspecified organism Laterality: bilateral Lung location: unspecified part of lung Qualified Code(s): J18.9 - Pneumonia, unspecified organism Is this a current diagnosis for this admission?: Yes (10) Acute hypoxemic respiratory failure Is this a current diagnosis for this admission?: Yes (11) Nosocomial pneumonia Is this a current diagnosis for this admission?: Yes Plan: This is probably hospital-acquired pneumonia at this point, initially when she was admitted she was diagnosed with aspiration pneumonia because she fell was on the ground for couple of hours before she was transferred from home to the hospital, she was treated empirically for aspiration pneumonia, she got better, she had elevated troponin, underwent a stress test that was negative for acute ND. The plan was to discharge patient to intermediate for rehabilitation.She was noted yesterday to be having respiratory distress with difficulty breathing chest x-ray that was done suggest diffuse infiltrate on both lung cueto, it was initially felt that this probably fluid, she was given furosemide but there was no change in the chest x-ray finding. There was associated fever, leukocytosis and the pro calcitonin level was increased as well. Because of this new finding it was felt that she probably have nosocomial pneumonia, she was started empirically on intravenous Zosyn and vancomycin to cover all potential pathogens, patient favorable response to treatment today with decreasing white cell count, less symptomatic no longer requiring noninvasive positive pressure ventilation BiPAP. - Time Time Spent with patient: 35 or more minutes Level of Care: IMCU Medications reviewed and adjusted accordingly: Yes
[2020-01-21] MEDS: PIPERACILLIN SODIUM/TAZOBACTAM 3.375 GM in NORMAL SALINE 100 ML IV SCH ×2 (17:23→18:39)
[2020-01-21] MEDS: INSULIN GLARGINE,HUM.REC.ANLOG 1,000 UNIT/10 ML VIAL SUBCUT SCH (18:35)
[2020-01-21] MEDS: VANCOMYCIN HCL 1,000 MG in DEXTROSE 5%-WATER 250 ML IV SCH (21:11)
[2020-01-21] MEDS: ACETAMINOPHEN 325 MG TABLET PO PRN (21:11)
[2020-01-22] MEDS: INSULIN LISPRO 100 UNIT/ML 3 ML VIAL SUBCUT SCH ×5 (06:24→23:08)
[2020-01-22] MEDS: PIPERACILLIN SODIUM/TAZOBACTAM 3.375 GM in NORMAL SALINE 100 ML IV SCH ×3 (06:26→18:13)
[2020-01-22] MEDS: METOPROLOL TARTRATE 50 MG TABLET PO SCH ×2 (06:26→18:13)
--- NOTE | 2020-01-22 09:49 | RADIOLOGY REPORT (SQ) ---
EXAM DESCRIPTION: CHEST SINGLE VIEW IMAGES COMPLETED DATE/TIME: 01/22/2020 9:29 am REASON FOR STUDY: pneumonia COMPARISON: CT chest 01/05/2020 Chest films 01/12/2020, 01/19/2020, 01/21/2020, 01/03/2020, 02/03/2009 EXAM PARAMETERS: NUMBER OF VIEWS: One view. TECHNIQUE: Single frontal radiographic view of the chest acquired. RADIATION DOSE: NA LIMITATIONS: None. FINDINGS: LUNGS AND PLEURA: Diffuse increased interstitial markings throughout the periphery of both lungs from chronic pulmonary fibrosis. Bronchiectasis and scarring more prominent left greater than right. No gross acute infiltrates. No pleural effusion or pneumothorax. MEDIASTINUM AND HILAR STRUCTURES: No masses. Contour normal. HEART AND VASCULAR STRUCTURES: Stable cardiomegaly. A chronic thoracic aortic dissection is present, with calcification along the lateral margin of the descending thoracic aorta. This correlates 2019. BONES: No acute findings. HARDWARE: None in the chest. OTHER: No other significant finding. IMPRESSION: Chronic pulmonary fibrosis Chronic appearing thoracic aortic dissection TECHNICAL DOCUMENTATION: JOB ID: [id number] 2010 [employer]- All Rights Reserved Reading location - IP/workstation name: [email or web address]
[2020-01-22 09:55] LABS: ABSOLUTE EOSINOPHILS # (AUTO) 0.3 10^3/uL (0.0-0.6); ABSOLUTE LYMPHOCYTES (AUTO) 1.4 10^3/uL (0.5-4.7); ABSOLUTE MONOCYTES (AUTO) 0.7 10^3/uL (0.1-1.4); ABSOLUTE NEUT (AUTO) 6.5 10^3/uL (1.7-8.2); BASOPHILS % (AUTO) 0.5 % (0-2); EOSINOPHILS % (AUTO) 3.8 % (0-6); HEMATOCRIT 31.1 % (36.0-47.0); HEMOGLOBIN 10.3 g/dL (12.0-15.5); LYMPHOCYTES % (AUTO) 15.2 % (13-45); MEAN CORPUSCULAR HEMOGLOBIN 27.1 pg (27.0-33.4); MEAN CORPUSCULAR HGB CONC 33.1 g/dL (32.0-36.0); MEAN CORPUSCULAR VOLUME 82 fl (80-97); MONOCYTES % (AUTO) 7.6 % (3-13); PLATELET COUNT 220 10^3/uL (150-450); RED BLOOD COUNT 3.81 10^6/uL (3.72-5.28); RED CELL DISTRIBUTION WIDTH 16.4 % (11.5-14.0); SEGMENTED NEUTROPHILS % (AUTO) 72.9 % (42-78); TOTAL CELLS COUNTED % (AUTO) 100 %; WHITE BLOOD COUNT 8.9 10^3/uL (4.0-10.5)
[2020-01-22] MEDS: BRIMONIDINE TARTRATE 0.2% OPH SOLN 5 ML OU SCH ×2 (10:00→18:13)
[2020-01-22 10:17] LABS: ALBUMIN 2.6 g/dL (3.5-5.0); ALKALINE PHOSPHATASE 57 U/L (38-126); ANION GAP 9 (5-19); ASPARTATE AMINO TRANSFERASE 53 U/L (14-36); BILIRUBIN,TOTAL 0.4 mg/dL (0.2-1.3); BLOOD UREA NITROGEN 33 mg/dL (7-20); CALCIUM 9.3 mg/dL (8.4-10.2); CARBON DIOXIDE 26 mmol/L (22-30); CHLORIDE 102 mmol/L (98-107); GLUCOSE 131 mg/dL (75-110); POTASSIUM 3.9 mmol/L (3.6-5.0); TOTAL PROTEIN 6.7 g/dL (6.3-8.2)
[2020-01-22] MEDS: POTASSIUM CHLORIDE 10 MEQ TABLET.ER PO SCH (10:57)
[2020-01-22] MEDS: GLIMEPIRIDE 1 MG TABLET PO SCH (10:58)
[2020-01-22] MEDS: DOCUSATE SODIUM 100 MG CAPSULE PO SCH ×2 (10:58→18:13)
[2020-01-22] MEDS: AMLODIPINE BESYLATE 2.5 MG TABLET PO SCH ×2 (10:58→23:08)
[2020-01-22] MEDS: TIMOLOL MALEATE 0.5% OPH SOLN 5 ML OU SCH ×2 (10:59→18:13)
[2020-01-22] MEDS: GUAIFENESIN SYRP 200 MG/10 ML UDC PO PRN ×2 (11:01→18:23)
[2020-01-22] MEDS: INSULIN GLARGINE,HUM.REC.ANLOG 1,000 UNIT/10 ML VIAL SUBCUT SCH (19:28)
--- NOTE | 2020-01-22 20:50 | PDOC PROGRESS REPORT ---
Subjective Progress Note for:: 01/22/20 Subjective:: Patient seen by the bedside, she complain of pain on the left leg, on palpation I felt thickened vessels that suggest phlebitis. Patient showing clinical improvement in her condition, The hemogram showed hemoglobin 8.6 from his peak of 19,000, she is presently on intravenous vancomycin, and Zosyn Reason For Visit: RHABDOMYOLYSIS,FALL,AL CKD STAGE 3 Physical Exam Vital Signs: Temp Pulse Resp BP Pulse Ox 98.0 F 74 20 106/51 L 100 01/22/20 16:11 01/22/20 16:11 01/22/20 12:06 01/22/20 16:11 01/22/20 16:11 Intake & Output 01/21/20 01/22/20 01/23/20 06:59 06:59 06:59 Intake Total 1100 1230 940 Output Total 1675 1250 375 Balance -575 -20 565 Weight 80.1 kg 78 kg General appearance: PRESENT: no acute distress Eye exam: PRESENT: PERRLA Respiratory exam: PRESENT: rhonchi Cardiovascular exam: PRESENT: +S1, +S2 GI/Abdominal exam: PRESENT: soft Extremities exam: PRESENT: other - tenderness of the left leg Neurological exam: PRESENT: alert, CN II-XII grossly intact Results Laboratory Results: 01/22/20 09:07 01/22/20 09:07 01/22/20 01/22/20 09:07 09:07 WBC 8.9 RBC 3.81 Hgb 10.3 L Hct 31.1 L MCV 82 MCH 27.1 MCHC 33.1 RDW 16.4 H Plt Count 220 Seg Neutrophils % 72.9 Sodium 136.7 L Potassium 3.9 Chloride 102 Carbon Dioxide 26 Anion Gap 9 BUN 33 H Creatinine 1.48 H Est GFR ( Amer) 41 L Glucose 131 H Calcium 9.3 Total Bilirubin 0.4 AST 53 H Alkaline Phosphatase 57 Total Protein 6.7 Albumin 2.6 L 01/03/20 01/03/20 01/04/20 14:06 14:06 17:50 Creatine Kinase 2539 H 1453 H CK-MB (CK-2) Troponin I 0.086 NT-Pro-B Natriuret Pep 2860 H 01/04/20 01/04/20 01/04/20 17:50 23:00 23:00 Creatine Kinase 1293 H CK-MB (CK-2) 41.00 H 31.90 H Troponin I 0.107 0.097 NT-Pro-B Natriuret Pep 2690 H 01/05/20 01/05/20 01/06/20 05:30 05:30 05:47 Creatine Kinase 1151 H 1197 H CK-MB (CK-2) 24.20 H Troponin I 0.092 NT-Pro-B Natriuret Pep 01/07/20 01/10/20 01/10/20 06:12 13:10 13:10 Creatine Kinase 1255 H 1181 H CK-MB (CK-2) 16.90 H Troponin I 0.098 NT-Pro-B Natriuret Pep 01/10/20 01/10/20 01/11/20 18:11 18:11 01:01 Creatine Kinase 1244 H 1203 H CK-MB (CK-2) 15.60 H Troponin I 0.125 NT-Pro-B Natriuret Pep 5900 H 01/11/20 01/12/20 01/18/20 01:01 08:23 06:12 Creatine Kinase 643 H CK-MB (CK-2) 14.20 H Troponin I 0.226 0.226 NT-Pro-B Natriuret Pep Impressions: Head CT 01/03/20 14:14 IMPRESSION: CHRONIC CHANGES OF ATROPHY AND MICROVASCULAR ISCHEMIA. OLD RIGHT CEREBELLAR INFARCT. NO ACUTE PROCESS. EVIDENCE OF ACUTE STROKE: NO. Head MRI 01/04/20 00:00 IMPRESSION: ATROPHY AND CHRONIC MICRO-VASCULAR ISCHEMIC CHANGES. OLD CEREBELLAR INFARCTS, RIGHT GREATER THAN LEFT. NO ACUTE FINDINGS. EVIDENCE OF ACUTE STROKE: NO. Chest CT 01/05/20 00:00 IMPRESSION: 1. Bilateral airspace disease, likely multicentric pneumonia. 2. There is no suprahilar mass on the right. 3. Cardiomegaly with no fiorella pulmonary edema. Foot X-Ray 01/07/20 09:00 IMPRESSION: No acute osseous abnormality of the left foot. Chest Ultrasound 01/14/20 00:00 IMPRESSION: Insufficient fluid for thoracentesis. Chest X-Ray 01/22/20 00:00 IMPRESSION: Chronic pulmonary fibrosis Chronic appearing thoracic aortic dissection Assessment & Plan - Diagnosis (1) Rhabdomyolysis Qualifiers: Rhabdomyolysis type: traumatic Encounter type: initial encounter Qualified Code(s): T79.6XXA - Traumatic ischemia of muscle, initial encounter Is this a current diagnosis for this admission?: Yes (2) Chronic kidney disease, stage 3 Is this a current diagnosis for this admission?: Yes (3) Fall Qualifiers: Encounter type: initial encounter Qualified Code(s): W19.XXXA - Unspecified fall, initial encounter Is this a current diagnosis for this admission?: Yes (4) T2DM (type 2 diabetes mellitus) 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 Diabetes mellitus complication status: with kidney complications Diabetes mellitus complication detail: with chronic kidney disease Chronic kidney disease stage: stage 3 (moderate) Qualified Code(s): E11.22 - Type 2 diabetes mellitus with diabetic chronic kidney disease; N18.3 - Chronic kidney disease, stage 3 (moderate); 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 Is this a current diagnosis for this admission?: Yes (5) Cerebellar infarction Is this a current diagnosis for this admission?: Yes (6) Aspiration pneumonia Qualifiers: Aspiration pneumonia type: unspecified Laterality: bilateral Lung location: unspecified part of lung Qualified Code(s): J69.0 - Pneumonitis due to inhalation of food and vomit Is this a current diagnosis for this admission?: Yes (7) Elevated troponin Is this a current diagnosis for this admission?: Yes (8) Pleural effusion Is this a current diagnosis for this admission?: Yes (9) Pneumonia Qualifiers: Pneumonia type: due to unspecified organism Laterality: bilateral Lung location: unspecified part of lung Qualified Code(s): J18.9 - Pneumonia, unspecified organism Is this a current diagnosis for this admission?: Yes (10) Acute hypoxemic respiratory failure Is this a current diagnosis for this admission?: Yes Plan: Continue oxygen via nasal cannula (11) Nosocomial pneumonia Is this a current diagnosis for this admission?: Yes Plan: Continue IV Zosyn and vancomycin - Time Time Spent with patient: 25-34 minutes Level of Care: IMCU
[2020-01-22] MEDS: VANCOMYCIN HCL 1,000 MG in DEXTROSE 5%-WATER 250 ML IV SCH (23:09)
[2020-01-23] MEDS: PIPERACILLIN SODIUM/TAZOBACTAM 3.375 GM in NORMAL SALINE 100 ML IV SCH ×4 (01:00→17:52)
[2020-01-23] MEDS: METOPROLOL TARTRATE 50 MG TABLET PO SCH ×2 (05:57→17:53)
[2020-01-23 07:17] LABS: ABSOLUTE EOSINOPHILS # (AUTO) 0.3 10^3/uL (0.0-0.6); ABSOLUTE LYMPHOCYTES (AUTO) 2.1 10^3/uL (0.5-4.7); ABSOLUTE MONOCYTES (AUTO) 0.7 10^3/uL (0.1-1.4); ABSOLUTE NEUT (AUTO) 5.3 10^3/uL (1.7-8.2); BASOPHILS % (AUTO) 0.5 % (0-2); EOSINOPHILS % (AUTO) 4.1 % (0-6); HEMATOCRIT 27.6 % (36.0-47.0); HEMOGLOBIN 9.1 g/dL (12.0-15.5); LYMPHOCYTES % (AUTO) 24.2 % (13-45); MEAN CORPUSCULAR HEMOGLOBIN 26.7 pg (27.0-33.4); MEAN CORPUSCULAR HGB CONC 32.8 g/dL (32.0-36.0); MEAN CORPUSCULAR VOLUME 82 fl (80-97); MONOCYTES % (AUTO) 8.6 % (3-13); PLATELET COUNT 201 10^3/uL (150-450); RED BLOOD COUNT 3.39 10^6/uL (3.72-5.28); RED CELL DISTRIBUTION WIDTH 16.7 % (11.5-14.0); SEGMENTED NEUTROPHILS % (AUTO) 62.6 % (42-78); TOTAL CELLS COUNTED % (AUTO) 100 %; WHITE BLOOD COUNT 8.5 10^3/uL (4.0-10.5)
[2020-01-23 07:27] LABS: ALBUMIN 2.5 g/dL (3.5-5.0); ALKALINE PHOSPHATASE 50 U/L (38-126); ANION GAP 6 (5-19); ASPARTATE AMINO TRANSFERASE 60 U/L (14-36); BILIRUBIN,TOTAL 0.4 mg/dL (0.2-1.3); BLOOD UREA NITROGEN 34 mg/dL (7-20); CARBON DIOXIDE 27 mmol/L (22-30); CHLORIDE 105 mmol/L (98-107); GLUCOSE 91 mg/dL (75-110); POTASSIUM 4.3 mmol/L (3.6-5.0); TOTAL PROTEIN 6.2 g/dL (6.3-8.2)
--- NOTE | 2020-01-23 10:37 | RADIOLOGY REPORT (SQ) ---
EXAM DESCRIPTION: CHEST SINGLE VIEW IMAGES COMPLETED DATE/TIME: 01/23/2020 10:23 am REASON FOR STUDY: pneumonia COMPARISON: 01/22/2020 and 01/03/2020. EXAM PARAMETERS: NUMBER OF VIEWS: One view. TECHNIQUE: Single frontal radiographic view of the chest acquired. RADIATION DOSE: NA LIMITATIONS: None. FINDINGS: LUNGS AND PLEURA: Fairly extensive airspace disease in the left lower lobe and patchy airs pace disease in the right lung. MEDIASTINUM AND HILAR STRUCTURES: No masses. Contour normal. HEART AND VASCULAR STRUCTURES: Cardiomegaly. BONES: No acute findings. HARDWARE: None in the chest. OTHER: No other significant finding. IMPRESSION: NO SIGNIFICANT CHANGE IN APPEARANCE OF THE CHEST. FINDINGS APPARENTLY DUE TO A COMBINAT ION OF PULMONARY FIBROSIS WITH SUPERIMPOSED INFECTION. TECHNICAL DOCUMENTATION: JOB ID: [id number] 2010 [email or web address]- All Rights Reserved Reading location - IP/workstation name: [email or web address]
[2020-01-23] MEDS: GLIMEPIRIDE 1 MG TABLET PO SCH (10:46)
[2020-01-23] MEDS: AMLODIPINE BESYLATE 2.5 MG TABLET PO SCH ×2 (10:46→22:28)
[2020-01-23] MEDS: POTASSIUM CHLORIDE 10 MEQ TABLET.ER PO SCH (10:47)
[2020-01-23] MEDS: TIMOLOL MALEATE 0.5% OPH SOLN 5 ML OU SCH ×2 (10:47→18:04)
[2020-01-23] MEDS: BRIMONIDINE TARTRATE 0.2% OPH SOLN 5 ML OU SCH ×2 (10:47→18:04)
[2020-01-23] MEDS: INSULIN LISPRO 100 UNIT/ML 3 ML VIAL SUBCUT SCH ×4 (10:49→22:24)
[2020-01-23] MEDS: DOCUSATE SODIUM 100 MG CAPSULE PO SCH ×2 (10:49→22:20)
[2020-01-23] MEDS: GUAIFENESIN SYRP 200 MG/10 ML UDC PO PRN ×2 (10:54→17:53)
[2020-01-23] MEDS: INSULIN GLARGINE,HUM.REC.ANLOG 1,000 UNIT/10 ML VIAL SUBCUT SCH (18:05)
--- NOTE | 2020-01-23 19:34 | RADIOLOGY REPORT (SQ) ---
EXAM DESCRIPTION: CT CHEST WITHOUT IMAGES COMPLETED DATE/TIME: 01/23/2020 5:57 pm REASON FOR STUDY: interstitial lung disease. COMPARISON: 01/05/2020. Chest radiograph, same date. Chest radiograph, 01/22/2020. Chest radiograph , 01/21/2020. TECHNIQUE: CT scan performed of the chest without intravenous contrast. Images reviewed with lung, soft tissue and bone windows. Reconstructed coronal and sagittal MPR images reviewed. All images st ored on PACS. All CT scanners at this facility use dose modulation, iterative reconstruction, and/or weight based d osing when appropriate to reduce radiation dose to as low as reasonably achievable (ALARA). [facility]: Dose Right [facility]: CareDose [facility]: Dose Right [facility]: Teradose 4D [facility]: [employer] RADIATION DOSE: CT Rad equipment meets quality standard of care and radiation dose reduction techniq ues were employed. CTDIvol: 14.4 mGy. DLP: 453 mGy-cm. mGy. LIMITATIONS: No technical limitations. FINDINGS: LUNGS AND PLEURA: Trachea has normal caliber and appearance. Diffuse patchy areas of grou nd-glass attenuation and areas of consolidation with associated bronchiectasis, progressed since prev ious. Small bilateral pleural effusions. No pneumothorax. HILAR AND MEDIASTINAL STRUCTURES: Enlarged mediastinal lymph nodes, for example a precarinal node onur sures 2.2 x 1.6 cm. An aortocaval node measures 1.1 by 1.0 cm. HEART AND VASCULAR STRUCTURES: There is moderate cardiomegaly. No pericardial effusion. Thoracic ao rta has normal caliber. There is calcified atherosclerotic plaque in the descending aorta. No peria ortic fluid. The pulmonary arteries are enlarged with main pulmonary artery measuring 40 mm, right p ulmonary artery measuring 32 mm and left pulmonary artery measuring 32 mm. UPPER ABDOMEN: No significant findings. Limited exam. THYROID AND OTHER SOFT TISSUES: No masses. No adenopathy. BONES: No significant finding. HARDWARE: None in the chest. OTHER: No other significant findings. IMPRESSION: 1. Worsening areas of ground-glass attenuation in both lungs, consistent with worsening infectious/ i nflammatory process. Imaging features can be seen with covid pneumonia, though are nonspecific and c an occur with a variety of infectious and noninfectious processes. This is likely superimposed on chr onic interstitial lung disease particularly in the lower lobes. 2. Moderate cardiomegaly and small pericardial effusions. Probable superimposed mild pulmonary edema . 3. Enlarged pulmonary arteries which can be seen with pulmonary arterial hypertension. 4. Mildly prominent mediastinal lymph nodes. These may be reactive. TECHNICAL DOCUMENTATION: JOB ID: [id number] Quality ID # [id number]: Final reports with documentation of one or more dose reduction techniques (e.g., Au tomated exposure control, adjustment of the mA and/or kV according to patient size, use of iterative reconstruction technique) 2010 [employer]- All Rights Reserved Reading location - IP/workstation name: [email or web address]
[2020-01-23 21:43] LABS: VANCOMYCIN,TROUGH 18.7 ug/mL (5.0-20.0)
--- NOTE | 2020-01-23 21:55 | PDOC PROGRESS REPORT ---
Subjective Progress Note for:: 01/23/20 Subjective:: Patient seen by the bedside, her condition continues to smolder along, CT chest without contrast was obtained, it demonstrated diffuse patchy areas of ground glass attenuation and areas of consolidation with associated bronchiectasis, progressed since previous. Small bilateral pleural effusion no pneumothorax. There is moderate thyromegaly, no pericardial effusion a thoracic aorta has a normal caliber. There is calcified atherosclerotic plaque in the descending aorta Reason For Visit: RHABDOMYOLYSIS,FALL,IL CKD STAGE 3 Physical Exam Vital Signs: Temp Pulse Resp BP Pulse Ox 98.1 F 75 17 118/48 L 91 L 01/23/20 16:20 01/23/20 19:00 01/23/20 16:20 01/23/20 16:20 01/23/20 20:01 Intake & Output 01/22/20 01/23/20 01/24/20 06:59 06:59 06:59 Intake Total 1480 1140 1166 Output Total 1250 775 450 Balance 230 365 716 Weight 78 kg 82.5 kg 82.5 kg General appearance: PRESENT: no acute distress Eye exam: PRESENT: PERRLA Respiratory exam: PRESENT: rales Cardiovascular exam: PRESENT: +S1, +S2 GI/Abdominal exam: PRESENT: soft Neurological exam: PRESENT: alert Results Laboratory Results: 01/23/20 06:05 01/23/20 06:05 01/23/20 01/23/20 06:05 06:05 WBC 8.5 RBC 3.39 L Hgb 9.1 L Hct 27.6 L MCV 82 MCH 26.7 L MCHC 32.8 RDW 16.7 H Plt Count 201 Seg Neutrophils % 62.6 Sodium 137.5 Potassium 4.3 Chloride 105 Carbon Dioxide 27 Anion Gap 6 BUN 34 H Creatinine 1.42 H Est GFR ( Amer) 44 L Glucose 91 Calcium 9.0 Total Bilirubin 0.4 AST 60 H Alkaline Phosphatase 50 Total Protein 6.2 L Albumin 2.5 L 01/03/20 01/03/20 01/04/20 14:06 14:06 17:50 Creatine Kinase 2539 H 1453 H CK-MB (CK-2) Troponin I 0.086 NT-Pro-B Natriuret Pep 2860 H 01/04/20 01/04/20 01/04/20 17:50 23:00 23:00 Creatine Kinase 1293 H CK-MB (CK-2) 41.00 H 31.90 H Troponin I 0.107 0.097 NT-Pro-B Natriuret Pep 2690 H 01/05/20 01/05/20 01/06/20 05:30 05:30 05:47 Creatine Kinase 1151 H 1197 H CK-MB (CK-2) 24.20 H Troponin I 0.092 NT-Pro-B Natriuret Pep 01/07/20 01/10/20 01/10/20 06:12 13:10 13:10 Creatine Kinase 1255 H 1181 H CK-MB (CK-2) 16.90 H Troponin I 0.098 NT-Pro-B Natriuret Pep 01/10/20 01/10/20 01/11/20 18:11 18:11 01:01 Creatine Kinase 1244 H 1203 H CK-MB (CK-2) 15.60 H Troponin I 0.125 NT-Pro-B Natriuret Pep 5900 H 01/11/20 01/12/20 01/18/20 01:01 08:23 06:12 Creatine Kinase 643 H CK-MB (CK-2) 14.20 H Troponin I 0.226 0.226 NT-Pro-B Natriuret Pep Impressions: Head CT 01/03/20 14:14 IMPRESSION: CHRONIC CHANGES OF ATROPHY AND MICROVASCULAR ISCHEMIA. OLD RIGHT CEREBELLAR INFARCT. NO ACUTE PROCESS. EVIDENCE OF ACUTE STROKE: NO. Head MRI 01/04/20 00:00 IMPRESSION: ATROPHY AND CHRONIC MICRO-VASCULAR ISCHEMIC CHANGES. OLD CEREBELLAR INFARCTS, RIGHT GREATER THAN LEFT. NO ACUTE FINDINGS. EVIDENCE OF ACUTE STROKE: NO. Foot X-Ray 01/07/20 09:00 IMPRESSION: No acute osseous abnormality of the left foot. Chest Ultrasound 01/14/20 00:00 IMPRESSION: Insufficient fluid for thoracentesis. Chest CT 01/23/20 00:00 IMPRESSION: 1. Worsening areas of ground-glass attenuation in both lungs, consistent with worsening infectious/ inflammatory process. Imaging features can be seen with covid pneumonia, though are nonspecific and can occur with a variety of infectious and noninfectious processes. This is likely superimposed on chronic interstitial lung disease particularly in the lower lobes. 2. Moderate cardiomegaly and small pericardial effusions. Probable superimposed mild pulmonary edema. 3. Enlarged pulmonary arteries which can be seen with pulmonary arterial hypertension. 4. Mildly prominent mediastinal lymph nodes. These may be reactive. Chest X-Ray 01/23/20 00:00 IMPRESSION: NO SIGNIFICANT CHANGE IN APPEARANCE OF THE CHEST. FINDINGS APPARENTLY DUE TO A COMBINATION OF PULMONARY FIBROSIS WITH SUPERIMPOSED INFECTION. Assessment & Plan - Diagnosis (1) Rhabdomyolysis Qualifiers: Rhabdomyolysis type: traumatic Encounter type: initial encounter Qualified Code(s): T79.6XXA - Traumatic ischemia of muscle, initial encounter Is this a current diagnosis for this admission?: Yes (2) Chronic kidney disease, stage 3 Is this a current diagnosis for this admission?: Yes (3) Fall Qualifiers: Encounter type: initial encounter Qualified Code(s): W19.XXXA - Unspecified fall, initial encounter Is this a current diagnosis for this admission?: Yes (4) T2DM (type 2 diabetes mellitus) Qualifiers: Diabetes mellitus terminal worker insulin use: with penitentiary use Diabetes mellitus complication status: with kidney complications Diabetes mellitus complication detail: with chronic kidney disease Chronic kidney disease stage: stage 3 (moderate) Qualified Code(s): E11.22 - Type 2 diabetes mellitus with diabetic chronic kidney disease; N18.3 - Chronic kidney disease, stage 3 (moderate); Z79.4 - petroleum terminal plant operator (current) use of insulin Is this a current diagnosis for this admission?: Yes (5) Cerebellar infarction Is this a current diagnosis for this admission?: Yes (6) Aspiration pneumonia Qualifiers: Aspiration pneumonia type: unspecified Laterality: bilateral Lung location: unspecified part of lung Qualified Code(s): J69.0 - Pneumonitis due to inhalation of food and vomit Is this a current diagnosis for this admission?: Yes (7) Elevated troponin Is this a current diagnosis for this admission?: Yes (8) Pleural effusion Is this a current diagnosis for this admission?: Yes (9) Pneumonia Qualifiers: Pneumonia type: due to unspecified organism Laterality: bilateral Lung location: unspecified part of lung Qualified Code(s): J18.9 - Pneumonia, unspecified organism Is this a current diagnosis for this admission?: Yes (10) Acute hypoxemic respiratory failure Is this a current diagnosis for this admission?: Yes (11) Nosocomial pneumonia Is this a current diagnosis for this admission?: Yes Plan: Continue IV antibiotic, vancomycin, Zosyn, oxygen via nasal cannula - Time Time Spent with patient: 25-34 minutes Level of Care: IMCU Medications reviewed and adjusted accordingly: Yes
[2020-01-23] MEDS: VANCOMYCIN HCL 1,000 MG in DEXTROSE 5%-WATER 250 ML IV SCH (22:28)
--- NOTE | 2020-01-24 00:13 | RADIOLOGY REPORT (SQ) ---
EXAM DESCRIPTION: XR CHEST 1 VIEW COMPLETED DATE/TME: 01/23/2020 00:00 CLINICAL HISTORY: 74 years, Female, respiratory distress COMPARISON: 01/23/2020 chest x-ray at 9:47 AM NUMBER OF VIEWS: 1 TECHNIQUE: Portable chest LIMITATIONS: None. FINDINGS: Stable cardiomegaly. Atheromatous change thoracic aorta. Osteopenia. No pneumothorax. Mixed interstitial and airspace opacities bilaterally IMPRESSION: Little interval change. copyright 2010 [employer]- All Rights Reserved
[2020-01-24] MEDS: PIPERACILLIN SODIUM/TAZOBACTAM 3.375 GM in NORMAL SALINE 100 ML IV SCH ×5 (00:31→23:24)
[2020-01-24] MEDS: METOPROLOL TARTRATE 50 MG TABLET PO SCH ×2 (06:37→18:26)
[2020-01-24] MEDS: INSULIN LISPRO 100 UNIT/ML 3 ML VIAL SUBCUT SCH ×4 (09:13→21:45)
[2020-01-24] MEDS: GLIMEPIRIDE 1 MG TABLET PO SCH (09:58)
[2020-01-24] MEDS: DOCUSATE SODIUM 100 MG CAPSULE PO SCH ×2 (09:58→18:26)
[2020-01-24] MEDS: POTASSIUM CHLORIDE 10 MEQ TABLET.ER PO SCH (10:01)
[2020-01-24] MEDS: AMLODIPINE BESYLATE 2.5 MG TABLET PO SCH ×2 (10:02→21:49)
[2020-01-24] MEDS: TIMOLOL MALEATE 0.5% OPH SOLN 5 ML OU SCH ×2 (10:02→18:25)
[2020-01-24] MEDS: BRIMONIDINE TARTRATE 0.2% OPH SOLN 5 ML OU SCH ×2 (10:03→18:26)
--- NOTE | 2020-01-24 17:33 | PDOC PROGRESS REPORT ---
Subjective Progress Note for:: 01/24/20 Subjective:: Patient seen by the bedside there is no new complaints, Patient supposedly and a choking episode today on water speech was consulted Reason For Visit: RHABDOMYOLYSIS,FALL,AL CKD STAGE 3 Physical Exam Vital Signs: Temp Pulse Resp BP Pulse Ox 98.5 F 66 24 H 125/52 L 100 01/24/20 08:08 01/24/20 08:08 01/24/20 08:08 01/24/20 08:08 01/24/20 08:08 Intake & Output 01/23/20 01/24/20 01/25/20 06:59 06:59 06:59 Intake Total 1390 1666 100 Output Total 775 1125 Balance 615 541 100 Weight 82.5 kg 81.4 kg General appearance: PRESENT: no acute distress Eye exam: PRESENT: PERRLA Respiratory exam: PRESENT: rales Cardiovascular exam: PRESENT: +S1, +S2 GI/Abdominal exam: PRESENT: soft Neurological exam: PRESENT: alert, CN II-XII grossly intact Results Laboratory Results: 01/23/20 06:05 01/23/20 21:21 01/23/20 21:21 Creatinine 1.37 H Est GFR ( Amer) 45 L 01/03/20 01/03/20 01/04/20 14:06 14:06 17:50 Creatine Kinase 2539 H 1453 H CK-MB (CK-2) Troponin I 0.086 NT-Pro-B Natriuret Pep 2860 H 01/04/20 01/04/20 01/04/20 17:50 23:00 23:00 Creatine Kinase 1293 H CK-MB (CK-2) 41.00 H 31.90 H Troponin I 0.107 0.097 NT-Pro-B Natriuret Pep 2690 H 01/05/20 01/05/20 01/06/20 05:30 05:30 05:47 Creatine Kinase 1151 H 1197 H CK-MB (CK-2) 24.20 H Troponin I 0.092 NT-Pro-B Natriuret Pep 01/07/20 01/10/20 01/10/20 06:12 13:10 13:10 Creatine Kinase 1255 H 1181 H CK-MB (CK-2) 16.90 H Troponin I 0.098 NT-Pro-B Natriuret Pep 01/10/20 01/10/20 01/11/20 18:11 18:11 01:01 Creatine Kinase 1244 H 1203 H CK-MB (CK-2) 15.60 H Troponin I 0.125 NT-Pro-B Natriuret Pep 5900 H 01/11/20 01/12/20 01/18/20 01:01 08:23 06:12 Creatine Kinase 643 H CK-MB (CK-2) 14.20 H Troponin I 0.226 0.226 NT-Pro-B Natriuret Pep Impressions: Head CT 01/03/20 14:14 IMPRESSION: CHRONIC CHANGES OF ATROPHY AND MICROVASCULAR ISCHEMIA. OLD RIGHT CEREBELLAR INFARCT. NO ACUTE PROCESS. EVIDENCE OF ACUTE STROKE: NO. Head MRI 01/04/20 00:00 IMPRESSION: ATROPHY AND CHRONIC MICRO-VASCULAR ISCHEMIC CHANGES. OLD C EREBELLAR INFARCTS, RIGHT GREATER THAN LEFT. NO ACUTE FINDINGS. EVIDENCE OF ACUTE STROKE: NO. Foot X-Ray 01/07/20 09:00 IMPRESSION: No acute osseous abnormality of the left foot. Chest Ultrasound 01/14/20 00:00 IMPRESSION: Insufficient fluid for thoracentesis. Chest CT 01/23/20 00:00 IMPRESSION: 1. Worsening areas of ground-glass attenuation in both lungs, consistent with worsening infectious/ inflammatory process. Imaging features can be seen with covid pneumonia, though are nonspecific and can occur with a variety of infectious and noninfectious processes. This is likely superimposed on chronic interstitial lung disease particularly in the lower lobes. 2. Moderate cardiomegaly and small pericardial effusions. Probable superimposed mild pulmonary edema. 3. Enlarged pulmonary arteries which can be seen with pulmonary arterial hypertension. 4. Mildly prominent mediastinal lymph nodes. These may be reactive. Chest X-Ray 01/23/20 00:00 IMPRESSION: Little interval change. copyright 2010 [employer]- All Rights Reserved Assessment & Plan - Diagnosis (1) Rhabdomyolysis Qualifiers: Rhabdomyolysis type: traumatic Encounter type: initial encounter Qualified Code(s): T79.6XXA - Traumatic ischemia of muscle, initial encounter Is this a current diagnosis for this admission?: Yes (2) Chronic kidney disease, stage 3 Is this a current diagnosis for this admission?: Yes (3) Fall Qualifiers: Encounter type: initial encounter Qualified Code(s): W19.XXXA - Unspecified fall, initial encounter Is this a current diagnosis for this admission?: Yes (4) T2DM (type 2 diabetes mellitus) Qualifiers: Diabetes mellitus alf insulin use: with exterminator helper termite use Diabetes mellitus complication status: with kidney complications Diabetes mellitus complication detail: with chronic kidney disease Chronic kidney disease stage: stage 3 (moderate) Qualified Code(s): E11.22 - Type 2 diabetes mellitus with diabetic chronic kidney disease; N18.3 - Chronic kidney disease, stage 3 (moderate); Z79.4 - intermediate school teacher (current) use of insulin Is this a current diagnosis for this admission?: Yes (5) Cerebellar infarction Is this a current diagnosis for this admission?: Yes (6) Aspiration pneumonia Qualifiers: Aspiration pneumonia type: unspecified Laterality: bilateral Lung location: unspecified part of lung Qualified Code(s): J69.0 - Pneumonitis due to inhalation of food and vomit Is this a current diagnosis for this admission?: Yes (7) Elevated troponin Is this a current diagnosis for this admission?: Yes (8) Pleural effusion Is this a current diagnosis for this admission?: Yes (9) Pneumonia Qualifiers: Pneumonia type: due to unspecified organism Laterality: bilateral Lung location: unspecified part of lung Qualified Code(s): J18.9 - Pneumonia, unspe cified organism Is this a current diagnosis for this admission?: Yes (10) Acute hypoxemic respiratory failure Is this a current diagnosis for this admission?: Yes (11) Nosocomial pneumonia Is this a current diagnosis for this admission?: Yes Plan: Continue IV antibiotic - Time Time Spent with patient: 35 or more minutes Level of Care: CU
[2020-01-24] MEDS: INSULIN GLARGINE,HUM.REC.ANLOG 1,000 UNIT/10 ML VIAL SUBCUT SCH (18:26)
[2020-01-24 18:55] LABS: ABSOLUTE BASOPHILS # (AUTO) 0.1 10^3/uL (0.0-0.2); ABSOLUTE EOSINOPHILS # (AUTO) 0.5 10^3/uL (0.0-0.6); ABSOLUTE LYMPHOCYTES (AUTO) 1.8 10^3/uL (0.5-4.7); ABSOLUTE MONOCYTES (AUTO) 0.8 10^3/uL (0.1-1.4); ABSOLUTE NEUT (AUTO) 7.2 10^3/uL (1.7-8.2); BASOPHILS % (AUTO) 0.7 % (0-2); EOSINOPHILS % (AUTO) 4.7 % (0-6); HEMATOCRIT 27.6 % (36.0-47.0); HEMOGLOBIN 9.1 g/dL (12.0-15.5); LYMPHOCYTES % (AUTO) 17.5 % (13-45); MEAN CORPUSCULAR HEMOGLOBIN 26.7 pg (27.0-33.4); MEAN CORPUSCULAR HGB CONC 32.8 g/dL (32.0-36.0); MEAN CORPUSCULAR VOLUME 81 fl (80-97); MONOCYTES % (AUTO) 7.4 % (3-13); PLATELET COUNT 216 10^3/uL (150-450); RED BLOOD COUNT 3.39 10^6/uL (3.72-5.28); RED CELL DISTRIBUTION WIDTH 16.7 % (11.5-14.0); SEGMENTED NEUTROPHILS % (AUTO) 69.7 % (42-78); TOTAL CELLS COUNTED % (AUTO) 100 %; WHITE BLOOD COUNT 10.4 10^3/uL (4.0-10.5)
[2020-01-24 19:15] LABS: ALBUMIN 2.7 g/dL (3.5-5.0); ALKALINE PHOSPHATASE 60 U/L (38-126); ANION GAP 5 (5-19); ASPARTATE AMINO TRANSFERASE 63 U/L (14-36); BILIRUBIN,TOTAL 0.4 mg/dL (0.2-1.3); BLOOD UREA NITROGEN 29 mg/dL (7-20); CALCIUM 9.3 mg/dL (8.4-10.2); CARBON DIOXIDE 25 mmol/L (22-30); CHLORIDE 108 mmol/L (98-107); GLUCOSE 108 mg/dL (75-110); POTASSIUM 4.9 mmol/L (3.6-5.0); TOTAL PROTEIN 6.7 g/dL (6.3-8.2)
[2020-01-24] MEDS: BENZONATATE 100 MG CAPSULE PO PRN (21:49)
[2020-01-24] MEDS: VANCOMYCIN HCL 1,000 MG in DEXTROSE 5%-WATER 250 ML IV SCH (21:59)
[2020-01-25] MEDS: GUAIFENESIN SYRP 200 MG/10 ML UDC PO PRN ×3 (01:14→17:50)
[2020-01-25] MEDS: METOPROLOL TARTRATE 50 MG TABLET PO SCH ×2 (05:26→17:42)
[2020-01-25] MEDS: PIPERACILLIN SODIUM/TAZOBACTAM 3.375 GM in NORMAL SALINE 100 ML IV SCH ×4 (05:26→23:26)
[2020-01-25 06:03] LABS: ABSOLUTE EOSINOPHILS # (AUTO) 0.4 10^3/uL (0.0-0.6); ABSOLUTE LYMPHOCYTES (AUTO) 2.1 10^3/uL (0.5-4.7); ABSOLUTE MONOCYTES (AUTO) 0.8 10^3/uL (0.1-1.4); ABSOLUTE NEUT (AUTO) 6.2 10^3/uL (1.7-8.2); BASOPHILS % (AUTO) 0.4 % (0-2); EOSINOPHILS % (AUTO) 4.1 % (0-6); HEMOGLOBIN 8.7 g/dL (12.0-15.5); LYMPHOCYTES % (AUTO) 22.2 % (13-45); MEAN CORPUSCULAR HEMOGLOBIN 26.2 pg (27.0-33.4); MEAN CORPUSCULAR HGB CONC 32.1 g/dL (32.0-36.0); MEAN CORPUSCULAR VOLUME 82 fl (80-97); MONOCYTES % (AUTO) 8.7 % (3-13); PLATELET COUNT 204 10^3/uL (150-450); RED BLOOD COUNT 3.31 10^6/uL (3.72-5.28); RED CELL DISTRIBUTION WIDTH 16.7 % (11.5-14.0); SEGMENTED NEUTROPHILS % (AUTO) 64.6 % (42-78); TOTAL CELLS COUNTED % (AUTO) 100 %; WHITE BLOOD COUNT 9.6 10^3/uL (4.0-10.5)
[2020-01-25 06:30] LABS: ALBUMIN 2.6 g/dL (3.5-5.0); ALKALINE PHOSPHATASE 51 U/L (38-126); ANION GAP 5 (5-19); ASPARTATE AMINO TRANSFERASE 49 U/L (14-36); BILIRUBIN,TOTAL 0.5 mg/dL (0.2-1.3); BLOOD UREA NITROGEN 27 mg/dL (7-20); CALCIUM 9.4 mg/dL (8.4-10.2); CARBON DIOXIDE 26 mmol/L (22-30); CHLORIDE 108 mmol/L (98-107); GLUCOSE 104 mg/dL (75-110); POTASSIUM 4.9 mmol/L (3.6-5.0); TOTAL PROTEIN 6.6 g/dL (6.3-8.2)
[2020-01-25] MEDS: GLIMEPIRIDE 1 MG TABLET PO SCH (09:46)
[2020-01-25] MEDS: DOCUSATE SODIUM 100 MG CAPSULE PO SCH ×2 (09:47→17:36)
[2020-01-25] MEDS: INSULIN LISPRO 100 UNIT/ML 3 ML VIAL SUBCUT SCH ×4 (09:51→21:52)
[2020-01-25] MEDS: AMLODIPINE BESYLATE 2.5 MG TABLET PO SCH ×2 (10:01→21:18)
[2020-01-25] MEDS: BENZONATATE 100 MG CAPSULE PO PRN ×3 (10:01→17:50)
[2020-01-25] MEDS: POTASSIUM CHLORIDE 10 MEQ TABLET.ER PO SCH (10:01)
[2020-01-25] MEDS: TIMOLOL MALEATE 0.5% OPH SOLN 5 ML OU SCH ×2 (10:01→17:43)
[2020-01-25] MEDS: BRIMONIDINE TARTRATE 0.2% OPH SOLN 5 ML OU SCH ×2 (10:02→17:43)
[2020-01-25] MEDS: ENOXAPARIN SODIUM INJ 30 MG/0.3 ML DISP.SYRIN SUBCUT SCH (12:40)
--- NOTE | 2020-01-25 13:30 | PDOC PROGRESS REPORT ---
Subjective Progress Note for:: 01/25/20 Subjective:: Patient seen by the bedside, she is improving Reason For Visit: RHABDOMYOLYSIS,FALL,MT CKD STAGE 3 Physical Exam Vital Signs: Temp Pulse Resp BP Pulse Ox 98.3 F 70 15 121/65 91 L 01/25/20 11:31 01/25/20 11:31 01/25/20 11:31 01/25/20 11:31 01/25/20 11:31 Intake & Output 01/24/20 01/25/20 01/26/20 06:59 06:59 06:59 Intake Total 1666 1387 Output Total 1125 950 Balance 541 437 Weight 81.4 kg 82.2 kg General appearance: PRESENT: no acute distress Eye exam: PRESENT: PERRLA Respiratory exam: PRESENT: clear to auscultation freddy Cardiovascular exam: PRESENT: +S1, +S2 GI/Abdominal exam: PRESENT: soft Neurological exam: PRESENT: alert Results Laboratory Results: 01/25/20 05:35 01/25/20 05:35 01/24/20 01/24/20 01/25/20 18:43 18:43 05:35 WBC 10.4 9.6 RBC 3.39 L 3.31 L Hgb 9.1 L 8.7 L Hct 27.6 L 27.0 L MCV 81 82 MCH 26.7 L 26.2 L MCHC 32.8 32.1 RDW 16.7 H 16.7 H Plt Count 216 204 Seg Neutrophils % 69.7 64.6 Sodium 137.6 Potassium 4.9 Chloride 108 H Carbon Dioxide 25 Anion Gap 5 BUN 29 H Creatinine 1.32 H Est GFR ( Amer) 47 L Glucose 108 Calcium 9.3 Total Bilirubin 0.4 AST 63 H Alkaline Phosphatase 60 Total Protein 6.7 Albumin 2.7 L 01/25/20 05:35 WBC RBC Hgb Hct MCV MCH MCHC RDW Plt Count Seg Neutrophils % Sodium 138.5 Potassium 4.9 Chloride 108 H Carbon Dioxide 26 Anion Gap 5 BUN 27 H Creatinine 1.41 H Est GFR ( Amer) 44 L Glucose 104 Calcium 9.4 Total Bilirubin 0.5 AST 49 H Alkaline Phosphatase 51 Total Protein 6.6 Albumin 2.6 L 01/03/20 01/03/20 01/04/20 14:06 14:06 17:50 Creatine Kinase 2539 H 1453 H CK-MB (CK-2) Troponin I 0.086 NT-Pro-B Natriuret Pep 2860 H 01/04/20 01/04/20 01/04/20 17:50 23:00 23:00 Creatine Kinase 1293 H CK-MB (CK-2) 41.00 H 31.90 H Troponin I 0.107 0.097 NT-Pro-B Natriuret Pep 2690 H 01/05/20 01/05/20 01/06/20 05:30 05:30 05:47 Creatine Kinase 1151 H 1197 H CK-MB (CK-2) 24.20 H Troponin I 0.092 NT-Pro-B Natriuret Pep 01/07/20 01/10/20 01/10/20 06:12 13:10 13:10 Creatine Kinase 1255 H 1181 H CK-MB (CK-2) 16.90 H Troponin I 0.098 NT-Pro-B Natriuret Pep 01/10/20 01/10/20 01/11/20 18:11 18:11 01:01 Creatine Kinase 1244 H 1203 H CK-MB (CK-2) 15.60 H Troponin I 0.125 NT-Pro-B Natriuret Pep 5900 H 01/11/20 01/12/20 01/18/20 01:01 08:23 06:12 Creatine Kinase 643 H CK-MB (CK-2) 14.20 H Troponin I 0.226 0.226 NT-Pro-B Natriuret Pep Impressions: Head CT 01/03/20 14:14 IMPRESSION: CHRONIC CHANGES OF ATROPHY AND MICROVASCULAR ISCHEMIA. OLD RIGHT CEREBELLAR INFARCT. NO ACUTE PROCESS. EVIDENCE OF ACUTE STROKE: NO. Head MRI 01/04/20 00:00 IMPRESSION: ATROPHY AND CHRONIC MICRO-VASCULAR ISCHEMIC CHANGES. OLD CEREBELLAR INFARCTS, RIGHT GREATER THAN LEFT. NO ACUTE FINDINGS. EVIDENCE OF ACUTE STROKE: NO. Foot X-Ray 01/07/20 09:00 IMPRESSION: No acute osseous abnormality of the left foot. Chest Ultrasound 01/14/20 00:00 IMPRESSION: Insufficient fluid for thoracentesis. Chest CT 01/23/20 00:00 IMPRESSION: 1. Worsening areas of ground-glass attenuation in both lungs, consistent with worsening infectious/ inflammatory process. Imaging features can be seen with covid pneumonia, though are nonspecific and can occur with a variety of infectious and noninfectious processes. This is likely superimposed on chronic interstitial lung disease particularly in the lower lobes. 2. Moderate cardiomegaly and small pericardial effusions. Probable superimposed mild pulmonary edema. 3. Enlarged pulmonary arteries which can be seen with pulmonary arterial hypertension. 4. Mildly prominent mediastinal lymph nodes. These may be reactive. Chest X-Ray 01/23/20 00:00 IMPRESSION: Little interval change. copyright 2011 [employer]- All Rights Reserved Assessment & Plan - Diagnosis (1) Rhabdomyolysis Qualifiers: Rhabdomyolysis type: traumatic Encounter type: initial encounter Qualified Code(s): T79.6XXA - Traumatic ischemia of muscle, initial encounter Is this a current diagnosis for this admission?: Yes (2) Chronic kidney disease, stage 3 Is this a current diagnosis for this admission?: Yes (3) Fall Qualifiers: Encounter type: initial encounter Qualified Code(s): W19.XXXA - Unspecified fall, initial encounter Is this a current diagnosis for this admission?: Yes (4) T2DM (type 2 diabetes mellitus) Qualifiers: Diabetes mellitus long term care pharmacist insulin use: with skilled nursing use Diabetes halima litus complication status: with kidney complications Diabetes mellitus co mplication detail: with chronic kidney disease Chronic kidney disease stage: stage 3 (moderate) Qualified Code(s): E11.22 - Type 2 diabetes mellitus with diabetic chronic kidney disease; N18.3 - Chronic kidney disease, stage 3 (modera te); Z79.4 - skilled nursing (current) use of insulin Is this a current diagnosis for this admission?: Yes (5) Cerebellar infarction Is this a current diagnosis for this admission?: Yes (6) Aspiration pneumonia Qualifiers: Aspiration pneumonia type: unspecified Laterality: bilateral Lung location: unspecified part of lung Qualified Code(s): J69.0 - Pneumonitis due to inhalation of food and vomit Is this a current diagnosis for this admission?: Yes (7) Elevated troponin Is this a current diagnosis for this admission?: Yes (8) Pleural effusion Is this a current diagnosis for this admission?: Yes (9) Pneumonia Qualifiers: Pneumonia type: due to unspecified organism Laterality: bilateral Lung location: unspecified part of lung Qualified Code(s): J18.9 - Pneumonia, unspecified organism Is this a current diagnosis for this admission?: Yes (10) Acute hypoxemic respiratory failure Is this a current diagnosis for this admission?: Yes (11) Nosocomial pneumonia Is this a current diagnosis for this admission?: Yes Plan: Continue IV antibiotic - Time Time Spent with patient: 25-34 minutes Level of Care: IMCU
[2020-01-25] MEDS: INSULIN GLARGINE,HUM.REC.ANLOG 1,000 UNIT/10 ML VIAL SUBCUT SCH (17:36)
[2020-01-25] MEDS: VANCOMYCIN HCL 1,000 MG in DEXTROSE 5%-WATER 250 ML IV SCH (21:19)
[2020-01-26] MEDS: GUAIFENESIN SYRP 200 MG/10 ML UDC PO PRN (03:23)
[2020-01-26] MEDS: METOPROLOL TARTRATE 50 MG TABLET PO SCH ×2 (05:15→17:49)
[2020-01-26] MEDS: PIPERACILLIN SODIUM/TAZOBACTAM 3.375 GM in NORMAL SALINE 100 ML IV SCH ×3 (05:15→17:48)
[2020-01-26] MEDS: POTASSIUM CHLORIDE 10 MEQ TABLET.ER PO SCH (09:18)
[2020-01-26] MEDS: AMLODIPINE BESYLATE 2.5 MG TABLET PO SCH ×2 (09:18→22:11)
[2020-01-26] MEDS: ENOXAPARIN SODIUM INJ 30 MG/0.3 ML DISP.SYRIN SUBCUT SCH (09:18)
[2020-01-26] MEDS: GLIMEPIRIDE 1 MG TABLET PO SCH (09:18)
[2020-01-26] MEDS: TIMOLOL MALEATE 0.5% OPH SOLN 5 ML OU SCH ×2 (09:18→17:49)
[2020-01-26] MEDS: BRIMONIDINE TARTRATE 0.2% OPH SOLN 5 ML OU SCH ×2 (09:19→18:07)
[2020-01-26] MEDS: DOCUSATE SODIUM 100 MG CAPSULE PO SCH ×2 (09:19→17:44)
[2020-01-26] MEDS: INSULIN LISPRO 100 UNIT/ML 3 ML VIAL SUBCUT SCH ×4 (09:20→22:07)
[2020-01-26 11:07] LABS: ARTERIAL BLOOD BASE EXCESS 0.2 mmol/L; ARTERIAL BLOOD H2CO3 0.96 mmol/L (1.05-1.35); ARTERIAL BLOOD HCO3 23.3 mmol/L (20-24); ARTERIAL BLOOD O2 SATURATION 92.2 % (94-98); ARTERIAL BLOOD PCO2 31.9 mmHg (35-45); ARTERIAL BLOOD PH 7.48 (7.35-7.45); ARTERIAL BLOOD PO2 57.6 mmHg (80-100); ARTERIAL BLOOD TOTAL CO2 24.3 mmol/L (21-25)
[2020-01-26] MEDS ORDERED: IPRATROPIUM/ALBUTEROL 0.5-2.5 MG/3 ML AMPUL NEB PRN (11:14)
[2020-01-26 11:23] LABS: ARTERIAL BLOOD FIO2 35%
--- NOTE | 2020-01-26 14:01 | RADIOLOGY REPORT (SQ) ---
EXAM DESCRIPTION: CHEST SINGLE VIEW IMAGES COMPLETED DATE/TIME: 01/26/2020 1:48 pm REASON FOR STUDY: pneumonia COMPARISON: 01/23/2020 EXAM PARAMETERS: NUMBER OF VIEWS: One view. TECHNIQUE: Single frontal radiographic view of the chest acquired. RADIATION DOSE: NA LIMITATIONS: None. FINDINGS: LUNGS AND PLEURA: There is patchy opacification in both lungs. Cannot exclude a small rig ht pleural effusion. There may be slightly improved aeration in the left lower lobe. MEDIASTINUM AND HILAR STRUCTURES: No masses. Contour normal. HEART AND VASCULAR STRUCTURES: Cardiomegaly. No fiorella pulmonary edema. BONES: No acute findings. HARDWARE: None in the chest. OTHER: No other significant finding. IMPRESSION: There appears to be slight improvement in the left base with persistent airspace disease bilaterally. TECHNICAL DOCUMENTATION: JOB ID: [id number] 2010 [employer]- All Rights Reserved Reading location - IP/workstation name: [email or web address]
[2020-01-26] MEDS: INSULIN GLARGINE,HUM.REC.ANLOG 1,000 UNIT/10 ML VIAL SUBCUT SCH (17:49)
--- NOTE | 2020-01-26 21:21 | PDOC PROGRESS REPORT ---
Subjective Progress Note for:: 01/26/20 Subjective:: Patient seen by the bedside, she is requiring noninvasive positive pressure ventilation, BiPAP. Chest x-ray done showed patchy opacification in both lungs, cannot exclude a small right pleural effusion. There may be slight improved aeration in the left lower lobe Reason For Visit: RHABDOMYOLYSIS,FALL,PR CKD STAGE 3 Physical Exam Vital Signs: Temp Pulse Resp BP Pulse Ox 98.2 F 82 34 H 162/82 H 94 01/26/20 07:49 01/26/20 19:00 01/26/20 16:29 01/26/20 07:49 01/26/20 16:29 Intake & Output 01/25/20 01/26/20 01/27/20 06:59 06:59 06:59 Intake Total 1387 1244 437 Output Total 950 1050 450 Balance 437 194 -13 Weight 82.2 kg 82.6 kg General appearance: PRESENT: no acute distress Eye exam: PRESENT: PERRLA Respiratory exam: PRESENT: crackles Cardiovascular exam: PRESENT: +S1, +S2 GI/Abdominal exam: PRESENT: soft Neurological exam: PRESENT: alert, CN II-XII grossly intact Results Laboratory Results: 01/25/20 05:35 01/25/20 05:35 01/26/20 10:50 Carbonic Acid 0.96 L HCO3/H2CO3 Ratio 24:1 ABG pH 7.48 H ABG pCO2 31.9 L ABG pO2 57.6 L ABG HCO3 23.3 ABG O2 Saturation 92.2 L ABG Base Excess 0.2 FiO2 35% 01/03/20 01/03/20 01/04/20 14:06 14:06 17:50 Creatine Kinase 2539 H 1453 H CK-MB (CK-2) Troponin I 0.086 NT-Pro-B Natriuret Pep 2860 H 01/04/20 01/04/20 01/04/20 17:50 23:00 23:00 Creatine Kinase 1293 H CK-MB (CK-2) 41.00 H 31.90 H Troponin I 0.107 0.097 NT-Pro-B Natriuret Pep 2690 H 01/05/20 01/05/20 01/06/20 05:30 05:30 05:47 Creatine Kinase 1151 H 1197 H CK-MB (CK-2) 24.20 H Troponin I 0.092 NT-Pro-B Natriuret Pep 01/07/20 01/10/20 01/10/20 06:12 13:10 13:10 Creatine Kinase 1255 H 1181 H CK-MB (CK-2) 16.90 H Troponin I 0.098 NT-Pro-B Natriuret Pep 01/10/20 01/10/20 01/11/20 18:11 18:11 01:01 Creatine Kinase 1244 H 1203 H CK-MB (CK-2) 15.60 H Troponin I 0.125 NT-Pro-B Natriuret Pep 5900 H 01/11/20 01/12/20 01/18/20 01:01 08:23 06:12 Creatine Kinase 643 H CK-MB (CK-2) 14.20 H Troponin I 0.226 0.226 NT-Pro-B Natriuret Pep Impressions: Head CT 01/03/20 14:14 IMPRESSION: CHRONIC CHANGES OF ATROPHY AND MICROVASCULAR ISCHEMIA. OLD RIGHT CEREBELLAR INFARCT. NO ACUTE PROCESS. EVIDENCE OF ACUTE STROKE: NO. Head MRI 01/04/20 00:00 IMPRESSION: ATROPHY AND CHRONIC MICRO-VASCULAR ISCHEMIC CHANGES. OLD CEREBELLAR INFARCTS, RIGHT GREATER THAN LEFT. NO ACUTE FINDINGS. EVIDENCE OF ACUTE STROKE: NO. Foot X-Ray 01/07/20 09:00 IMPRESSION: No acute osseous abnormality of the left foot. Chest Ultrasound 01/14/20 00:00 IMPRESSION: Insufficient fluid for thoracentesis. Chest CT 01/23/20 00:00 IMPRESSION: 1. Worsening areas of ground-glass attenuation in both lungs, consistent with worsening infectious/ inflammatory process. Imaging features can be seen with covid pneumonia, though are nonspecific and can occur with a variety of infectious and noninfectious processes. This is likely superimposed on chronic interstitial lung disease particularly in the lower lobes. 2. Moderate cardiomegaly and small pericardial effusions. Probable superimposed mild pulmonary edema. 3. Enlarged pulmonary arteries which can be seen with pulmonary arterial hypertension. 4. Mildly prominent mediastinal lymph nodes. These may be reactive. Chest X-Ray 01/26/20 00:00 IMPRESSION: There appears to be slight improvement in the left base with persistent airspace disease bilaterally. Assessment & Plan - Diagnosis (1) Rhabdomyolysis Qualifiers: Rhabdomyolysis type: traumatic Encounter type: initial encounter Qualified Code(s): T79.6XXA - Traumatic ischemia of muscle, initial encounter Is this a current diagnosis for this admission?: Yes (2) Chronic kidney disease, stage 3 Is this a current diagnosis for this admission?: Yes (3) Fall Qualifiers: Encounter type: initial encounter Qualified Code(s): W19.XXXA - Unspecified fall, initial encounter Is this a current diagnosis for this admission?: Yes (4) T2DM (type 2 diabetes mellitus) Qualifiers: Diabetes mellitus custodial insulin use: with rat exterminator use Diabetes mellitus complication status: with kidney complications Diabetes mellitus complication detail: with chronic kidney disease Chronic kidney disease stage: stage 3 (moderate) Qualified Code(s): E11.22 - Type 2 diabetes mellitus with diabetic chronic kidney disease; N18.3 - Chronic kidney disease, stage 3 (moderate); Z79.4 - ocean transportation intermediary (current) use of insulin Is this a current diagnosis for this admission?: Yes (5) Cerebellar infarction Is this a current diagnosis for this admission?: Yes (6) Aspiration pneumonia Qualifiers: Aspiration pneumonia type: unspecified Laterality: bilateral Lung location: unspecified part of lung Qualified Code(s): J69.0 - Pneumonitis due to inhalation of food and vomit Is this a current diagnosis for this admission?: Yes (7) Elevated troponin Is this a current diagnosis for this admission?: Yes (8) Pleural effusion Is this a current diagnosis for this admission?: Yes (9) Pneumonia Qualifiers: Pneumonia type: due to unspecified organism Laterality: bilateral Lung location: unspecified part of lung Qualified Code(s): J18.9 - Pneumonia, unspecified organism Is this a current diagnosis for this admission?: Yes (10) Acute hypoxemic respiratory failure Is this a current diagnosis for this admission?: Yes Plan: Continue noninvasive positive pressure ventilation BiPAP (11) Nosocomial pneumonia Is this a current diagnosis for this admission?: Yes Plan: Continue IV antibiotic - Time Time Spent with patient: 25-34 minutes Level of Care: IMCU
[2020-01-26] MEDS: VANCOMYCIN HCL 1,000 MG in DEXTROSE 5%-WATER 250 ML IV SCH (22:07)
[2020-01-27] MEDS: PIPERACILLIN SODIUM/TAZOBACTAM 3.375 GM in NORMAL SALINE 100 ML IV SCH ×4 (00:01→17:06)
[2020-01-27] MEDS: METOPROLOL TARTRATE 50 MG TABLET PO SCH ×2 (05:41→17:19)
[2020-01-27] MEDS: INSULIN LISPRO 100 UNIT/ML 3 ML VIAL SUBCUT SCH ×4 (08:00→21:55)
[2020-01-27] MEDS: ENOXAPARIN SODIUM INJ 30 MG/0.3 ML DISP.SYRIN SUBCUT SCH (10:31)
[2020-01-27] MEDS: AMLODIPINE BESYLATE 2.5 MG TABLET PO SCH ×2 (10:32→21:54)
[2020-01-27] MEDS: TIMOLOL MALEATE 0.5% OPH SOLN 5 ML OU SCH ×2 (10:32→17:21)
[2020-01-27] MEDS: POTASSIUM CHLORIDE 10 MEQ TABLET.ER PO SCH (10:32)
[2020-01-27] MEDS: GLIMEPIRIDE 1 MG TABLET PO SCH (10:32)
[2020-01-27] MEDS: BRIMONIDINE TARTRATE 0.2% OPH SOLN 5 ML OU SCH ×2 (10:45→17:22)
[2020-01-27] MEDS: DOCUSATE SODIUM 100 MG CAPSULE PO SCH ×2 (10:46→17:21)
[2020-01-27] MEDS: GUAIFENESIN SYRP 200 MG/10 ML UDC PO PRN (14:28)
[2020-01-27] MEDS: ACETAMINOPHEN 325 MG TABLET PO PRN (17:04)
[2020-01-27] MEDS: INSULIN GLARGINE,HUM.REC.ANLOG 1,000 UNIT/10 ML VIAL SUBCUT SCH (17:06)
[2020-01-27 18:51] LABS: ABSOLUTE BASOPHILS # (AUTO) 0.1 10^3/uL (0.0-0.2); ABSOLUTE EOSINOPHILS # (AUTO) 0.4 10^3/uL (0.0-0.6); ABSOLUTE MONOCYTES (AUTO) 0.8 10^3/uL (0.1-1.4); ABSOLUTE NEUT (AUTO) 7.2 10^3/uL (1.7-8.2); BASOPHILS % (AUTO) 0.5 % (0-2); EOSINOPHILS % (AUTO) 3.6 % (0-6); HEMATOCRIT 25.6 % (36.0-47.0); HEMOGLOBIN 8.4 g/dL (12.0-15.5); LYMPHOCYTES % (AUTO) 19.1 % (13-45); MEAN CORPUSCULAR HEMOGLOBIN 26.8 pg (27.0-33.4); MEAN CORPUSCULAR HGB CONC 32.8 g/dL (32.0-36.0); MEAN CORPUSCULAR VOLUME 82 fl (80-97); PLATELET COUNT 250 10^3/uL (150-450); RED BLOOD COUNT 3.14 10^6/uL (3.72-5.28); RED CELL DISTRIBUTION WIDTH 17.2 % (11.5-14.0); SEGMENTED NEUTROPHILS % (AUTO) 68.8 % (42-78); TOTAL CELLS COUNTED % (AUTO) 100 %; WHITE BLOOD COUNT 10.4 10^3/uL (4.0-10.5)
--- NOTE | 2020-01-27 18:59 | RADIOLOGY REPORT (SQ) ---
EXAM DESCRIPTION: CHEST SINGLE VIEW IMAGES COMPLETED DATE/TIME: 01/27/2020 6:43 pm REASON FOR STUDY: pneumonia COMPARISON: 01/26/2020 EXAM PARAMETERS: NUMBER OF VIEWS: One view. TECHNIQUE: Single frontal radiographic view of the chest acquired. RADIATION DOSE: NA LIMITATIONS: None. FINDINGS: LUNGS AND PLEURA: The patient is rotated to the left. Persistent extensive bilateral air space disease in the lungs. Small bilateral pleural effusions. No pneumothorax. MEDIASTINUM AND HILAR STRUCTURES: Stable appearance. HEART AND VASCULAR STRUCTURES: Cardiomegaly, unchanged finding. BONES: No acute findings. HARDWARE: None in the chest. OTHER: No other significant finding. IMPRESSION: 1. No significant interval changes since the prior examination dated 01/26/2020. Persis tent bilateral fairly extensive airspace disease. 2. Cardiomegaly, unchanged finding. TECHNICAL DOCUMENTATION: JOB ID: [id number] 2010 [employer]- All Rights Reserved Reading location - IP/workstation name: [email or web address]
--- NOTE | 2020-01-27 21:13 | PDOC PROGRESS REPORT ---
Subjective Progress Note for:: 01/27/20 Subjective:: Patient seen by the bedside chest x-ray demonstrated persistent bilateral infiltrate, patient not presently requiring noninvasive positive pressure ventilation now on nasal cannula oxygen Reason For Visit: RHABDOMYOLYSIS,FALL,GA CKD STAGE 3 Physical Exam Vital Signs: Temp Pulse Resp BP Pulse Ox 97.6 F 69 32 H 103/51 L 94 01/27/20 19:09 01/27/20 19:09 01/27/20 19:09 01/27/20 19:09 01/27/20 19:09 Intake & Output 01/26/20 01/27/20 01/28/20 06:59 06:59 06:59 Intake Total 1244 887 930 Output Total 1050 675 200 Balance 194 212 730 Weight 82.6 kg 81.6 kg 81.6 kg General appearance: PRESENT: no acute distress Eye exam: PRESENT: PERRLA Respiratory exam: PRESENT: clear to auscultation freddy Cardiovascular exam: PRESENT: +S1, +S2 GI/Abdominal exam: PRESENT: soft Neurological exam: PRESENT: alert Results Laboratory Results: 01/27/20 18:42 01/25/20 05:35 01/27/20 18:42 WBC 10.4 RBC 3.14 L Hgb 8.4 L Hct 25.6 L MCV 82 MCH 26.8 L MCHC 32.8 RDW 17.2 H Plt Count 250 Seg Neutrophils % 68.8 01/03/20 01/03/20 01/04/20 14:06 14:06 17:50 Creatine Kinase 2539 H 1453 H CK-MB (CK-2) Troponin I 0.086 NT-Pro-B Natriuret Pep 2860 H 01/04/20 01/04/20 01/04/20 17:50 23:00 23:00 Creatine Kinase 1293 H CK-MB (CK-2) 41.00 H 31.90 H Troponin I 0.107 0.097 NT-Pro-B Natriuret Pep 2690 H 01/05/20 01/05/20 01/06/20 05:30 05:30 05:47 Creatine Kinase 1151 H 1197 H CK-MB (CK-2) 24.20 H Troponin I 0.092 NT-Pro-B Natriuret Pep 01/07/20 01/10/20 01/10/20 06:12 13:10 13:10 Creatine Kinase 1255 H 1181 H CK-MB (CK-2) 16.90 H Troponin I 0.098 NT-Pro-B Natriuret Pep 01/10/20 01/10/20 01/11/20 18:11 18:11 01:01 Creatine Kinase 1244 H 1203 H CK-MB (CK-2) 15.60 H Troponin I 0.125 NT-Pro-B Natriuret Pep 5900 H 01/11/20 01/12/20 01/18/20 01:01 08:23 06:12 Creatine Kinase 643 H CK-MB (CK-2) 14.20 H Troponin I 0.226 0.226 NT-Pro-B Natriuret Pep Impressions: Head CT 01/03/20 14:14 IMPRESSION: CHRONIC CHANGES OF ATROPHY AND MICROVASCULAR ISCHEMIA. OLD RIGHT CEREBELLAR INFARCT. NO ACUTE PROCESS. EVIDENCE OF ACUTE STROKE: NO. Head MRI 01/04/20 00:00 IMPRESSION: ATROPHY AND CHRONIC MICRO-VASCULAR ISCHEMIC CHANGES. OLD CEREBELLAR INFARCTS, RIGHT GREATER THAN LEFT. NO ACUTE FINDINGS. EVIDENCE OF ACUTE STROKE: NO. Foot X-Ray 01/07/20 09:00 IMPRESSION: No acute osseous abnormality of the left foot. Chest Ultrasound 01/14/20 00:00 IMPRESSION: Insufficient fluid for thoracentesis. Chest CT 01/23/20 00:00 IMPRESSION: 1. Worsening areas of ground-glass attenuation in both lungs, consistent with worsening infectious/ inflammatory process. Imaging features can be seen with c ovid pneumonia, though are nonspecific and can occur with a variety of infectious and noninfectious processes. This is likely superimposed on chronic interstitial lung disease particularly in the lower lobes. 2. Moderate cardiomegaly and small pericardial effusions. Probable superimposed mild pulmonary edema. 3. Enlarged pulmonary arteries which can be seen with pulmonary arterial hypertension. 4. Mildly prominent mediastinal lymph nodes. These may be reactive. Chest X-Ray 01/27/20 18:14 IMPRESSION: 1. No significant interval changes since the prior examination dated 01/26/2020. Persistent bilateral fairly extensive airspace disease. 2. Cardiomegaly, unchanged finding. Assessment & Plan - Diagnosis (1) Rhabdomyolysis Qualifiers: Rhabdomyolysis type: traumatic Encounter type: initial encounter Qualified Code(s): T79.6XXA - Traumatic ischemia of muscle, initial encounter Is this a current diagnosis for this admission?: Yes (2) Chronic kidney disease, stage 3 Is this a current diagnosis for this admission?: Yes (3) Fall Qualifiers: Encounter type: initial encounter Qualified Code(s): W19.XXXA - Unspecified fall, initial encounter Is this a current diagnosis for this admission?: Yes (4) T2DM (type 2 diabetes mellitus) Qualifiers: Diabetes mellitus nursing home insulin use: with nursing home use Diabetes mellitus complication status: with kidney complications Diabetes mellitus complication detail: with chronic kidney disease Chronic kidney disease stage: stage 3 (moderate) Qualified Code(s): E11.22 - Type 2 diabetes mellitus with diabetic chronic kidney disease; N18.3 - Chronic kidney disease, stage 3 (moderate); Z79.4 - half-way (current) use of insulin Is this a current diagnosis for this admission?: Yes (5) Cerebellar infarction Is this a current diagnosis for this admission?: Yes (6) Aspiration pneumonia Qualifiers: Aspiration pneumonia type: unspecified Laterality: bilateral Lung location: unspecified part of lung Qualified Code(s): J69.0 - Pneumonitis due to inhalation of food and vomit Is this a current diagnosis for this admission?: Yes (7) Elevated troponin Is this a current diagnosis for this admission?: Yes (8) Pleural effusion Is this a current diagnosis for this admission?: Yes (9) Pneumonia Qualifiers: Pneumonia type: due to unspecified organism Laterality: bilateral Lung location: unspecified part of lung Qualified Code(s): J18.9 - Pneumonia, unspecified organism Is this a current diagnosis for this admission?: Yes (10) Acute hypoxemic respiratory failure Is this a current diagnosis for this admission?: Yes Plan: Continue oxygen via nasal cannula (11) Nosocomial pneumonia Is this a current diagnosis for this admission?: Yes Plan: Patient condition still precarious continue IV antibiotic - Time Time Spent with patient: 25-34 minutes Level of Care: IMCU Medications reviewed and adjusted accordingly: Yes
[2020-01-27] MEDS: VANCOMYCIN HCL 1,000 MG in DEXTROSE 5%-WATER 250 ML IV SCH (21:54)
[2020-01-27] MEDS ORDERED: VANCOMYCIN HCL 1,000 MG in DEXTROSE 5%-WATER 250 ML IV SCH (22:00)
[2020-01-27 23:40] LABS: APPEARANCE,URINE SLIGHTLY-CLOUDY; BILIRUBIN,URINE NEGATIVE (NEGATIVE); COLOR,URINE YELLOW; GLUCOSE, URINE NEGATIVE (NEGATIVE); KETONES,URINE NEGATIVE (NEGATIVE); LEUKOCYTE ESTERASE,URINE SMALL (NEGATIVE); NITRITE,URINE NEGATIVE (NEGATIVE); PROTEIN,URINE 100 mg/dL (NEGATIVE); URINE SPECIFIC GRAVITY 1.031; UROBILINOGEN,URINE NEGATIVE mg/dL (<2.0)
[2020-01-28] MEDS: PIPERACILLIN SODIUM/TAZOBACTAM 3.375 GM in NORMAL SALINE 100 ML IV SCH (00:32)
--- NOTE | 2020-01-28 00:41 | Operative Report ---
Operative Report DATE OF SURGERY: 01/28/20 PREOPERATIVE DIAGNOSIS: Rhabdomyolysis, pneumonia, critical need for intravenous access. POSTOPERATIVE DIAGNOSIS: Rhabdomyolysis, pneumonia, critical need for intravenous access. OPERATION: Right femoral triple-lumen central venous catheter placement SURGEON: LAZ GUTIERREZ ANESTHESIA: Local TISSUE REMOVED OR ALTERED: None COMPLICATIONS: None ESTIMATED BLOOD LOSS: 20 cc INTRAOPERATIVE FINDINGS: None PROCEDURE: Informed consent was obtained. Patient's right groin was prepped and draped in usual sterile fashion. Local anesthetic was administered. The right femoral vein was entered without difficulty. Triple-lumen central venous catheter was placed via the Seldinger technique without difficulty. It withdrew blood and flushed easily. It was sutured in place and dressings were applied. Patient tolerated procedure well with no apparent complications.
[2020-01-28] MEDS: METOPROLOL TARTRATE 50 MG TABLET PO SCH ×2 (05:48→17:14)
[2020-01-28 06:34] LABS: ALBUMIN 2.7 g/dL (3.5-5.0); ALKALINE PHOSPHATASE 77 U/L (38-126); ANION GAP 6 (5-19); ASPARTATE AMINO TRANSFERASE 42 U/L (14-36); BILIRUBIN,TOTAL 0.3 mg/dL (0.2-1.3); BLOOD UREA NITROGEN 31 mg/dL (7-20); CALCIUM 9.5 mg/dL (8.4-10.2); CARBON DIOXIDE 25 mmol/L (22-30); CHLORIDE 109 mmol/L (98-107); GLUCOSE 189 mg/dL (75-110); POTASSIUM 5.7 mmol/L (3.6-5.0); TOTAL PROTEIN 6.7 g/dL (6.3-8.2)
[2020-01-28 08:49] LABS: ANION GAP 7 (5-19); BLOOD UREA NITROGEN 32 mg/dL (7-20); CALCIUM 9.6 mg/dL (8.4-10.2); CARBON DIOXIDE 24 mmol/L (22-30); CHLORIDE 109 mmol/L (98-107); GLUCOSE 133 mg/dL (75-110); POTASSIUM 4.9 mmol/L (3.6-5.0)
[2020-01-28] MEDS: INSULIN LISPRO 100 UNIT/ML 3 ML VIAL SUBCUT SCH ×3 (10:25→17:16)
[2020-01-28] MEDS: GLIMEPIRIDE 1 MG TABLET PO SCH (10:27)
[2020-01-28] MEDS: POTASSIUM CHLORIDE 10 MEQ TABLET.ER PO SCH (10:27)
[2020-01-28] MEDS: DOCUSATE SODIUM 100 MG CAPSULE PO SCH ×2 (10:27→17:10)
[2020-01-28] MEDS: AMLODIPINE BESYLATE 2.5 MG TABLET PO SCH ×2 (10:27→21:09)
[2020-01-28] MEDS: BRIMONIDINE TARTRATE 0.2% OPH SOLN 5 ML OU SCH ×2 (10:28→17:15)
[2020-01-28] MEDS: ENOXAPARIN SODIUM INJ 30 MG/0.3 ML DISP.SYRIN SUBCUT SCH (10:28)
[2020-01-28] MEDS: TIMOLOL MALEATE 0.5% OPH SOLN 5 ML OU SCH ×2 (10:28→17:14)
[2020-01-28 13:18] LABS: PLATELET COUNT 244 10^3/uL (150-450)
[2020-01-28 13:22] LABS: HEMATOCRIT 24.3 % (36.0-47.0); MEAN CORPUSCULAR HEMOGLOBIN 26.7 pg (27.0-33.4); MEAN CORPUSCULAR HGB CONC 32.7 g/dL (32.0-36.0); MEAN CORPUSCULAR VOLUME 82 fl (80-97); RED BLOOD COUNT 2.98 10^6/uL (3.72-5.28); RED CELL DISTRIBUTION WIDTH 16.7 % (11.5-14.0); WHITE BLOOD COUNT 9.4 10^3/uL (4.0-10.5)
[2020-01-28] MEDS: INSULIN GLARGINE,HUM.REC.ANLOG 1,000 UNIT/10 ML VIAL SUBCUT SCH (17:10)
--- NOTE | 2020-01-28 20:25 | PDOC PROGRESS REPORT ---
Subjective Progress Note for:: 01/28/20 Subjective:: Patient condition remains poor, she has severe bilateral pneumonia Reason For Visit: RHABDOMYOLYSIS,FALL,DC CKD STAGE 3 Physical Exam Vital Signs: Temp Pulse Resp BP Pulse Ox 97.5 F 74 27 H 128/62 H 93 01/28/20 16:11 01/28/20 19:00 01/28/20 16:11 01/28/20 16:11 01/28/20 16:11 Intake & Output 01/27/20 01/28/20 01/29/20 06:59 06:59 06:59 Intake Total 887 1280 540 Output Total 675 450 175 Balance 212 830 365 Weight 81.6 kg 82.1 kg General appearance: PRESENT: no acute distress Eye exam: PRESENT: PERRLA Respiratory exam: PRESENT: rhonchi Cardiovascular exam: PRESENT: +S1, +S2 GI/Abdominal exam: PRESENT: soft Neurological exam: PRESENT: alert Results Laboratory Results: 01/28/20 07:59 01/28/20 07:59 01/27/20 01/27/20 01/28/20 06:00 23:15 07:59 WBC RBC Hgb Hct MCV MCH MCHC RDW Plt Count Sodium 139.5 140.2 Potassium 5.7 H 4.9 Chloride 109 H 109 H Carbon Dioxide 25 24 Anion Gap 6 7 BUN 31 H 32 H Creatinine 1.62 H 1.60 H Est GFR ( Amer) 37 L 38 L Glucose 189 H 133 H Calcium 9.5 9.6 Total Bilirubin 0.3 AST 42 H Alkaline Phosphatase 77 Total Protein 6.7 Albumin 2.7 L Urine Color YELLOW Urine Appearance SLIGHTLY-CLOUDY Urine pH 5.0 Ur Specific [place] 1.031 Urine Protein 100 H Urine Glucose (UA) NEGATIVE Urine Ketones NEGATIVE Urine Blood SMALL H Urine Nitrite NEGATIVE Ur Leukocyte Esterase SMALL H Urine WBC (Auto) 9 Urine RBC (Auto) 8 01/28/20 07:59 WBC 9.4 RBC 2.98 L Hgb 8.0 L Hct 24.3 L MCV 82 MCH 26.7 L MCHC 32.7 RDW 16.7 H Plt Count 244 Sodium Potassium Chloride Carbon Dioxide Anion Gap BUN Creatinine Est GFR ( Amer) Glucose Calcium Total Bilirubin AST Alkaline Phosphatase Total Protein Albumin Urine Color Urine Appearance Urine pH Ur Specific [place] Urine Protein Urine Glucose (UA) Urine Ketones Urine Blood Urine Nitrite Ur Leukocyte Esterase Urine WBC (Auto) Urine RBC (Auto) 01/03/20 01/03/20 01/04/20 14:06 14:06 17:50 Creatine Kinase 2539 H 1453 H CK-MB (CK-2) Troponin I 0.086 NT-Pro-B Natriuret Pep 2860 H 01/04/20 01/04/20 01/04/20 17:50 23:00 23:00 Creatine Kinase 1293 H CK-MB (CK-2) 41.00 H 31.90 H Troponin I 0.107 0.097 NT-Pro-B Natriuret Pep 2690 H 01/05/20 01/05/20 01/06/20 05:30 05:30 05:47 Creatine Kinase 1151 H 1197 H CK-MB (CK-2) 24.20 H Troponin I 0.092 NT-Pro-B Natriuret Pep 01/07/20 01/10/20 01/10/20 06:12 13:10 13:10 Creatine Kinase 1255 H 1181 H CK-MB (CK-2) 16.90 H Troponin I 0.098 NT-Pro-B Natriuret Pep 01/10/20 01/10/20 01/11/20 18:11 18:11 01:01 Creatine Kinase 1244 H 1203 H CK-MB (CK-2) 15.60 H Troponin I 0.125 NT-Pro-B Natriuret Pep 5900 H 01/11/20 01/12/20 01/18/20 01:01 08:23 06:12 Creatine Kinase 643 H CK-MB (CK-2) 14.20 H Troponin I 0.226 0.226 NT-Pro-B Natriuret Pep Impressions: Head CT 01/03/20 14:14 IMPRESSION: CHRONIC CHANGES OF ATROPHY AND MICROVASCULAR ISCHEMIA. OLD RIGHT CEREBELLAR INFARCT. NO ACUTE PROCESS. EVIDENCE OF ACUTE STROKE: NO. Head MRI 01/04/20 00:00 IMPRESSION: ATROPHY AND CHRONIC MICRO-VASCULAR ISCHEMIC CHANGES. OLD CEREBELLAR INFARCTS, RIGHT GREATER THAN LEFT. NO ACUTE FINDINGS. EVIDENCE OF ACUTE STROKE: NO. Foot X-Ray 01/07/20 09:00 IMPRESSION: No acute osseous abnormality of the left foot. Chest Ultrasound 01/14/20 00:00 IMPRESSION: Insufficient fluid for thoracentesis. Chest CT 01/23/20 00:00 IMPRESSION: 1. Worsening areas of ground-glass attenuation in both lungs, consistent with worsening infectious/ inflammatory process. Imaging features can be seen with c ovid pneumonia, though are nonspecific and can occur with a variety of infectious and noninfectious processes. This is likely superimposed on chronic interstitial lung disease particularly in the lower lobes. 2. Moderate cardiomegaly and small pericardial effusions. Probable superimposed mild pulmonary edema. 3. Enlarged pulmonary arteries which can be seen with pulmonary arterial hypertension. 4. Mildly prominent mediastinal lymph nodes. These may be reactive. Chest X-Ray 01/27/20 18:14 IMPRESSION: 1. No significant interval changes since the prior examination dated 01/26/2020. Persistent bilateral fairly extensive airspace disease. 2. Cardiomegaly, unchanged finding. Assessment & Plan - Diagnosis (1) Rhabdomyolysis Qualifiers: Rhabdomyolysis type: traumatic Encounter type: initial encounter Qualified Code(s): T79.6XXA - Traumatic ischemia of muscle, initial encounter Is this a current diagnosis for this admission?: Yes (2) Chronic kidney disease, stage 3 Is this a current diagnosis for this admission?: Yes (3) Fall Qualifiers: Encounter type: initial encounter Qualified Code(s): W19.XXXA - Unspecified fall, initial encounter Is this a current diagnosis for this admission?: Yes (4) T2DM (type 2 diabetes mellitus) Qualifiers: Diabetes mellitus retirement insulin use: with oysterman use Diabetes mellitus complication status: with kidney complications Diabetes mellitus complication detail: with chronic kidney disease Chronic kidney disease stage: stage 3 (moderate) Qualified Code(s): E11.22 - Type 2 diabetes mellitus with diabetic chronic kidney disease; N18.3 - Chronic kidney disease, stage 3 (moderate); Z79.4 - senior care (current) use of insulin Is this a current diagnosis for this admission?: Yes (5) Cerebellar infarction Is this a current diagnosis for this admission?: Yes (6) Aspiration pneumonia Qualifiers: Aspiration pneumonia type: unspecified Laterality: bilateral Lung location: unspecified part of lung Qualified Code(s): J69.0 - Pneumonitis due to inhalation of food and vomit Is this a current diagnosis for this admission?: Yes (7) Elevated troponin Is this a current diagnosis for this admission?: Yes (8) Pleural effusion Is this a current diagnosis for this admission?: Yes (9) Pneumonia Qualifiers: Pneumonia type: due to unspecified organism Laterality: bilateral Lung location: unspecified part of lung Qualified Code(s): J18.9 - Pneumonia, unspecified organism Is this a current diagnosis for this admission?: Yes (10) Acute hypoxemic respiratory failure Is this a current diagnosis for this admission?: Yes Plan: Continue oxygen via nasal cannula (11) Nosocomial pneumonia Is this a current diagnosis for this admission?: Yes Plan: Patient condition still precarious continue IV antibiotic - Time Time Spent with patient: 25-34 minutes Level of Care: IMCU Medications reviewed and adjusted accordingly: Yes
[2020-01-28] MEDS: VANCOMYCIN HCL 1,000 MG in DEXTROSE 5%-WATER 250 ML IV SCH (21:08)
[2020-01-29] MEDS: INSULIN LISPRO 100 UNIT/ML 3 ML VIAL SUBCUT SCH ×4 (00:15→18:12)
[2020-01-29] MEDS: METOPROLOL TARTRATE 50 MG TABLET PO SCH ×2 (05:15→18:14)
[2020-01-29] MEDS ORDERED: SODIUM BICARBONATE 8.4% INJ 50 MEQ/50 ML DISP.SYRIN ONE (09:40)
[2020-01-29] MEDS ORDERED: EPINEPHRINE INJ 1 MG/10 ML DISP.SYRIN ONE (09:40)
[2020-01-29] MEDS: GLIMEPIRIDE 1 MG TABLET PO SCH (10:05)
[2020-01-29] MEDS: DOCUSATE SODIUM 100 MG CAPSULE PO SCH ×2 (10:05→18:13)
[2020-01-29] MEDS: TIMOLOL MALEATE 0.5% OPH SOLN 5 ML OU SCH ×2 (10:06→18:17)
[2020-01-29] MEDS: ENOXAPARIN SODIUM INJ 30 MG/0.3 ML DISP.SYRIN SUBCUT SCH (10:06)
[2020-01-29] MEDS: AMLODIPINE BESYLATE 2.5 MG TABLET PO SCH (10:06)
[2020-01-29] MEDS: POTASSIUM CHLORIDE 10 MEQ TABLET.ER PO SCH (10:06)
[2020-01-29] MEDS: BRIMONIDINE TARTRATE 0.2% OPH SOLN 5 ML OU SCH (10:08)
[2020-01-29] MEDS: INSULIN GLARGINE,HUM.REC.ANLOG 1,000 UNIT/10 ML VIAL SUBCUT SCH (18:13)
[2020-01-29 18:30] LABS: ABSOLUTE BASOPHILS # (AUTO) 0.1 10^3/uL (0.0-0.2); ABSOLUTE EOSINOPHILS # (AUTO) 0.1 10^3/uL (0.0-0.6); ABSOLUTE LYMPHOCYTES (AUTO) 2.2 10^3/uL (0.5-4.7); ABSOLUTE MONOCYTES (AUTO) 0.7 10^3/uL (0.1-1.4); ABSOLUTE NEUT (AUTO) 7.9 10^3/uL (1.7-8.2); BASOPHILS % (AUTO) 0.6 % (0-2); EOSINOPHILS % (AUTO) 0.6 % (0-6); HEMOGLOBIN 8.4 g/dL (12.0-15.5); LYMPHOCYTES % (AUTO) 20.3 % (13-45); MEAN CORPUSCULAR HEMOGLOBIN 26.4 pg (27.0-33.4); MEAN CORPUSCULAR HGB CONC 32.4 g/dL (32.0-36.0); MEAN CORPUSCULAR VOLUME 82 fl (80-97); MONOCYTES % (AUTO) 6.1 % (3-13); PLATELET COUNT 257 10^3/uL (150-450); RED BLOOD COUNT 3.18 10^6/uL (3.72-5.28); SEGMENTED NEUTROPHILS % (AUTO) 72.4 % (42-78); TOTAL CELLS COUNTED % (AUTO) 100 %; WHITE BLOOD COUNT 10.8 10^3/uL (4.0-10.5)
[2020-01-29 18:40] LABS: ALKALINE PHOSPHATASE 128 U/L (38-126); ANION GAP 9 (5-19); ASPARTATE AMINO TRANSFERASE 49 U/L (14-36); BILIRUBIN,DIRECT 0.1 mg/dL (0.0-0.4); BILIRUBIN,TOTAL 0.5 mg/dL (0.2-1.3); BLOOD UREA NITROGEN 41 mg/dL (7-20); CALCIUM 9.8 mg/dL (8.4-10.2); CARBON DIOXIDE 21 mmol/L (22-30); CHLORIDE 108 mmol/L (98-107); GLUCOSE 201 mg/dL (75-110); TOTAL PROTEIN 7.4 g/dL (6.3-8.2)
[2020-01-29] MEDS ORDERED: SODIUM POLYSTYRENE SULFONATE 15 GM/60 ML PO SCH (20:00)
--- NOTE | 2020-01-29 20:00 | PDOC PROGRESS REPORT ---
Subjective Progress Note for:: 01/29/20 Subjective:: Patient seen by the bedside she is not overly in distress, I spoke to the family member about her condition. Reason For Visit: RHABDOMYOLYSIS,FALL,MS CKD STAGE 3 Physical Exam Vital Signs: Temp Pulse Resp BP Pulse Ox 97.7 F 89 36 H 142/75 H 87 L 01/29/20 16:51 01/29/20 16:51 01/29/20 16:51 01/29/20 16:51 01/29/20 16:51 Intake & Output 01/28/20 01/29/20 01/30/20 06:59 06:59 06:59 Intake Total 1280 540 120 Output Total 450 325 275 Balance 830 215 -155 Weight 82.1 kg 81.8 kg General appearance: PRESENT: no acute distress Respiratory exam: PRESENT: rhonchi Cardiovascular exam: PRESENT: +S1, +S2 GI/Abdominal exam: PRESENT: soft Neurological exam: PRESENT: alert Results Laboratory Results: 01/29/20 18:13 01/29/20 18:13 01/29/20 01/29/20 18:13 18:13 WBC 10.8 H RBC 3.18 L Hgb 8.4 L Hct 26.0 L MCV 82 MCH 26.4 L MCHC 32.4 RDW 17.0 H Plt Count 257 Seg Neutrophils % 72.4 Sodium 137.5 Potassium 6.0 H* Chloride 108 H Carbon Dioxide 21 L Anion Gap 9 BUN 41 H Creatinine 1.42 H Est GFR ( Amer) 44 L Glucose 201 H Calcium 9.8 Total Bilirubin 0.5 AST 49 H Alkaline Phosphatase 128 H Total Protein 7.4 Albumin 3.0 L 01/03/20 01/03/20 01/04/20 14:06 14:06 17:50 Creatine Kinase 2539 H 1453 H CK-MB (CK-2) Troponin I 0.086 NT-Pro-B Natriuret Pep 2860 H 01/04/20 01/04/20 01/04/20 17:50 23:00 23:00 Creatine Kinase 1293 H CK-MB (CK-2) 41.00 H 31.90 H Troponin I 0.107 0.097 NT-Pro-B Natriuret Pep 2690 H 01/05/20 01/05/20 01/06/20 05:30 05:30 05:47 Creatine Kinase 1151 H 1197 H CK-MB (CK-2) 24.20 H Troponin I 0.092 NT-Pro-B Natriuret Pep 01/07/20 01/10/20 01/10/20 06:12 13:10 13:10 Creatine Kinase 1255 H 1181 H CK-MB (CK-2) 16.90 H Troponin I 0.098 NT-Pro-B Natriuret Pep 01/10/20 01/10/20 01/11/20 18:11 18:11 01:01 Creatine Kinase 1244 H 1203 H CK-MB (CK-2) 15.60 H Troponin I 0.125 NT-Pro-B Natriuret Pep 5900 H 01/11/20 01/12/20 01/18/20 01:01 08:23 06:12 Creatine Kinase 643 H CK-MB (CK-2) 14.20 H Troponin I 0.226 0.226 NT-Pro-B Natriuret Pep Impressions: Head CT 01/03/20 14:14 IMPRESSION: CHRONIC CHANGES OF ATROPHY AND MICROVASCULAR ISCHEMIA. OLD RIGHT CEREBELLAR INFARCT. NO ACUTE PROCESS. EVIDENCE OF ACUTE STROKE: NO. Head MRI 01/04/20 00:00 IMPRESSION: ATROPHY AND CHRONIC MICRO-VASCULAR ISCHEMIC CHANGES. OLD CEREBELLAR INFARCTS, RIGHT GREATER THAN LEFT. NO ACUTE FINDINGS. EVIDENCE OF ACUTE STROKE: NO. Foot X-Ray 01/07/20 09:00 IMPRESSION: No acute osseous abnormality of the left foot. Chest Ultrasound 01/14/20 00:00 IMPRESSION: Insufficient fluid for thoracentesis. Chest CT 01/23/20 00:00 IMPRESSION: 1. Worsening areas of ground-glass attenuation in both lungs, consistent with w orsening infectious/ inflammatory process. Imaging features can be seen with covid pneumonia, though are nonspecific and can occur with a variety of infectious and noninfectious processes. This is likely superimposed on chronic interstitial lung disease particularly in the lower lobes. 2. Moderate cardiomegaly and small pericardial effusions. Probable superimposed mild pulmonary edema. 3. Enlarged pulmonary arteries which can be seen with pulmonary arterial hypertension. 4. Mildly prominent mediastinal lymph nodes. These may be reactive. Chest X-Ray 01/27/20 18:14 IMPRESSION: 1. No significant interval changes since the prior examination dated 01/26/2020. Persistent bilateral fairly extensive airspace disease. 2. Cardiomegaly, unchanged finding. Assessment & Plan - Diagnosis (1) Rhabdomyolysis Qualifiers: Rhabdomyolysis type: traumatic Encounter type: initial encounter Qualified Code(s): T79.6XXA - Traumatic ischemia of muscle, initial encounter Is this a current diagnosis for this admission?: Yes (2) Chronic kidney disease, stage 3 Is this a current diagnosis for this admission?: Yes (3) Fall Qualifiers: Encounter type: initial encounter Qualified Code(s): W19.XXXA - Unspecified fall, initial encounter Is this a current diagnosis for this admission?: Yes (4) T2DM (type 2 diabetes mellitus) Qualifiers: Diabetes mellitus middle or intermediate school principal insulin use: with shelter use Diabetes mellitus complication status: with kidney complications Diabetes mellitus complication detail: with chronic kidney disease Chronic kidney disease stage: stage 3 (moderate) Qualified Code(s): E11.22 - Type 2 diabetes mellitus with diabetic chronic kidney disease; N18.3 - Chronic kidney disease, stage 3 ( moderate); Z79.4 - exterminator helper termite (current) use of insulin Is this a current diagnosis for this admission?: Yes (5) Cerebellar infarction Is this a current diagnosis for this admission?: Yes (6) Aspiration pneumonia Qualifiers: Aspiration pneumonia type: unspecified Laterality: bilateral Lung location: unspecified part of lung Qualified Code(s): J69.0 - Pneumonitis due to inhalation of food and vomit Is this a current diagnosis for this admission?: Yes (7) Elevated troponin Is this a current diagnosis for this admission?: Yes (8) Pleural effusion Is this a current diagnosis for this admission?: Yes (9) Pneumonia Qualifiers: Pneumonia type: due to unspecified organism Laterality: bilateral Lung location: unspecified part of lung Qualified Code(s): J18.9 - Pneumonia, unspecified organism Is this a current diagnosis for this admission?: Yes (10) Acute hypoxemic respiratory failure Is this a current diagnosis for this admission?: Yes (11) Nosocomial pneumonia Is this a current diagnosis for this admission?: Yes (12) Hyperkalemia Is this a current diagnosis for this admission?: Yes Plan: Give Kayexalate 30 g p.o. every 6 4 doses - Time Time Spent with patient: 15-24 minutes Level of Care: CU
--- NOTE | 2020-01-29 21:24 | ER Document Report ---
ED General - General Chief Complaint: Cardiac Arrest Stated Complaint: WEAKNESS Time Seen by Provider: 01/03/20 14:00 Notes: Called to [facility] in the emergency department CAT scan her. Patient had a cardiac arrest with unknown rhythm and is getting CPR when I entered the room. Assume the role of code lead. Per the patient's nurse she has pulmonary fibrosis on oxygen and had high potassium today. She had not gotten contrast for the CAT scan. No one present can tell me her initial rhythm. Downtime less than 5 minutes on my arrival TRAVEL OUTSIDE OF THE [place] IN LAST 30 DAYS: No - Related Data Allergies/Adverse Reactions: No Known Allergies Allergy (Verified 06/28/16 10:27) Past Medical History - General Information source: Patient - Social History Smoking Status: Never Smoker Chew tobacco use (# tins/day): No Frequency of alcohol use: None Drug Abuse: None Family History: Reviewed & Not Pertinent Patient has homicidal ideation: No - Past Medical History Cardiac Medical History: Reports: Hx Hypercholesterolemia, Hx Hypertension Endocrine Medical History: Reports: Hx Diabetes Mellitus Type 2 Renal/ Medical History: Reports: Other - Chronic kidney disease stage III Psychiatric Medical History: Denies: Hx Depression Past Surgical History: Reports: Hx Orthopedic Surgery - right left/sacrum,right hip replacement - Immunizations Hx Diphtheria, Pertussis, Tetanus Vaccination: Yes History of Pneumococcal Vaccine: Yes Review of Systems - Review of Systems Notes: REVIEW OF SYSTEMS Interval cardiac arrest PHYSICAL EXAMINATION General: CPR ill-appearing Head: Atraumatic, normocephalic ENT: Mouth during [id number] Eyes: Conjunctiva normal, pupils equal, lids normal Neck: No JVD, supple, no guarding CVS: Normal rate, regular rhythm, no murmurs Resp: No resp distress, equal and normal breath sounds bilaterally GI: Distended Ext: No deformities, no edema, normal range of motion in upper and lower ext Back: Not examined Skin: No rash, warm Lymphatic: No lymphadeopathy noted right triple-lumen central line noted in the right groin Neuro: Unresponsive Physical Exam - Vital signs Vitals: Pulse Ox 96 01/03/20 13:51 Course - Re-evaluation Re-evalutation: 01/29/20 21:22 Patient with cardiac arrest of unclear etiology in the CAT scan or She was begun on ACLS protocol, [id number] with basic airway maneuvers and supplemental oxygen CPR continued Patient has IV access epinephrines given. About 5 minutes into the code elected to move the patient to the emergency department given that running a cath cardiac arrest and CAT scan is suboptimal ACLS was continued for approximately 15 minutes. She on her first rhythm check looks like a sinusoidal wave and given her hyperkalemia she was given 3 g of calcium gluconate and subsequent doses, 2 A of bicarb while CPR was continued. Subsequent pulse checks revealed asystole repeatedly, and on bedside ultrasound was no cardiac activity. She had no respiratory effort and fixed pupils. Large amount of blood coming from ET tube, but the patient was in fact successfully intubated by the physician senior office support assistant sosa from the ICUsee separate procedure note After exhausting all possibilities and resources, keeping an account the risk of poor neurologic outcome the code was terminated see nursing flowsheet. Dr. Sotelo has been paged by the inpatient team. - Vital Signs Vital signs: Temp Pulse Resp BP Pulse Ox 97.7 F 70 20 142/75 H 95 01/29/20 16:51 01/29/20 20:19 01/29/20 20:19 01/29/20 16:51 01/29/20 20:19 - Laboratory Result Diagrams: 01/29/20 18:13 01/29/20 18:13 Laboratory results interpreted by me: 01/03/20 01/03/20 01/03/20 14:06 14:06 14:06 RDW 16.5 H Plt Count 143 L Seg Neutrophils % 79.2 H Sodium 135.5 L BUN 40 H Creatinine 1.34 H Est GFR ( Amer) 47 L Est GFR (MDRD) Non-Af 38 L Glucose 188 H Hemoglobin A1c % Calcium 10.3 H AST 118 H ALT 96 H Creatine Kinase 2539 H NT-Pro-B Natriuret Pep 2860 H Urine Protein Urine Blood 01/03/20 01/03/20 14:06 16:06 RDW Plt Count Seg Neutrophils % Sodium BUN Creatinine Est GFR ( Amer) Est GFR (MDRD) Non-Af Glucose Hemoglobin A1c % 8.8 H Calcium AST ALT Creatine Kinase NT-Pro-B Natriuret Pep Urine Protein 100 H Urine Blood SMALL H Procedures - Ultrasound/Bedside Ultrasound/Bedside Ultrasound: Normal - No cardiac activity no current pericardial effusion Critical Care Note - Critical Care Note Total time excluding time spent on procedures (mins): 71 Comments: The above patient is critically ill. Not including procedures, but including direct re-evaluations, speaking with patient and/or consultants, interpreting results, and documenting, I spent the total amount of minute listed listed above on critical care time Discharge - Discharge Clinical Impression: Elevated CK Condition: Stable Disposition: ADMITTED INPATIENT
--- NOTE | 2020-01-29 21:45 | RADIOLOGY REPORT (SQ) ---
EXAM DESCRIPTION: CT scan of the chest without contrast CLINICAL HISTORY: 74 years Female; ? Pulmonary fibrosis TECHNIQUE: CT of the chest without intravenous contrast. All CT scans at this facility use dose modulation, iterative reconstruction, and/or weight based dosing when appropriate to reduce radiation dose to as low as reasonably achievable. COMPARISON: Unenhanced CT scan of the chest 01/23/2020 FINDINGS: Chest: Lungs: Lung volumes are low. Extensive multifocal consolidation is identified bilaterally and this has progressed when compared to the previous exam. Diffuse airways thickening is unchanged. Findings are predominantly characterized by diffuse groundglass opacification and consolidation. It would be difficult to assess for mild pulmonary fibrosis. If the lung findings are not related to an infectious process in UIP, DIP, extrinsic allergic alveolitis and hypersensitivity pneumonitis cannot be excluded. Organizing pneumonia might also have this appearance. Pleura: No definitive pleural effusion or pneumothorax. Mediastinum: Four-chamber cardiac enlargement is noted and there is vascular calcifications in the thoracic aorta. The descending thoracic aorta is abnormal and there is central calcification in a horizontal manner suggesting aortic dissection. The descending thoracic aorta is enlarged and measures 4.1 cm. The dissection continues at least to the level of the diaphragm. No significant mediastinal lymphadenopathy. No pericardial abnormality. The ascending aorta does not appear to be involved. Bones: Compression fracture in the lower thoracic spine is unchanged. No acute process is seen. Upper Abdomen: Edema is present in the retroperitoneum. There may be gallstones in the gallbladder. IMPRESSION: 1. Multifocal consolidation in the lung parenchyma bilaterally suggesting worsening pneumonia. If the patient does not have pneumonia than process such as UIP, DIP, extrinsic allergic alveolitis, hypersensitivity pneumonitis and organizing pneumonia cannot be excluded. 2. Abnormal appearance of the thoracic aorta consistent with a type B aortic dissection. In addition there is aneurysmal dilatation of the descending thoracic aorta which measures 4.1 cm. 3. Four-chamber cardiac enlargement. THIS REPORT CONTAINS FINDINGS THAT MAY BE CRITICAL TO PATIENT CARE: The findings were verbally discussed via telephone conference with Dr. GLEN MILLAN MD at 8:40 PM CDT on 01/29/2020 .
[2020-01-29 22:29] VITALS: BP 141/77
--- NOTE | 2020-01-29 23:11 | Death Summary ---
Summary Date : 01/29/20 Autopsy: No - Final Diagnosis (1) Sepsis Is this a current diagnosis for this admission?: Yes (2) Nosocomial pneumonia Is this a current diagnosis for this admission?: Yes (3) Rhabdomyolysis Is this a current diagnosis for this admission?: Yes (4) Chronic kidney disease, stage 3 Is this a current diagnosis for this admission?: Yes (5) Fall Is this a current diagnosis for this admission?: Yes (6) T2DM (type 2 diabetes mellitus) Is this a current diagnosis for this admission?: Yes (7) Cerebellar infarction Is this a current diagnosis for this admission?: Yes (8) Aspiration pneumonia Is this a current diagnosis for this admission?: Yes (9) Elevated troponin Is this a current diagnosis for this admission?: Yes (10) Pleural effusion Is this a current diagnosis for this admission?: Yes (11) Pneumonia Is this a current diagnosis for this admission?: Yes (12) Acute hypoxemic respiratory failure Is this a current diagnosis for this admission?: Yes (13) Dissecting aneurysm of thoracic aorta, Romain type B Is this a current diagnosis for this admission?: Yes Hospital Course:: Patient was admitted on January 03, 2020,When she came to the emergency room for evaluation of fall, she says she fell about 1 AM, she could not get out of the floor she called rescue squad on arrival she was still found on the floor by the ambulance staff, she was transported from her residence to the emergency room for evaluation.There was no antecedent loss of consciousness, there was no chest pain there was no shortness of breath, in the emergency room she was evaluated CAT scan of the head was done there was no hemorrhage there was old right cerebellar infarct no masses the emergency room physician felt patient was dehydrated and needed to be admitted the hospital.The diagnosis on admission was rhabdomyolysis, fall, MRI of the brain was obtained because CVA was suspected as a potential etiology of the fall MRI demonstrated bilateral cerebellar infarct right more than left.On January 04 chest x-ray was obtained, it demonstrated fairly dense airspace disease in the left lung Aspiration pneumonia was suspected, she was started on IV antibiotic Unasyn to cover potential pathogens including anaerobes, gram-positive, gram-negative organisms.The telemetry strips suggest flipping right bundle branch block, abnormal EKG, troponin was drawn, elevated, chest x-ray showed worsening pneumonia. Because of the elevated troponin consultation was obtained from cardiology Dr. Shaffer, a transthoracic echo was done, it demonstrated normal-sized left ventricle moderate LVH, EF more than 25% left ventricular systolic function was normal Doppler measurement demonstrated grade 1 diastolic dysfunction of left ventricle.The sepsis marker procalcitonin was elevated, patient buttock was change to vancomycin to cover MRSA. Patient also developed acute hypoxemic respiratory failure, requiring noninvasive positive pressure ventilation BiPAP.She underwent a Cardiolite Lexiscan stress test on 01/16/2020, this was negative for acute ischemia. Patient condition radiographically continue to tolerate though clinically patient was somewhat improving the plan was to transfer the patient to group home for rehabilitation.Patient condition waxes and wanes throughout hospital stayPatient's family, sister requested a transfer to tertiary care because she was not getting better I was about to call [facility] beds at the [facility] to have a transfer to [facility] I decided to request for a CT of the chest without contrast to document the present lung condition before making a call to [facility] include [facility] beds at the [facility], the CT chest demonstrated low lung volume extensive multifocal consolidation bilaterally this was felt to have progressed when compared to the previous examination. Diffuse airway thickening unchanged findings are prominently characterized by diffuse groundglass opacification and consolidation. There was a question of pulmonary fibrosis from previous CT but on the CT it was said to be difficult to assess for pulmonary fibrosisThe differential diagnosis includes UIP, DIP, extrinsic allergic alveolitis, Hypersensitivity pneumonitis organizing pneumonia, type B aortic dissection, aneurysmal dilatation of the descending thoracic aorta which measured 4.2 cm,Unfortunately patient developed cardiac arrest in CT suit, CODE BLUE was activated but patient did not survive she . I spoke to the patient's sister about her condition and that she , I extended my condolences.
[2020-01-30] MEDS: BRIMONIDINE TARTRATE 0.2% OPH SOLN 5 ML OU SCH (00:08)
== END 2020-01-30 00:09 | DRG 564 ==
LOC: ER 13:49 → EH 16:23 → 3S 18:47
PROVIDERS: ADMIT Internal Medicine; ATTEND Internal Medicine
PROC: 06HM33Z Insertion of Infusion Device into Right Femoral Vein, Percutaneous Approach (ICD-10-PCS; principal; 2020-01-28)
DX: T79.6XXA Traumatic ischemia of muscle, initial encounter (principal); J69.0 Pneumonitis due to inhalation of food and vomit; J96.01 Acute respiratory failure with hypoxia; I71.01 Dissection of thoracic aorta; J18.9 Pneumonia, unspecified organism; A41.9 Sepsis, unspecified organism; J90 Pleural effusion, not elsewhere classified; E86.0 Dehydration; E78.5 Hyperlipidemia, unspecified; E11.22 Type 2 diabetes mellitus with diabetic chronic kidney disease; I12.9 Hypertensive chronic kidney disease with stage 1 through stage 4 chronic kidney disease, or unspecified chronic kidney disease; N18.3 Chronic kidney disease, stage 3 (moderate); Z96.641 Presence of right artificial hip joint; R79.89 Other specified abnormal findings of blood chemistry; I35.1 Nonrheumatic aortic (valve) insufficiency; Z20.828 Contact with and (suspected) exposure to other viral communicable diseases; E87.5 Hyperkalemia; W01.0XXA Fall on same level from slipping, tripping and stumbling without subsequent striking against object, initial encounter; Z79.82 Long term (current) use of aspirin; Z79.4 Long term (current) use of insulin; Z79.899 Other long term (current) drug therapy; Y95 Nosocomial condition; I69.298 Other sequelae of other nontraumatic intracranial hemorrhage; R26.81 Unsteadiness on feet; I27.20 Pulmonary hypertension, unspecified
CPT/HCPCS: 36415; 36600; 70450; 70551; 71045; 71250; 76604; 78452; 80048; 80053; 80061; 80202; 80307; 81001; 82140; 82150; 82550; 82553; 82565; 82803; 82962; 83036; 83605; 83615; 83690; 83735; 83874; 83880; 84100; 84145; 84155; 84439; 84443; 84484; 85025; 85027; 85610; 85730; 87040; 87086; 87635; 92950; 93005; 93010; 93017; 93306; 94660; 99285; A9500; C9803; J0171; J0295; J1644; J1650; J1815; J1940; J1956; J2543; J2785; J3370; J3490; J7030; J7050; J7060; Q9969